=== PATIENT | male | born 1940 | race Caucasian/White ===

== ENCOUNTER 2016-11-01 22:00 | Emergency (ER) | payer MEDICARE, MEDICAID ==
[~2016-11-01] VITALS: Ht 182.9 cm; Wt 107.0 kg
[~2016-11-01 22:00] MED LIST: ADV1DS; ALBU0.8322 IH; ARIP2TAB10 PO; ASP81CT; ASP81TEC PO; AZIT-21 PO; BUDE3CAP PO; BUDE6HFA IH; CEFD300C3 PO; CITA-105 PO; CITA20TA4 PO; CLON0.5T3 PO; CLON0.5T60 PO; CLON1TAB3 PO; CLON1TAB36 PO; CTLP20T PO; CYAN100053 IJ; CYAN10007 PO; CYAN100071 PO; DAPS100T3 PO; DILT120C; DILT120C PO; DILT120C54 PO; DILT120C85; DIOVAN HCT; DOXY100C2 PO; FLDR.1T PO; FLUD0.1T7 PO; FLUT1DIS26 IH; FURO40TA4 PO; HYDR-31; HYDR-34 PO; IPRA3AMP19 IH; KCL20TCR PO; LOSA100T16 PO; LOSA100T7 PO; MECL-105 PO; MECL-124 PO; MECL-133; METH4TAB PO; MGX400T PO; MOME0.244; MOME13HF IH; NF-ALI300T PO; OMEP-10 PO; OMEP20CA12; OMEP20CA6 PO; PNT40TEC; POTA8TAB6; POTA8TAB6 PO; PRD20T PO; PROP1TAB77 PO; SRTR100T PO; TEMA15CA54 PO; TEMA30CA PO; TIOT18CA IH; TMZP15C PO; VALS320T8 PO; nascobal
[2016-11-01] MEDS ORDERED: UMEC62.5 IH (22:15)
[2016-11-01] MEDS ORDERED: FLUT1DIS26 IH (22:15)
[2016-11-01] MEDS ORDERED: ATOR10TA66 PO (22:15)
[2016-11-01] MEDS ORDERED: RT-ALBUTEROL/IPRATROPIUM 3 ML (DUONEB) VIAL INH ONE (22:15)
[2016-11-01 22:26] LABS: BASOPHILS % (AUTO) 1 % (0-10); EOSINOPHILS # (AUTO) 0.5 10^3/uL (0.0-0.3); EOSINOPHILS % (AUTO) 7 % (0-10); LYMPHOCYTES # (AUTO) 2.1 X 10^3 (1.0-4.0); LYMPHOCYTES % (AUTO) 26 % (12-44); MEAN CORPUSCULAR HEMOGLOBIN 30 PG (25-34); MEAN CORPUSCULAR HGB CONC 36 G/DL (32-36); MEAN CORPUSCULAR VOLUME 84 FL (80-99); MEAN PLATELET VOLUME 9.9 FL (7.4-10.4); MONOCYTES # (AUTO) 0.6 X 10^3 (0.0-1.0); MONOCYTES % (AUTO) 7 % (0-12); NEUTROPHILS # (AUTO) 4.8 X 10^3 (1.8-7.8); NEUTROPHILS % (AUTO) 60 % (42-75); PLATELET COUNT 191 10^3/uL (130-400); RED BLOOD COUNT 5.09 10^6/uL (4.35-5.85); RED CELL DISTRIBUTION WIDTH 13.1 % (10.0-14.5); WHITE BLOOD COUNT 8.1 10^3/uL (4.3-11.0)
[2016-11-01 22:43] LABS: ALANINE AMINOTRANSFERASE 28 U/L (0-55); ANION GAP 10 MMOL/L (5-14); ASPARTATE AMINO TRANSFERASE 17 U/L (5-34); BILIRUBIN,TOTAL 0.6 MG/DL (0.1-1.0); BLOOD UREA NITROGEN 25 MG/DL (7-18); BUN/CREATININE RATIO 25; CALCIUM 8.9 MG/DL (8.5-10.1); CARBON DIOXIDE 22 MMOL/L (21-32); CHLORIDE 108 MMOL/L (98-107); GFR ESTIMATED > 60; GLUCOSE 203 MG/DL (70-105); POTASSIUM 3.4 MMOL/L (3.6-5.0); SODIUM 140 MMOL/L (135-145); TOTAL PROTEIN 6.9 G/DL (6.4-8.2)
[2016-11-02] MEDS ORDERED: NS 100 ML (IVPB) BAG IV ONE
[2016-11-02] MEDS ORDERED: IOHEXOL 350 MG/ML 100 ML (OMNIPAQUE 350) VIAL IV ONE
[2016-11-02] MEDS ORDERED: NYSTATIN ORAL SUSP 5 ML UDC PO ONE (00:30)
[2016-11-02] MEDS ORDERED: FLUCONAZOLE 150 MG TABLET (ED ONLY) ONE (00:39)
[2016-11-02] MEDS ORDERED: FAMOTIDINE 20MG/2ML IV (PEPCID) IVP ONE (00:45)
[2016-11-02] MEDS ORDERED: NYST1000 PO (01:23)
--- NOTE | 2016-11-02 01:24 | ED General ---
General Chief Complaint: Oral/Throat Problems Stated Complaint: RASH,DIFFICULTY SWALLOWING Nursing Triage Note: PT C/O WORSENING DIFFICULTY SWALLOWING OVER THE PAST 3-4 DAYS. Nursing Sepsis Screen: No Definite Risk Source of Information: Patient Exam Limitations: No Limitations History of Present Illness Time Seen by Provider: 22:04 Initial Comments This 76-year-old gentleman presents to the emergency room with complaints of difficulty swallowing for about 4 days. He has recently been treated for a petechial rash on his chest and neck. He had been on antibiotics and oral prednisone which he completed about one week ago. His treatment course was then changed to topical medications. He denies any pain in the chest or with swallowing but he continues to have difficulty swallowing which is getting worse. There is no differentiation between liquids or solids. Patient was asked to drink a small cup of water in the exam room which he performed without difficulty. However, he maintains he has the sensation of difficulty swallowing , even when swallowing his saliva. Allergies and Home Medications Allergies Coded Allergies: NKANo Known Allergies (Unverified Allergy, Unknown, 09/19/06) Home Medications Albuterol Sulfate 2.5 Mg/3 Ml Solution 2.5 MG IH QID PRN PRN SHORTNESS OF BREATH (Reported) NEEDED FOR SHORTNESS OF BREATH Albuterol Sulfate/Ipratropium 3 Ml Solution 3 ML IH Q4H PRN PRN SHORTNESS OF BREATH (Reported) NEEDED FOR SHORTNESS OF BREATH Aspirin 81 Mg Tabec 81 MG PO , , MONDAY (Reported) Atorvastatin Calcium 10 Mg Tablet 10 MG PO DAILY (Reported) Clonazepam 0.5 Mg Tablet 1 MG PO HS (Reported) Cyanocobalamin 1,000 Mcg Tablet.sa 1,000 MCG PO DAILY (Reported) Fluticasone/Salmeterol 1 Each Blst.w.dev 1 EACH IH BID (Reported) Losartan Potassium 100 Mg Tablet 50 MG PO HS (Reported) TAKES 1/2 (100MG) TABLET DAILY Nystatin 100,000 Unit/1 Ml Oral.susp #150 5 ML PO QID Prescribed by: EDDIE HAWTHORNE on 11/02/16 0123 Omeprazole 20 Mg Capsule.dr 20 MG PO BID (Reported) Sertraline Hcl 100 Mg Tab 100 MG PO BID (Reported) Umeclidinium [place] 62.5 Mcg Blst.w.dev 62.5 MCG IH DAILY (Reported) Constitutional: no symptoms reported EENTM: see HPI Respiratory: no symptoms reported Cardiovascular: no symptoms reported Gastrointestinal: no symptoms reported Genitourinary: no symptoms reported Musculoskeletal: no symptoms reported Skin: see HPI Psychiatric/Neurological: No Symptoms Reported Hematologic/Lymphatic: No Symptoms Reported Past Tbegzec-Xswvyj-Omlryd Hx Patient Social History Alcohol Use: Past History Recreational Drug Use: No (QUIT 35 YRS AGO) Smoking Status: Former Smoker Recent Foreign Travel: No Contact w/Someone Who Travel: No Recent Infectious Disease Expo: No Recent Hopitalizations: Yes Physical Abuse Screen: No Sexual Abuse: No Immunizations Up To Date Tetanus Booster (TDap): Less than 5yrs Date of Pneumonia Vaccine: Aug 15, 2011 Date of Influenza Vaccine: Jul 25, 2016 Seasonal Allergies Seasonal Allergies: No Surgeries HX Surgeries: Yes (BILAT KNEE REPLACEMENTS, right ankle surg, RT HAND CARPAL TUNNEL ) Surgeries: Orthopedic Respiratory Hx Respiratory Disorders: Yes (quit smoking 40yrs. ago) Respiratory Disorders: Asthma, COPD Cardiovascular Hx Cardiac Disorders: Yes (see's Dr. Miner) Cardiac Disorders: Hypertension, Hypotension Neurological Hx Neurological Disorders: Yes Neurological Disorders: Vertigo Reproductive System Hx Reproductive Disorders: No Sexually Transmitted Disease: No HIV/AIDS: No Genitourinary Hx Genitourinary Disorders: No Gastrointestinal Hx Gastrointestinal Disorders: Yes Gastrointestinal Disorders: Gastroesophageal Reflux Musculoskeletal Hx Musculoskeletal Disorders: Yes (ROSY. TKR) Musculoskeletal Disorders: Arthritis Endocrine Hx Endocrine Disorders: Yes Endocrine Disorders: Diabetes, Non-Insulin dep HEENT HX ENT Disorders: Yes (BILAT CARTARACTS REMOVED) HEENT Disorders: Cataract Loss of Vision: Denies Hearing Impairment: Denies Cancer Hx Cancer: No Psychosocial Hx Psychiatric Problems: Yes Behavioral Health Disorders: Depression Integumentary HX Skin/Integumentary Disorder: No Blood Transfusions Hx Blood Disorders: No Adverse Reaction to a Blood Tr: No Family Medical History Family Medial History: Alcoholism 09 SISTER Family history: Asthma 09 SISTER Family history: Cardiovascular disease 03 FATHER Family history: Diabetes mellitus 03 MOTHER 09 SISTER Heart disease 03 FATHER Myocardial infarction 03 FATHER Stroke 03 FATHER No Family History of: Abdominal aortic aneurysm Berks's disease Aphasia Cancer Cancer of colon Cataract Chest pain Congenital heart disease Congestive heart failure Cystic fibrosis Dementia Dysphagia Family history: Allergy Family history: Alzheimer's disease Family history: Arthritis Family history: Breast disease Family history: Gastrointestinal disease Family history: Glaucoma Family history: Hypertension Family history: Osteoporosis Family history: Thyroid disorder Headache Hearing loss History of - anemia History of - disorder History of - respiratory disease History of drug abuse Human immunodeficiency virus (HIV) seropositivity Hypercholesterolemia Infertile Kidney disease Malignant neoplasm of lung Parkinson's disease Prostate cancer Psychotic disorder Seizure disorder Tuberculosis Visual impairment Physical Exam Vital Signs Vital Sign - Last 12Hours 11/01/16 11/01/16 22:07 22:17 Temp 98.7 Pulse 73 Resp 18 B/P 162/103 Pulse Ox 98 O2 Delivery Room Air Capillary Refill : Less Than 3 Seconds General Appearance: WD/WN Mild Distress HEENT: PERRL/EOMI Normal ENT Inspection Pharynx Normal Neck: Normal Inspection Non Tender Supple Respiratory: Lungs Clear Normal Breath Sounds No Accessory Muscle Use No Respiratory Distress Cardiovascular: Regular Rate, Rhythm No Edema Normal Peripheral Pulses Gastrointestinal: Normal Bowel Sounds Non Tender Soft Extremity: Normal Inspection No Pedal Edema Neurologic/Psychiatric: Alert Oriented x3 No Motor/Sensory Deficits Normal 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 Norm as Tested Skin: Normal Color Warm/Dry Progress/Results/Core Measures Results/Orders Lab Results Laboratory Tests Test 11/01/16 22:20 Range/Units Alanine Aminotransferase (ALT/SGPT) 28 0-55 U/L Albumin 4.0 3.2-4.5 G/DL Alkaline Phosphatase 56 40-136 U/L Anion Gap 10 5-14 MMOL/L Aspartate Amino Transf (AST/SGOT) 17 5-34 U/L BUN/Creatinine Ratio 25 Basophils # (Auto) 0.0 0.0-0.1 10^3/uL Basophils (%) (Auto) 1 0-10 % Blood Urea Nitrogen 25 H 7-18 MG/DL C-Reactive Protein High Sensitivity 0.30 0.00-0.50 MG/DL Calcium Level 8.9 8.5-10.1 MG/DL Carbon Dioxide Level 22 21-32 MMOL/L Chloride Level 108 H 98-107 MMOL/L Creatinine 1.00 0.60-1.30 MG/DL Eosinophils # (Auto) 0.5 H 0.0-0.3 10^3/uL Eosinophils (%) (Auto) 7 0-10 % Estimat Glomerular Filtration Rate > 60 Glucose Level 203 H 70-105 MG/DL Hematocrit 43 40-54 % Hemoglobin 15.2 13.3-17.7 G/DL Lymphocytes # (Auto) 2.1 1.0-4.0 X 10^3 Lymphocytes (%) (Auto) 26 12-44 % Mean Corpuscular Hemoglobin 30 25-34 PG Mean Corpuscular Hemoglobin Concent 36 32-36 G/DL Mean Corpuscular Volume 84 80-99 FL Mean Platelet Volume 9.9 7.4-10.4 FL Monocytes # (Auto) 0.6 0.0-1.0 X 10^3 Monocytes (%) (Auto) 7 0-12 % Neutrophils # (Auto) 4.8 1.8-7.8 X 10^3 Neutrophils (%) (Auto) 60 42-75 % Platelet Count 191 130-400 10^3/uL Potassium Level 3.4 L 3.6-5.0 MMOL/L Red Blood Count 5.09 4.35-5.85 10^6/uL Red Cell Distribution Width 13.1 10.0-14.5 % Sodium Level 140 135-145 MMOL/L Total Bilirubin 0.6 0.1-1.0 MG/DL Total Protein 6.9 6.4-8.2 G/DL White Blood Count 8.1 4.3-11.0 10^3/uL My Orders Orders-EDDIE ROCA MD Cbc With Automated Diff (11/01/16 22:12) Comprehensive Metabolic Panel (11/01/16 22:12) Hs C Reactive Protein (11/01/16 22:12) Saline Lock/Iv-Start (11/01/16 22:12) Chest Pa/Lat (2 View) (11/01/16 22:12) Albuterol/Ipra Inhalation Soln (Duoneb I (11/01/16 22:15) Svn Sm Volume Nebulizer Rt-Rfs (11/01/16 22:12) Ct Neck/Chest W (11/01/16 23:10) Iohexol Injection (Omnipaque 350 Mg/Ml 1 (11/02/16 00:00) Ns (Ivpb) (Sodium Chloride 0.9% Ivpb Bag (11/02/16 00:00) Fluconazole Tablet (Ed Only) (Diflucan T (11/02/16 09:00) Nystatin Oral Suspension (Mycostatin O (11/02/16 00:30) Famotidine Injection (Pepcid Injection) (11/02/16 00:45) Fluconazole Tablet (Ed Only) (Diflucan T (11/02/16 00:39) Medications Given in ED Current Medications Medications Dose Ordered Sig/Yaya Route Start Time Stop Time Status Last Admin Dose Admin Albuterol/ Ipratropium 3 ml ONCE ONCE INH 11/01/16 22:15 11/01/16 22:16 DC 11/01/16 22:17 3 ML Famotidine 20 mg ONCE ONCE IVP 11/02/16 00:45 11/02/16 00:46 DC 11/02/16 00:48 20 MG Iohexol 100 ml ONCE ONCE IV 11/02/16 00:00 11/02/16 00:01 DC 11/01/16 23:53 75 ML Nystatin 5 ml ONCE ONCE PO 11/02/16 00:30 11/02/16 00:31 DC 11/02/16 00:47 5 ML Sodium Chloride 100 ml ONCE ONCE IV 11/02/16 00:00 11/02/16 00:01 DC 11/01/16 23:53 80 ML Vital Signs/I&O Vital Sign - Last 12Hours 11/01/16 11/01/16 11/02/16 22:07 22:17 01:30 Temp 98.7 Pulse 73 64 Resp 18 16 B/P 162/103 Pulse Ox 98 95 O2 Delivery Room Air Room Air Blood Pressure Mean: 122 Progress Note : Progress Note Options were discussed with the patient including empiric treatment for possible esophageal candidiasis given the recent use of prednisone and antibiotics in the context of diabetes versus imaging of the neck and chest to evaluate for structural pathology. Patient elects CT scan. There was layering in the esophagus. This was perhaps related to acid reflux or other pathologic process within the esophagus. patient was empirically treated with Diflucan and nystatin swish and swallow. He was advised to increase his omeprazole to twice daily. He was advised that if these conservative measures do not improve his symptoms, he should seek endoscopy and possible swallow eval. Diagnostic Imaging Diagonstic Imaging: CT Plain Films/CT/US/NM/MRI: chest, other (neck soft tissues) Comments Report of CT of the chest and soft tissues of the neck was reviewed. In the neck there were multilevel degenerative changes no other acute abnormalities were identified. In the chest there was small fluid layering in the esophagus which may relate to gastroesophageal reflux or delayed esophageal emptying. There was no evidence of masses. Lungs were clear. Diagonstic Imaging: Xray Plain Films/CT/US/NM/MRI: chest Comments Chest x-ray viewed by me. Report not yet available. No acute abnormalities were appreciated. Departure Impression Impression: Primary Impression: Esophagitis Additional Impression: Dysphagia Qualified Code: R13.10 - Dysphagia, unspecified Disposition: HOME, SELF-CARE Condition: Improved Departure-Patient Inst. Decision time for Depature: 01:00 Referrals: ENRRIQUE JALLOH DO (PCP/Family) Primary Care Physician Patient Instructions: NO INSTRUCTIONS GIVEN Add. Discharge Instructions: Take omeprazole 20 mg twice daily until otherwise instructed by your doctor. Use the nystatin medication for at least one week. Follow-up with your primary care provider soon as possible. If symptoms do not resolve with nystatin, you should have upper endoscopy performed. Return to the ER if symptoms worsen. All discharge instructions reviewed with patient and/or family. Voiced understanding. Scripts Nystatin 100,000 Unit/1 Ml Oral.susp5 Ml PO QID #150 ML Prov:EDDIE ROCA MD 11/02/16 Copy Copies To 1: ENRRIQUE JALLOH JOSHUA T MD Nov 02, 2016 01:24
[2016-11-02 01:30] VITALS: BP 141/81
--- NOTE | 2016-11-02 08:17 | Diagnostic Imaging Report ---
EXAMINATION: PA and lateral views of the chest. INDICATION: Difficulty swallowing. FINDINGS: There are low lung volumes seen. No focal consolidation. The heart size is at the upper limits of normal. No effusion or pneumothorax. Mediastinum and elise appear unremarkable. IMPRESSION: Low lung volumes. Dictated by: Dictated on workstation # [id number]
[2016-11-02] MEDS ORDERED: FLUCONAZOLE 150 MG TABLET (ED ONLY) PO SCH (09:00)
--- NOTE | 2016-11-02 09:06 | Diagnostic Imaging Report ---
EXAMINATION: CT neck and chest. INDICATION: Difficulty swallowing. 75 mL of Omnipaque 350 is administered intravenously. FINDINGS: CT NECK: The mucosal pharyngeal space appear symmetric. Symmetric vocal cords seen. The thyroid gland appears unremarkable. The submandibular and parotid glands appear unremarkable. There is tortuosity of the internal carotid arteries with retropharyngeal course seen bilaterally with their most prominent medial location along the lower aspect of the oropharynx. There are prominent multilevel anterior osteophytes in the cervical spine including C5/C6 level osteophytes eccentric to the left which has an impression upon the proximal esophagus. It is uncertain if this contributes to the patient's symptoms. The visualized portions of the paranasal sinuses demonstrate mild mucosal thickening in the ethmoidal air cells and the inferior aspect of the maxillary sinuses. The lymph node chain demonstrates no significantly enlarged nodes on either side. CT CHEST: There is no significant consolidation, or mass seen. There is an indeterminate 4 mm nodule seen in the right upper lobe image 25. This is stable from 11/19/2009 with no significant change. The heart size is normal. The thoracic aorta is normal in caliber. No para-aortic significantly enlarged lymph node is seen. No mediastinal or hilar lymphadenopathy. No mediastinal lymphadenopathy is seen. No pericardial or pleural effusion. There is a small amount of fluid layering in the mid esophagus. This could be related to reflux or incomplete emptying. No dilatation or evidence of obstruction. Sections in the upper abdomen demonstrate no definite abnormality. The osseous structures demonstrate mild degenerative changes and anterior osteophytes in the thoracic spine. IMPRESSION: CT NECK: Prominent anterior osteophytes at C5/6 level which has an impression upon the proximal esophagus. It is uncertain if this is contributing to patient's symptoms. Incidental note of a tortuous retropharyngeal course of the internal carotid arteries bilaterally. CT CHEST: Small amount of fluid in the mid esophagus with no abnormal dilatation seen. This might relate to reflux or incomplete emptying. No significant abnormality seen otherwise. This reading agrees with the [facility] report. Dictated by: Dictated on workstation # [id number]
== END 2016-11-02 01:30 | disposition home or self-care (01) ==
LOC: EDUNIT# 22:00 → ER 22:01
DX: K20.9 Esophagitis, unspecified (principal); E11.9 Type 2 diabetes mellitus without complications; I10 Essential (primary) hypertension; J44.9 Chronic obstructive pulmonary disease, unspecified; Z79.82 Long term (current) use of aspirin; Z79.899 Other long term (current) drug therapy
CPT/HCPCS: 36415; 70491; 71020; 71260; 80053; 85025; 86141; 94640; 96374

== ENCOUNTER → 2016-11-18 | Outpatient (CLI) | payer MEDICARE, MEDICAID ==
[~2016-11-18] MED LIST changes: +ATOR10TA66 PO; +NYST1000 PO; +UMEC62.5 IH
--- OUTSIDE RECORDS SUMMARY | 2016-11-18 10:16 | XMS REPORT | Continuity of Care Document ---
Author Author [facility] Organization [facility] Address Unknown Phone Unavailable Care Team Providers Care Chute Operator Name Role Phone ENRRIQUE JALLOH DO PCP Insurance Providers Payer Name Policy Number Subscriber Name Relationship [employer] Medicare [id number] Ramos Cody 18 Self / Same As Patient [facility] [employer] [id number] Christina Cody 18 Self / Same As Patient Advance Directives Directive Response Recorded Date/Time Advance Directives No 11/01/16 10:09pm Health Care Power of Children'S Minister No 11/01/16 10:09pm Organ Donor No 11/01/16 10:09pm Resuscitation Status DNR-Pt Request 11/01/16 10:09pm Chief Complaint and Reason for Visit Chief Complaint Oral/Throat Problems Reason for Visit Dysphagia Esophagitis Problems Active Problems Medical Problem Onset Date Status COPD Exacerbation Unknown Acute Dysphagia Unknown Acute Esophagitis Unknown Acute Generalized weakness Unknown Acute Vertigo Unknown Acute Medications Current Home Medications Medication Dose Units Route Directions Days/Qty Instructions Start Date Cyanocobalamin 1,000 Mcg 1,000 Mcg Oral Daily 11/19/09 Aspirin 81 Mg 81 Mg Oral , , Monday11/20/09 Omeprazole 20 Mg 20 Mg Oral Twice A Day 01/28/12 Losartan Potassium 100 Mg 50 Mg Oral Bedtime TAKES 1/2 (100MG) TABLET DAILY 01/14/13 Clonazepam (Klonopin) 0.5 Mg 1 Mg Oral Bedtime 10/28/13 Albuterol Sulfate 2.5 Mg/3 Ml 2.5 Mg Inhalation Four Times Daily as needed for Shortness Of Breath NEEDED FOR SHORTNESS OF BREATH 10/28/13 Sertraline Hcl 100 Mg 100 Mg Oral Twice A Day 10/28/13 Albuterol Sulfate/Ipratropium 3 Ml 3 Ml Inhalation Every 4HRS as needed for Shortness Of Breath NEEDED FOR SHORTNESS OF BREATH 12/19/13 Umeclidinium [place] 62.5 Mcg 62.5 Mcg Inhalation Daily 11/01/16 Fluticasone/Salmeterol 1 Each 1 Each Inhalation Twice A Day 11/01/16 Atorvastatin Calcium 10 Mg 10 Mg Oral Daily 11/01/16 Nystatin 100,000 Unit/1 Ml 5 Ml Oral Four Times Daily 150 11/02/16 Past Home Medications Medication Directions Ordered Status Acetaminophen/Hydrocodone Bitart 1 Ea Tab, 09/19/06 Discontinued Pantoprazole Sodium 40 Mg Tablet., 09/19/06 Discontinued Omeprazole 20 Mg Capsule., 08/28/07 Discontinued [Diovan Hct 320/25MG] , 08/28/07 Discontinued Aspirin 81 Mg Tablet, 08/28/07 Discontinued Salmeterol Xinafoate/Fluticasone 250 Mcg/50 Mcg Inh, 08/28/07 Discontinued Potassium Chloride 8 Meq Tablet.sa, 05/30/09 Discontinued Diltiazem Hcl (Tiazac) 120 Mg Capsule.sa, 05/30/09 Discontinued Meclizine Hcl 25 Mg Tab.chew, 05/30/09 Discontinued Potassium Chloride 20 Meq Tabsr, 2 Tab Oral Twice A Day 11/19/09 Discontinued Mometasone Furoate 0.24 Gm Aer.pow.ba, 11/19/09 Discontinued Magnesium Oxide 400 Mg Tab, 400 Mg Oral Daily 11/19/09 Discontinued Omeprazole 20 Mg Capsule., 40 Mg Oral Daily 11/20/09 Discontinued Valsartan 320 Mg Tablet, 1 Each Oral Daily 11/20/09 Discontinued Diltiazem Hcl (Cardizem Cd) 120 Mg Cap.sr.24h, 11/20/09 Discontinued Diltiazem Hcl (Cardizem Cd) 120 Mg Cap.sr.24h, 1 Each Oral Twice A Day Discontinued Meclizine Hcl 25 Mg Tab, 1 Tab Oral Twice A Day 11/20/09 Discontinued [place] Hemifumarate 300 Mg Tab, 300 Mg Oral Daily 08/11/10 Discontinued Budesonide 3 Mg Cap.sr.24h, 1 Oral Daily 08/11/10 Discontinued Losartan Potassium 100 Mg Tablet, 100 Mg Oral Daily 08/11/10 Discontinued Furosemide (Lasix) 40 Mg Tablet, 40 Mg Oral Daily 08/11/10 Discontinued Propoxyphene Hcl/Acetaminophen 1 Tab Tablet, 1 Each Oral Q 4 - 6 Hrs Prn as needed 08/11/10 Discontinued Budesonide/Formoterol Fumarate 10.2 Gm Hfa.aer.ad, 10.2 Gm Inhalation Twice A Day 11/22/10 Discontinued Potassium Chloride 8 Meq Tablet.sa, 16 Meq Oral Twice A Day 11/22/10 Discontinued Tiotropium [place] 1 Inh Aerp, 1 Cap Inhalation Daily 11/24/10 Discontinued Clonazepam 1 Mg Tablet, 1 Each Oral Twice A Day 12/08/11 Discontinued Citalopram Hydrobromide 40 Mg Tablet, 40 Mg Oral Daily 12/08/11 Discontinued Temazepam 30 Mg Capsule, 30 Mg Oral Bedtime 12/08/11 Discontinued Meclizine Hcl 25 Mg Tab, 1 Tab Oral Four Times Daily 12/08/11 Discontinued [Nascobal] , 1 [place] Nasal Weekly 12/08/11 Discontinued Cyanocobalamin 1,000 Mcg Tablet.sa, 1 Tab Oral Daily 01/28/12 Discontinued Citalopram Hydrobromide 20 Mg Tablet, 1 Tab Oral Bedtime 01/28/12 Discontinued Losartan Potassium 100 Mg Tablet, 50 Mg Oral Daily 05/24/12 Discontinued Dapsone 100 Mg Tab, 100 Mg Oral Daily 05/24/12 Discontinued Fludrocortisone Acetate 0.1 Mg Tablet, 0.1 Mg Oral Daily 08/07/12 Discontinued Prednisone 20 Mg Tab, 20 Mg Oral Twice A Day 08/10/12 Discontinued Azithromycin (Zpak) 250 Mg Tab, 0 Oral Z-Dale 08/10/12 Discontinued Cyanocobalamin (Vitamin B-12) 1,000 Mcg Tablet.er, 1000 Mcg Oral 10/23/12 Discontinued Meclizine Hcl 25 Mg Tablet, 25 Mg Oral Twice A Day 10/23/12 Discontinued Temazepam 15 Mg Capsule, 1 Cap Oral Bedtime 10/23/12 Discontinued Salmeterol Xinafoate/Fluticasone 1 Disk Inhp, 1 Puff Inhalation Twice A Day 01/14/13 Discontinued Clonazepam 1 Mg Tablet, 1 Each Oral Twice A Day 01/14/13 Discontinued Citalopram Hydrobromide 40 Mg Tablet, 40 Mg Oral Daily 01/14/13 Discontinued Fludrocortisone Acetate 0.1 Mg Tab, 0.1 Mg Oral Daily 01/14/13 Discontinued Citalopram Hydrobromide 20 Mg Tablet, 20 Mg Oral Bedtime 01/16/13 Discontinued Clonazepam (Klonopin 0.5 Mg) 0.5 Mg/Tab Tab.rapdis, 0.5 Mg Oral Twice A Day 01/16/13 Discontinued Prednisone 20 Mg Tab, 20 Mg Oral Twice A Day 01/16/13 Discontinued Methylprednisolone 4 Mg/Dose-Pack Tab.ds.pk, 0 Oral As Directed 10/28/13 Discontinued Aripiprazole 2 Mg Tablet, 2 Mg Oral Daily 10/28/13 Discontinued Temazepam 15 Mg Capsule, 15 Mg Oral Bedtime as needed for Sleep 10/28/13 Discontinued Mometasone/Formoterol 13 Gm Hfa.aer.ad, 2 Puff Inhalation Twice A Day Discontinued Cyanocobalamin (Vitamin B 12 Injecting) 1,000 Mcg/Ml Vial, 1000 Mcg Injection Monthly 10/28/13 Discontinued Azithromycin (Zpak) 250 Mg Tab, 2 Tab Oral Today 10/30/13 Discontinued Cefdinir (Omnicef) 300 Mg Capsule, 2 Each Oral Daily 10/30/13 Discontinued Prednisone 20 Mg Tab, 20 Mg Oral Twice A Day 10/30/13 Discontinued Albuterol Sulfate/Ipratropium 3 Ml Solution, 3 Ml Inhalation Every 4HRS 12/13 Discontinued Prednisone 20 Mg Tab, 40 Mg Oral Daily 12/13/13 Discontinued Doxycycline Hyclate (Vibramycin) 100 Mg Capsule, 1 Each Oral Twice A Day Discontinued Prednisone 20 Mg Tab, 20 Mg Oral Twice A Day 12/20/13 Discontinued Social History Social History Problem Response Recorded Date/Time Alcohol Use Denies Use 09/02/2015 12:50pm Recreational Drug Use No 09/02/2015 12:50pm Recent Foreign Travel No 12/18/2013 3:50pm Recent Infectious Disease Exposure No 12/18/2013 3:50pm Hospitalization with Isolation Denies 12/20/2013 11:09am Sexually Transmitted Disease No 11/01/2016 10:09pm HIV/AIDS No 11/01/2016 10:09pm Smoking Status Former Smoker 11/01/2016 10:09pm Do you dip or chew tobacco? No 09/02/2015 12:50pm Recent Hopitalizations Yes 11/01/2016 10:09pm Sexually Transmitted Disease No 11/01/2016 10:09pm Hospitalization with Isolation Denies 12/20/2013 11:09am Query Response Start Date Stop Date Smoking Status Former Smoker Hospital Discharge Instructions No hospital discharge instructions. Plan of Care Discharge Date 11/02/16 1:30am Disposition 01 HOME, SELF-CARE Condition at Discharge Improved Instructions/Education Provided NO INSTRUCTIONS GIVEN Prescriptions See Medication Section Referrals ENRRIQUE JALLOH DO - Primary Care Physician Additional Instructions/Education Take omeprazole 20 mg twice daily until otherwise instructed by your doctor. Use the nystatin medication for at least one week. Follow-up with your primary care provider soon as possible. If symptoms do not resolve with nystatin, you should have upper endoscopy performed. Return to the ER if symptoms worsen. All discharge instructions reviewed with patient and/or family. Voiced understanding. Functional Status No functional status results. Allergies, Adverse Reactions, Alerts Allergen Type Severity Reaction Status Last Updated NKANo Known Allergies Allergy Unknown Active 09/19/06 Immunizations No immunization records. Vital Signs Acute Vital Signs Vital Response Date/Time Temperature (Fahrenheit) 98.7 degrees F (97.6 - 99.5) 11/01/2016 10:07pm Temperature (Calculated Celsius) 37.28493 degrees C (36.4 - 37.5) 11/01/2016 10:07pm Temperature Source Tympanic 11/01/2016 10:07pm Pulse Rate (adult) 64 bpm (60 - 90) 11/02/2016 1:30am Respiratory Rate 16 bpm (12 - 24) 11/02/2016 1:30am O2 Sat by Pulse Oximetry 95 % (88 - 100) 11/02/2016 1:30am Blood Pressure 141/81 mm Hg 11/02/2016 1:30am Blood Pressure Mean 122 mm Hg 11/01/2016 10:07pm Pain Numeric Pain Scale 0-No Pain 11/02/2016 1:30am Height (Feet) 6 feet 11/01/2016 10:07pm Height (Calculated Centimeters) 182.149030 cm 11/01/2016 10:07pm Weight (Pounds) 236 pounds 11/01/2016 10:07pm Weight (Calculated Kilograms) 107.661836 kilograms 11/01/2016 10:07pm Capillary Refill Capillary Refill Less Than 3 Seconds 11/01/2016 10:07pm Height 6 ft 0 in Weight 236 lb Body Mass Index 32.0 kg/m^2 Results Laboratory Results Test Name Result Units Flags Reference Collection Date/Time Result Date/ Time Comments White Blood Count 8.1 10^3/uL 4.3-11.0 11/01/2016 10:20pm 11/01/2016 10 :27pm Red Blood Count 5.09 10^6/uL 4.35-5.85 11/01/2016 10:20pm 11/01/2016 10 :27pm Hemoglobin 15.2 G/DL 13.3-17.7 11/01/2016 10:20pm 11/01/2016 10:27pm Hematocrit 43 % 40-54 11/01/2016 10:20pm 11/01/2016 10:27pm Mean Corpuscular Volume 84 FL 80-99 11/01/2016 10:20pm 11/01/2016 10: 27pm Mean Corpuscular Hemoglobin 30 PG 25-34 11/01/2016 10:20pm 11/01/2016 10:27pm Mean Corpuscular Hemoglobin Concent 36 G/DL 32-36 11/01/2016 10:20pm 10:27pm Red Cell Distribution Width 13.1 % 10.0-14.5 11/01/2016 10:20pm 2016 10:27pm Platelet Count 191 10^3/uL 130-400 11/01/2016 10:20pm 11/01/2016 10: 27pm Mean Platelet Volume 9.9 FL 7.4-10.4 11/01/2016 10:20pm 11/01/2016 10: 27pm Neutrophils (%) (Auto) 60 % 42-75 11/01/2016 10:20pm 11/01/2016 10: 27pm Lymphocytes (%) (Auto) 26 % 12-44 11/01/2016 10:20pm 11/01/2016 10: 27pm Monocytes (%) (Auto) 7 % 0-12 11/01/2016 10:20pm 11/01/2016 10:27pm Eosinophils (%) (Auto) 7 % 0-10 11/01/2016 10:20pm 11/01/2016 10:27pm Basophils (%) (Auto) 1 % 0-10 11/01/2016 10:20pm 11/01/2016 10:27pm Neutrophils # (Auto) 4.8 X 10^3 1.8-7.8 11/01/2016 10:20pm 11/01/2016 10:27pm Lymphocytes # (Auto) 2.1 X 10^3 1.0-4.0 11/01/2016 10:20pm 11/01/2016 10:27pm Monocytes # (Auto) 0.6 X 10^3 0.0-1.0 11/01/2016 10:20pm 11/01/2016 10: 27pm Eosinophils # (Auto) 0.5 10^3/uL H 0.0-0.3 11/01/2016 10:20pm 11/01/2016 10:27pm Basophils # (Auto) 0.0 10^3/uL 0.0-0.1 11/01/2016 10:20pm 11/01/2016 10 :27pm Sodium Level 140 MMOL/L 135-145 11/01/2016 10:20pm 11/01/2016 10:45pm Potassium Level 3.4 MMOL/L L 3.6-5.0 11/01/2016 10:20pm 11/01/2016 10: 45pm Chloride Level 108 MMOL/L H 98-107 11/01/2016 10:20pm 11/01/2016 10:45pm Carbon Dioxide Level 22 MMOL/L 21-32 11/01/2016 10:20pm 11/01/2016 10: 45pm Anion Gap 10 MMOL/L 5-14 11/01/2016 10:20pm 11/01/2016 10:45pm Blood Urea Nitrogen 25 MG/DL H 7-18 11/01/2016 10:20pm 11/01/2016 10: 45pm Creatinine 1.00 MG/DL 0.60-1.30 11/01/2016 10:20pm 11/01/2016 10:45pm BUN/Creatinine Ratio 25 11/01/2016 10:20pm 11/01/2016 10:45pm Estimat Glomerular Filtration Rate > 60 11/01/2016 10:20pm 2016 10:45pm GFR INTERPRETIVE DATA UNITS FOR ESTIMATED GFR (eGFR): mL/min/1.73 M2 REFERENCE RANGE FOR ESTIMATED GFR (eGFR) eGFR NORMAL eGFR >60 MODERATELY DECREASED eGFR 30-59 SEVERLY DECREASED eGFR 15-29 KIDNEY FAILURE <15 (OR DIALYSIS) Glucose Level 203 MG/DL H 70-105 11/01/2016 10:20pm 11/01/2016 10:45pm Calcium Level 8.9 MG/DL 8.5-10.1 11/01/2016 10:20pm 11/01/2016 10:45pm Total Bilirubin 0.6 MG/DL 0.1-1.0 11/01/2016 10:20pm 11/01/2016 10: 45pm Alkaline Phosphatase 56 U/L 40-136 11/01/2016 10:20pm 11/01/2016 10: 45pm Aspartate Amino Transf (AST/SGOT) 17 U/L 5-34 11/01/2016 10:20pm 2016 10:45pm Alanine Aminotransferase (ALT/SGPT) 28 U/L 0-55 11/01/2016 10:20pm 07/2017 10:45pm Total Protein 6.9 G/DL 6.4-8.2 11/01/2016 10:20pm 11/01/2016 10:45pm Albumin 4.0 G/DL 3.2-4.5 11/01/2016 10:20pm 11/01/2016 10:45pm C-Reactive Protein High Sensitivity 0.30 MG/DL 0.00-0.50 11/01/2016 10: 20pm 11/01/2016 10:45pm Procedures No known history of procedures. Encounters Encounter Location Arrival/Admit Date Discharge/Depart Date Attending Provider Departed Emergency Room [facility] 11/01/16 10:01pm 09/08 1:30am EDDIE ROCA MD Recent Diagnosis
== END ==
LOC: RAD 10:09
PROVIDERS: ATTEND Family Medicine
DX: R13.12 Dysphagia, oropharyngeal phase (principal)
CPT/HCPCS: 74230

== ENCOUNTER → 2017-01-19 | Outpatient (CLI) | payer MEDICARE, MEDICAID ==
[2017-01-19 08:35] LABS: BASOPHILS # (AUTO) 0.1 10^3/uL (0.0-0.1); BASOPHILS % (AUTO) 1 % (0-10); EOSINOPHILS # (AUTO) 0.7 10^3/uL (0.0-0.3); EOSINOPHILS % (AUTO) 11 % (0-10); LYMPHOCYTES # (AUTO) 1.6 X 10^3 (1.0-4.0); LYMPHOCYTES % (AUTO) 24 % (12-44); MEAN CORPUSCULAR HEMOGLOBIN 30 PG (25-34); MEAN CORPUSCULAR HGB CONC 35 G/DL (32-36); MEAN CORPUSCULAR VOLUME 86 FL (80-99); MONOCYTES # (AUTO) 0.6 X 10^3 (0.0-1.0); MONOCYTES % (AUTO) 8 % (0-12); NEUTROPHILS # (AUTO) 3.8 X 10^3 (1.8-7.8); NEUTROPHILS % (AUTO) 56 % (42-75); PLATELET COUNT 180 10^3/uL (130-400); RED BLOOD COUNT 5.15 10^6/uL (4.35-5.85); RED CELL DISTRIBUTION WIDTH 13.4 % (10.0-14.5); WHITE BLOOD COUNT 6.8 10^3/uL (4.3-11.0)
[2017-01-19 09:05] LABS: ALANINE AMINOTRANSFERASE 22 U/L (0-55); ALBUMIN 3.9 G/DL (3.2-4.5); ANION GAP 5 MMOL/L (5-14); ASPARTATE AMINO TRANSFERASE 19 U/L (5-34); BILIRUBIN,TOTAL 0.4 MG/DL (0.1-1.0); BLOOD UREA NITROGEN 20 MG/DL (7-18); BUN/CREATININE RATIO 17; CALCIUM 8.9 MG/DL (8.5-10.1); CARBON DIOXIDE 27 MMOL/L (21-32); CHLORIDE 110 MMOL/L (98-107); CREATININE SERUM 1.16 MG/DL (0.60-1.30); GFR ESTIMATED > 60; GLUCOSE 145 MG/DL (70-105); SODIUM 142 MMOL/L (135-145); TOTAL PROTEIN 6.7 G/DL (6.4-8.2)
[2017-01-19 09:14] LABS: BAND NEUTROPHILS 0 %; BASOPHILS % (MANUAL) 2 %; EOSINOPHILS % (MANUAL) 15 %; LYMPHOCYTES % (MANUAL) 26 %; NEUTROPHILS % (MANUAL) 50 %
== END ==
LOC: LAB 08:21
PROVIDERS: ATTEND Family Medicine
DX: E78.2 Mixed hyperlipidemia (principal); R73.01 Impaired fasting glucose; I10 Essential (primary) hypertension; R53.83 Other fatigue
CPT/HCPCS: 36415; 80053; 83036; 85007; 85027

== ENCOUNTER 2017-04-06 16:40 | Emergency (ER) | payer MEDICARE, MEDICAID ==
[~2017-04-06] VITALS: Ht 182.9 cm; Wt 98.9 kg
[2017-04-06] MEDS ORDERED: METF100P2 MC (17:17)
--- NOTE | 2017-04-06 17:35 | ED Integumentary General ---
General Chief Complaint: Skin/Wound Problems Stated Complaint: PT FELL/RT ARM LACERATION Nursing Triage Note: pt ambulated to room, pt states he was outside and fell onto the pavement. skin tear on right elbow. no other pain noted at this time. pt denies hitting head, and no loss of conciousness. unsure when last tetnus was. Source: patient Exam Limitations: no limitations History of Present Illness Time seen by provider: 17:33 Initial Comments To ER with a skin tear to the dorsal right elbow from a fall while he was mowing his yard just prior to arrival. Tetanus is not up-to-date. No other injuries. Did not hit his head. Timing/Duration: just prior to arrival Severity: moderate Associated Symptoms: denies symptoms Allergies and Home Medications Allergies Coded Allergies: NKANo Known Allergies (Unverified Allergy, Unknown, 09/19/06) Home Medications Albuterol Sulfate 2.5 Mg/3 Ml Solution, 2.5 MG IH QID PRN for SHORTNESS OF BREATH, (Reported) NEEDED FOR SHORTNESS OF BREATH Albuterol Sulfate/Ipratropium 3 Ml Solution, 3 ML IH Q4H PRN for SHORTNESS OF BREATH, (Reported) NEEDED FOR SHORTNESS OF BREATH Aspirin 81 Mg Tabec, 81 MG PO , , MONDAY, (Reported) Atorvastatin Calcium 10 Mg Tablet, 10 MG PO DAILY, (Reported) Clonazepam 0.5 Mg Tablet, 1 MG PO HS, (Reported) Cyanocobalamin 1,000 Mcg Tablet.sa, 1,000 MCG PO DAILY, (Reported) Fluticasone/Salmeterol 1 Each Blst.w.dev, 1 EACH IH BID, (Reported) Losartan Potassium 100 Mg Tablet, 50 MG PO HS, (Reported) TAKES 1/2 (100MG) TABLET DAILY Metformin HCl 100 Gm Powder, 100 GM MC, (Reported) Nystatin 100,000 Unit/1 Ml Oral.susp, 5 ML PO QID, #150 Prescribed by: EDDIE HAWTHORNE on 11/02/16 0123 Omeprazole 20 Mg Capsule.dr, 20 MG PO BID, (Reported) Sertraline Hcl 100 Mg Tab, 100 MG PO BID, (Reported) Umeclidinium [place] 62.5 Mcg Blst.w.dev, 62.5 MCG IH DAILY, (Reported) Constitutional: see HPI EENTM: see HPI Respiratory: no symptoms reported Cardiovascular: no symptoms reported Genitourinary: no symptoms reported Musculoskeletal: no symptoms reported Skin: see HPI Psychiatric/Neurological: No Symptoms Reported Endocrine: No Symptoms Reported Past Icpmane-Xyzkbo-Uxbjvp Hx Patient Social History Alcohol Use: Denies Use Recreational Drug Use: No (QUIT 35 YRS AGO) Smoking Status: Former Smoker 2nd Hand Smoke Exposure: No Recent Foreign Travel: No Contact w/Someone Who Travel: No Recent Infectious Disease Expo: No Recent Hopitalizations: No Immunizations Up To Date Tetanus Booster (TDap): Unknown Date of Pneumonia Vaccine: Aug 15, 2011 Date of Influenza Vaccine: Jul 25, 2016 Seasonal Allergies Seasonal Allergies: No Surgeries HX Surgeries: Yes (BILAT KNEE REPLACEMENTS, right ankle surg, RT HAND CARPAL TUNNEL ) Surgeries: Orthopedic Respiratory Hx Respiratory Disorders: Yes (quit smoking 40yrs. ago) Respiratory Disorders: Asthma, COPD Cardiovascular Hx Cardiac Disorders: Yes (see's Dr. Miner) Cardiac Disorders: Hypertension, Hypotension Neurological Hx Neurological Disorders: Yes Neurological Disorders: Vertigo Reproductive System Hx Reproductive Disorders: No Sexually Transmitted Disease: No HIV/AIDS: No Genitourinary Hx Genitourinary Disorders: No Gastrointestinal Hx Gastrointestinal Disorders: Yes Gastrointestinal Disorders: Gastroesophageal Reflux Musculoskeletal Hx Musculoskeletal Disorders: Yes (ROSY. TKR) Musculoskeletal Disorders: Arthritis Endocrine Hx Endocrine Disorders: Yes Endocrine Disorders: Diabetes, Non-Insulin dep HEENT HX ENT Disorders: Yes (BILAT CARTARACTS REMOVED) HEENT Disorders: Cataract Loss of Vision: Denies Hearing Impairment: Denies Cancer Hx Cancer: No Psychosocial Hx Psychiatric Problems: Yes Behavioral Health Disorders: Depression Integumentary HX Skin/Integumentary Disorder: No Blood Transfusions Hx Blood Disorders: No Adverse Reaction to a Blood Tr: No Family Medical History Family Medial History: Alcoholism 09 SISTER Family history: Asthma 09 SISTER Family history: Cardiovascular disease 03 FATHER Family history: Diabetes mellitus 03 MOTHER 09 SISTER Heart disease 03 FATHER Myocardial infarction 03 FATHER Stroke 03 FATHER No Family History of: Abdominal aortic aneurysm Worth's disease Aphasia Cancer Cancer of colon Cataract Chest pain Congenital heart disease Congestive heart failure Cystic fibrosis Dementia Dysphagia Family history: Allergy Family history: Alzheimer's disease Family history: Arthritis Family history: Breast disease Family history: Gastrointestinal disease Family history: Glaucoma Family history: Hypertension Family history: Osteoporosis Family history: Thyroid disorder Headache Hearing loss History of - anemia History of - disorder History of - respiratory disease History of drug abuse Human immunodeficiency virus (HIV) seropositivity Hypercholesterolemia Infertile Kidney disease Malignant neoplasm of lung Parkinson's disease Prostate cancer Psychotic disorder Seizure disorder Tuberculosis Visual impairment Physical Exam Vital Signs Vital Sign - Last 12Hours 04/06/17 17:09 Temp 98.1 Pulse 73 Resp 18 B/P (MAP) 123/72 Pulse Ox 94 O2 Delivery Room Air Capillary Refill : Less Than 3 Seconds General Appearance: WD/WN, no apparent distress HEENT: PERRL/EOMI, normal ENT inspection Neck: non-tender, full range of motion Respiratory: normal breath sounds, no respiratory distress, no accessory muscle use Gastrointestinal: normal bowel sounds, non tender, soft Neurologic/Psychiatric: alert, normal mood/affect, oriented x 3 Skin: normal color, warm/dry Skin Problem Location: upper extremities Skin Problem Character: other (superficial skin tear to the dorsal aspect of the right elbow with no active bleeding. Skin reapproximated and held in place with Steri-Strips) Progress/Results/Core Measures Results/Orders My Orders Orders - MILIND FERNANDO APRN Dipht,Pertuss(Acell),Tet Adult (Boostrix (04/06/17 17:45) Vital Signs/I&O Vital Sign - Last 12Hours 04/06/17 17:09 Temp 98.1 Pulse 73 Resp 18 B/P (MAP) 123/72 Pulse Ox 94 O2 Delivery Room Air Blood Pressure Mean: 89 Departure Impression Impression: Primary Impression: Skin tear Disposition: 01 HOME, SELF-CARE Condition: Stable Departure-Patient Inst. Decision time for Depature: 17:35 Referrals: ENRRIQUE JALLOH DO (PCP/Family) Primary Care Physician Patient Instructions: Wound Care Add. Discharge Instructions: All discharge instructions reviewed with patient and/or family. Voiced understanding. MILIND FERNANDO APRN Apr 06, 2017 17:35
[2017-04-06 17:41] VITALS: BP 123/72
[2017-04-06] MEDS ORDERED: TETANUS,DIPTH,PERTUSS P/F (BOOSTRIX) 0.5 ML VIAL IM ONE (17:45)
== END 2017-04-06 17:41 | disposition home or self-care (01) ==
LOC: EDUNIT# 16:40 → ER 16:44
DX: S51.011A Laceration without foreign body of right elbow, initial encounter (principal); E11.9 Type 2 diabetes mellitus without complications; I10 Essential (primary) hypertension; J44.9 Chronic obstructive pulmonary disease, unspecified; Z87.891 Personal history of nicotine dependence; Z79.84 Long term (current) use of oral hypoglycemic drugs; W01.198A Fall on same level from slipping, tripping and stumbling with subsequent striking against other object, initial encounter; Y93.H2 Activity, gardening and landscaping
CPT/HCPCS: 90715

== ENCOUNTER → 2017-05-20 | Outpatient (CLI) | payer MEDICARE, MEDICAID ==
[~2017-05-20] MED LIST changes: +METF100P2 MC
[2017-05-20 09:42] LABS: BASOPHILS % (AUTO) 0 % (0-10); EOSINOPHILS # (AUTO) 0.4 10^3/uL (0.0-0.3); EOSINOPHILS % (AUTO) 6 % (0-10); LYMPHOCYTES # (AUTO) 1.5 X 10^3 (1.0-4.0); LYMPHOCYTES % (AUTO) 21 % (12-44); MEAN CORPUSCULAR HEMOGLOBIN 29 PG (25-34); MEAN CORPUSCULAR HGB CONC 34 G/DL (32-36); MEAN CORPUSCULAR VOLUME 87 FL (80-99); MEAN PLATELET VOLUME 10.1 FL (7.4-10.4); MONOCYTES # (AUTO) 0.5 X 10^3 (0.0-1.0); MONOCYTES % (AUTO) 7 % (0-12); NEUTROPHILS # (AUTO) 4.6 X 10^3 (1.8-7.8); NEUTROPHILS % (AUTO) 66 % (42-75); PLATELET COUNT 181 10^3/uL (130-400); RED BLOOD COUNT 4.96 10^6/uL (4.35-5.85); RED CELL DISTRIBUTION WIDTH 13.4 % (10.0-14.5)
[2017-05-20 10:05] LABS: ALANINE AMINOTRANSFERASE 21 U/L (0-55); ALBUMIN 4.1 GM/DL (3.2-4.5); ANION GAP 11 MMOL/L (5-14); ASPARTATE AMINO TRANSFERASE 16 U/L (5-34); BILIRUBIN,TOTAL 1.1 MG/DL (0.1-1.0); BLOOD UREA NITROGEN 19 MG/DL (7-18); BUN/CREATININE RATIO 19; CALCIUM 8.9 MG/DL (8.5-10.1); CARBON DIOXIDE 21 MMOL/L (21-32); CHLORIDE 108 MMOL/L (98-107); CREATINE KINASE 78 U/L (30-200); GFR ESTIMATED > 60; GLUCOSE 124 MG/DL (70-105); SODIUM 140 MMOL/L (135-145); TOTAL PROTEIN 6.9 GM/DL (6.4-8.2)
[2017-05-20 10:24] LABS: THYROID STIMULATING HORMONE 0.71 UIU/ML (0.35-4.94)
== END ==
LOC: LAB 09:22
PROVIDERS: ATTEND Family Medicine
DX: R42 Dizziness and giddiness (principal); M62.81 Muscle weakness (generalized)
CPT/HCPCS: 36415; 80053; 82550; 84443; 85025

== ENCOUNTER 2017-06-07 08:38 | Outpatient (RCR) | payer MEDICARE, MEDICAID ==
[2017-06-07 09:02] LABS: BILIRUBIN,URINE NEGATIVE (NEGATIVE); KETONES,URINE NEGATIVE (NEGATIVE); LEUKOCYTE ESTERASE ,URINE NEGATIVE (NEGATIVE); NITRITE,URINE NEGATIVE (NEGATIVE); PH,URINE 6.5 (5-9); PROTEIN,URINE NEGATIVE (NEGATIVE); UROBILINOGEN,URINE NORMAL (NORMAL)
[2017-06-07 09:27] LABS: SQUAMOUS EPITHELIAL CELL,UR RARE /HPF; WBC,URINE RARE /HPF
== END 2017-07-22 | disposition home or self-care (01) ==
LOC: LAB 08:38
PROVIDERS: ATTEND Family Medicine
DX: R41.0 Disorientation, unspecified (principal)
CPT/HCPCS: 81000

== ENCOUNTER → 2017-07-04 | Outpatient (CLI) | payer MEDICARE, MEDICAID ==
[2017-07-04 08:37] LABS: ALANINE AMINOTRANSFERASE 15 U/L (0-55); ALBUMIN 3.9 GM/DL (3.2-4.5); ANION GAP 9 MMOL/L (5-14); ASPARTATE AMINO TRANSFERASE 17 U/L (5-34); BILIRUBIN,TOTAL 0.8 MG/DL (0.1-1.0); BLOOD UREA NITROGEN 22 MG/DL (7-18); BUN/CREATININE RATIO 21; CALCIUM 8.7 MG/DL (8.5-10.1); CARBON DIOXIDE 23 MMOL/L (21-32); CHLORIDE 109 MMOL/L (98-107); CHOLESTEROL 103 MG/DL (< 200); CREATININE SERUM 1.05 MG/DL (0.60-1.30); DIRECT LDL 59 MG/DL (1-129); GFR ESTIMATED > 60; GLUCOSE 111 MG/DL (70-105); POTASSIUM 3.9 MMOL/L (3.6-5.0); SODIUM 141 MMOL/L (135-145); TOTAL PROTEIN 6.7 GM/DL (6.4-8.2); TRIGLYCERIDES 44 MG/DL (<150); VLDL CHOLESTEROL 9 MG/DL (5-40)
== END ==
LOC: LAB 07:50
PROVIDERS: ATTEND Physician Assistant
DX: I10 Essential (primary) hypertension (principal); E78.2 Mixed hyperlipidemia
CPT/HCPCS: 36415; 80053; 80061

== ENCOUNTER 2017-08-17 15:14 | Emergency (ER) | payer MEDICARE, MEDICAID ==
[~2017-08-17] VITALS: Ht 170.2 cm; Wt 79.4 kg
[2017-08-17] MEDS ORDERED: LIDOCAINE 1% INJ 20 ML (XYLOCAINE) VIAL ONE (16:22)
--- NOTE | 2017-08-17 16:31 | ED Head Injury ---
General Chief Complaint: Head/Cervical Problems Stated Complaint: HEAD LACERATION Nursing Triage Note: ARRIVED VIA EMS TO ROOM 07 WITH COMPLAINTS OF A HEAD LACERATION OVER AND UNDER RIGHT EYE. STATES SHE TRIPPED AND FELL OVER THE CURB. DENIES BEING DIZZY BEFOREHAND. STATES HIS RIGHT EYE HURTS. PT ARRIVED IN C-COLLAR. Source: patient Exam Limitations: no limitations History of Present Illness Time seen by provider: 16:26 Initial Comments This 77-year-old white male presents via EMS after having fallen when he inadvertently tripped off the curb and sustained a laceration to his right forehead. Patient denies loss of consciousness, subsequent neck pain, paresthesias or weakness in extremities, loss of visual acuity, nausea, vomiting , palpitations, or chest pain. The patient denies ingestion of alcohol or recreational drug use. The patient states that his last tetanus immunization was approximately 2 years ago. He is complaining of moderate sharp pain over the right forehead where he has a laceration. Allergies and Home Medications Allergies Coded Allergies: NKANo Known Allergies (Unverified Allergy, Unknown, 09/19/06) Home Medications Albuterol Sulfate 2.5 Mg/3 Ml Solution, 2.5 MG IH QID PRN for SHORTNESS OF BREATH, (Reported) NEEDED FOR SHORTNESS OF BREATH Albuterol Sulfate/Ipratropium 3 Ml Solution, 3 ML IH Q4H PRN for SHORTNESS OF BREATH, (Reported) NEEDED FOR SHORTNESS OF BREATH Aspirin 81 Mg Tabec, 81 MG PO , , MONDAY, (Reported) Atorvastatin Calcium 10 Mg Tablet, 10 MG PO DAILY, (Reported) Clonazepam 0.5 Mg Tablet, 1 MG PO HS, (Reported) Cyanocobalamin 1,000 Mcg Tablet.sa, 1,000 MCG PO DAILY, (Reported) Fluticasone/Salmeterol 1 Each Blst.w.dev, 1 EACH IH BID, (Reported) Losartan Potassium 100 Mg Tablet, 50 MG PO HS, (Reported) TAKES 1/2 (100MG) TABLET DAILY Metformin HCl 100 Gm Powder, 100 GM MC, (Reported) Nystatin 100,000 Unit/1 Ml Oral.susp, 5 ML PO QID, #150 Prescribed by: EDDIE HAWTHORNE on 11/02/16 0123 Omeprazole 20 Mg Capsule.dr, 20 MG PO BID, (Reported) Sertraline Hcl 100 Mg Tab, 100 MG PO BID, (Reported) Umeclidinium [place] 62.5 Mcg Blst.w.dev, 62.5 MCG IH DAILY, (Reported) Constitutional: No chills, No fever Eyes: Denies Blurred Vision Ears, Nose, Mouth, Throat: denies ear pain Respiratory: No cough Cardiovascular: no symptoms reported Gastrointestinal: No abdominal pain, No nausea, No vomiting Genitourinary: no symptoms reported Musculoskeletal: No back pain, No joint pain, No muscle pain Skin: other (there is abrasion of the right cheek and a.m. 4 cm laceration of the right forehead above the eyebrow.) Psychiatric/Neurological: No Symptoms Reported Endocrine: No Symptoms Reported Hematologic/Lymphatic: No Symptoms Reported Past Gbxtrsv-Cgljwn-Vxxivv Hx Patient Social History Alcohol Use: Denies Use Recreational Drug Use: No (QUIT 35 YRS AGO) Smoking Status: Current Everyday Smoker 2nd Hand Smoke Exposure: No Recent Foreign Travel: No Contact w/Someone Who Travel: No Recent Infectious Disease Expo: No Recent Hopitalizations: No Immunizations Up To Date Tetanus Booster (TDap): Less than 5yrs Date of Pneumonia Vaccine: Aug 15, 2011 Date of Influenza Vaccine: Jul 25, 2016 Seasonal Allergies Seasonal Allergies: No Surgeries History of Surgeries: Yes (BILAT KNEE REPLACEMENTS, right ankle surg, RT HAND CARPAL TUNNEL ) Surgeries: Orthopedic Respiratory History of Respiratory Disorde: Yes (quit smoking 40yrs. ago) Respiratory Disorders: Asthma, COPD Cardiovascular History of Cardiac Disorders: Yes (see's Dr. Miner) Cardiac Disorders: Hypertension, Hypotension Neurological History of Neurological Disord: Yes Neurological Disorders: Vertigo Reproductive System Hx Reproductive Disorders: No Sexually Transmitted Disease: No HIV/AIDS: No Genitourinary History of Genitourinary Disor: No Gastrointestinal History of Gastrointestinal Di: Yes Gastrointestinal Disorders: Gastroesophageal Reflux Musculoskeletal History of Musculoskeletal Dis: Yes (ROSY. TKR) Musculoskeletal Disorders: Arthritis Endocrine History of Endocrine Disorders: Yes Endocrine Disorders: Diabetes, Non-Insulin dep HEENT HEENT Disorders: Cataract Loss of Vision: Denies Hearing Impairment: Denies Cancer History of Cancer: No Psychosocial History of Psychiatric Problem: Yes Behavioral Health Disorders: Depression Integumentary History of Skin or Integumenta: No Blood Transfusions History of Blood Disorders: No Adverse Reaction to a Blood Tr: No Reviewed Nursing Assessment Reviewed/Agree w Nursing PMH: Yes Family Medical History Family Medial History: Alcoholism 09 SISTER Family history: Asthma 09 SISTER Family history: Cardiovascular disease 03 FATHER Family history: Diabetes mellitus 03 MOTHER 09 SISTER Heart disease 03 FATHER Myocardial infarction 03 FATHER Stroke 03 FATHER No Family History of: Abdominal aortic aneurysm Jaydon's disease Aphasia Cancer Cancer of colon Cataract Chest pain Congenital heart disease Congestive heart failure Cystic fibrosis Dementia Dysphagia Family history: Allergy Family history: Alzheimer's disease Family history: Arthritis Family history: Breast disease Family history: Gastrointestinal disease Family history: Glaucoma Family history: Hypertension Family history: Osteoporosis Family history: Thyroid disorder Headache Hearing loss History of - anemia History of - disorder History of - respiratory disease History of drug abuse Human immunodeficiency virus (HIV) seropositivity Hypercholesterolemia Infertile Kidney disease Malignant neoplasm of lung Parkinson's disease Prostate cancer Psychotic disorder Seizure disorder Tuberculosis Visual impairment Physical Exam Vital Signs Vital Sign - Last 12Hours 08/17/17 15:15 Temp 98.0 Pulse 69 Resp 18 B/P (MAP) 125/75 Pulse Ox 96 Capillary Refill : Less Than 3 Seconds General Appearance: WD/WN, no apparent distress HEENT: other (4 cm laceration right forehead and abrasion to the right lateral periorbital area) Neck: non-tender, full range of motion, supple, normal inspection Cardiovascular: regular rate, rhythm, no murmur Respiratory: chest non-tender, lungs clear Gastrointestinal: normal bowel sounds, non tender, soft Back: normal inspection Extremities: normal range of motion, non-tender, normal inspection Psychiatric: alert, oriented x 3 Crainal Nerves: normal hearing, normal speech Motor/Sensory: no motor deficit, no sensory deficit Skin: other (4 cm laceration of the right forehead. Right lateral periorbital abrasion contusion.) Andrea Coma Score Best Eye Response: (4) Open Spontaneously Best Verbal Response: (5) Oriented Best Motor Response: (6) Obeys Commands [place] Total: 15 Progress/Results/Core Measures Results/Orders My Orders Orders - MARY DAVID MD Ct Head/Cervical Spine Wo (08/17/17 16:01) Lidocaine 1% Injection (Xylocaine 1% Inj (08/17/17 16:22) Medications Given in ED Current Medications Medications Dose Ordered Sig/Yaya Route Start Time Stop Time Status Last Admin Dose Admin Lidocaine HCl 20 ml STK-MED ONCE .ROUTE 08/17/17 16:22 08/17/17 16:32 DC 08/17/17 17:24 20 ML Vital Signs/I&O Vital Sign - Last 12Hours 08/17/17 15:15 Temp 98.0 Pulse 69 Resp 18 B/P (MAP) 125/75 Pulse Ox 96 Blood Pressure Mean: 92 Progress Note : Time: 16:45 Progress Note The usual sterile conditions using 1 percent Xylocaine for local anesthesia the 4 cm laceration to the forehead was prepped and draped copiously cleaned and irrigated with soap and water and saline and then closed in a running locking fashion with 4-0 nylon. Approximately 6 sutures were used for closure. Patient tolerated the procedure well. The estimated blood loss was less than [address] of the head and neck failed to demonstrate evidence of acute fracture or pathology. ECG Initial ECG Impression Date: Aug 17, 2017 Departure Impression Impression: Primary Impression: Facial laceration Qualified Codes: S01.81XA - Laceration without foreign body of other part of head, initial encounter Additional Impression: Contusion of head Qualified Codes: S05.11XA - Contusion of eyeball and orbital tissues, right eye, initial encounter Disposition: 01 HOME, SELF-CARE Condition: Improved Departure-Patient Inst. Decision time for Depature: 17:30 Referrals: ENRRIQUE JALLOH DO (PCP/Family) Primary Care Physician Patient Instructions: Concussion, Adult (DC) Add. Discharge Instructions: All of the head injury instructions. Sutures out in a week. Watch for signs of infection. Return if any problems or questions. Ibuprofen and Tylenol for pain. All discharge instructions reviewed with patient and/or family. Voiced understanding. MARY DAVID MD Aug 17, 2017 16:30
--- NOTE | 2017-08-17 17:08 | Diagnostic Imaging Report ---
PROCEDURE: CT head and CT cervical spine without contrast. TECHNIQUE: Multiple contiguous axial images were obtained through the brain and cervical spine without the use of intravenous contrast. Sagittal and coronal reformations through the cervical spine were then performed. INDICATION: Fall. Loss of consciousness. CT HEAD: There is a right frontal scalp hematoma. There is no intracranial hemorrhage. There is mild periventricular and deep white matter hypodensities compatible with chronic microvascular changes. There is no hydrocephalus. The calvarium and orbits appear grossly unremarkable. The ethmoidal air cells demonstrate partial opacification in the anterior and mid ethmoidal air cells. CT CERVICAL SPINE: There is straightening of the lordotic curvature. There is minimal anterior translation of C7 over T1, otherwise alignment of the posterior spinal line and facet joints is satisfactory. There is no widening of the predental space. The alignment of the lateral masses of C1 and C2 is satisfactory. The alignment of the atlantooccipital joints is satisfactory. The vertebral body heights are preserved. There is moderate disc height loss at the C5-6 and C6-7 with small posterior osteophytes. There is bilateral severe foraminal stenosis at C5-6 and moderate to severe foraminal stenosis at C6-7. No fracture is seen. IMPRESSION: CT HEAD: No intracranial hemorrhage. CT CERVICAL SPINE: Advanced degenerative changes, particularly prominent at C5-C6 and C6-7 levels. There is minimal anterior translation of C7 over T1, probably degenerative related with no fracture seen. Dictated by: Dictated on workstation # [id number]
[2017-08-17 17:50] VITALS: BP 137/82
== END 2017-08-17 17:50 | disposition home or self-care (01) ==
LOC: EDUNIT# 15:14 → ER 15:15
DX: S01.81XA Laceration without foreign body of other part of head, initial encounter (principal); J44.9 Chronic obstructive pulmonary disease, unspecified; I10 Essential (primary) hypertension; F32.9 Major depressive disorder, single episode, unspecified; E11.9 Type 2 diabetes mellitus without complications; K21.9 Gastro-esophageal reflux disease without esophagitis; M19.90 Unspecified osteoarthritis, unspecified site; F17.200 Nicotine dependence, unspecified, uncomplicated; Z79.82 Long term (current) use of aspirin; Z79.84 Long term (current) use of oral hypoglycemic drugs; Z82.49 Family history of ischemic heart disease and other diseases of the circulatory system; Z96.653 Presence of artificial knee joint, bilateral; Y92.89 Other specified places as the place of occurrence of the external cause
CPT/HCPCS: 12001; 70450; 72125

== ENCOUNTER 2017-08-24 10:21 | Emergency (ER) | payer MEDICARE, MEDICAID ==
[~2017-08-24] VITALS: Ht 182.9 cm; Wt 93.0 kg
[2017-08-24 10:36] VITALS: BP 141/70
== END 2017-08-24 10:36 | disposition home or self-care (01) ==
LOC: EDUNIT# 10:21 → ER 10:23
DX: S01.81XD Laceration without foreign body of other part of head, subsequent encounter (principal); X58.XXXD Exposure to other specified factors, subsequent encounter

== ENCOUNTER → 2017-09-05 | Outpatient (CLI) | payer MEDICARE, MEDICAID ==
[2017-09-05 12:19] LABS: BASOPHILS % (AUTO) 1 % (0-10); EOSINOPHILS # (AUTO) 0.5 10^3/uL (0.0-0.3); EOSINOPHILS % (AUTO) 8 % (0-10); LYMPHOCYTES # (AUTO) 1.9 X 10^3 (1.0-4.0); LYMPHOCYTES % (AUTO) 28 % (12-44); MEAN CORPUSCULAR HEMOGLOBIN 30 PG (25-34); MEAN CORPUSCULAR HGB CONC 35 G/DL (32-36); MEAN CORPUSCULAR VOLUME 86 FL (80-99); MEAN PLATELET VOLUME 9.9 FL (7.4-10.4); MONOCYTES # (AUTO) 0.4 X 10^3 (0.0-1.0); MONOCYTES % (AUTO) 7 % (0-12); NEUTROPHILS # (AUTO) 3.7 X 10^3 (1.8-7.8); NEUTROPHILS % (AUTO) 56 % (42-75); PLATELET COUNT 200 10^3/uL (130-400); RED CELL DISTRIBUTION WIDTH 12.9 % (10.0-14.5); WHITE BLOOD COUNT 6.5 10^3/uL (4.3-11.0)
[2017-09-05 12:42] LABS: ALANINE AMINOTRANSFERASE 16 U/L (0-55); ANION GAP 7 MMOL/L (5-14); ASPARTATE AMINO TRANSFERASE 15 U/L (5-34); BILIRUBIN,TOTAL 1.1 MG/DL (0.1-1.0); BLOOD UREA NITROGEN 13 MG/DL (7-18); BUN/CREATININE RATIO 14; CALCIUM 9.2 MG/DL (8.5-10.1); CARBON DIOXIDE 25 MMOL/L (21-32); CHLORIDE 105 MMOL/L (98-107); CREATININE SERUM 0.95 MG/DL (0.60-1.30); GFR ESTIMATED > 60; GLUCOSE 90 MG/DL (70-105); SODIUM 137 MMOL/L (135-145)
[2017-09-05 13:01] LABS: THYROID STIMULATING HORMONE 1.61 UIU/ML (0.35-4.94)
== END ==
LOC: LAB 12:00
PROVIDERS: ATTEND Family Medicine
DX: E11.9 Type 2 diabetes mellitus without complications (principal); I10 Essential (primary) hypertension; R53.83 Other fatigue; E53.8 Deficiency of other specified B group vitamins
CPT/HCPCS: 36415; 80053; 82607; 83036; 84443; 85025

== ENCOUNTER → 2017-10-20 | Outpatient (CLI) | payer MEDICARE, MEDICAID | LOC: RAD 08:54 | PROVIDERS: ATTEND Physician Assistant | DX: I47.1 Supraventricular tachycardia (principal); J45.998 Other asthma; I10 Essential (primary) hypertension; G47.33 Obstructive sleep apnea (adult) (pediatric) | CPT/HCPCS: 93306 ==

== ENCOUNTER → 2018-03-07 | Outpatient (CLI) | payer MEDICARE, MEDICAID ==
[2018-03-07 07:37] LABS: BASOPHILS % (AUTO) 1 % (0-10); EOSINOPHILS # (AUTO) 0.5 10^3/uL (0.0-0.3); EOSINOPHILS % (AUTO) 10 % (0-10); HEMATOCRIT 42 % (40-54); HEMOGLOBIN 14.4 G/DL (13.3-17.7); LYMPHOCYTES # (AUTO) 1.4 X 10^3 (1.0-4.0); LYMPHOCYTES % (AUTO) 29 % (12-44); MEAN CORPUSCULAR HEMOGLOBIN 30 PG (25-34); MEAN CORPUSCULAR HGB CONC 34 G/DL (32-36); MEAN CORPUSCULAR VOLUME 88 FL (80-99); MEAN PLATELET VOLUME 9.9 FL (7.4-10.4); MONOCYTES # (AUTO) 0.4 X 10^3 (0.0-1.0); MONOCYTES % (AUTO) 8 % (0-12); NEUTROPHILS # (AUTO) 2.5 X 10^3 (1.8-7.8); NEUTROPHILS % (AUTO) 53 % (42-75); PLATELET COUNT 191 10^3/uL (130-400); RED BLOOD COUNT 4.76 10^6/uL (4.35-5.85); RED CELL DISTRIBUTION WIDTH 13.4 % (10.0-14.5); WHITE BLOOD COUNT 4.8 10^3/uL (4.3-11.0)
[2018-03-07 08:02] LABS: ALANINE AMINOTRANSFERASE 22 U/L (0-55); ALBUMIN 4.1 GM/DL (3.2-4.5); ALKALINE PHOSPHATASE 55 U/L (40-136); BILIRUBIN,TOTAL 0.4 MG/DL (0.1-1.0); BUN/CREATININE RATIO 23; CALCIUM 8.9 MG/DL (8.5-10.1); CARBON DIOXIDE 19 MMOL/L (21-32); CHLORIDE 112 MMOL/L (98-107); CHOLESTEROL 101 MG/DL (< 200); CREATININE SERUM 0.95 MG/DL (0.60-1.30); GFR ESTIMATED > 60; GLUCOSE 131 MG/DL (70-105); HDL CHOLESTEROL 37 MG/DL (40-60); POTASSIUM 4.2 MMOL/L (3.6-5.0); SODIUM 139 MMOL/L (135-145); TOTAL PROTEIN 6.2 GM/DL (6.4-8.2); TRIGLYCERIDES 52 MG/DL (<150); VLDL CHOLESTEROL 10 MG/DL (5-40)
== END ==
LOC: LAB 07:13
PROVIDERS: ATTEND Family Medicine
DX: I10 Essential (primary) hypertension (principal); E78.5 Hyperlipidemia, unspecified; R53.83 Other fatigue; E11.9 Type 2 diabetes mellitus without complications; E53.8 Deficiency of other specified B group vitamins
CPT/HCPCS: 36415; 80053; 80061; 82607; 83036; 84443; 85025

== ENCOUNTER → 2018-05-30 | Outpatient (CLI) | payer MEDICARE, MEDICAID ==
--- NOTE | 2018-05-30 12:29 | Diagnostic Imaging Report ---
INDICATION: Left leg pain. FINDINGS: Sonographic interrogation of the left thigh at the area of pain was performed. No solid or cystic mass is seen. No fluid collection is identified. IMPRESSION: No sonographic abnormality is detected. Dictated by: Dictated on workstation # [id number]
== END ==
LOC: RAD 11:48
PROVIDERS: ATTEND Nurse Practitioner Family
DX: M79.605 Pain in left leg (principal)
CPT/HCPCS: 76881

== ENCOUNTER 2018-06-12 11:30 | Outpatient (CLI) | payer MEDICARE, MEDICAID ==
[~2018-06-12] VITALS: Ht 182.9 cm; Wt 99.3 kg
[~2018-06-12 11:30] MED LIST changes: +CEPH-507 PO; +L.AC1CAP6 PO; +METR500T PO; +NYST60PO TP
[2018-06-12] MEDS ORDERED: OMEP20CA12 PO (12:01)
[2018-06-12] MEDS ORDERED: LOSA100T28 PO (12:01)
[2018-06-12] MEDS ORDERED: COLE1TAB PO (12:01)
[2018-06-12] MEDS ORDERED: SERT100T8 PO (12:01)
[2018-06-12] MEDS ORDERED: ASPI-999 PO (12:01)
== END 2018-06-12 12:03 | disposition home or self-care (01) ==
LOC: PREOP 11:30
PROVIDERS: ATTEND Surgery
DX: Z01.818 Encounter for other preprocedural examination (principal)

== ENCOUNTER 2018-09-10 19:14 | Emergency (ER) | payer MEDICARE, MEDICAID ==
[~2018-09-10] VITALS: Ht 182.9 cm; Wt 99.8 kg
[~2018-09-10 19:14] MED LIST changes: +ASPI-999 PO; +COLE1TAB PO; +LOSA100T8 PO; +OMEP20CA12 PO; +SERT100T8 PO
--- OUTSIDE RECORDS SUMMARY | 2018-09-10 19:27 | XMS REPORT | Continuity of Care Document ---
Author Author [facility] Organization [facility] Address Unknown Phone Unavailable Allergies Active Description Code Type Severity Reaction Onset Reported/Identified Relationship to Patient Clinical Status Yes NKANo Known Allergies NKA Miscellaneous Allergy Unknown N/A 09/19/2006 Medications There is no data. Problems Date Dx Coded Attending Type Code Diagnosis Diagnosed By 03/29/2010 Ot 569.0 03/29/2010 Ot 787.91 08/11/2010 Ot 923.00 08/11/2010 Ot 959.2 08/11/2010 Ot E000.8 08/11/2010 Ot E849.0 08/11/2010 Ot E885.9 09/08/2010 Ot 780.4 11/24/2010 Ot 266.2 11/24/2010 Ot 276.8 11/24/2010 Ot 300.4 11/24/2010 Ot 401.9 11/24/2010 Ot 427.89 11/24/2010 Ot 433.10 11/24/2010 Ot 496 11/24/2010 Ot 530.81 11/24/2010 Ot 715.90 11/24/2010 Ot 780.2 11/24/2010 Ot 780.4 11/24/2010 Ot 786.59 11/24/2010 Ot 790.29 11/24/2010 Ot V58.66 11/24/2010 Ot V58.69 08/01/2011 Ot 530.11 08/01/2011 Ot 553.3 10/29/2011 Ot 882.0 10/29/2011 Ot 910.0 10/29/2011 Ot E000.8 10/29/2011 Ot E849.0 10/29/2011 Ot E888.1 10/29/2011 Ot E920.1 10/29/2011 Ot V06.1 12/08/2011 Ot 530.11 12/08/2011 Ot 530.85 12/08/2011 Ot V45.89 01/02/2012 Ot 401.9 01/27/2012 Ot 719.41 01/27/2012 Ot 781.3 01/27/2012 Ot V15.88 01/27/2012 Ot V57.1 01/28/2012 Ot 845.00 01/28/2012 Ot 881.01 01/28/2012 Ot 959.7 01/28/2012 Ot E000.8 01/28/2012 Ot E849.0 01/28/2012 Ot E880.9 05/03/2012 Ot 780.2 05/24/2012 Ot 873.41 05/24/2012 Ot 913.0 05/24/2012 Ot E000.8 05/24/2012 Ot E849.0 05/24/2012 Ot E888.1 06/13/2012 Ot 354.0 06/13/2012 Ot 401.9 08/10/2012 Ot 300.00 08/10/2012 Ot 305.1 08/10/2012 Ot 311 08/10/2012 Ot 401.9 08/10/2012 Ot 491.22 08/10/2012 Ot 530.81 10/23/2012 Ot 401.9 10/23/2012 Ot V58.69 01/08/2013 Ot 327.23 01/08/2013 Ot 327.51 01/16/2013 Ot 272.4 01/16/2013 Ot 300.00 01/16/2013 Ot 311 01/16/2013 Ot 401.9 01/16/2013 Ot 414.01 01/16/2013 Ot 491.21 01/16/2013 Ot 530.81 01/16/2013 Ot V15.82 10/30/2013 MACHELLENDER DO CARMINA S Ot 266.2 10/30/[facility] 272.4 10/30/[facility] S Ot 300.00 10/30/2013 [facility] S Ot 311 10/30/2013 [facility] S Ot 333.1 10/30/2013 [facility] CARMINA S Ot 401.9 10/30/2013 ORENDER DO, CARMINA S Ot 458.0 10/30/2013 [facility] S Ot 478.19 10/30/2013 [facility] S Ot 491.22 10/30/2013 MACHELLENDER DO, CARMINA S Ot 530.81 10/30/2013 ORENDER DO, CARMINA S Ot 564.1 10/30/2013 ORENDER DO, CARMINA S Ot 593.9 10/30/2013 ORENDER DO, CARMINA S Ot 715.90 10/30/2013 ORENDER DO, CARMINA S Ot 780.52 10/30/2013 ORENDER DO, CARMINA S Ot 780.79 10/30/2013 ORENDER DO, CARMINA S Ot 785.1 10/30/2013 ORENDER DO, CARMINA S Ot 786.05 10/30/2013 ORENDER DO, CARMINA S Ot 786.07 10/30/2013 ORENDER DO, CARMINA S Ot 786.2 10/30/2013 ORENDER DO, CARMINA S Ot V58.66 10/30/2013 ORENDER DO, CARMINA S Ot V58.69 12/13/2013 MILIND FERNANDO APRN Ot 491.21 12/13/2013 MILIND FERNANDO APRN Ot 786.05 12/20/2013 ORENDER DO, CARMINA S Ot 311 12/20/2013 [facility] Ot 401.9 12/20/2013 OREND DO, CARMINA S Ot 427.89 12/20/2013 OREND DO, CARMINA S Ot 491.22 12/20/2013 OREND DO, CARMINA S Ot 530.81 04/23/2014 [facility] S Ot 496 04/23/2014 [facility] CARMINA S Ot 786.09 09/04/2014 [facility] S Ot 266.2 09/04/2014 [facility] S Ot 272.4 09/04/2014 ORENDER DO, CARMINA S Ot 401.9 09/04/2014 ORENDER DO, CARMINA S Ot 733.90 09/04/2014 ORENDER DO, CARMINA S Ot 780.79 09/04/2014 ORENDER DO, CARMINA S Ot 790.29 09/11/2014 ORENDER DO, CARMINA S Ot 266.2 09/11/2014 ORENDER CARMINA DIAZ S Ot 272.4 09/11/2014 ORENDER DO, CARMINA S Ot 401.9 09/11/2014 MACHELELNDER , CARMINA S Ot 733.90 09/11/2014 MACHELLENDER DO, CARMINA S Ot 780.79 09/11/2014 MACHELLENDER DO, CARMINA S Ot 790.29 11/11/2014 VANBECELAERE, SHOLA M METAL ANNEALER Ot 433.10 11/11/2014 VANBECELAERE, SHOLA M METAL ANNEALER Ot 433.30 11/11/2014 VANBECELAERE, SHOLA M METAL ANNEALER Ot 721.0 11/12/2014 VANBECELAERE, SHOLA M METAL ANNEALER Ot 433.10 11/12/2014 VANBECELAERE, SHOLA M METAL ANNEALER Ot 433.30 11/12/2014 VANBECELAERE, SHOLA M METAL ANNEALER Ot 721.0 11/26/2014 VANBECELAERE, SHOLA M METAL ANNEALER Ot 272.5 11/26/2014 VANBECELAERE, SHOLA M METAL ANNEALER Ot 403.90 11/26/2014 VANBECELAERE, SHOLA M METAL ANNEALER Ot 496 11/26/2014 VANBECELAERE, SHOLA M METAL ANNEALER Ot 585.9 11/27/2014 Ot 780.97 11/27/2014 Ot 435.9 11/27/2014 Ot 786.09 11/27/2014 Ot 786.50 11/27/2014 Ot 786.05 11/27/2014 Ot 272.4 11/27/2014 Ot 401.9 11/27/2014 Ot 272.4 11/27/2014 Ot 298.9 11/27/2014 Ot 959.01 11/27/2014 Ot E000.8 11/27/2014 Ot E849.0 11/27/2014 Ot E888.9 11/27/2014 Ot V81.5 11/27/2014 Ot 789.00 11/27/2014 Ot 780.2 11/27/2014 Ot 272.4 11/27/2014 Ot 401.9 11/27/2014 Ot 459.89 11/27/2014 Ot 780.79 11/27/2014 Ot 782.3 11/27/2014 Ot 786.09 11/27/2014 Ot 729.5 11/27/2014 Ot 729.81 11/27/2014 Ot 401.9 11/27/2014 Ot 782.3 11/27/2014 Ot 780.79 11/27/2014 Ot 782.3 11/27/2014 Ot 272.4 11/27/2014 Ot 401.9 11/27/2014 Ot 789.01 11/27/2014 Ot 789.00 11/27/2014 Ot 298.9 11/27/2014 Ot 786.09 11/27/2014 Ot V72.84 11/27/2014 Ot 729.5 11/27/2014 Ot 729.81 11/27/2014 Ot 354.0 11/27/2014 Ot V72.83 11/27/2014 Ot V74.8 11/27/2014 Ot 397.0 11/27/2014 Ot 424.0 11/27/2014 Ot 429.3 11/27/2014 Ot 780.2 11/27/2014 Ot 272.4 11/27/2014 Ot 786.09 11/27/2014 Ot 786.2 11/27/2014 MARLYN CA DOLINE S Ot 789.00 11/27/2014 SHOLA SEXTON METAL ANNEALER Ot 729.5 11/27/2014 YOANA FRANCES, RADHA Jones Ot 272.4 11/27/2014 YOANA FRANCES, RADHA Jones Ot 300.00 11/27/2014 YOANA FRANCES, RADHA J Ot 401.9 11/27/2014 YOANA FRANCES, RADHA J Ot 496 11/27/2014 YOANA FRANCES, RADHA Jones Ot 780.2 11/27/2014 YOANA FRANCES, RADHA Jones Ot 786.50 11/27/2014 DEEPIKA POZO METAL ANNEALER Ot 593.9 11/27/2014 DEEPIKA POZO METAL ANNEALER Ot 780.79 11/27/2014 DEEPIKA POZO METAL ANNEALER Ot 783.1 11/27/2014 DEEPIKA POZO METAL ANNEALER Ot 786.09 11/27/2014 ZION CA DOQUELINE S Ot 780.39 11/27/2014 MACHELLENDER DO CARMINA S Ot 781.0 11/27/2014 MACHELLENDZION WHALEN DOQUELINE S Ot 784.59 11/27/2014 KAREY JEFFERSON, HARI Allen Ot 272.4 11/27/2014 KAREY PA, HARI K Ot 300.00 11/27/2014 KAREY PA, HARI K Ot 401.9 11/27/2014 KAREY PA, HARI Allen Ot 496 11/27/2014 KAREY JEFFERSON, HARI Allen Ot 780.2 11/27/2014 KAREY PA, HARI K Ot 786.50 11/27/2014 Ot 272.4 11/27/2014 Ot 300.00 11/27/2014 Ot 401.9 11/27/2014 Ot 496 11/27/2014 Ot 496 11/27/2014 Ot 786.09 11/27/2014 ORENDER DO, CARMINA S Ot 266.2 11/27/2014 OREND DO, CARMINA S Ot 272.4 11/27/2014 ORENDER DO, CARMINA S Ot 401.9 11/27/2014 OREND DO, CARMINA S Ot 733.90 11/27/2014 ORENDER DO, CARMINA S Ot 780.79 11/27/2014 ORENDER DO, CARMINA S Ot 790.29 11/27/2014 VANBECELAERE, SHOLA M METAL ANNEALER Ot 433.10 11/27/2014 VANBECELAERE, SHOLA M METAL ANNEALER Ot 433.30 11/27/2014 VANBECELAERE, SHOLA M METAL ANNEALER Ot 721.0 11/27/2014 YOANA FRANCES, RADHA Jones Ot 427.89 11/27/2014 RADHA LEES MD Ot 780.2 11/27/2014 RADHA LEES MD Ot 780.4 11/27/2014 RADHA LEES MD Ot 786.50 11/27/2014 VANBECELAERE, SHOLA M METAL ANNEALER Ot 272.5 11/27/2014 VANBECELAERE, SHOLA M METAL ANNEALER Ot 403.90 11/27/2014 VANBECELAERE, SHOLA M METAL ANNEALER Ot 496 11/27/2014 VANBECELAERE, SHOLA M METAL ANNEALER Ot 585.9 11/27/2014 RADHA LEES MD Ot 427.89 11/27/2014 RADHA LEES MD Ot 780.2 11/27/2014 RADHA LEES MD J Ot 780.4 11/27/2014 YOANA FRANCES, RADHA Jones Ot 786.50 11/28/2014 VANBECELAERE, SHOLA M METAL ANNEALER Ot 433.10 11/28/2014 VANBECELAERE, SHOLA M METAL ANNEALER Ot 433.30 11/28/2014 VANBECELAERE, SHOLA M METAL ANNEALER Ot 721.0 12/18/2014 VANBECELAERE, SHOLA M METAL ANNEALER Ot 272.5 12/18/2014 VANBECELAERE, SHOLA M METAL ANNEALER Ot 403.90 12/18/2014 VANBECELAERE, SHOLA M METAL ANNEALER Ot 496 12/18/2014 VANBECELAERE, SHOLA M METAL ANNEALER Ot 585.9 02/27/2015 YOANA FRANCES, RADHA Jones Ot 427.89 02/27/2015 RADHA LEES MD Ot 780.2 02/27/2015 RADHA LEES MD Ot 780.4 02/27/2015 RADHA LEES MD Ot 786.50 03/04/2015 Ot 298.9 03/04/2015 Ot 786.09 03/04/2015 Ot V72.84 03/04/2015 Ot 729.5 03/04/2015 Ot 729.81 03/04/2015 Ot 354.0 03/04/2015 Ot V72.83 03/04/2015 Ot V74.8 03/04/2015 Ot 397.0 03/04/2015 Ot 424.0 03/04/2015 Ot 429.3 03/04/2015 Ot 780.2 03/04/2015 Ot 272.4 03/04/2015 Ot 786.09 03/04/2015 Ot 786.2 03/04/2015 CARMINA CA DO Ot 789.00 03/04/2015 VANBECELAERE, SHOLA M METAL ANNEALER Ot 729.5 03/04/2015 RADHA LEES MD Ot 272.4 03/04/2015 RADHA LEES MD Ot 300.00 03/04/2015 RAHDA LEES MD Ot 401.9 03/04/2015 RADHA LEES MD Ot 496 03/04/2015 RADHA LEES MD Ot 780.2 03/04/2015 RAHDA LEES MD Ot 786.50 03/04/2015 DEEPIKA POZO METAL ANNEALER Ot 593.9 03/04/2015 DEEPIKA POZO METAL ANNEALER Ot 780.79 03/04/2015 DEEPIKA POZO METAL ANNEALER Ot 783.1 03/04/2015 DEEPIKA POZO METAL ANNEALER Ot 786.09 03/04/2015 ORENDER DO, CARMINA S Ot 780.39 03/04/2015 ORENDER DO, CARMINA S Ot 781.0 03/04/2015 ORENDER DO, CARMINA S Ot 784.59 03/04/2015 HARI IVEY Ot 272.4 03/04/2015 HARI IVEY Ot 300.00 03/04/2015 HARI IVEY Ot 401.9 03/04/2015 HARI IVEY Ot 496 03/04/2015 HARI IVEY Ot 780.2 03/04/2015 HARI IVEY Ot 786.50 03/04/2015 Ot 272.4 03/04/2015 Ot 300.00 03/04/2015 Ot 401.9 03/04/2015 Ot 496 03/04/2015 Ot 496 03/04/2015 Ot 786.09 03/04/2015 MACHELLENDER DO, CARMINA S Ot 266.2 03/04/2015 ORENDER DO, CARMINA S Ot 272.4 03/04/2015 ORENDER DO, CARMINA S Ot 401.9 03/04/2015 ORENDER DO, CARMINA S Ot 733.90 03/04/2015 ORENDER DO, CARMINA S Ot 780.79 03/04/2015 ORENDER DO, CARMINA S Ot 790.29 03/04/2015 SHOLA SEXTON M METAL ANNEALER Ot 433.10 03/04/2015 SHOLA SEXTON M METAL ANNEALER Ot 433.30 03/04/2015 SHOLA SEXTON M METAL ANNEALER Ot 721.0 03/04/2015 YOANA FRANCES, RADHA Jones Ot 427.89 03/04/2015 RADHA LEES MD Ot 780.2 03/04/2015 RADHA LEES MD Ot 780.4 03/04/2015 RADHA LEES MD Ot 786.50 03/04/2015 ROSEANNALIASHOLA CEVALOLS METAL ANNEALER Ot 272.5 03/04/2015 ROSEANNANICCISHOLA METAL ANNEALER Ot 403.90 03/04/2015 ROSEANNAPELONSHOLA ANGUIANO METAL ANNEALER Ot 496 03/04/2015 DARSHANSHOLA METAL ANNEALER Ot 585.9 03/06/2015 ORENDER DO, CARMINA S Ot 780.4 03/06/2015 ORENDER DO, CARMINA S Ot 790.29 03/06/2015 ORENDER DO, CARMINA S Ot V15.88 03/06/2015 ORENDER DO, CARMINA S Ot 780.4 03/06/2015 ORENDER DO, CARMINA S Ot 790.29 03/06/2015 ORENDER DO, CARMINA S Ot V15.88 03/06/2015 FLOYD BLANCO MD Ot 496 CHR AIRWAY OBSTRUCT NEC 03/06/2015 FLOYD BLANCO MD Ot 780.4 DIZZINESS AND GIDDINESS 03/06/2015 FLOYD BLANCO MD Ot V15.82 HISTORY OF TOBACCO USE 03/06/2015 FLOYD BLANCO MD Ot V58.69 OT MED,LT,CURRENT USE 03/13/2015 RADHA LEES MD Ot 427.89 03/13/2015 RADHA LEES MD Ot 780.2 03/13/2015 RADHA LEES MD Ot 780.4 03/13/2015 RADHA LEES MD Ot 786.50 04/02/2015 ORENDER DO, CARMINA S Ot 780.4 04/02/2015 ORENDER DO, CARMINA S Ot 790.29 04/02/2015 ORENDER DO, CARMINA S Ot V15.88 04/03/2015 ORENDER DO, CARMINA S Ot 780.4 04/03/2015 ORENDER DO, CARMINA S Ot 790.29 04/03/2015 ORENDER DO, CARMINA S Ot V15.88 04/14/2015 DARSHANSHOLA Lucrecia METAL ANNEALER Ot 272.5 04/14/2015 KAISHOLA CEVALLOS METAL ANNEALER Ot 403.90 04/14/2015 SHOLA SEXTON METAL ANNEALER Ot 496 04/14/2015 ROSEANNALIASHOLA CEVALLOS METAL ANNEALER Ot 585.9 06/04/2015 SHUBHAM DIAZ, CARMINA S Ot 780.4 DIZZINESS AND GIDDINESS 06/30/2015 HARI IVEY Ot 272.4 07/02/2015 HARI IVEY Ot 272.4 09/02/2015 ABELINO FRANCES, EDDIE Pacheco Ot F17.211 NICOTINE DEPENDENCE, CIGARETTES, IN DENIS 09/02/2015 ABELINO FRANCES, EDDIE Pacheco Ot I45.10 UNSPECIFIED RIGHT BUNDLE-BRANCH BLOCK 09/02/2015 ABELINO FRANCES, EDDIE Pacheco Ot J44.1 CHRONIC OBSTRUCTIVE PULMONARY DISEASE W 09/02/2015 ABELINO FRANCES, EDDIE Pacheco Ot R53.1 WEAKNESS 03/23/2016 FLOYD BLANCO MD Ot 496 CHR AIRWAY OBSTRUCT NEC 03/23/2016 FLOYD BLANCO MD Ot 780.4 DIZZINESS AND GIDDINESS 03/23/2016 FLOYD BLANCO MD Ot V15.82 HISTORY OF TOBACCO USE 03/23/2016 FLOYD BLANCO MD Ot V58.69 OT MED,LT,CURRENT USE 06/10/2016 HARI IVEY Ot 272.4 HYPERLIPIDEMIA NEC/NOS 06/10/2016 ORENDER DO, CARMINA S Ot 780.4 DIZZINESS AND GIDDINESS 06/10/2016 ORENDER DO, CARMINA S Ot 780.4 DIZZINESS AND GIDDINESS 06/10/2016 ORENDER DO, CARMINA S Ot 790.29 OTHER ABNORMAL GLUCOSE 06/10/2016 MACHELLENDER DO, CARMINA S Ot V15.88 HISTORY OF FALL 06/10/2016 HARI IVEY Ot 272.4 HYPERLIPIDEMIA NEC/NOS 06/10/2016 MACHELLENDER , CARMINA S Ot 780.4 DIZZINESS AND GIDDINESS 06/14/2016 HARI IVEY Ot E78.5 HYPERLIPIDEMIA, UNSPECIFIED 07/01/2016 HARI IVEY Ot E78.5 HYPERLIPIDEMIA, UNSPECIFIED 07/08/2016 ORENDER DO, CARMINA S Ot 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 07/08/2016 ORENDER DO, CARMINA S Ot I10 ESSENTIAL (PRIMARY) HYPERTENSION 07/08/2016 ORENDER DO, CARMINA S Ot R53.83 OTHER FATIGUE 07/08/2016 ORENDER DO, CARMINA S Ot R73.9 HYPERGLYCEMIA, UNSPECIFIED 09/23/2016 ORENDER DO, CARMINA S Ot 780.4 DIZZINESS AND GIDDINESS 09/23/2016 ORENDER DO, CARMINA S Ot 790.29 OTHER ABNORMAL GLUCOSE 09/23/2016 ORENDER DO, CARMINA S Ot V15.88 HISTORY OF FALL 09/23/2016 HARI IVEY Ot 272.4 HYPERLIPIDEMIA NEC/NOS 09/23/2016 ORENDER DO, CARMINA S Ot 780.4 DIZZINESS AND GIDDINESS 09/23/2016 HARI IVEY Ot E78.5 HYPERLIPIDEMIA, UNSPECIFIED 09/23/2016 ORENDER DO, CARMINA S Ot 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 09/23/2016 ORENDER DO, CARMINA S Ot I10 ESSENTIAL (PRIMARY) HYPERTENSION 09/23/2016 ORENDER DO, CARMINA S Ot R53.83 OTHER FATIGUE 09/23/2016 ORENDER DO, CARMINA S Ot R73.9 HYPERGLYCEMIA, UNSPECIFIED 09/23/2016 ORENDER DO, CARMINA S Ot D51.9 VITAMIN B12 DEFICIENCY ANEMIA, UNSPECIFI 09/23/2016 ORENDER DO, CARMINA S Ot R73.9 HYPERGLYCEMIA, UNSPECIFIED 10/20/2016 ORENDER DO, CARMINA S Ot D51.9 VITAMIN B12 DEFICIENCY ANEMIA, UNSPECIFI 10/20/2016 ORENDER DO, CARMINA S Ot R73.9 HYPERGLYCEMIA, UNSPECIFIED 11/02/2016 ABELINO FRANCES, EDDIE Pacheco Ot E11.9 TYPE 2 DIABETES MELLITUS WITHOUT COMPLIC 11/02/2016 ABELINO FRANCES, EDDIE Pacheco Ot I10 ESSENTIAL (PRIMARY) HYPERTENSION 11/02/2016 ABELINO FRANCES, EDDIE Pacheco Ot J44.9 CHRONIC OBSTRUCTIVE PULMONARY DISEASE, U 11/02/2016 EDDIE ROCA MD Ot K20.9 ESOPHAGITIS, UNSPECIFIED 11/02/2016 EDDIE ROCA MD Ot R13.10 DYSPHAGIA, UNSPECIFIED 11/02/2016 EDDIE ROCA MD Ot Z79.82 COVER SEAMER (CURRENT) USE OF ASPIRIN 11/02/2016 EDDIE ROCA MD Ot Z79.899 OTHER COVER SEAMER (CURRENT) DRUG THERAPY 11/02/2016 EDDIE ROCA MD Ot E11.9 TYPE 2 DIABETES MELLITUS WITHOUT COMPLIC 11/02/2016 EDDIE ROCA MD Ot I10 ESSENTIAL (PRIMARY) HYPERTENSION 11/02/2016 EDDIE ROCA MD Ot J44.9 CHRONIC OBSTRUCTIVE PULMONARY DISEASE, U 11/02/2016 EDDIE ROCA MD Ot K20.9 ESOPHAGITIS, UNSPECIFIED 11/02/2016 EDDIE ROCA MD Ot R13.10 DYSPHAGIA, UNSPECIFIED 11/02/2016 EDDIE ROCA MD Ot Z79.82 COVER SEAMER (CURRENT) USE OF ASPIRIN 11/02/2016 EDDIE ROCA MD Ot Z79.899 OTHER COVER SEAMER (CURRENT) DRUG THERAPY 11/21/2016 CARMINA CA DO S Ot R13.12 DYSPHAGIA, OROPHARYNGEAL PHASE 11/22/2016 CARMINA CA DO S Ot R13.12 DYSPHAGIA, OROPHARYNGEAL PHASE 11/23/2016 FLOYD BLANCO MD Ot 496 CHR AIRWAY OBSTRUCT NEC 11/23/2016 FLOYD BLANCO MD Ot 780.4 DIZZINESS AND GIDDINESS 11/23/2016 FLOYD BLANCO MD Ot V15.82 HISTORY OF TOBACCO USE 11/23/2016 FLOYD BLANCO MD Ot V58.69 OTH MED,LT,CURRENT USE 12/13/2016 ZION CA DOQUELINE S Ot R13.12 DYSPHAGIA, OROPHARYNGEAL PHASE 02/10/2017 CARMINA CA DO S Ot E78.2 MIXED HYPERLIPIDEMIA 02/10/2017 ZION CA DOQUELINE S Ot I10 ESSENTIAL (PRIMARY) HYPERTENSION 02/10/2017 MACHELLENDER DO, CARMINA S Ot R53.83 OTHER FATIGUE 02/10/2017 ORENDER DO, CARMINA S Ot R73.01 IMPAIRED FASTING GLUCOSE 04/06/2017 MILIND FERNANDO APRN Ot E11.9 TYPE 2 DIABETES MELLITUS WITHOUT COMPLIC 04/06/2017 MILIND FERNANDO APRN Ot I10 ESSENTIAL (PRIMARY) HYPERTENSION 04/06/2017 MILIND FERNANDO APRN Ot J44.9 CHRONIC OBSTRUCTIVE PULMONARY DISEASE, U 04/06/2017 MILIND FERNANDO APRN Ot S51.011A LACERATION WITHOUT FOREIGN BODY OF RIGHT 04/06/2017 MILIND FERNANDO APRN Ot W01.198A FALL SAME LEV FROM SLIP/TRIP W STRIKE AG 04/06/2017 MILIND FERNANDO APRN Ot Y93.H2 ACTIVITY, GARDENING AND LANDSCAPING 04/06/2017 MILIND FERNANDO APRN Ot Z79.84 LONG-TERM (CURRENT) USE OF ORAL HYPOGLYC 04/06/2017 MILIND FERNANDO APRN Ot Z87.891 PERSONAL HISTORY OF NICOTINE DEPENDENCE 04/10/2017 MILIND FERNANDO APRN Ot E11.9 TYPE 2 DIABETES MELLITUS WITHOUT COMPLIC 04/10/2017 MILIND FERNANDO APRN Ot I10 ESSENTIAL (PRIMARY) HYPERTENSION 04/10/2017 MILIND FERNANDO APRN Ot J44.9 CHRONIC OBSTRUCTIVE PULMONARY DISEASE, U 04/10/2017 MILIND FERNANDO APRN Ot S51.011A LACERATION WITHOUT FOREIGN BODY OF RIGHT 04/10/2017 MILIND FERNANDO APRN Ot W01.198A FALL SAME LEV FROM SLIP/TRIP W STRIKE AG 04/10/2017 MILIND FERNANDO APRN Ot Y93.H2 ACTIVITY, GARDENING AND LANDSCAPING 04/10/2017 MILIND FERNANDO APRN Ot Z79.84 LONG-TERM (CURRENT) USE OF ORAL HYPOGLYC 04/10/2017 MILIND FERNANDO APRN Ot Z87.891 PERSONAL HISTORY OF NICOTINE DEPENDENCE 04/13/2017 MILIND FERNANDO APRN Ot E11.9 TYPE 2 DIABETES MELLITUS WITHOUT COMPLIC 04/13/2017 MILIND FERNANDO APRN Ot I10 ESSENTIAL (PRIMARY) HYPERTENSION 04/13/2017 MILIND FERNANDO APRN Ot J44.9 CHRONIC OBSTRUCTIVE PULMONARY DISEASE, U 04/13/2017 MILIND FERNANDO SENIOR MATERIALS PLANNER Ot S51.011A LACERATION WITHOUT FOREIGN BODY OF RIGHT 04/13/2017 MILIND FERNANDO SENIOR MATERIALS PLANNER Ot W01.198A FALL SAME LEV FROM SLIP/TRIP W STRIKE AG 04/13/2017 MILIND FERNANDO APRN Ot Y93.H2 ACTIVITY, GARDENING AND LANDSCAPING 04/13/2017 MILIND FERNANDO APRN Ot Z79.84 COVER SEAMER (CURRENT) USE OF ORAL HYPOGLYC 04/13/2017 MILIND FERNANDO SENIOR MATERIALS PLANNER Ot Z87.891 PERSONAL HISTORY OF NICOTINE DEPENDENCE 05/20/2017 ORENDER DO, CARMINA S Ot R94.6 ABNORMAL RESULTS OF THYROID FUNCTION NICHOLAS 05/23/2017 ORENDER DO, CARMINA S Ot M62.81 MUSCLE WEAKNESS (GENERALIZED) 05/23/2017 ORENDER DO, CARMINA S Ot R42 DIZZINESS AND GIDDINESS 06/08/2017 ORENDER DO, CARMINA S Ot R41.0 DISORIENTATION, UNSPECIFIED 06/19/2017 ORENDER DO, CARMINA S Ot M62.81 MUSCLE WEAKNESS (GENERALIZED) 06/19/2017 ORENDER DO, CARMINA S Ot R42 DIZZINESS AND GIDDINESS 07/14/2017 ORENDER DO, CARMINA S Ot R41.0 DISORIENTATION, UNSPECIFIED 07/22/2017 ORENDER DO, CARMINA S Ot R41.0 DISORIENTATION, UNSPECIFIED 07/25/2017 HARI IVEY Ot E78.2 MIXED HYPERLIPIDEMIA 07/25/2017 HARI IVEY Ot I10 ESSENTIAL (PRIMARY) HYPERTENSION 07/26/2017 ORENDER DO, CARMINA S Ot R41.0 DISORIENTATION, UNSPECIFIED 08/17/2017 JOANN FRANCES, MARY Wynn Ot E11.9 TYPE 2 DIABETES MELLITUS WITHOUT COMPLIC 08/17/2017 JOANN FRANCES, MARY Wynn Ot F17.200 NICOTINE DEPENDENCE, UNSPECIFIED, UNCOMP 08/17/2017 MARY DAVID MD Ot F32.9 MAJOR DEPRESSIVE DISORDER, SINGLE EPISOD 08/17/2017 MARY DAVID MD Ot I10 ESSENTIAL (PRIMARY) HYPERTENSION 08/17/2017 JOANN MD, MARY S Ot J44.9 CHRONIC OBSTRUCTIVE PULMONARY DISEASE, U 08/17/2017 JOANN FRANCES, MARY Wynn Ot K21.9 GASTRO-ESOPHAGEAL REFLUX DISEASE WITHOUT 08/17/2017 JOANN FRANCES, MARY Wynn Ot M19.90 UNSPECIFIED OSTEOARTHRITIS, UNSPECIFIED 08/17/2017 JOANN FRANCES, MARY Wynn Ot S01.81XA LACERATION W/O FOREIGN BODY OF OTH PART 08/17/2017 JOANN FRANCES MARY Wynn Ot Y92.[address] OF OCCURRENCE OF 08/17/2017 JOANN FRANCES, MARY Wynn Ot Z79.82 LONG-TERM (CURRENT) USE OF ASPIRIN 08/17/2017 MARY DAVID MD Ot Z79.84 COVER SEAMER (CURRENT) USE OF ORAL HYPOGLYC 08/17/2017 JOANN FRANCES, MARY Wynn Ot Z82.49 FAMILY HX OF ISCHEM HEART DIS AND OTH DI 08/17/2017 JOANN FRANCES MARY Wynn Ot Z96.653 PRESENCE OF ARTIFICIAL KNEE JOINT, BILAT 08/24/2017 JOANN FRANCES, MARY Wynn Ot S01.81XD LACERATION W/O FOREIGN BODY OF OTH PART 08/24/2017 JOANN FRANCES MARY Wynn Ot X58.XXXD EXPOSURE TO OTHER SPECIFIED FACTORS, SUB 08/30/2017 JOANN FRANCES MARY Wynn Ot S01.81XD LACERATION W/O FOREIGN BODY OF OTH PART 08/30/2017 JOANN FRANCES MARY Wynn Ot X58.XXXD EXPOSURE TO OTHER SPECIFIED FACTORS, SUB 09/05/2017 ORENDER DO, CARMINA S Ot E11.9 TYPE 2 DIABETES MELLITUS WITHOUT COMPLIC 09/06/2017 ORENDER DO, CARMINA S Ot E11.9 TYPE 2 DIABETES MELLITUS WITHOUT COMPLIC 09/06/2017 ORENDER DO, CARMINA S Ot 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 09/06/2017 ORENDER DO, CARMINA S Ot I10 ESSENTIAL (PRIMARY) HYPERTENSION 09/06/2017 ORENDER DO, CARMINA S Ot R53.83 OTHER FATIGUE 09/26/2017 ORENDER DO, CARMINA S Ot E11.9 TYPE 2 DIABETES MELLITUS WITHOUT COMPLIC 09/26/2017 ORENDER DO, CARMINA S Ot 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 09/26/2017 ORENDER DO, CARMINA S Ot I10 ESSENTIAL (PRIMARY) HYPERTENSION 09/26/2017 ORENDER DO, CARMINA S Ot R53.83 OTHER FATIGUE 11/10/2017 HARI IVEY Ot G47.33 OBSTRUCTIVE SLEEP APNEA (ADULT) (PEDIATR 11/10/2017 HARI IVEY Ot I10 ESSENTIAL (PRIMARY) HYPERTENSION 11/10/2017 HARI IVEY Ot I47.1 SUPRAVENTRICULAR TACHYCARDIA 11/10/2017 KAREY JEFFERSON, HARI Allen Ot J45.998 OTHER ASTHMA 12/20/2017 KAREY JEFFERSON, HARI Allen Ot G47.33 OBSTRUCTIVE SLEEP APNEA (ADULT) (PEDIATR 12/20/2017 HARI IVEY Ot I10 ESSENTIAL (PRIMARY) HYPERTENSION 12/20/2017 HARI IVEY Ot I47.1 SUPRAVENTRICULAR TACHYCARDIA 12/20/2017 HARI IVEY Ot J45.998 OTHER ASTHMA 03/07/2018 KAERY JEFFERSON, HARI Allen Ot 272.4 HYPERLIPIDEMIA NEC/NOS 03/07/2018 ORENDER DO, CARMINA S Ot 780.4 DIZZINESS AND GIDDINESS 03/07/2018 HARI IVEY Ot E78.5 HYPERLIPIDEMIA, UNSPECIFIED 03/07/2018 ORENDER DO, CARMINA S Ot 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 03/07/2018 ORENDER DO, CARMINA S Ot I10 ESSENTIAL (PRIMARY) HYPERTENSION 03/07/2018 ORENDER DO, CARMINA S Ot R53.83 OTHER FATIGUE 03/07/2018 ORENDER DO, CARMINA S Ot R73.9 HYPERGLYCEMIA, UNSPECIFIED 03/07/2018 ORENDER DO, CARMINA S Ot D51.9 VITAMIN B12 DEFICIENCY ANEMIA, UNSPECIFI 03/07/2018 ORENDER DO, CARMINA S Ot R73.9 HYPERGLYCEMIA, UNSPECIFIED 03/07/2018 ORENDER DO, CARMINA S Ot R13.12 DYSPHAGIA, OROPHARYNGEAL PHASE 03/07/2018 ORENDER DO, CARMINA S Ot E78.2 MIXED HYPERLIPIDEMIA 03/07/2018 ORENDER DO, CARMINA S Ot I10 ESSENTIAL (PRIMARY) HYPERTENSION 03/07/2018 ORENDER DO, CARMINA S Ot R53.83 OTHER FATIGUE 03/07/2018 ORENDER DO, CARMINA S Ot R73.01 IMPAIRED FASTING GLUCOSE 03/07/2018 ORENDER DO, CARMINA S Ot M62.81 MUSCLE WEAKNESS (GENERALIZED) 03/07/2018 ORENDER DO, CARMINA S Ot R42 DIZZINESS AND GIDDINESS 03/07/2018 HARI IVEY Ot E78.2 MIXED HYPERLIPIDEMIA 03/07/2018 HARI IVEY Ot I10 ESSENTIAL (PRIMARY) HYPERTENSION 03/07/2018 ORENDER DO, CARMINA S Ot R41.0 DISORIENTATION, UNSPECIFIED 03/07/2018 ORENDER DO, CARMINA S Ot E11.9 TYPE 2 DIABETES MELLITUS WITHOUT COMPLIC 03/07/2018 ORENDER DO, CARMINA S Ot 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 03/07/2018 ORENDER DO, CARMINA S Ot I10 ESSENTIAL (PRIMARY) HYPERTENSION 03/07/2018 ORENDER DO, CARMINA S Ot R53.83 OTHER FATIGUE 03/07/2018 HARI IVEY Ot G47.33 OBSTRUCTIVE SLEEP APNEA (ADULT) (PEDIATR 03/07/2018 HARI IVEY Ot I10 ESSENTIAL (PRIMARY) HYPERTENSION 03/07/2018 HARI IVEY Ot I47.1 SUPRAVENTRICULAR TACHYCARDIA 03/07/2018 HARI IVEY Ot J45.998 OTHER ASTHMA 03/08/2018 ORENDER DO, CARMINA S Ot E11.9 TYPE 2 DIABETES MELLITUS WITHOUT COMPLIC 03/08/2018 ORENDER DO, CARMINA S Ot 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 03/08/2018 ORENDER DO, CARMINA S Ot E78.5 HYPERLIPIDEMIA, UNSPECIFIED 03/08/2018 ORENDER DO, CARMINA S Ot I10 ESSENTIAL (PRIMARY) HYPERTENSION 03/08/2018 ORENDER DO, CARMINA S Ot R53.83 OTHER FATIGUE 03/27/2018 ORENDER DO, CARMINA S Ot E11.9 TYPE 2 DIABETES MELLITUS WITHOUT COMPLIC 03/27/2018 CARMINA CA DO Ot 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 03/27/2018 CARMINA CA DO Ot E78.5 HYPERLIPIDEMIA, UNSPECIFIED 03/27/2018 MACHELLENDMARLEE DIAZ, CARMINA S Ot I10 ESSENTIAL (PRIMARY) HYPERTENSION 03/27/2018 CARMINA CA DO S Ot R53.83 OTHER FATIGUE 06/11/2018 EDDIE ROCA MD Ot B37.2 CANDIDIASIS OF SKIN AND NAIL 06/11/2018 EDDIE ROCA MD Ot E11.9 TYPE 2 DIABETES MELLITUS WITHOUT COMPLIC 06/11/2018 EDDIE ROCA MD Ot F32.9 MAJOR DEPRESSIVE DISORDER, SINGLE EPISOD 06/11/2018 EDDIE ROCA MD Ot G56.01 CARPAL TUNNEL SYNDROME, RIGHT UPPER LIMB 06/11/2018 EDDIE ROCA MD Ot I10 ESSENTIAL (PRIMARY) HYPERTENSION 06/11/2018 EDDIE ROCA MD Ot J44.9 CHRONIC OBSTRUCTIVE PULMONARY DISEASE, U 06/11/2018 EDDIE ROCA MD Ot K21.9 GASTRO-ESOPHAGEAL REFLUX DISEASE WITHOUT 06/11/2018 EDDIE ROCA MD Ot K62.5 HEMORRHAGE OF ANUS AND RECTUM 06/11/2018 EDDIE ROCA MD Ot L03.818 CELLULITIS OF OTHER SITES 06/11/2018 EDDIE ROCA MD Ot Z79.51 LONG-TERM (CURRENT) USE OF INHALED STERO 06/11/2018 EDDIE ROCA MD Ot Z79.82 LONG-TERM (CURRENT) USE OF ASPIRIN 06/11/2018 EDDIE ROCA MD Ot Z82.49 FAMILY HX OF ISCHEM HEART DIS AND OTH DI 06/11/2018 EDDIE ROCA MD Ot Z96.653 PRESENCE OF ARTIFICIAL KNEE JOINT, BILAT 06/12/2018 ISABELLA FRANCES, YULISSA Singer Ot Z01.818 ENCOUNTER FOR OTHER PREPROCEDURAL EXAMIN 06/13/2018 YULISSA MASON MD Ot Z01.818 ENCOUNTER FOR OTHER PREPROCEDURAL EXAMIN 06/13/2018 EDDIE ROCA MD Ot B37.2 CANDIDIASIS OF SKIN AND NAIL 06/13/2018 EDDIE ROCA MD Ot E11.9 TYPE 2 DIABETES MELLITUS WITHOUT COMPLIC 06/13/2018 EDDIE ROCA MD, Ot F32.9 MAJOR DEPRESSIVE DISORDER, SINGLE EPISOD 06/13/2018 EDDIE ROCA MD Ot G56.01 CARPAL TUNNEL SYNDROME, RIGHT UPPER LIMB 06/13/2018 EDDIE ROCA MD, Ot I10 ESSENTIAL (PRIMARY) HYPERTENSION 06/13/2018 EDDIE ROCA MD, Ot J44.9 CHRONIC OBSTRUCTIVE PULMONARY DISEASE, U 06/13/2018 EDDIE ROCA MD, Ot K21.9 GASTRO-ESOPHAGEAL REFLUX DISEASE WITHOUT 06/13/2018 EDDIE ROCA MD, Ot K62.5 HEMORRHAGE OF ANUS AND RECTUM 06/13/2018 EDDIE ROCA MD Ot L03.818 CELLULITIS OF OTHER SITES 06/13/2018 EDDIE ROCA MD, Ot Z79.51 LONG-TERM (CURRENT) USE OF INHALED STERO 06/13/2018 EDDIE ROCA MD Ot Z79.82 COVER SEAMER (CURRENT) USE OF ASPIRIN 06/13/2018 EDDIE ROCA MD, Ot Z82.49 FAMILY HX OF ISCHEM HEART DIS AND OTH DI 06/13/2018 EDDIE ROCA MD, Ot Z96.653 PRESENCE OF ARTIFICIAL KNEE JOINT, BILAT 06/18/2018 HARI IVEY Ot 272.4 HYPERLIPIDEMIA NEC/NOS 06/18/2018 MACHELLENDZION WHALEN DOQUELINE S Ot 780.4 DIZZINESS AND GIDDINESS 06/18/2018 HARI IVEY Ot E78.5 HYPERLIPIDEMIA, UNSPECIFIED 06/18/2018 MACHELLENDZION WHALEN DOQUELINE S Ot 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 06/18/2018 MACHELLENDER DO CARMINA S Ot I10 ESSENTIAL (PRIMARY) HYPERTENSION 06/18/2018 MACHELLENDZION WHALEN DOQUELINE S Ot R53.83 OTHER FATIGUE 06/18/2018 ORENDER DO, CARMINA S Ot R73.9 HYPERGLYCEMIA, UNSPECIFIED 06/18/2018 ORENDER DO, CARMINA S Ot D51.9 VITAMIN B12 DEFICIENCY ANEMIA, UNSPECIFI 06/18/2018 ORENDER DO, CARMINA S Ot R73.9 HYPERGLYCEMIA, UNSPECIFIED 06/18/2018 ORENDER DO, CARMINA S Ot R13.12 DYSPHAGIA, OROPHARYNGEAL PHASE 06/18/2018 ORENDER DO, CARMINA S Ot E78.2 MIXED HYPERLIPIDEMIA 06/18/2018 ORENDER DO, CARMINA S Ot I10 ESSENTIAL (PRIMARY) HYPERTENSION 06/18/2018 ORENDER DO, CARMINA S Ot R53.83 OTHER FATIGUE 06/18/2018 ORENDER DO, CARMINA S Ot R73.01 IMPAIRED FASTING GLUCOSE 06/18/2018 ORENDER DO, CARMINA S Ot M62.81 MUSCLE WEAKNESS (GENERALIZED) 06/18/2018 ORENDER DO, CARMINA S Ot R42 DIZZINESS AND GIDDINESS 06/18/2018 HARI IVEY Ot E78.2 MIXED HYPERLIPIDEMIA 06/18/2018 HARI IVEY Ot I10 ESSENTIAL (PRIMARY) HYPERTENSION 06/18/2018 ORENDER DO, CARMINA S Ot R41.0 DISORIENTATION, UNSPECIFIED 06/18/2018 ORENDER DO, CARMINA S Ot E11.9 TYPE 2 DIABETES MELLITUS WITHOUT COMPLIC 06/18/2018 ORENDER DO, CARMINA S Ot 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 06/18/2018 ORENDER DO, CARMINA S Ot I10 ESSENTIAL (PRIMARY) HYPERTENSION 06/18/2018 ORENDER DO, CARMINA S Ot R53.83 OTHER FATIGUE 06/18/2018 HARI IVEY Ot G47.33 OBSTRUCTIVE SLEEP APNEA (ADULT) (PEDIATR 06/18/2018 HARI IVEY Ot I10 ESSENTIAL (PRIMARY) HYPERTENSION 06/18/2018 HARI IVEY Ot I47.1 SUPRAVENTRICULAR TACHYCARDIA 06/18/2018 HARI IVEY Ot J45.998 OTHER ASTHMA 06/18/2018 ORENDER DO, CARMINA S Ot E11.9 TYPE 2 DIABETES MELLITUS WITHOUT COMPLIC 06/18/2018 CARMINA CA DO Ot 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 06/18/2018 CARMINA CA DO Ot E78.5 HYPERLIPIDEMIA, UNSPECIFIED 06/18/2018 CARMINA CA DO Ot I10 ESSENTIAL (PRIMARY) HYPERTENSION 06/18/2018 CARMINA CA DO Ot R53.83 OTHER FATIGUE 06/18/2018 Ot M79.605 PAIN IN LEFT LEG 06/18/2018 YULISSA MASON MD Ot E11.9 TYPE 2 DIABETES MELLITUS WITHOUT COMPLIC 06/18/2018 YULISSA MASON MD, Ot F32.9 MAJOR DEPRESSIVE DISORDER, SINGLE EPISOD 06/18/2018 YULISSA MASON MD Ot I10 ESSENTIAL (PRIMARY) HYPERTENSION 06/18/2018 YULISSA MASON MD Ot I95.9 HYPOTENSION, UNSPECIFIED 06/18/2018 YULISSA MASON MD Ot K57.30 DVRTCLOS OF LG INT W/O PERFORATION OR AB 06/18/2018 YULISSA MASON MD Ot R19.4 CHANGE IN BOWEL HABIT 06/18/2018 YULISSA MASON MD Ot R19.7 DIARRHEA, UNSPECIFIED 06/18/2018 YULISSA MASON MD Ot Z79.82 COVER SEAMER (CURRENT) USE OF ASPIRIN 06/18/2018 YULISSA MASON MD Ot Z79.899 OTHER LONG-TERM (CURRENT) DRUG THERAPY 06/18/2018 YULISSA MASON MD Ot Z87.891 PERSONAL HISTORY OF NICOTINE DEPENDENCE 06/18/2018 YULISSA MASON MD Ot Z96.653 PRESENCE OF ARTIFICIAL KNEE JOINT, BILAT 06/19/2018 Ot M79.605 PAIN IN LEFT LEG 06/19/2018 YULISSA MASON MD Ot E11.9 TYPE 2 DIABETES MELLITUS WITHOUT COMPLIC 06/19/2018 YULISSA MASON MD Ot F32.9 MAJOR DEPRESSIVE DISORDER, SINGLE EPISOD 06/19/2018 YULISSA MASON MD Ot I10 ESSENTIAL (PRIMARY) HYPERTENSION 06/19/2018 YULISSA MASON MD Ot I95.9 HYPOTENSION, UNSPECIFIED 06/19/2018 YULISSA MASON MD Ot K57.30 DVRTCLOS OF LG INT W/O PERFORATION OR AB 06/19/2018 ISABELLA FRANCES, YULISSA Singer Ot R19.4 CHANGE IN BOWEL HABIT 06/19/2018 ISABELLA FRANCES, YULISSA Singer Ot R19.7 DIARRHEA, UNSPECIFIED 06/19/2018 ISABELLA FRANCES, YULISSA Singer Ot Z79.82 COVER SEAMER (CURRENT) USE OF ASPIRIN 06/19/2018 ISABELLA FRANCES, YULISSA Singer Ot Z79.899 OTHER LONG-TERM (CURRENT) DRUG THERAPY 06/19/2018 ISABELLA FRANCES, YULISSA Singer Ot Z87.891 PERSONAL HISTORY OF NICOTINE DEPENDENCE 06/19/2018 ISABELLA FRANCES, YULISSA Singer Ot Z96.653 PRESENCE OF ARTIFICIAL KNEE JOINT, BILAT 08/30/2018 ORENDER DO, CARMINA S Ot 780.4 DIZZINESS AND GIDDINESS 08/30/2018 ORENDER DO, CARMINA S Ot 790.29 OTHER ABNORMAL GLUCOSE 08/30/2018 ORENDER DO, CARMINA S Ot V15.88 HISTORY OF FALL 08/30/2018 HARI IVEY Ot 272.4 HYPERLIPIDEMIA NEC/NOS 08/30/2018 ORENDER DO, CARMINA S Ot 780.4 DIZZINESS AND GIDDINESS 08/30/2018 HARI IVEY Ot E78.5 HYPERLIPIDEMIA, UNSPECIFIED 08/30/2018 ORENDER DO, CARMINA S Ot 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 08/30/2018 ORENDER DO, CARMINA S Ot I10 ESSENTIAL (PRIMARY) HYPERTENSION 08/30/2018 ORENDER DO, CARMINA S Ot R53.83 OTHER FATIGUE 08/30/2018 ORENDER DO, CARMINA S Ot R73.9 HYPERGLYCEMIA, UNSPECIFIED 08/30/2018 ORENDER DO, CARMINA S Ot D51.9 VITAMIN B12 DEFICIENCY ANEMIA, UNSPECIFI 08/30/2018 ORENDER DO, CARMINA S Ot R73.9 HYPERGLYCEMIA, UNSPECIFIED 08/30/2018 ORENDER DO, CARMINA S Ot R13.12 DYSPHAGIA, OROPHARYNGEAL PHASE 08/30/2018 ORENDER DO, CARMINA S Ot E78.2 MIXED HYPERLIPIDEMIA 08/30/2018 ORENDER DO, CARMINA S Ot I10 ESSENTIAL (PRIMARY) HYPERTENSION 08/30/2018 ORENDER DO, CARMINA S Ot R53.83 OTHER FATIGUE 08/30/2018 ORENDER DO, CARMINA S Ot R73.01 IMPAIRED FASTING GLUCOSE 08/30/2018 ORENDER DO, CARMINA S Ot M62.81 MUSCLE WEAKNESS (GENERALIZED) 08/30/2018 ORENDER DO, CARMINA S Ot R42 DIZZINESS AND GIDDINESS 08/30/2018 HARI IVEY Ot E78.2 MIXED HYPERLIPIDEMIA 08/30/2018 HARI IVEY Ot I10 ESSENTIAL (PRIMARY) HYPERTENSION 08/30/2018 ORENDER DO, CARMINA S Ot R41.0 DISORIENTATION, UNSPECIFIED 08/30/2018 ORENDER DO, CARMINA S Ot E11.9 TYPE 2 DIABETES MELLITUS WITHOUT COMPLIC 08/30/2018 ORENDER DO, CARMINA S Ot 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 08/30/2018 ORENDER DO, CARMINA S Ot I10 ESSENTIAL (PRIMARY) HYPERTENSION 08/30/2018 MACHELLENDER DO, CARMINA S Ot R53.83 OTHER FATIGUE 08/30/2018 HARI IVEY Ot G47.33 OBSTRUCTIVE SLEEP APNEA (ADULT) (PEDIATR 08/30/2018 HARI IVEY Ot I10 ESSENTIAL (PRIMARY) HYPERTENSION 08/30/2018 HARI IVEY Ot I47.1 SUPRAVENTRICULAR TACHYCARDIA 08/30/2018 HARI IVEY Ot J45.998 OTHER ASTHMA 08/30/2018 MACHELLENDER DO, CARMINA S Ot E11.9 TYPE 2 DIABETES MELLITUS WITHOUT COMPLIC 08/30/2018 ORENDER DO, CARMINA S Ot 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 08/30/2018 ORENDER DO, CARMINA S Ot E78.5 HYPERLIPIDEMIA, UNSPECIFIED 08/30/2018 ORENDER DO, CARMINA S Ot I10 ESSENTIAL (PRIMARY) HYPERTENSION 08/30/2018 ORENDER DO, CARMINA S Ot R53.83 OTHER FATIGUE 08/30/2018 Ot M79.605 PAIN IN LEFT LEG Procedures There is no data. Results Test Result Range Liver function panel (serum or plasma alk phos, alb, total and direct bili, total protein, ALT, AST) - 06/10/16 08:00 Serum or plasma total bilirubin measurement (mass/volume) 0.7 mg/dL 0.1-1.0 Serum or plasma alkaline phosphatase measurement (enzymatic activity/volume) 59 U/L 40-136 Serum or plasma aspartate aminotransferase measurement (enzymatic activity/ volume) 25 U/L 5-34 Serum or plasma alanine aminotransferase measurement (enzymatic activity/volume ) 41 U/L 0-55 Serum or plasma protein measurement (mass/volume) 6.6 g/dL 6.4-8.2 Serum or plasma albumin measurement (mass/volume) 4.0 g/dL 3.2-4.5 Bilirubin direct 0.3 mg/dL 0.0-0.3 Serum or plasma indirect bilirubin measurement (mass/volume) 0.4 mg/ dL [facility] Lipid 1996 panel - 06/10/16 08:00 Serum or plasma triglyceride measurement (mass/volume) 98 mg/dL <150 Serum or plasma cholesterol measurement (mass/volume) 116 mg/dL < 200 Serum or plasma cholesterol in HDL measurement (mass/volume) 33 mg/ dL 40-60 Cholesterol in LDL [mass/volume] in serum or plasma by direct assay 71 mg/dL 1-129 Serum or plasma cholesterol in VLDL measurement (mass/volume) 20 mg/ dL 5-40 Complete blood count (CBC) with automated white blood cell (WBC) differential - 06/16/16 15:14 Blood leukocytes automated count (number/volume) 7.8 10*3/uL 4.3-11.0 Blood erythrocytes automated count (number/volume) 5.13 10*6/uL 4.35-5.85 Venous blood hemoglobin measurement (mass/volume) 15.0 g/dL 13.3-17.7 Blood hematocrit (volume fraction) 43 % 40-54 Automated erythrocyte mean corpuscular volume 85 [foz_us] 80-99 Automated erythrocyte mean corpuscular hemoglobin (mass per erythrocyte) 29 pg 25-34 Automated erythrocyte mean corpuscular hemoglobin concentration measurement ( mass/volume) 35 g/dL 32-36 Automated erythrocyte distribution width ratio 13.8 % 10.0-14.5 Automated blood platelet count (count/volume) 191 10*3/uL 130-400 Automated blood platelet mean volume measurement 9.4 [foz_us] 7.4-10.4 Automated blood neutrophils/100 leukocytes 62 % 42-75 Automated blood lymphocytes/100 leukocytes 25 % 12-44 Blood monocytes/100 leukocytes 6 % 0-12 Automated blood eosinophils/100 leukocytes 6 % 0-10 Automated blood basophils/100 leukocytes 1 % 0-10 Blood neutrophils automated count (number/volume) 4.8 10*3 1.8-7.8 Blood lymphocytes automated count (number/volume) 2.0 10*3 1.0-4.0 Blood monocytes automated count (number/volume) 0.5 10*3 0.0-1.0 Automated eosinophil count 0.5 10*3/uL 0.0-0.3 Automated blood basophil count (count/volume) 0.1 10*3/uL 0.0-0.1 Whole blood basic metabolic panel - 06/16/16 15:14 Serum or plasma sodium measurement (moles/volume) 142 mmol/L 135-145 Serum or plasma potassium measurement (moles/volume) 4.1 mmol/L 3.6-5.0 Serum or plasma chloride measurement (moles/volume) 111 mmol/L 98-107 Carbon dioxide 22 mmol/L 21-32 Serum or plasma anion gap determination (moles/volume) 9 mmol/L 5-14 Serum or plasma urea nitrogen measurement (mass/volume) 14 mg/dL 7-18 Serum or plasma creatinine measurement (mass/volume) 1.07 mg/dL 0.60-1.30 Serum or plasma urea nitrogen/creatinine mass ratio 13 NRG Serum or plasma creatinine measurement with calculation of estimated glomerular filtration rate > NRG Serum or plasma glucose measurement (mass/volume) 116 mg/dL 70-105 Serum or plasma calcium measurement (mass/volume) 9.2 mg/dL 8.5-10.1 THYROID STIMULATING HORMONE - 06/16/16 15:14 THYROID STIMULATING HORMONE 1.11 u[iU]/mL 0.35-4.94 Serum or plasma thyroxine (T4) free measurement (mass/volume) - 06/16/16 15:14 Serum or plasma thyroxine (T4) free measurement (mass/volume) 0.97 ng/dL 0.70-1.48 Hemoglobin A1c - 06/16/16 15:14 Hemoglobin A1c 6.8 % 4.5-6.2 Cyanocobalamin measurement - 06/16/16 15:14 Vitamin B12 > pg/mL 200-1000 Hemoglobin A1c - 09/23/16 08:37 Hemoglobin A1c 5.5 % 4.5-6.2 Cyanocobalamin measurement - 09/23/16 08:37 Vitamin B12 597 pg/mL 200-1000 Complete blood count (CBC) with automated white blood cell (WBC) differential - 11/01/16 22:20 Blood leukocytes automated count (number/volume) 8.1 10*3/uL 4.3-11.0 Blood erythrocytes automated count (number/volume) 5.09 10*6/uL 4.35-5.85 Venous blood hemoglobin measurement (mass/volume) 15.2 g/dL 13.3-17.7 Blood hematocrit (volume fraction) 43 % 40-54 Automated erythrocyte mean corpuscular volume 84 [foz_us] 80-99 Automated erythrocyte mean corpuscular hemoglobin (mass per erythrocyte) 30 pg 25-34 Automated erythrocyte mean corpuscular hemoglobin concentration measurement ( mass/volume) 36 g/dL 32-36 Automated erythrocyte distribution width ratio 13.1 % 10.0-14.5 Automated blood platelet count (count/volume) 191 10*3/uL 130-400 Automated blood platelet mean volume measurement 9.9 [foz_us] 7.4-10.4 Automated blood neutrophils/100 leukocytes 60 % 42-75 Automated blood lymphocytes/100 leukocytes 26 % 12-44 Blood monocytes/100 leukocytes 7 % 0-12 Automated blood eosinophils/100 leukocytes 7 % 0-10 Automated blood basophils/100 leukocytes 1 % 0-10 Blood neutrophils automated count (number/volume) 4.8 10*3 1.8-7.8 Blood lymphocytes automated count (number/volume) 2.1 10*3 1.0-4.0 Blood monocytes automated count (number/volume) 0.6 10*3 0.0-1.0 Automated eosinophil count 0.5 10*3/uL 0.0-0.3 Automated blood basophil count (count/volume) 0.0 10*3/uL 0.0-0.1 Comprehensive metabolic panel - 11/01/16 22:20 Serum or plasma sodium measurement (moles/volume) 140 mmol/L 135-145 Serum or plasma potassium measurement (moles/volume) 3.4 mmol/L 3.6-5.0 Serum or plasma chloride measurement (moles/volume) 108 mmol/L 98-107 Carbon dioxide 22 mmol/L 21-32 Serum or plasma anion gap determination (moles/volume) 10 mmol/L 5-14 Serum or plasma urea nitrogen measurement (mass/volume) 25 mg/dL 7-18 Serum or plasma creatinine measurement (mass/volume) 1.00 mg/dL 0.60-1.30 Serum or plasma urea nitrogen/creatinine mass ratio 25 NRG Serum or plasma creatinine measurement with calculation of estimated glomerular filtration rate > NRG Serum or plasma glucose measurement (mass/volume) 203 mg/dL 70-105 Serum or plasma calcium measurement (mass/volume) 8.9 mg/dL 8.5-10.1 Serum or plasma total bilirubin measurement (mass/volume) 0.6 mg/dL 0.1-1.0 Serum or plasma alkaline phosphatase measurement (enzymatic activity/volume) 56 U/L 40-136 Serum or plasma aspartate aminotransferase measurement (enzymatic activity/ volume) 17 U/L 5-34 Serum or plasma alanine aminotransferase measurement (enzymatic activity/volume ) 28 U/L 0-55 Serum or plasma protein measurement (mass/volume) 6.9 g/dL 6.4-8.2 Serum or plasma albumin measurement (mass/volume) 4.0 g/dL 3.2-4.5 Serum or plasma C reactive protein measurement (mass/volume) - 11/01/16 22:20 Serum or plasma C reactive protein measurement (mass/volume) 0.30 mg /dL 0.00-0.50 Blood CBC with ordered manual differential panel - 01/19/17 08:31 Blood leukocytes automated count (number/volume) 6.8 10*3/uL 4.3-11.0 Blood erythrocytes automated count (number/volume) 5.15 10*6/uL 4.35-5.85 Venous blood hemoglobin measurement (mass/volume) 15.3 g/dL 13.3-17.7 Blood hematocrit (volume fraction) 44 % 40-54 Automated erythrocyte mean corpuscular volume 86 [foz_us] 80-99 Automated erythrocyte mean corpuscular hemoglobin (mass per erythrocyte) 30 pg 25-34 Automated erythrocyte mean corpuscular hemoglobin concentration measurement ( mass/volume) 35 g/dL 32-36 Automated erythrocyte distribution width ratio 13.4 % 10.0-14.5 Automated blood platelet count (count/volume) 180 10*3/uL 130-400 Automated blood platelet mean volume measurement 10.0 [foz_us] 7.4-10.4 Automated blood neutrophils/100 leukocytes 56 % 42-75 Automated blood lymphocytes/100 leukocytes 24 % 12-44 Blood monocytes/100 leukocytes 7 % NRG Automated blood eosinophils/100 leukocytes 11 % 0-10 Automated blood basophils/100 leukocytes 1 % 0-10 Blood neutrophils automated count (number/volume) 3.8 10*3 1.8-7.8 Blood lymphocytes automated count (number/volume) 1.6 10*3 1.0-4.0 Blood monocytes automated count (number/volume) 0.6 10*3 0.0-1.0 Automated eosinophil count 0.7 10*3/uL 0.0-0.3 Automated blood basophil count (count/volume) 0.1 10*3/uL 0.0-0.1 Manual blood segmented neutrophils/100 leukocytes 50 % NRG Blood band neutrophils/100 leukocytes 0 % NRG Manual blood lymphocytes/100 leukocytes 26 % NRG Manual eosinophils/100 leukocytes in nose 15 % NRG Manual blood basophils/100 leukocytes 2 % NRG Blood pappenheimer bodies detection by light microscopy SLIGHT [facility] Comprehensive metabolic panel - 01/19/17 08:31 Serum or plasma sodium measurement (moles/volume) 142 mmol/L 135-145 Serum or plasma potassium measurement (moles/volume) 4.0 mmol/L 3.6-5.0 Serum or plasma chloride measurement (moles/volume) 110 mmol/L 98-107 Carbon dioxide 27 mmol/L 21-32 Serum or plasma anion gap determination (moles/volume) 5 mmol/L 5-14 Serum or plasma urea nitrogen measurement (mass/volume) 20 mg/dL 7-18 Serum or plasma creatinine measurement (mass/volume) 1.16 mg/dL 0.60-1.30 Serum or plasma urea nitrogen/creatinine mass ratio 17 NRG Serum or plasma creatinine measurement with calculation of estimated glomerular filtration rate > NRG Serum or plasma glucose measurement (mass/volume) 145 mg/dL 70-105 Serum or plasma calcium measurement (mass/volume) 8.9 mg/dL 8.5-10.1 Serum or plasma total bilirubin measurement (mass/volume) 0.4 mg/dL 0.1-1.0 Serum or plasma alkaline phosphatase measurement (enzymatic activity/volume) 61 U/L 40-136 Serum or plasma aspartate aminotransferase measurement (enzymatic activity/ volume) 19 U/L 5-34 Serum or plasma alanine aminotransferase measurement (enzymatic activity/volume ) 22 U/L 0-55 Serum or plasma protein measurement (mass/volume) 6.7 g/dL 6.4-8.2 Serum or plasma albumin measurement (mass/volume) 3.9 g/dL 3.2-4.5 Hemoglobin A1c - 01/19/17 08:31 Hemoglobin A1c 6.5 % 4.5-6.2 Complete blood count (CBC) with automated white blood cell (WBC) differential - 05/20/17 09:31 Blood leukocytes automated count (number/volume) 7.0 10*3/uL 4.3-11.0 Blood erythrocytes automated count (number/volume) 4.96 10*6/uL 4.35-5.85 Venous blood hemoglobin measurement (mass/volume) 14.6 g/dL 13.3-17.7 Blood hematocrit (volume fraction) 43 % 40-54 Automated erythrocyte mean corpuscular volume 87 [foz_us] 80-99 Automated erythrocyte mean corpuscular hemoglobin (mass per erythrocyte) 29 pg 25-34 Automated erythrocyte mean corpuscular hemoglobin concentration measurement ( mass/volume) 34 g/dL 32-36 Automated erythrocyte distribution width ratio 13.4 % 10.0-14.5 Automated blood platelet count (count/volume) 181 10*3/uL 130-400 Automated blood platelet mean volume measurement 10.1 [foz_us] 7.4-10.4 Automated blood neutrophils/100 leukocytes 66 % 42-75 Automated blood lymphocytes/100 leukocytes 21 % 12-44 Blood monocytes/100 leukocytes 7 % 0-12 Automated blood eosinophils/100 leukocytes 6 % 0-10 Automated blood basophils/100 leukocytes 0 % 0-10 Blood neutrophils automated count (number/volume) 4.6 10*3 1.8-7.8 Blood lymphocytes automated count (number/volume) 1.5 10*3 1.0-4.0 Blood monocytes automated count (number/volume) 0.5 10*3 0.0-1.0 Automated eosinophil count 0.4 10*3/uL 0.0-0.3 Automated blood basophil count (count/volume) 0.0 10*3/uL 0.0-0.1 Comprehensive metabolic panel - 05/20/17 09:31 Serum or plasma sodium measurement (moles/volume) 140 mmol/L 135-145 Serum or plasma potassium measurement (moles/volume) 4.0 mmol/L 3.6-5.0 Serum or plasma chloride measurement (moles/volume) 108 mmol/L 98-107 Carbon dioxide 21 mmol/L 21-32 Serum or plasma anion gap determination (moles/volume) 11 mmol/L 5-14 Serum or plasma urea nitrogen measurement (mass/volume) 19 mg/dL 7-18 Serum or plasma creatinine measurement (mass/volume) 1.00 mg/dL 0.60-1.30 Serum or plasma urea nitrogen/creatinine mass ratio 19 NRG Serum or plasma creatinine measurement with calculation of estimated glomerular filtration rate > NRG Serum or plasma glucose measurement (mass/volume) 124 mg/dL 70-105 Serum or plasma calcium measurement (mass/volume) 8.9 mg/dL 8.5-10.1 Serum or plasma total bilirubin measurement (mass/volume) 1.1 mg/dL 0.1-1.0 Serum or plasma alkaline phosphatase measurement (enzymatic activity/volume) 65 U/L 40-136 Serum or plasma aspartate aminotransferase measurement (enzymatic activity/ volume) 16 U/L 5-34 Serum or plasma alanine aminotransferase measurement (enzymatic activity/volume ) 21 U/L 0-55 Serum or plasma protein measurement (mass/volume) 6.9 g/dL 6.4-8.2 Serum or plasma albumin measurement (mass/volume) 4.1 g/dL 3.2-4.5 Serum or plasma creatine kinase measurement (enzymatic activity/volume) - 05/20 09:31 Serum or plasma creatine kinase measurement (enzymatic activity/volume) 78 U/L 30-200 THYROID STIMULATING HORMONE - 05/20/17 09:31 THYROID STIMULATING HORMONE 0.71 u[iU]/mL 0.35-4.94 Complete urinalysis with reflex to culture - 06/07/17 08:58 Urine color determination YELLOW NRG Urine clarity determination CLEAR NRG Urine pH measurement by test strip 6.5 5-9 Specific gravity of urine by test strip 1.020 1.016- 1.022 Urine protein assay by test strip, semi-quantitative NEGATIVE NEGATIVE Urine glucose detection by automated test strip NEGATIVE NEGATIVE Erythrocytes detection in urine sediment by light microscopy NEGATIVE NEGATIVE Urine ketones detection by automated test strip NEGATIVE NEGATIVE Urine nitrite detection by test strip NEGATIVE NEGATIVE Urine total bilirubin detection by test strip NEGATIVE NEGATIVE Urine urobilinogen measurement by automated test strip (mass/volume) NORMAL NORMAL Urine leukocyte esterase detection by dipstick NEGATIVE NEGATIVE Automated urine sediment erythrocyte count by microscopy (number/high power field) NONE NRG Automated urine sediment leukocyte count by microscopy (number/high power field ) RARE NRG Bacteria detection in urine sediment by light microscopy TRACE NRG Squamous epithelial cells detection in urine sediment by light microscopy RARE NRG Crystals detection in urine sediment by light microscopy PRESENT NRG Casts detection in urine sediment by light microscopy NONE NRG Mucus detection in urine sediment by light microscopy MODERATE NRG Complete urinalysis with reflex to culture NO NRG Amorphous sediment detection in urine sediment by light microscopy RARE IDA URATES NRG Comprehensive metabolic panel - 07/04/17 07:52 Serum or plasma sodium measurement (moles/volume) 141 mmol/L 135-145 Serum or plasma potassium measurement (moles/volume) 3.9 mmol/L 3.6-5.0 Serum or plasma chloride measurement (moles/volume) 109 mmol/L 98-107 Carbon dioxide 23 mmol/L 21-32 Serum or plasma anion gap determination (moles/volume) 9 mmol/L 5-14 Serum or plasma urea nitrogen measurement (mass/volume) 22 mg/dL 7-18 Serum or plasma creatinine measurement (mass/volume) 1.05 mg/dL 0.60-1.30 Serum or plasma urea nitrogen/creatinine mass ratio 21 NRG Serum or plasma creatinine measurement with calculation of estimated glomerular filtration rate > NRG Serum or plasma glucose measurement (mass/volume) 111 mg/dL 70-105 Serum or plasma calcium measurement (mass/volume) 8.7 mg/dL 8.5-10.1 Serum or plasma total bilirubin measurement (mass/volume) 0.8 mg/dL 0.1-1.0 Serum or plasma alkaline phosphatase measurement (enzymatic activity/volume) 61 U/L 40-136 Serum or plasma aspartate aminotransferase measurement (enzymatic activity/ volume) 17 U/L 5-34 Serum or plasma alanine aminotransferase measurement (enzymatic activity/volume ) 15 U/L 0-55 Serum or plasma protein measurement (mass/volume) 6.7 g/dL 6.4-8.2 Serum or plasma albumin measurement (mass/volume) 3.9 g/dL 3.2-4.5 Lipid 1996 panel - 07/04/17 07:52 Serum or plasma triglyceride measurement (mass/volume) 44 mg/dL <150 Serum or plasma cholesterol measurement (mass/volume) 103 mg/dL < 200 Serum or plasma cholesterol in HDL measurement (mass/volume) 36 mg/ dL 40-60 Cholesterol in LDL [mass/volume] in serum or plasma by direct assay 59 mg/dL 1-129 Serum or plasma cholesterol in VLDL measurement (mass/volume) 9 mg/ dL 5-40 Complete blood count (CBC) with automated white blood cell (WBC) differential - 09/05/17 12:13 Blood leukocytes automated count (number/volume) 6.5 10*3/uL 4.3-11.0 Blood erythrocytes automated count (number/volume) 4.90 10*6/uL 4.35-5.85 Venous blood hemoglobin measurement (mass/volume) 14.7 g/dL 13.3-17.7 Blood hematocrit (volume fraction) 42 % 40-54 Automated erythrocyte mean corpuscular volume 86 [foz_us] 80-99 Automated erythrocyte mean corpuscular hemoglobin (mass per erythrocyte) 30 pg 25-34 Automated erythrocyte mean corpuscular hemoglobin concentration measurement ( mass/volume) 35 g/dL 32-36 Automated erythrocyte distribution width ratio 12.9 % 10.0-14.5 Automated blood platelet count (count/volume) 200 10*3/uL 130-400 Automated blood platelet mean volume measurement 9.9 [foz_us] 7.4-10.4 Automated blood neutrophils/100 leukocytes 56 % 42-75 Automated blood lymphocytes/100 leukocytes 28 % 12-44 Blood monocytes/100 leukocytes 7 % 0-12 Automated blood eosinophils/100 leukocytes 8 % 0-10 Automated blood basophils/100 leukocytes 1 % 0-10 Blood neutrophils automated count (number/volume) 3.7 10*3 1.8-7.8 Blood lymphocytes automated count (number/volume) 1.9 10*3 1.0-4.0 Blood monocytes automated count (number/volume) 0.4 10*3 0.0-1.0 Automated eosinophil count 0.5 10*3/uL 0.0-0.3 Automated blood basophil count (count/volume) 0.0 10*3/uL 0.0-0.1 Comprehensive metabolic panel - 09/05/17 12:13 Serum or plasma sodium measurement (moles/volume) 137 mmol/L 135-145 Serum or plasma potassium measurement (moles/volume) 4.0 mmol/L 3.6-5.0 Serum or plasma chloride measurement (moles/volume) 105 mmol/L 98-107 Carbon dioxide 25 mmol/L 21-32 Serum or plasma anion gap determination (moles/volume) 7 mmol/L 5-14 Serum or plasma urea nitrogen measurement (mass/volume) 13 mg/dL 7-18 Serum or plasma creatinine measurement (mass/volume) 0.95 mg/dL 0.60-1.30 Serum or plasma urea nitrogen/creatinine mass ratio 14 NRG Serum or plasma creatinine measurement with calculation of estimated glomerular filtration rate > NRG Serum or plasma glucose measurement (mass/volume) 90 mg/dL 70-105 Serum or plasma calcium measurement (mass/volume) 9.2 mg/dL 8.5-10.1 Serum or plasma total bilirubin measurement (mass/volume) 1.1 mg/dL 0.1-1.0 Serum or plasma alkaline phosphatase measurement (enzymatic activity/volume) 67 U/L 40-136 Serum or plasma aspartate aminotransferase measurement (enzymatic activity/ volume) 15 U/L 5-34 Serum or plasma alanine aminotransferase measurement (enzymatic activity/volume ) 16 U/L 0-55 Serum or plasma protein measurement (mass/volume) 7.0 g/dL 6.4-8.2 Serum or plasma albumin measurement (mass/volume) 4.0 g/dL 3.2-4.5 Hemoglobin A1c - 09/05/17 12:13 Hemoglobin A1c 6.5 % 4.5-6.2 THYROID STIMULATING HORMONE - 09/05/17 12:13 THYROID STIMULATING HORMONE 1.61 u[iU]/mL 0.35-4.94 Cyanocobalamin measurement - 09/05/17 12:13 Vitamin B12 459 pg/mL 200-1000 Complete blood count (CBC) with automated white blood cell (WBC) differential - 03/07/18 05:27 Blood leukocytes automated count (number/volume) 4.8 10*3/uL 4.3-11.0 Blood erythrocytes automated count (number/volume) 4.76 10*6/uL 4.35-5.85 Venous blood hemoglobin measurement (mass/volume) 14.4 g/dL 13.3-17.7 Blood hematocrit (volume fraction) 42 % 40-54 Automated erythrocyte mean corpuscular volume 88 [foz_us] 80-99 Automated erythrocyte mean corpuscular hemoglobin (mass per erythrocyte) 30 pg 25-34 Automated erythrocyte mean corpuscular hemoglobin concentration measurement ( mass/volume) 34 g/dL 32-36 Automated erythrocyte distribution width ratio 13.4 % 10.0-14.5 Automated blood platelet count (count/volume) 191 10*3/uL 130-400 Automated blood platelet mean volume measurement 9.9 [foz_us] 7.4-10.4 Automated blood neutrophils/100 leukocytes 53 % 42-75 Automated blood lymphocytes/100 leukocytes 29 % 12-44 Blood monocytes/100 leukocytes 8 % 0-12 Automated blood eosinophils/100 leukocytes 10 % 0-10 Automated blood basophils/100 leukocytes 1 % 0-10 Blood neutrophils automated count (number/volume) 2.5 10*3 1.8-7.8 Blood lymphocytes automated count (number/volume) 1.4 10*3 1.0-4.0 Blood monocytes automated count (number/volume) 0.4 10*3 0.0-1.0 Automated eosinophil count 0.5 10*3/uL 0.0-0.3 Automated blood basophil count (count/volume) 0.0 10*3/uL 0.0-0.1 Comprehensive metabolic panel - 03/07/18 05:27 Serum or plasma sodium measurement (moles/volume) 139 mmol/L 135-145 Serum or plasma potassium measurement (moles/volume) 4.2 mmol/L 3.6-5.0 Serum or plasma chloride measurement (moles/volume) 112 mmol/L 98-107 Carbon dioxide 19 mmol/L 21-32 Serum or plasma anion gap determination (moles/volume) 8 mmol/L 5-14 Serum or plasma urea nitrogen measurement (mass/volume) 22 mg/dL 7-18 Serum or plasma creatinine measurement (mass/volume) 0.95 mg/dL 0.60-1.30 Serum or plasma urea nitrogen/creatinine mass ratio 23 NRG Serum or plasma creatinine measurement with calculation of estimated glomerular filtration rate > NRG Serum or plasma glucose measurement (mass/volume) 131 mg/dL 70-105 Serum or plasma calcium measurement (mass/volume) 8.9 mg/dL 8.5-10.1 Serum or plasma total bilirubin measurement (mass/volume) 0.4 mg/dL 0.1-1.0 Serum or plasma alkaline phosphatase measurement (enzymatic activity/volume) 55 U/L 40-136 Serum or plasma aspartate aminotransferase measurement (enzymatic activity/ volume) 19 U/L 5-34 Serum or plasma alanine aminotransferase measurement (enzymatic activity/volume ) 22 U/L 0-55 Serum or plasma protein measurement (mass/volume) 6.2 g/dL 6.4-8.2 Serum or plasma albumin measurement (mass/volume) 4.1 g/dL 3.2-4.5 Lipid 1996 panel - 03/07/18 05:27 Serum or plasma triglyceride measurement (mass/volume) 52 mg/dL <150 Serum or plasma cholesterol measurement (mass/volume) 101 mg/dL < 200 Serum or plasma cholesterol in HDL measurement (mass/volume) 37 mg/ dL 40-60 Cholesterol in LDL [mass/volume] in serum or plasma by direct assay 57 mg/dL 1-129 Serum or plasma cholesterol in VLDL measurement (mass/volume) 10 mg/ dL 5-40 THYROID STIMULATING HORMONE - 03/07/18 05:27 THYROID STIMULATING HORMONE 0.73 u[iU]/mL 0.35-4.94 Hemoglobin A1c - 03/07/18 05:27 Blood hemoglobin A1C measurement (mass/volume) 6.0 % 4.0- 5.6 MEAN BLOOD GLUCOSE 126 % <=126 Cyanocobalamin measurement - 03/07/18 05:27 Vitamin B12 396 pg/mL 200-1000 Encounters ACCT No. Visit Date/Time Discharge Status Pt. Type Provider Facility Loc./Unit Complaint [id number] 06/18/2018 10:32:00 06/18/2018 14:25:00 DIS Outpatient YULISSA MASON MD [facility] ENDO CHANGE IN BOWEL [id number] 06/12/2018 11:30:00 06/12/2018 12:03:00 DIS Outpatient YULISSA MASON MD [facility] PREOP COLONOSCOPY [id number] 06/11/2018 12:22:00 06/11/2018 14:45:00 DIS Emergency EDDIE ROCA MD [facility] ER PASSING BLOOD THRU RECTUM [id number] 03/07/2018 07:13:00 03/07/2018 23:59:59 CLS Outpatient CARMINA CA DO [facility] LAB HTN,HYPERLIPIDEMIA, B12 DEF,FATIGUE,DMII [id number] 10/20/2017 08:54:00 10/20/2017 23:59:59 CLS Outpatient HARI IVEY [facility] RAD 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 [id number] 09/05/2017 12:00:00 09/05/2017 23:59:59 CLS Outpatient ORENDER DO CARMINA S [facility] LAB DMII,HTN,FATIGUE, B12 DEF [id number] 08/24/2017 10:23:00 08/24/2017 10:36:00 DIS Emergency MARY DAIVD MD [facility] ER SUTURE REMOVAL [id number] 08/17/2017 15:15:00 08/17/2017 17:50:00 DIS Emergency MARY DAVID MD [facility] ER HEAD LACERATION [id number] 07/23/2017 00:43:00 07/23/2017 23:59:59 CLS Preadmit SHUBHAM CARMINA S [facility] LAB CONFUSION [id number] 06/07/2017 08:38:00 07/22/2017 00:01:00 DIS Outpatient DENIZER DO CARMINA S [facility] LAB CONFUSION [id number] 07/04/2017 07:50:00 07/04/2017 23:59:59 CLS Outpatient HARI IVEY [facility] LAB I10 E78.2 [id number] 05/20/2017 09:22:00 05/20/2017 23:59:59 CLS Outpatient MACHELLENDER DO CARMINA S [facility] LAB DIZZINESS, MUCSLE WEAKNESS [id number] 04/06/2017 16:44:00 04/06/2017 17:41:00 DIS Emergency MILIND FERNANDO APRN [facility] ER PT FELL/RT ARM LACERATION [id number] 01/19/2017 08:21:00 01/19/2017 23:59:59 CLS Outpatient SHUBHAM DIAZ CARMINA S [facility] LAB E78.2,FATIGUE [id number] 11/18/2016 10:09:00 11/18/2016 23:59:59 CLS Outpatient ZION CA DOQUELINE S [facility] RAD ORAL DYSPHAGIA [id number] 11/01/2016 22:01:00 11/02/2016 01:30:00 DIS Emergency ABELINO FRANCES, EDDIE Pacheco [facility] ER RASH,DIFFICULTY SWALLOWING [id number] 09/23/2016 08:26:00 09/23/2016 23:59:59 CLS Outpatient MACHELLENDER DO CARMINA S [facility] LAB D51.9,R73.9 [id number] 06/16/2016 15:03:00 06/16/2016 23:59:59 CLS Outpatient MACHELLENDMARLEE DIAZ CARMINA S [facility] LAB HTN,FATIGUE, B12 DEF [id number] 06/10/2016 07:52:00 06/10/2016 23:59:59 CLS Outpatient HARI IVEY [facility] LAB HYPERLIPIDEMIA [id number] 09/02/2015 12:37:00 09/02/2015 15:15:00 DIS Emergency EDDIE ROCA MD [facility] ER WEAKNESS [id number] 06/05/2015 13:00:00 06/05/2015 23:59:59 CLS Preadmit SHUBHAM DIAZ, CARMINA S [facility] CARD DIZZINESS,ECTOPY [id number] 03/06/2015 12:59:00 06/04/2015 00:01:00 DIS Outpatient MACHELLENDER DO CARMINA S [facility] CARD DIZZINESS,ECTOPY [id number] 05/28/2015 09:51:00 05/28/2015 23:59:59 CLS Outpatient HARI IVEY [facility] LAB HYPERLIPIDEMIA [id number] 03/06/2015 13:33:00 03/06/2015 15:24:00 DIS Emergency FLOYD BLANCO MD [facility] ER DIZZY/IRR HEART RATE [id number] 03/04/2015 09:24:00 03/04/2015 23:59:59 CLS Outpatient ORENDER DO, CARMINA S [facility] LAB DIZZINESS,FALLS, HYPERGLYCEMIA [id number] 11/26/2014 10:51:00 11/26/2014 23:59:59 CLS Outpatient RADHA LEES MD [facility] CARD [id number] 11/25/2014 08:35:00 11/25/2014 23:59:59 CLS Outpatient VANLIASHOLA CEVALLOS METAL ANNEALER [facility] LAB [id number] 10/15/2014 10:16:00 10/15/2014 23:59:59 CLS Outpatient VANBECELAERE SHOLA Singer METAL ANNEALER [facility] RAD [id number] 08/11/2014 09:16:00 08/11/2014 23:59:59 CLS Outpatient ORENDER DO, CARMINA S [facility] LAB [id number] 01/28/2014 13:00:00 04/23/2014 00:01:00 DIS Outpatient ORENDER DO CARMINA S [facility] PULM [id number] 01/15/2014 09:08:00 01/15/2014 23:59:59 CLS Outpatient HARI IVEY [facility] LAB [id number] 12/18/2013 15:34:00 12/20/2013 10:45:00 DIS Inpatient ORENDER DO, CARMINA S Via [address] [id number] 12/13/2013 11:00:00 12/13/2013 12:33:00 DIS Emergency MILIND FERNANDO APRN [facility] ER [id number] 11/22/2013 09:31:00 11/22/2013 23:59:59 CLS Outpatient ORENDER DO, CARMINA S [facility] RT [id number] 10/28/2013 14:10:00 10/30/2013 10:41:00 DIS Inpatient ORENDER DO, CARMINA S [facility] [address] [id number] 10/18/2013 10:48:00 10/18/2013 23:59:59 CLS Outpatient SEBASTIANTanikaDEEPIKA ALMANZA METAL ANNEALER [facility] RAD [id number] 10/02/2013 13:34:00 10/02/2013 23:59:59 CLS Outpatient RADHA LEES MD [facility] LAB [id number] 08/20/2013 11:39:00 08/20/2013 23:59:59 CLS Outpatient SHOLA SEXTON METAL ANNEALER [facility] RAD [id number] 06/17/2013 08:56:00 06/17/2013 23:59:59 CLS Outpatient CARMINA CA DO [facility] RAD [id number] 09/19/2018 11:59:00 PEN Preadmit CARMINA CA DO S [facility] REHAB L LEG/THIGH PAIN W RADICULOPATHY [id number] 05/30/2018 11:48:00 Document Registration [id number] 11/27/2014 12:08:00 Document Registration [id number] 07/08/2014 09:13:00 Document Registration [id number] 04/24/2014 15:00:00 Document Registration [id number] 01/14/2013 18:36:00 Document Registration [id number] 01/07/2013 20:52:00 Document Registration [id number] 10/22/2012 23:54:00 Document Registration [id number] 09/27/2012 11:27:00 Document Registration [id number] 09/24/2012 08:30:00 Document Registration [id number] 08/07/2012 22:27:00 Document Registration [id number] 07/03/2012 11:09:00 Document Registration [id number] 06/13/2012 05:32:00 Document Registration [id number] 06/08/2012 10:33:00 Document Registration [id number] 05/24/2012 08:40:00 Document Registration [id number] 02/03/2012 13:02:00 Document Registration [id number] 01/28/2012 20:03:00 Document Registration [id number] 01/23/2012 15:08:00 Document Registration [id number] 01/06/2012 12:27:00 Document Registration [id number] 01/02/2012 19:13:00 Document Registration [id number] 12/08/2011 05:41:00 Document Registration [id number] 12/06/2011 07:47:00 Document Registration [id number] 12/02/2011 09:49:00 Document Registration [id number] 10/29/2011 16:58:00 Document Registration [id number] 08/01/2011 10:47:00 Document Registration [id number] 07/22/2011 09:51:00 Document Registration [id number] 07/20/2011 08:17:00 Document Registration [id number] 06/09/2011 08:53:00 Document Registration [id number] 05/23/2011 08:18:00 Document Registration [id number] 05/12/2011 11:23:00 Document Registration [id number] 04/07/2011 10:16:00 Document Registration [id number] 01/27/2011 10:13:00 Document Registration [id number] 12/30/2010 17:13:00 Document Registration [id number] 11/30/2010 10:10:00 Document Registration [id number] 11/26/2010 09:50:00 Document Registration [id number] 11/22/2010 18:00:00 Document Registration [id number] 09/21/2010 09:30:00 Document Registration [id number] 09/08/2010 18:27:00 Document Registration [id number] 09/07/2010 10:34:00 Document Registration [id number] 08/11/2010 18:03:00 Document Registration [id number] 05/31/2010 08:25:00 Document Registration [id number] 05/19/2010 08:22:00 Document Registration [id number] 03/29/2010 10:55:00 Document Registration [id number] 01/11/2010 13:48:00 Document Registration [id number] 11/17/2009 15:55:00 Document Registration [id number] 08/11/2009 14:46:00 Document Registration [id number] 06/09/2009 09:41:00 Document Registration [id number] 05/28/2015 09:53:04 ACT Document Registration [id number] 07/30/2018 08:49:48 Document Registration 05/16/10 08/24/2018 23:17:54 08/24/2018 23:59:59 [facility] Outpatient Carmina Ca
[2018-09-10] MEDS ORDERED: ACETAMINOPHEN 500 MG TAB (TYLENOL) PO ONE (19:30)
[2018-09-10 19:33] LABS: BASOPHILS % (AUTO) 0 % (0-10); EOSINOPHILS # (AUTO) 0.3 10^3/uL (0.0-0.3); EOSINOPHILS % (AUTO) 2 % (0-10); HEMATOCRIT 40 % (40-54); HEMOGLOBIN 13.7 G/DL (13.3-17.7); LYMPHOCYTES # (AUTO) 1.4 X 10^3 (1.0-4.0); LYMPHOCYTES % (AUTO) 11 % (12-44); MEAN CORPUSCULAR HEMOGLOBIN 29 PG (25-34); MEAN CORPUSCULAR HGB CONC 34 G/DL (32-36); MEAN CORPUSCULAR VOLUME 85 FL (80-99); MONOCYTES % (AUTO) 8 % (0-12); NEUTROPHILS # (AUTO) 10.2 X 10^3 (1.8-7.8); NEUTROPHILS % (AUTO) 79 % (42-75); PLATELET COUNT 186 10^3/uL (130-400); RED BLOOD COUNT 4.71 10^6/uL (4.35-5.85); RED CELL DISTRIBUTION WIDTH 12.7 % (10.0-14.5); WHITE BLOOD COUNT 12.9 10^3/uL (4.3-11.0)
[2018-09-10 19:41] LABS: INR 1.1 (0.8-1.4); PROTHROMBIN TIME PATIENT 14.4 SEC (12.2-14.7)
[2018-09-10 19:50] LABS: ALANINE AMINOTRANSFERASE 12 U/L (0-55); ALBUMIN 3.8 GM/DL (3.2-4.5); ALKALINE PHOSPHATASE 54 U/L (40-136); BILIRUBIN,TOTAL 1.6 MG/DL (0.1-1.0); BUN/CREATININE RATIO 14; CARBON DIOXIDE 23 MMOL/L (21-32); CHLORIDE 103 MMOL/L (98-107); CREATININE SERUM 0.83 MG/DL (0.60-1.30); GFR ESTIMATED > 60; GLUCOSE 113 MG/DL (70-105); MAGNESIUM 1.7 MG/DL (1.8-2.4); POTASSIUM 3.6 MMOL/L (3.6-5.0); SODIUM 134 MMOL/L (135-145); TOTAL PROTEIN 6.5 GM/DL (6.4-8.2)
[2018-09-10 19:57] LABS: MYOGLOBIN SERUM 55.8 NG/ML (10.0-92.0)
[2018-09-10 20:28] LABS: BILIRUBIN,URINE NEGATIVE (NEGATIVE); CLARITY,URINE CLEAR; COLOR,URINE YELLOW; GLUCOSE, URINE (UA) NEGATIVE (NEGATIVE); KETONES,URINE 1+ (NEGATIVE); LEUKOCYTE ESTERASE ,URINE 1+ (NEGATIVE); NITRITE,URINE NEGATIVE (NEGATIVE); PH,URINE 7 (5-9); PROTEIN,URINE 1+ (NEGATIVE); UROBILINOGEN,URINE NORMAL (NORMAL)
--- NOTE | 2018-09-10 20:31 | Diagnostic Imaging Report ---
INDICATION: Chest pain with shortness of air, history of COPD. EXAMINATION: 2 view chest from 09/09/2018. FINDINGS: The heart is prominent. Pulmonary vasculature unremarkable. Lungs clear. No effusions. No pneumothorax. IMPRESSION: 1. Prominence of the heart otherwise negative chest. Dictated by: Dictated on workstation # [id number]
[2018-09-10 20:34] LABS: BACTERIA,URINE NEGATIVE /HPF; WBC,URINE RARE /HPF
--- NOTE | 2018-09-10 20:36 | ED Chest Pain ---
General Chief Complaint: Chest Pain Stated Complaint: CHEST PAIN Nursing Triage Note: PT ARRIVES TO ED ROOM #8 [facility] WITH C/O CHEST PAIN. PT STATES THAT HIS CHEST PAIN STARTED @0215 THIS AM. PT STATED THAT HIS PAIN CONTINUED TO GET WORSE. PT STATED THAT HE JUST STAYED IN BED UNTIL HIS DAUGHTER ARRIVED THIS EVENING AND CALLED EMS. PT STATES THAT HE FEELS SOB. CHEST PAIN :06/01 Nursing Sepsis Screen: No Definite Risk Source: patient Exam Limitations: no limitations History of Present Illness Date Seen by Provider: Sep 10, 2018 Time Seen by Provider: 19:15 Allergies and Home Medications Allergies Coded Allergies: NKANo Known Allergies (Unverified Allergy, Unknown, 09/19/06) Home Medications Aspirin 81 Mg Tab.chew, 81 MG PO DAILY, (Reported) Atorvastatin Calcium 10 Mg Tablet, 10 MG PO DAILY, (Reported) Colestipol HCl 1 Gm Tablet, 1 GM PO BID, (Reported) Fluticasone/Salmeterol 1 Each Blst.w.dev, 1 EACH IH BID, (Reported) L.acidoph & ParacaseiB.lactis 1 Each Capsule, 1 EACH PO TIDWM Prescribed by: EDDIE HAWTHORNE on 06/11/18 1437 Losartan Potassium 100 Mg Tablet, 100 MG PO DAILY, (Reported) Metronidazole 500 Mg Tablet, 500 MG PO TID Prescribed by: EDDIE HAWTHORNE on 06/11/18 1424 Nystatin 60 Gm Powder, 60 GM TP BID Prescribed by: EDDIE HAWTHORNE on 06/11/18 1424 Omeprazole 20 Mg Capsule.dr, 20 MG PO BID, (Reported) Sertraline HCl 100 Mg Tablet, 100 MG PO BID, (Reported) Umeclidinium [place] 62.5 Mcg Blst.w.dev, 62.5 MCG IH DAILY, (Reported) Past Emufrvo-Kmiuiz-Tvkmfv Hx Patient Social History Alcohol Use: Denies Use Recreational Drug Use: No (QUIT 35 YRS AGO) Smoking Status: Current Everyday Smoker Type Used: Cigarettes Former Smoker, Quit: Jun 12, 1980 2nd Hand Smoke Exposure: No Recent Foreign Travel: No Contact w/Someone Who Travel: No Recent Infectious Disease Expo: No Recent Hopitalizations: No Physical Abuse: No Sexual Abuse: No Mistreated: No Fear: No Immunizations Up To Date Tetanus Booster (TDap): Less than 5yrs PED Vaccines UTD: No Date of Pneumonia Vaccine: Aug 15, 2011 Date of Influenza Vaccine: Jul 25, 2016 Seasonal Allergies Seasonal Allergies: No Past Medical History Surgeries: Yes (BILAT KNEE REPLACEMENTS, right ankle surg, RT HAND CARPAL TUNNEL ) Orthopedic Respiratory: Yes (quit smoking 40yrs. ago) Asthma, COPD Cardiac: Yes (see's Dr. Miner) Hypertension, Hypotension Neurological: Yes Vertigo Reproductive Disorders: No Sexually Transmitted Disease: No HIV/AIDS: No Genitourinary: No Gastrointestinal: Yes Gastroesophageal Reflux Musculoskeletal: Yes (ROSY. TKR) Arthritis Endocrine: Yes Diabetes, Non-Insulin dep Cataract Loss of Vision: Denies Hearing Impairment: Denies Cancer: No Psychosocial: Yes Depression Integumentary: No Blood Disorders: No Adverse Reaction/Blood Tranf: No Family Medical History Alcoholism 09 SISTER Family history: Asthma 09 SISTER Family history: Cardiovascular disease 03 FATHER Family history: Diabetes mellitus 03 MOTHER 09 SISTER Heart disease 03 FATHER Myocardial infarction 03 FATHER Stroke 03 FATHER No Family History of: Abdominal aortic aneurysm [place]'s disease Aphasia Cancer Cancer of colon Cataract Chest pain Congenital heart disease Congestive heart failure Cystic fibrosis Dementia Dysphagia Family history: Allergy Family history: Alzheimer's disease Family history: Arthritis Family history: Breast disease Family history: Gastrointestinal disease Family history: Glaucoma Family history: Hypertension Family history: Osteoporosis Family history: Thyroid disorder Headache Hearing loss History of - anemia History of - disorder History of - respiratory disease History of drug abuse Human immunodeficiency virus (HIV) seropositivity Hypercholesterolemia Infertile Kidney disease Malignant neoplasm of lung Parkinson's disease Prostate cancer Psychotic disorder Seizure disorder Tuberculosis Visual impairment Physical Exam Vital Signs Vital Signs - First Documented Capillary Refill : Less Than 3 Seconds Height, Weight, BMI Height: 6'0" Weight: 220lbs. 0.0oz. 99.[address]wy; 29.7 BMI Method:Stated Progress/Results/Core Measures Results/Orders Lab Results Laboratory Tests Test 09/10/18 19:20 09/10/18 20:18 Range/Units White Blood Count 12.9 H 4.3-11.0 10^3/uL Red Blood Count 4.71 4.35-5.85 10^6/uL Hemoglobin 13.7 13.3-17.7 G/DL Hematocrit 40 40-54 % Mean Corpuscular Volume 85 80-99 FL Mean Corpuscular Hemoglobin 29 25-34 PG Mean Corpuscular Hemoglobin Concent 34 32-36 G/DL Red Cell Distribution Width 12.7 10.0-14.5 % Platelet Count 186 130-400 10^3/uL Mean Platelet Volume 10.0 7.4-10.4 FL Neutrophils (%) (Auto) 79 H 42-75 % Lymphocytes (%) (Auto) 11 L 12-44 % Monocytes (%) (Auto) 8 0-12 % Eosinophils (%) (Auto) 2 0-10 % Basophils (%) (Auto) 0 0-10 % Neutrophils # (Auto) 10.2 H 1.8-7.8 X 10^3 Lymphocytes # (Auto) 1.4 1.0-4.0 X 10^3 Monocytes # (Auto) 1.0 0.0-1.0 X 10^3 Eosinophils # (Auto) 0.3 0.0-0.3 10^3/uL Basophils # (Auto) 0.0 0.0-0.1 10^3/uL Prothrombin Time 14.4 12.2-14.7 SEC INR Comment 1.1 0.8-1.4 Activated Partial Thromboplast Time 26 24-35 SEC Sodium Level 134 L 135-145 MMOL/L Potassium Level 3.6 3.6-5.0 MMOL/L Chloride Level 103 98-107 MMOL/L Carbon Dioxide Level 23 21-32 MMOL/L Anion Gap 8 5-14 MMOL/L Blood Urea Nitrogen 12 7-18 MG/DL Creatinine 0.83 0.60-1.30 MG/DL Estimat Glomerular Filtration Rate > 60 BUN/Creatinine Ratio 14 Glucose Level 113 H 70-105 MG/DL Calcium Level 9.0 8.5-10.1 MG/DL Corrected Calcium 9.2 8.5-10.1 MG/DL Magnesium Level 1.7 L 1.8-2.4 MG/DL Total Bilirubin 1.6 H 0.1-1.0 MG/DL Aspartate Amino Transf (AST/SGOT) 13 5-34 U/L Alanine Aminotransferase (ALT/SGPT) 12 0-55 U/L Alkaline Phosphatase 54 40-136 U/L Myoglobin 55.8 10.0-92.0 NG/ML Troponin I < 0.30 <0.30 NG/ML B-Type Natriuretic Peptide 80.7 <100.0 PG/ML Total Protein 6.5 6.4-8.2 GM/DL Albumin 3.8 3.2-4.5 GM/DL Urine Color YELLOW Urine Clarity CLEAR Urine pH 7 5-9 Urine Specific [place] 1.010 L 1.016-1.022 Urine Protein 1+ H NEGATIVE Urine Glucose (UA) NEGATIVE NEGATIVE Urine Ketones 1+ H NEGATIVE Urine Nitrite NEGATIVE NEGATIVE Urine Bilirubin NEGATIVE NEGATIVE Urine Urobilinogen NORMAL NORMAL MG/DL Urine Leukocyte Esterase 1+ H NEGATIVE Urine RBC (Auto) 4+ H NEGATIVE Urine RBC 10-25 H /HPF Urine WBC RARE /HPF Urine Squamous Epithelial Cells NONE /HPF Urine Crystals NONE /LPF Urine Bacteria NEGATIVE /HPF Urine Casts NONE /LPF Urine Mucus NEGATIVE /LPF Urine Culture Indicated NO Micro Results Microbiology 09/10/18 Influenza Types A,B Antigen (LOLLY) - Final, Complete My Orders Orders - JONATHAN SIMMS Cbc With Automated Diff (09/10/18:20) Magnesium (09/10/18:20) Chest 1 View, Ap/Pa Only (09/10/18:20) Ekg Tracing (09/10/18:20) Cardiac Profile 1 (09/10/18 19:20) Comprehensive Metabolic Panel (09/10/18:20) Myoglobin Serum (09/10/18:20) Protime With Inr (09/10/18:20) Partial Thromboplastin Time (09/10/18:20) O2 (09/10/18:20) Monitor-Rhythm Ecg Trace Only (09/10/18:20) Lipid Panel (09/11/18 06:00) Saline Lock/Iv-Start (09/10/18:20) Influenza A And B Antigens (09/10/18 19:20) Ua Culture If Indicated (09/10/18 19:20) Acetaminophen Tablet (Tylenol Tablet) (09/10/18 19:30) BNP (09/10/18 20:34) Medications Given in ED Current Medications Medications Dose Ordered Sig/Yaya Route Start Time Stop Time Status Last Admin Dose Admin Acetaminophen 1,000 mg ONCE ONCE PO 09/10/18 19:30 09/10/18 19:31 DC 09/10/18 19:58 1,000 MG Vital Signs/I&O 09/10/18 09/10/18 09/10/1818 19:15 19:15 19:15 19:58 Temp 102.1 102.0 Pulse 70 Resp 20 B/P (MAP) 130/89 (103) Pulse Ox 98 98 O2 Delivery Nasal Cannula Nasal Cannula Nasal Cannula O2 Flow Rate 2.00 2.0 Blood Pressure Mean: 103 Departure Impression Primary Impression: Chest pain Additional Impressions: Viral illness Fever Disposition: 01 HOME, SELF-CARE Condition: Stable/Unchanged Departure-Patient Inst. Decision time for Depature: 21:15 Referrals: ENRRIQUE CA DO (PCP/Family) Primary Care Physician Patient Instructions: Chest Pain (DC), Fever of Unknown Origin (DC) Add. Discharge Instructions: Continue to use ibuprofen and Tylenol as directed by the bottle for fever relief. Call first thing tomorrow morning to schedule an appointment with Dr. Ca's office. Return back to the emergency room should you develop chest pain, shortness of breath, worsening symptoms, or any other concerns as needed. All discharge instructions reviewed with patient and/or family. Voiced understanding. JONATHAN SIMMS Sep 10, 2018 20:36
[2018-09-10 21:46] VITALS: BP 144/81
== END 2018-09-10 21:46 | disposition home or self-care (01) ==
LOC: EDUNIT# 19:14 → ER 19:15
DX: R07.9 Chest pain, unspecified (principal); B34.9 Viral infection, unspecified; J44.9 Chronic obstructive pulmonary disease, unspecified; I10 Essential (primary) hypertension; K21.9 Gastro-esophageal reflux disease without esophagitis; E11.9 Type 2 diabetes mellitus without complications; F32.9 Major depressive disorder, single episode, unspecified; Z82.49 Family history of ischemic heart disease and other diseases of the circulatory system; Z79.82 Long term (current) use of aspirin; Z79.51 Long term (current) use of inhaled steroids; Z87.891 Personal history of nicotine dependence; Z96.653 Presence of artificial knee joint, bilateral
CPT/HCPCS: 36415; 71045; 80053; 81000; 83735; 83874; 83880; 84484; 85025; 85610; 85730; 87804; 93041

== ENCOUNTER → 2018-12-31 | Outpatient (CLI) | payer MEDICARE, MEDICAID ==
[~2018-12-31] MED LIST changes: +LOSA100T57 PO; -LOSA100T8 PO
[2018-12-31 08:27] LABS: BASOPHILS # (AUTO) 0.1 10^3/uL (0.0-0.1); BASOPHILS % (AUTO) 1 % (0-10); EOSINOPHILS # (AUTO) 0.8 10^3/uL (0.0-0.3); EOSINOPHILS % (AUTO) 11 % (0-10); HEMATOCRIT 43 % (40-54); HEMOGLOBIN 14.5 G/DL (13.3-17.7); LYMPHOCYTES # (AUTO) 2.2 X 10^3 (1.0-4.0); LYMPHOCYTES % (AUTO) 32 % (12-44); MEAN CORPUSCULAR HEMOGLOBIN 29 PG (25-34); MEAN CORPUSCULAR HGB CONC 34 G/DL (32-36); MEAN CORPUSCULAR VOLUME 86 FL (80-99); MEAN PLATELET VOLUME 9.3 FL (7.4-10.4); MONOCYTES # (AUTO) 0.5 X 10^3 (0.0-1.0); MONOCYTES % (AUTO) 7 % (0-12); NEUTROPHILS # (AUTO) 3.5 X 10^3 (1.8-7.8); NEUTROPHILS % (AUTO) 50 % (42-75); PLATELET COUNT 192 10^3/uL (130-400); RED CELL DISTRIBUTION WIDTH 13.6 % (10.0-14.5); WHITE BLOOD COUNT 7.1 10^3/uL (4.3-11.0)
[2018-12-31 08:47] LABS: ALANINE AMINOTRANSFERASE 32 U/L (0-55); ALBUMIN 4.1 GM/DL (3.2-4.5); ALKALINE PHOSPHATASE 50 U/L (40-136); BILIRUBIN,TOTAL 0.6 MG/DL (0.1-1.0); BUN/CREATININE RATIO 17; CALCIUM 8.9 MG/DL (8.5-10.1); CARBON DIOXIDE 25 MMOL/L (21-32); CHLORIDE 108 MMOL/L (98-107); CHOLESTEROL 109 MG/DL (< 200); CREATININE SERUM 1.01 MG/DL (0.60-1.30); GFR ESTIMATED > 60; GLUCOSE 128 MG/DL (70-105); HDL CHOLESTEROL 42 MG/DL (40-60); POTASSIUM 3.9 MMOL/L (3.6-5.0); SODIUM 143 MMOL/L (135-145); TOTAL PROTEIN 6.9 GM/DL (6.4-8.2); TRIGLYCERIDES 69 MG/DL (<150); VLDL CHOLESTEROL 14 MG/DL (5-40)
[2018-12-31 09:10] LABS: FREE T4 (FREE THYROXINE) 0.95 NG/DL (0.70-1.48)
== END ==
LOC: LAB 08:11
PROVIDERS: ATTEND Family Medicine
DX: I10 Essential (primary) hypertension (principal); R73.9 Hyperglycemia, unspecified; E78.5 Hyperlipidemia, unspecified; R53.83 Other fatigue
CPT/HCPCS: 36415; 80053; 80061; 83036; 84439; 84443; 85025

== ENCOUNTER → 2018-12-31 | Outpatient (CLI) | payer MEDICARE, MEDICAID | LOC: CARD 13:16 | PROVIDERS: ATTEND Physician Assistant | DX: R07.9 Chest pain, unspecified (principal); E78.5 Hyperlipidemia, unspecified; I10 Essential (primary) hypertension; R55 Syncope and collapse; K21.9 Gastro-esophageal reflux disease without esophagitis | CPT/HCPCS: 93306 ==

== ENCOUNTER 2019-01-09 19:29 | Inpatient (IN) | payer MEDICARE, MEDICAID ==
[~2019-01-09] VITALS: Ht 182.9 cm; Wt 101.3 kg
--- OUTSIDE RECORDS SUMMARY | 2019-01-09 19:37 | XMS REPORT | Continuity of Care Document ---
Author Author [facility] Organization [facility] Address Unknown Phone Unavailable Allergies Active Description [...] MACHELLENDER DO CARMINA S Ot 266.2 10/30/[address] Ot 272.4 10/30/[address]A S Ot 300.00 10/30/[address] [facility]A S Ot 311 10/30/[address] [facility] S Ot 333.1 10/30/[address] [facility], CAR[facility]A S Ot 401.9 10/30/2013 ORENDER DO, CARMINA S Ot 458.0 10/30/[address] [facility], CAR[facility]A S Ot 478.19 10/30/[address] [facility] S Ot 491.22 10/30/2013 MACHELLENDER [...] ORENDER DO, CARMINA S Ot 311 12/20/[address] [facility] S Ot 401.9 12/20/2013 OREND DO, CARMINA S Ot 427.89 12/20/2013 OREND DO, CARMINA S Ot 491.22 12/20/2013 OREND DO, CARMINA S Ot 530.81 04/23/[address] [facility], CAR[facility]A S Ot 496 04/23/[address] [facility], CARMINA S Ot 786.09 09/04/[address] [facility], CAR[facility]A S Ot 266.2 09/04/[address] [facility], CAR[facility]A S Ot 272.4 09/04/2014 ORENDER DO, CARMINA S Ot 401.9 09/04/2014 ORENDER DO, CARMINA S Ot 733.90 09/04/2014 ORENDER DO, CARMINA S Ot 780.79 09/04/2014 ORENDER DO, CARMINA S Ot 790.29 09/11/2014 ORENDER DO, CARMINA S Ot 266.2 09/11/2014 ORENDER CARMINA DIAZ S Ot 272.4 09/11/2014 ORENDER DO, CARMINA S Ot 401.9 09/11/2014 MACHELLENDER , CARMINA S Ot 733.90 09/11/2014 MACHELLENDER DO, CARMINA S Ot 780.79 09/11/2014 MACHELLENDER DO, CARMINA S Ot 790.29 11/11/2014 VANBECELAERE, SHOLA M COAT TAILOR Ot 433.10 11/11/2014 VANBECELAERE, SHOLA M COAT TAILOR Ot 433.30 11/11/2014 VANBECELAERE, SHOLA M COAT TAILOR Ot 721.0 11/12/2014 VANBECELAERE, SHOLA M COAT TAILOR Ot 433.10 11/12/2014 VANBECELAERE, SHOLA M COAT TAILOR Ot 433.30 11/12/2014 VANBECELAERE, SHOLA M COAT TAILOR Ot 721.0 11/26/2014 VANBECELAERE, SHOLA M COAT TAILOR Ot 272.5 11/26/2014 VANBECELAERE, SHOLA M COAT TAILOR Ot 403.90 11/26/2014 VANBECELAERE, SHOLA M COAT TAILOR Ot 496 11/26/2014 VANBECELAERE, SHOLA M COAT TAILOR Ot 585.9 11/27/2014 Ot 780.97 11/27/2014 Ot [...] Ot 786.09 11/27/2014 Ot 786.2 11/27/2014 MARLYN JALLOH DOLINE S Ot 789.00 11/27/2014 SHOLA SEXTON COAT TAILOR Ot 729.5 11/27/2014 YOANA FRANCES, RADHA Jones Ot 272.4 11/27/2014 YOANA FRANCES, RADHA Jones Ot 300.00 11/27/2014 YOANA FRANCES, RADHA J Ot 401.9 11/27/2014 YOANA FRANCES, RADHA J Ot 496 11/27/2014 YOANA FRANCES, RADHA Jones Ot 780.2 11/27/2014 YOANA FRANCES, RADHA Jones Ot 786.50 11/27/2014 DEEPIKA POZO COAT TAILOR Ot 593.9 11/27/2014 DEEPIKA POZO COAT TAILOR Ot 780.79 11/27/2014 DEEPIKA POZO COAT TAILOR Ot 783.1 11/27/2014 DEEPIKA POZO COAT TAILOR Ot 786.09 11/27/2014 ZION JALLOH DOQUELINE S Ot 780.39 11/27/2014 MACHELLENDER DO [...] CARMINA S Ot 266.2 11/27/2014 OREND DO, ACRMINA S Ot 272.4 11/27/2014 ORENDER DO, CARMINA S Ot 401.9 11/27/2014 OREND DO, CARMINA S Ot 733.90 11/27/2014 ORENDER DO, CARMINA S Ot 780.79 11/27/2014 ORENDER DO, CARMINA S Ot 790.29 11/27/2014 VANBECELAERE, SHOLA M COAT TAILOR Ot 433.10 11/27/2014 VANBECELAERE, SHOLA M COAT TAILOR Ot 433.30 11/27/2014 VANBECELAERE, SHOLA M COAT TAILOR Ot 721.0 11/27/2014 YOANA FRANCES, RADHA Jones Ot 427.89 11/27/2014 RADHA LEES MD Ot 780.2 11/27/2014 RADHA LEES MD Ot 780.4 11/27/2014 RADHA LEES MD Ot 786.50 11/27/2014 VANBECELAERE, SHOLA M COAT TAILOR Ot 272.5 11/27/2014 VANBECELAERE, SHOLA M COAT TAILOR Ot 403.90 11/27/2014 VANBECELAERE, SHOLA M COAT TAILOR Ot 496 11/27/2014 VANBECELAERE, SHOLA M COAT TAILOR Ot 585.9 11/27/2014 RADHA LEES MD Ot 427.89 11/27/2014 RADHA LEES MD Ot 780.2 11/27/2014 RADHA LEES MD J Ot 780.4 11/27/2014 YOANA FRANCES, RADHA Jones Ot 786.50 11/28/2014 VANBECELAERE, SHOLA M COAT TAILOR Ot 433.10 11/28/2014 VANBECELAERE, SHOLA M COAT TAILOR Ot 433.30 11/28/2014 VANBECELAERE, SHOLA M COAT TAILOR Ot 721.0 12/18/2014 VANBECELAERE, SHOLA M COAT TAILOR Ot 272.5 12/18/2014 VANBECELAERE, SHOLA M COAT TAILOR Ot 403.90 12/18/2014 VANBECELAERE, SHOLA M COAT TAILOR Ot 496 12/18/2014 VANBECELAERE, SHOLA M COAT TAILOR Ot 585.9 02/27/2015 YOANA FRANCES, RADHA Jones [...] Ot 786.09 03/04/2015 Ot 786.2 03/04/2015 CARMINA JALLOH DO Ot 789.00 03/04/2015 VANBECELAERE, SHOLA M COAT TAILOR Ot 729.5 03/04/2015 RADHA LEES MD Ot 272.4 03/04/2015 RADHA LEES MD Ot 300.00 03/04/2015 RADHA LEES MD Ot 401.9 03/04/2015 RADHA LEES MD Ot 496 03/04/2015 RADHA LEES MD Ot 780.2 03/04/2015 RADHA LEES MD Ot 786.50 03/04/2015 DEEPIKA POZO COAT TAILOR Ot 593.9 03/04/2015 DEEPIKA POZO COAT TAILOR Ot 780.79 03/04/2015 DEEPIKA POZO COAT TAILOR Ot 783.1 03/04/2015 DEEPIKA POZO COAT TAILOR Ot 786.09 03/04/2015 ORENDER DO, CARMINA S [...] S Ot 790.29 03/04/2015 SHOLA SEXTON M COAT TAILOR Ot 433.10 03/04/2015 SHOLA SEXTON M COAT TAILOR Ot 433.30 03/04/2015 SHOLA SEXTON M COAT TAILOR Ot 721.0 03/04/2015 YOANA FRANCES, RADHA Jones Ot 427.89 03/04/2015 RADHA LEES MD Ot 780.2 03/04/2015 RADHA LEES MD Ot 780.4 03/04/2015 RADHA LEES MD Ot 786.50 03/04/2015 ROSEANNALIASHOLA CEVALLOS COAT TAILOR Ot 272.5 03/04/2015 ROSEANNANICCISHOLA COAT TAILOR Ot 403.90 03/04/2015 ROSEANNAPELONSHOLA ANGUIANO COAT TAILOR Ot 496 03/04/2015 DARSHANSHOLA COAT TAILOR Ot 585.9 03/06/2015 ORENDER DO, CARMINA S [...] CARMINA S Ot V15.88 04/14/2015 DARSHANSHOLA Lucrecia COAT TAILOR Ot 272.5 04/14/2015 KAISHOLA CEVALLOS COAT TAILOR Ot 403.90 04/14/2015 SHOLA SEXTON COAT TAILOR Ot 496 04/14/2015 ROSEANNALIASHOLA CEVALLOS COAT TAILOR Ot 585.9 06/04/2015 SHUBHAM DIAZ, CARMINA S [...] UNSPECIFIED 11/02/2016 EDDIE ROCA MD Ot Z79.82 AIR QUALITY SPECIALIST (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) USE OF ASPIRIN 11/02/2016 EDDIE ROCA MD Ot Z79.899 OTHER AIR QUALITY SPECIALIST (CURRENT) DRUG THERAPY 11/02/2016 EDDIE ROCA MD Ot E11.9 TYPE 2 DIABETES MELLITUS WITHOUT COMPLIC 11/02/2016 EDDIE ROCA MD Ot I10 ESSENTIAL (PRIMARY) HYPERTENSION 11/02/2016 EDDIE ROCA MD Ot J44.9 CHRONIC OBSTRUCTIVE PULMONARY DISEASE, U 11/02/2016 EDDIE ROCA MD Ot K20.9 ESOPHAGITIS, UNSPECIFIED 11/02/2016 EDDIE ROCA MD Ot R13.10 DYSPHAGIA, UNSPECIFIED 11/02/2016 EDDIE ROCA MD Ot Z79.82 AIR QUALITY SPECIALIST (CURRENT) USE OF ASPIRIN 11/02/2016 EDDIE ROCA MD Ot Z79.899 OTHER AIR QUALITY SPECIALIST (CURRENT) DRUG THERAPY 11/21/2016 CARMINA JALLOH DO S Ot R13.12 DYSPHAGIA, OROPHARYNGEAL PHASE 11/22/2016 CARMINA JALLOH DO S Ot R13.12 DYSPHAGIA, OROPHARYNGEAL PHASE 11/23/2016 FLOYD BLANCO MD Ot 496 CHR AIRWAY OBSTRUCT NEC 11/23/2016 FLOYD BLANCO MD Ot 780.4 DIZZINESS AND GIDDINESS 11/23/2016 FLOYD BLANCO MD Ot V15.82 HISTORY OF TOBACCO USE 11/23/2016 FLOYD BLANOC MD Ot V58.69 OTH MED,LT,CURRENT USE 12/13/2016 ZION JALLOH DOQUELINE S Ot R13.12 DYSPHAGIA, OROPHARYNGEAL PHASE 02/10/2017 CARMINA JALLOH DO S Ot E78.2 MIXED HYPERLIPIDEMIA 02/10/2017 ZION JALLOH DOQUELINE S Ot I10 ESSENTIAL (PRIMARY) HYPERTENSION [...] LANDSCAPING 04/06/2017 MILIND FERNANDO APRN Ot Z79.84 DETENTION (CURRENT) USE OF ORAL HYPOGLYC 04/06/2017 MILIND [...] LANDSCAPING 04/10/2017 MILIND FERNANDO APRN Ot Z79.84 DETENTION (CURRENT) USE OF ORAL HYPOGLYC 04/10/2017 MILIND FERNANDO APRN Ot Z87.891 PERSONAL HISTORY OF NICOTINE DEPENDENCE 04/13/2017 MILIND FERNANDO APRN Ot E11.9 TYPE 2 DIABETES MELLITUS WITHOUT COMPLIC 04/13/2017 MILIND FERNANDO APRN Ot I10 ESSENTIAL (PRIMARY) HYPERTENSION 04/13/2017 MILIND FERNANDO APRN Ot J44.9 CHRONIC OBSTRUCTIVE PULMONARY DISEASE, U 04/13/2017 MILIND FERNNADO RELOCATION SERVICES SPECIALIST Ot S51.011A LACERATION WITHOUT FOREIGN BODY OF RIGHT 04/13/2017 MILIND FERNANDO RELOCATION SERVICES SPECIALIST Ot W01.198A FALL SAME LEV FROM SLIP/TRIP W STRIKE AG 04/13/2017 MILIND FERNANDO APRN Ot Y93.H2 ACTIVITY, GARDENING AND LANDSCAPING 04/13/2017 MILIND FERNANDO APRN Ot Z79.84 AIR QUALITY SPECIALIST (CURRENT) USE OF ORAL HYPOGLYC 04/13/2017 MILIND FERNANDO RELOCATION SERVICES SPECIALIST Ot Z87.891 PERSONAL HISTORY OF NICOTINE DEPENDENCE [...] 08/17/2017 JOANN FRANCES, MARY Wynn Ot Z79.82 DETENTION (CURRENT) USE OF ASPIRIN 08/17/2017 MARY DAVID MD Ot Z79.84 AIR QUALITY SPECIALIST (CURRENT) USE OF ORAL HYPOGLYC 08/17/2017 JOANN [...] HARI IVEY Ot J45.998 OTHER ASTHMA 03/07/2018 KAREY JEFFERSON, HARI Allen Ot 272.4 HYPERLIPIDEMIA NEC/NOS [...] 2 DIABETES MELLITUS WITHOUT COMPLIC 03/27/2018 CARMINA JALLOH DO Ot 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 03/27/2018 CARMINA JALLOH DO Ot E78.5 HYPERLIPIDEMIA, UNSPECIFIED 03/27/2018 MACHELLENDMARLEE DIAZ, CARMINA S Ot I10 ESSENTIAL (PRIMARY) HYPERTENSION 03/27/2018 CARMINA JALLOH DO S Ot R53.83 OTHER FATIGUE 06/11/2018 [...] SITES 06/11/2018 EDDIE ROCA MD Ot Z79.51 DETENTION (CURRENT) USE OF INHALED STERO 06/11/2018 EDDIE ROCA MD Ot Z79.82 DETENTION (CURRENT) USE OF ASPIRIN 06/11/2018 EDDIE ROCA [...] SITES 06/13/2018 EDDIE ROCA MD, Ot Z79.51 DETENTION (CURRENT) USE OF INHALED STERO 06/13/2018 EDDIE ROCA MD Ot Z79.82 AIR QUALITY SPECIALIST (CURRENT) USE OF ASPIRIN 06/13/2018 EDDIE ROCA [...] 2 DIABETES MELLITUS WITHOUT COMPLIC 06/18/2018 CARMINA JALLOH DO Ot 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 06/18/2018 CARMINA JALLOH DO Ot E78.5 HYPERLIPIDEMIA, UNSPECIFIED 06/18/2018 CARMINA JALLOH DO Ot I10 ESSENTIAL (PRIMARY) HYPERTENSION 06/18/2018 CARMINA JALLOH DO Ot R53.83 OTHER FATIGUE 06/18/2018 Ot [...] UNSPECIFIED 06/18/2018 YULISSA MASON MD Ot Z79.82 AIR QUALITY SPECIALIST (CURRENT) USE OF ASPIRIN 06/18/2018 YULISSA MASON MD Ot Z79.899 OTHER DETENTION (CURRENT) DRUG THERAPY 06/18/2018 YULISSA MASON MD [...] 06/19/2018 ISABELLA FRANCES, YULISSA Singer Ot Z79.82 AIR QUALITY SPECIALIST (CURRENT) USE OF ASPIRIN 06/19/2018 ISABELLA FRANCES, YULISSA Singer Ot Z79.899 OTHER DETENTION (CURRENT) DRUG THERAPY 06/19/2018 ISABELLA FRANCES, YULISSA [...] HARI IVEY Ot J45.998 OTHER ASTHMA 08/30/2018 ORENDER DO, CARMINA S Ot E11.9 TYPE 2 DIABETES MELLITUS WITHOUT COMPLIC 08/30/2018 ORENDER DO, CARMINA S Ot 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 08/30/2018 ORENDER DO, ACRMINA S Ot E78.5 HYPERLIPIDEMIA, UNSPECIFIED 08/30/2018 ORENDER DO, CARMINA S Ot I10 ESSENTIAL (PRIMARY) HYPERTENSION 08/30/2018 ORENDER DO, CARMINA S Ot R53.83 OTHER FATIGUE 08/30/2018 Ot M79.605 PAIN IN LEFT LEG 09/10/2018 JONATHAN SIMMS Ot B34.9 VIRAL INFECTION, UNSPECIFIED 09/10/2018 BERNOT, JONATHAN Ot E11.9 TYPE 2 DIABETES MELLITUS WITHOUT COMPLIC 09/10/2018 BERNMAYDA ZHAOIS Ot F32.9 MAJOR DEPRESSIVE DISORDER, SINGLE EPISOD 09/10/2018 BERNOT JONATHAN Ot I10 ESSENTIAL (PRIMARY) HYPERTENSION 09/10/2018 BERNMAYDA ZHAOIS Ot J44.9 CHRONIC OBSTRUCTIVE PULMONARY DISEASE, U 09/10/2018 BERNMAYDA ZHAOIS Ot K21.9 GASTRO-ESOPHAGEAL REFLUX DISEASE WITHOUT 09/10/2018 BERNOT, JONATHAN Ot R07.9 CHEST PAIN, UNSPECIFIED 09/10/2018 BERNOT, JONATHAN Ot Z79.51 DETENTION (CURRENT) USE OF INHALED STERO 09/10/2018 BERNOT, JONATHAN Ot Z79.82 DETENTION (CURRENT) USE OF ASPIRIN 09/10/2018 BERNOT, JONATHAN Ot Z82.49 FAMILY HX OF ISCHEM HEART DIS AND OTH DI 09/10/2018 BERNOT, JONATHAN Ot Z87.891 PERSONAL HISTORY OF NICOTINE DEPENDENCE 09/10/2018 BERNOT, JONATHAN Ot Z96.653 PRESENCE OF ARTIFICIAL KNEE JOINT, BILAT 09/11/2018 BERNCECE, JONATHAN Ot B34.9 VIRAL INFECTION, UNSPECIFIED 09/11/2018 BERNMAYDA ZHAOIS Ot E11.9 TYPE 2 DIABETES MELLITUS WITHOUT COMPLIC 09/11/2018 MAYDA SIMMSIS Ot F32.9 MAJOR DEPRESSIVE DISORDER, SINGLE EPISOD 09/11/2018 BERNOT JONATHAN Ot I10 ESSENTIAL (PRIMARY) HYPERTENSION 09/11/2018 MAYDA SIMMSIS Ot J44.9 CHRONIC OBSTRUCTIVE PULMONARY DISEASE, U 09/11/2018 CITLALIMAYDA ZHAOIS Ot K21.9 GASTRO-ESOPHAGEAL REFLUX DISEASE WITHOUT 09/11/2018 BERNOT, JONATHAN Ot R07.9 CHEST PAIN, UNSPECIFIED 09/11/2018 BERNOT JONATHAN Ot Z79.51 AIR QUALITY SPECIALIST (CURRENT) USE OF INHALED STERO 09/11/2018 BERNOT, JONATHAN Ot Z79.82 AIR QUALITY SPECIALIST (CURRENT) USE OF ASPIRIN 09/11/2018 BERNOT, JONATHAN Ot Z82.49 FAMILY HX OF ISCHEM HEART DIS AND OTH DI 09/11/2018 BERNOT, JONATHAN Ot Z87.891 PERSONAL HISTORY OF NICOTINE DEPENDENCE 09/11/2018 BERNOT, JONATHAN Ot Z96.653 PRESENCE OF ARTIFICIAL KNEE JOINT, BILAT 12/27/2018 ORENDER DO, CARMINA S Ot 780.4 DIZZINESS AND GIDDINESS 12/27/2018 ORENDER DO, CARMINA S Ot 790.29 OTHER ABNORMAL GLUCOSE 12/27/2018 ORENDER DO, CARMINA S Ot V15.88 HISTORY OF FALL 12/27/2018 HARI IVEY Ot 272.4 HYPERLIPIDEMIA NEC/NOS 12/27/2018 ORENDER DO, CARMINA S Ot 780.4 DIZZINESS AND GIDDINESS 12/27/2018 HARI IVEY Ot E78.5 HYPERLIPIDEMIA, UNSPECIFIED 12/27/2018 ORENDER DO, CARMINA S Ot 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 12/27/2018 ORENDER DO, CARMINA S Ot I10 ESSENTIAL (PRIMARY) HYPERTENSION 12/27/2018 ORENDER DO, CARMINA S Ot R53.83 OTHER FATIGUE 12/27/2018 ORENDER DO, CARMINA S Ot R73.9 HYPERGLYCEMIA, UNSPECIFIED 12/27/2018 ORENDER DO, CARMINA S Ot D51.9 VITAMIN B12 DEFICIENCY ANEMIA, UNSPECIFI 12/27/2018 ORENDER DO, CARMINA S Ot R73.9 HYPERGLYCEMIA, UNSPECIFIED 12/27/2018 ORENDER DO, CARMINA S Ot R13.12 DYSPHAGIA, OROPHARYNGEAL PHASE 12/27/2018 ORENDER DO, CARMINA S Ot E78.2 MIXED HYPERLIPIDEMIA 12/27/2018 ORENDER DO, CARMINA S Ot I10 ESSENTIAL (PRIMARY) HYPERTENSION 12/27/2018 ORENDER DO, CARMINA S Ot R53.83 OTHER FATIGUE 12/27/2018 ORENDER DO, CARMINA S Ot R73.01 IMPAIRED FASTING GLUCOSE 12/27/2018 ORENDER DO, CARMINA S Ot M62.81 MUSCLE WEAKNESS (GENERALIZED) 12/27/2018 ORENDER DO, CARMINA S Ot R42 DIZZINESS AND GIDDINESS 12/27/2018 HARI IVEY Ot E78.2 MIXED HYPERLIPIDEMIA 12/27/2018 HARI IVEY Ot I10 ESSENTIAL (PRIMARY) HYPERTENSION 12/27/2018 ORENDER DO, CARMINA S Ot R41.0 DISORIENTATION, UNSPECIFIED 12/27/2018 ORENDER DO, CARMNIA S Ot E11.9 TYPE 2 DIABETES MELLITUS WITHOUT COMPLIC 12/27/2018 ORENDER DO, CARMINA S Ot 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 12/27/2018 ORENDER DO, CARMINA S Ot I10 ESSENTIAL (PRIMARY) HYPERTENSION 12/27/2018 ORENDER DO, CARMINA S Ot R53.83 OTHER FATIGUE 12/27/2018 HARI IVEY Ot G47.33 OBSTRUCTIVE SLEEP APNEA (ADULT) (PEDIATR 12/27/2018 HARI IVEY Ot I10 ESSENTIAL (PRIMARY) HYPERTENSION 12/27/2018 HARI IVEY Ot I47.1 SUPRAVENTRICULAR TACHYCARDIA 12/27/2018 HARI IVEY Ot J45.998 OTHER ASTHMA 12/27/2018 ORENDER DO, CARMINA S Ot E11.9 TYPE 2 DIABETES MELLITUS WITHOUT COMPLIC 12/27/2018 ORENDER DO, CARMINA S Ot 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 12/27/2018 ORENDER DO, CARMINA S Ot E78.5 HYPERLIPIDEMIA, UNSPECIFIED 12/27/2018 ORENDER DO, CARMINA S Ot I10 ESSENTIAL (PRIMARY) HYPERTENSION 12/27/2018 ORENDER DO, CARMINA S Ot R53.83 OTHER FATIGUE 12/27/2018 Ot M79.605 PAIN IN LEFT LEG 12/31/2018 HARI IVEY Ot 272.4 HYPERLIPIDEMIA NEC/NOS 12/31/2018 ORENDER DO, CARMINA S Ot 780.4 DIZZINESS AND GIDDINESS 12/31/2018 HARI IVEY Ot E78.5 HYPERLIPIDEMIA, UNSPECIFIED 12/31/2018 ORENDER DO, CARMINA S Ot 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 12/31/2018 ORENDER DO, CARMINA S Ot I10 ESSENTIAL (PRIMARY) HYPERTENSION 12/31/2018 ORENDER DO, CARMINA S Ot R53.83 OTHER FATIGUE 12/31/2018 ORENDER DO, CARMINA S Ot R73.9 HYPERGLYCEMIA, UNSPECIFIED 12/31/2018 ORENDER DO, CARMINA S Ot D51.9 VITAMIN B12 DEFICIENCY ANEMIA, UNSPECIFI 12/31/2018 ORENDER DO, CARMINA S Ot R73.9 HYPERGLYCEMIA, UNSPECIFIED 12/31/2018 ORENDER DO, CARMINA S Ot R13.12 DYSPHAGIA, OROPHARYNGEAL PHASE 12/31/2018 ORENDER DO, CAMRINA S Ot E78.2 MIXED HYPERLIPIDEMIA 12/31/2018 ORENDER DO, CARMINA S Ot I10 ESSENTIAL (PRIMARY) HYPERTENSION 12/31/2018 ORENDER DO, CARMINA S Ot R53.83 OTHER FATIGUE 12/31/2018 ORENDER DO, CARMINA S Ot R73.01 IMPAIRED FASTING GLUCOSE 12/31/2018 ORENDER DO, CARMINA S Ot M62.81 MUSCLE WEAKNESS (GENERALIZED) 12/31/2018 ORENDER DO, CARMINA S Ot R42 DIZZINESS AND GIDDINESS 12/31/2018 HARI IVEY Ot E78.2 MIXED HYPERLIPIDEMIA 12/31/2018 HARI IVEY Ot I10 ESSENTIAL (PRIMARY) HYPERTENSION 12/31/2018 ORENDER DO, CARMINA S Ot R41.0 DISORIENTATION, UNSPECIFIED 12/31/2018 ORENDER DO, CARMINA S Ot E11.9 TYPE 2 DIABETES MELLITUS WITHOUT COMPLIC 12/31/2018 ORENDER DO, CARMINA S Ot 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 12/31/2018 ORENDER DO, CARMINA S Ot I10 ESSENTIAL (PRIMARY) HYPERTENSION 12/31/2018 ORENDER DO, CARMINA S Ot R53.83 OTHER FATIGUE 12/31/2018 HARI IVEY Ot G47.33 OBSTRUCTIVE SLEEP APNEA (ADULT) (PEDIATR 12/31/2018 HARI IVEY Ot I10 ESSENTIAL (PRIMARY) HYPERTENSION 12/31/2018 HARI IVEY Ot I47.1 SUPRAVENTRICULAR TACHYCARDIA 12/31/2018 HARI IVEY Ot J45.998 OTHER ASTHMA 12/31/2018 ORENDER DO, CARMINA S Ot E11.9 TYPE 2 DIABETES MELLITUS WITHOUT COMPLIC 12/31/2018 ORENDER DO, CARMINA S Ot 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 12/31/2018 ORENDER DO, CARMINA S Ot E78.5 HYPERLIPIDEMIA, UNSPECIFIED 12/31/2018 ORENDER DO, CARMINA S Ot I10 ESSENTIAL (PRIMARY) HYPERTENSION 12/31/2018 ORENDER DO, CARMINA S Ot R53.83 OTHER FATIGUE 12/31/2018 Ot M79.605 PAIN IN LEFT LEG 01/03/2019 ORENDER DO, CARMINA S Ot E78.5 HYPERLIPIDEMIA, UNSPECIFIED 01/03/2019 ORENDER DO, CARMINA S Ot I10 ESSENTIAL (PRIMARY) HYPERTENSION 01/03/2019 ORENDER DO, CARMINA S Ot R53.83 OTHER FATIGUE 01/03/2019 ORENDER DO, CARMINA S Ot R73.9 HYPERGLYCEMIA, UNSPECIFIED 01/08/2019 JONATHAN SIMMS Ot B34.9 VIRAL INFECTION, UNSPECIFIED 01/08/2019 JONATHAN SIMMS Ot E11.9 TYPE 2 DIABETES MELLITUS WITHOUT COMPLIC 01/08/2019 JONATHAN SIMMS Ot F32.9 MAJOR DEPRESSIVE DISORDER, SINGLE EPISOD 01/08/2019 JONATHAN SIMMS Ot I10 ESSENTIAL (PRIMARY) HYPERTENSION 01/08/2019 JONATHAN SIMMS Ot J44.9 CHRONIC OBSTRUCTIVE PULMONARY DISEASE, U 01/08/2019 JONATHAN SIMMS Ot K21.9 GASTRO-ESOPHAGEAL REFLUX DISEASE WITHOUT 01/08/2019 JONATHAN SIMMS Ot R07.9 CHEST PAIN, UNSPECIFIED 01/08/2019 JONATHAN SIMMS Ot Z79.51 AIR QUALITY SPECIALIST (CURRENT) USE OF INHALED STERO 01/08/2019 JONATHAN SIMMS Ot Z79.82 AIR QUALITY SPECIALIST (CURRENT) USE OF ASPIRIN 01/08/2019 JONATHAN SIMMS Ot Z82.49 FAMILY HX OF ISCHEM HEART DIS AND OTH DI 01/08/2019 JONATHAN SIMMS Ot Z87.891 PERSONAL HISTORY OF NICOTINE DEPENDENCE 01/08/2019 JONATHAN SIMMS Ot Z96.653 PRESENCE OF ARTIFICIAL KNEE JOINT, BILAT Procedures There is no data. Results Test [...] indirect bilirubin measurement (mass/volume) 0.4 mg/ dL [facility] Lipid 1996 panel - 06/10/16 [...] pappenheimer bodies detection by light microscopy SLIGHT [facility] Comprehensive metabolic panel - 01/19/17 [...] or plasma urea nitrogen/creatinine mass ratio 17 NR Serum or plasma creatinine measurement with calculation of estimated glomerular filtration rate > [facility] Serum or plasma glucose measurement (mass/volume) 145 [...] 03/07/18 05:27 Vitamin B12 396 pg/mL 200-1000 Complete blood count (CBC) with automated white blood cell (WBC) differential - 09/10/18 19:20 Blood leukocytes automated count (number/volume) 12.9 10*3/uL 4.3-11.0 Blood erythrocytes automated count (number/volume) 4.71 10*6/uL 4.35-5.85 Venous blood hemoglobin measurement (mass/volume) 13.7 g/dL 13.3-17.7 Blood hematocrit (volume fraction) 40 % 40-54 Automated erythrocyte mean corpuscular volume 85 [foz_us] 80-99 Automated erythrocyte mean corpuscular hemoglobin (mass per erythrocyte) 29 pg 25-34 Automated erythrocyte mean corpuscular hemoglobin concentration measurement ( mass/volume) 34 g/dL 32-36 Automated erythrocyte distribution width ratio 12.7 % 10.0-14.5 Automated blood platelet count (count/volume) 186 10*3/uL 130-400 Automated blood platelet mean volume measurement 10.0 [foz_us] 7.4-10.4 Automated blood neutrophils/100 leukocytes 79 % 42-75 Automated blood lymphocytes/100 leukocytes 11 % 12-44 Blood monocytes/100 leukocytes 8 % 0-12 Automated blood eosinophils/100 leukocytes 2 % 0-10 Automated blood basophils/100 leukocytes 0 % 0-10 Blood neutrophils automated count (number/volume) 10.2 10*3 1.8-7.8 Blood lymphocytes automated count (number/volume) 1.4 10*3 1.0-4.0 Blood monocytes automated count (number/volume) 1.0 10*3 0.0-1.0 Automated eosinophil count 0.3 10*3/uL 0.0-0.3 Automated blood basophil count (count/volume) 0.0 10*3/uL 0.0-0.1 PT panel in platelet poor plasma by coagulation assay - 09/10/18 19:20 Prothrombin time (PT) in platelet poor plasma by coagulation assay 14.4 s 12.2-14.7 INR in platelet poor plasma or blood by coagulation assay 1.1 0.8-1.4 Activated partial thromboplastin time (aPTT) in platelet poor plasma bycoagulation assay - 09/10/18 19:20 Activated partial thromboplastin time (aPTT) in platelet poor plasma bycoagulation assay 26 s 24-35 Comprehensive metabolic panel - 09/10/18 19:20 Serum or plasma sodium measurement (moles/volume) 134 mmol/L 135-145 Serum or plasma potassium measurement (moles/volume) 3.6 mmol/L 3.6-5.0 Serum or plasma chloride measurement (moles/volume) 103 mmol/L 98-107 Carbon dioxide 23 mmol/L 21-32 Serum or plasma anion gap determination (moles/volume) 8 mmol/L 5-14 Serum or plasma urea nitrogen measurement (mass/volume) 12 mg/dL 7-18 Serum or plasma creatinine measurement (mass/volume) 0.83 mg/dL 0.60-1.30 Serum or plasma urea nitrogen/creatinine mass ratio 14 NRG Serum or plasma creatinine measurement with calculation of estimated glomerular filtration rate > NRG Serum or plasma glucose measurement (mass/volume) 113 mg/dL 70-105 Serum or plasma calcium measurement (mass/volume) 9.0 mg/dL 8.5-10.1 Serum or plasma total bilirubin measurement (mass/volume) 1.6 mg/dL 0.1-1.0 Serum or plasma alkaline phosphatase measurement (enzymatic activity/volume) 54 U/L 40-136 Serum or plasma aspartate aminotransferase measurement (enzymatic activity/ volume) 13 U/L 5-34 Serum or plasma alanine aminotransferase measurement (enzymatic activity/volume ) 12 U/L 0-55 Serum or plasma protein measurement (mass/volume) 6.5 g/dL 6.4-8.2 Serum or plasma albumin measurement (mass/volume) 3.8 g/dL 3.2-4.5 CALCIUM CORRECTED 9.2 mg/dL 8.5-10.1 Magnesium - 09/10/18 19:20 Magnesium 1.7 mg/dL 1.8-2.4 Serum or plasma troponin i.cardiac measurement (mass/volume) - 09/10/18 19:20 Serum or plasma troponin i.cardiac measurement (mass/volume) < ng/ mL <0.30 Myoglobin, serum - 09/10/18 19:20 Myoglobin, serum 55.8 ng/mL 10.0-92.0 Serum or plasma lithium measurement (moles/volume) - 09/10/18 19:20 BNP level 80.7 pg/mL <100.0 Influenza virus A and B antigen detection - 09/10/18 19:25 FLU RESULT NEGATIVE FOR INFLUENZA A AND B ANTIGENS BY IA NRG Complete urinalysis with reflex to culture - 09/10/18 20:18 Urine color determination YELLOW NRG Urine clarity determination CLEAR NRG Urine pH measurement by test strip 7 5-9 Specific gravity of urine by test strip 1.010 1.016- 1.022 Urine protein assay by test strip, semi-quantitative 1+ NEGATIVE Urine glucose detection by automated test strip NEGATIVE NEGATIVE Erythrocytes detection in urine sediment by light microscopy 4+ NEGATIVE Urine ketones detection by automated test strip 1+ NEGATIVE Urine nitrite detection by test strip NEGATIVE NEGATIVE Urine total bilirubin detection by test strip NEGATIVE NEGATIVE Urine urobilinogen measurement by automated test strip (mass/volume) NORMAL NORMAL Urine leukocyte esterase detection by dipstick 1+ NEGATIVE Automated urine sediment erythrocyte count by microscopy (number/high power field) [HPF] NRG Automated urine sediment leukocyte count by microscopy (number/high power field ) RARE NRG Bacteria detection in urine sediment by light microscopy NEGATIVE NRG Squamous epithelial cells detection in urine sediment by light microscopy NONE NRG Crystals detection in urine sediment by light microscopy NONE NRG Casts detection in urine sediment by light microscopy NONE NRG Mucus detection in urine sediment by light microscopy NEGATIVE NRG Complete urinalysis with reflex to culture NO NRG Complete blood count (CBC) with automated white blood cell (WBC) differential - 12/31/18 08:19 Blood leukocytes automated count (number/volume) 7.1 10*3/uL 4.3-11.0 Blood erythrocytes automated count (number/volume) 4.98 10*6/uL 4.35-5.85 Venous blood hemoglobin measurement (mass/volume) 14.5 g/dL 13.3-17.7 Blood hematocrit (volume fraction) 43 % 40-54 Automated erythrocyte mean corpuscular volume 86 [foz_us] 80-99 Automated erythrocyte mean corpuscular hemoglobin (mass per erythrocyte) 29 pg 25-34 Automated erythrocyte mean corpuscular hemoglobin concentration measurement ( mass/volume) 34 g/dL 32-36 Automated erythrocyte distribution width ratio 13.6 % 10.0-14.5 Automated blood platelet count (count/volume) 192 10*3/uL 130-400 Automated blood platelet mean volume measurement 9.3 [foz_us] 7.4-10.4 Automated blood neutrophils/100 leukocytes 50 % 42-75 Automated blood lymphocytes/100 leukocytes 32 % 12-44 Blood monocytes/100 leukocytes 7 % 0-12 Automated blood eosinophils/100 leukocytes 11 % 0-10 Automated blood basophils/100 leukocytes 1 % 0-10 Blood neutrophils automated count (number/volume) 3.5 10*3 1.8-7.8 Blood lymphocytes automated count (number/volume) 2.2 10*3 1.0-4.0 Blood monocytes automated count (number/volume) 0.5 10*3 0.0-1.0 Automated eosinophil count 0.8 10*3/uL 0.0-0.3 Automated blood basophil count (count/volume) 0.1 10*3/uL 0.0-0.1 Comprehensive metabolic panel - 12/31/18 08:19 Serum or plasma sodium measurement (moles/volume) 143 mmol/L 135-145 Serum or plasma potassium measurement (moles/volume) 3.9 mmol/L 3.6-5.0 Serum or plasma chloride measurement (moles/volume) 108 mmol/L 98-107 Carbon dioxide 25 mmol/L 21-32 Serum or plasma anion gap determination (moles/volume) 10 mmol/L 5-14 Serum or plasma urea nitrogen measurement (mass/volume) 17 mg/dL 7-18 Serum or plasma creatinine measurement (mass/volume) 1.01 mg/dL 0.60-1.30 Serum or plasma urea nitrogen/creatinine mass ratio 17 NRG Serum or plasma creatinine measurement with calculation of estimated glomerular filtration rate > NRG Serum or plasma glucose measurement (mass/volume) 128 mg/dL 70-105 Serum or plasma calcium measurement (mass/volume) 8.9 mg/dL 8.5-10.1 Serum or plasma total bilirubin measurement (mass/volume) 0.6 mg/dL 0.1-1.0 Serum or plasma alkaline phosphatase measurement (enzymatic activity/volume) 50 U/L 40-136 Serum or plasma aspartate aminotransferase measurement (enzymatic activity/ volume) 25 U/L 5-34 Serum or plasma alanine aminotransferase measurement (enzymatic activity/volume ) 32 U/L 0-55 Serum or plasma protein measurement (mass/volume) 6.9 g/dL 6.4-8.2 Serum or plasma albumin measurement (mass/volume) 4.1 g/dL 3.2-4.5 CALCIUM CORRECTED 8.8 mg/dL 8.5-10.1 Lipid 1996 panel - 12/31/18 08:19 Serum or plasma triglyceride measurement (mass/volume) 69 mg/dL <150 Serum or plasma cholesterol measurement (mass/volume) 109 mg/dL < 200 Serum or plasma cholesterol in HDL measurement (mass/volume) 42 mg/ dL 40-60 Cholesterol in LDL [mass/volume] in serum or plasma by direct assay 58 mg/dL 1-129 Serum or plasma cholesterol in VLDL measurement (mass/volume) 14 mg/ dL 5-40 THYROID STIMULATING HORMONE - 12/31/18 08:19 THYROID STIMULATING HORMONE 1.58 u[iU]/mL 0.35-4.94 Serum or plasma thyroxine (T4) free measurement (mass/volume) - 12/31/18 08:19 Serum or plasma thyroxine (T4) free measurement (mass/volume) 0.95 ng/dL 0.70-1.48 Hemoglobin A1c - 12/31/18 08:19 Blood hemoglobin A1C measurement (mass/volume) 6.7 % 4.0- 5.6 MEAN BLOOD GLUCOSE 146 % <=126 Encounters ACCT No. Visit Date/Time Discharge Status Pt. Type Provider Facility Loc./Unit Complaint [id number] 12/31/2018 08:11:00 12/31/2018 23:59:59 CLS Outpatient MACHELLELUIS AMARLYN WHALEN DOLINE S [facility] LAB HTN,HYPERLIPIDEMIA, FATIGUE [id number] 12/13/2018 15:41:00 12/13/2018 23:59:59 CLS Outpatient HARI IVEY [facility] CARD CHEST PAIN, HYPERLIPIDEMIA [id number] 09/19/2018 11:59:00 09/19/2018 23:59:59 CLS Preadmit MARLYN JALLOH DOLINE S [facility] REHAB L LEG/THIGH PAIN W RADICULOPATHY [id number] 09/10/2018 19:15:00 09/10/2018 21:46:00 DIS Outpatient JONATHAN SIMMS [facility] ER CHEST PAIN [id number] 06/18/2018 10:32:00 06/18/2018 14:25:00 DIS Outpatient YULISSA MASON MD [facility] ENDO CHANGE IN BOWEL [id number] 06/12/2018 11:30:00 06/12/2018 12:03:00 DIS Outpatient ISABELLA FRANCES, YULISSA Singer [facility] PREOP COLONOSCOPY [id number] 06/11/2018 12:22:00 06/11/2018 14:45:00 DIS Emergency ABELINO FRANCES, EDDIE Pacheco [facility] ER PASSING BLOOD THRU RECTUM [id number] 03/07/2018 07:13:00 03/07/2018 23:59:59 CLS Outpatient CARMINA JALLOH DO S [facility] LAB HTN,HYPERLIPIDEMIA, B12 DEF,FATIGUE,DMII [id number] 10/20/2017 08:54:00 10/20/2017 23:59:59 CLS Outpatient HARI IVEY [facility] RAD 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 [id number] 09/05/2017 12:00:00 09/05/2017 23:59:59 CLS Outpatient CARMINA JALLOH DO S [facility] LAB DMII,HTN,FATIGUE, B12 DEF [id number] 08/24/2017 10:23:00 08/24/2017 10:36:00 DIS Emergency MARY DAVID MD S [facility] ER SUTURE REMOVAL [id number] 08/17/2017 15:15:00 08/17/2017 17:50:00 DIS Emergency MARY DAVID MD S [facility] ER HEAD LACERATION [id number] 07/23/2017 00:43:00 07/23/2017 23:59:59 CLS Preadmit MACHELLEKIMI CARMINA S [facility] LAB CONFUSION [id number] 06/07/2017 08:38:00 07/22/2017 00:01:00 DIS Outpatient ORENDER DO CARMINA S [facility] LAB CONFUSION [id number] 07/04/2017 07:50:00 07/04/2017 23:59:59 CLS Outpatient HARI IVEY [facility] LAB I10 E78.2 [id number] 05/20/2017 09:22:00 05/20/2017 23:59:59 CLS Outpatient ORENDER DO CARMINA S [facility] LAB DIZZINESS, MUCSLE WEAKNESS [id number] 04/06/2017 16:44:00 04/06/2017 17:41:00 DIS Emergency MILIND FERNANDO APRN [facility] ER PT FELL/RT ARM LACERATION [id number] 01/19/2017 08:21:00 01/19/2017 23:59:59 CLS Outpatient ORENDER DO CARMINA S [facility] LAB E78.2,FATIGUE [id number] 11/18/2016 10:09:00 11/18/2016 23:59:59 CLS Outpatient MACHELLENDER DO CARMINA S [facility] RAD ORAL DYSPHAGIA [id number] 11/01/2016 22:01:00 11/02/2016 01:30:00 DIS Emergency ABELINO FRANCES, EDDIE Pacheco [facility] ER RASH,DIFFICULTY SWALLOWING [id number] 09/23/2016 08:26:00 09/23/2016 23:59:59 CLS Outpatient ORENDER DO, CARMINA S [facility] LAB D51.9,R73.9 [id number] 06/16/2016 15:03:00 06/16/2016 23:59:59 CLS Outpatient MARLYN JALLOH DOLINE S [facility] LAB HTN,FATIGUE, B12 DEF [id number] 06/10/2016 07:52:00 06/10/2016 23:59:59 CLS Outpatient HARI IVEY [facility] LAB HYPERLIPIDEMIA [id number] 09/02/2015 12:37:00 09/02/2015 15:15:00 DIS Emergency ABELINO FRANCES, EDDIE Pacheco [facility] ER WEAKNESS [id number] 06/05/2015 13:00:00 06/05/2015 23:59:59 CLS Preadmit MARLYN JALLOH DOLINE S [facility] CARD DIZZINESS,ECTOPY [id number] 03/06/2015 12:59:00 06/04/2015 00:01:00 DIS Outpatient MARLYN JALLOH DOLINE S [facility] CARD DIZZINESS,ECTOPY [id number] 05/28/2015 09:51:00 05/28/2015 23:59:59 CLS Outpatient HARI IVEY [facility] LAB HYPERLIPIDEMIA [id number] 03/06/2015 13:33:00 03/06/2015 15:24:00 DIS Emergency FLOYD BLANCO MD [facility] ER DIZZY/IRR HEART RATE [id number] 03/04/2015 09:24:00 03/04/2015 23:59:59 CLS Outpatient MARLYN JALLOH DOLINE S [facility] LAB DIZZINESS,FALLS, HYPERGLYCEMIA [id number] 11/26/2014 10:51:00 11/26/2014 23:59:59 CLS Outpatient YOANA FRANCES, RADHA Jones [facility] CARD [id number] 11/25/2014 08:35:00 11/25/2014 23:59:59 CLS Outpatient SHOLA SEXTON [facility] LAB [id number] 10/15/2014 10:16:00 10/15/2014 23:59:59 CLS Outpatient SHOLA SEXTON [facility] RAD [id number] 08/11/2014 09:16:00 08/11/2014 23:59:59 CLS Outpatient ORENDER DO, CARMINA S [facility] LAB [id number] 01/28/2014 13:00:00 04/23/2014 00:01:00 DIS Outpatient ORENDER DO, CARMINA S [facility] PULM [id number] 01/15/2014 09:08:00 01/15/2014 23:59:59 CLS Outpatient HARI IVEY [facility] LAB [id number] 12/18/2013 15:34:00 12/20/2013 10:45:00 DIS Inpatient ORENDER DO, CARMINA S [address] [id number] 12/13/2013 11:00:00 12/13/2013 12:33:00 DIS Emergency MILIND FERNANDO APRN [facility] ER [id number] 11/22/2013 09:31:00 11/22/2013 23:59:59 CLS Outpatient ORENDER DO, CARMINA S [facility] RT [id number] 10/28/2013 14:10:00 10/30/2013 10:41:00 DIS Inpatient ORENDER DO, CARMINA S [address] [id number] 10/18/2013 10:48:00 10/18/2013 23:59:59 CLS Outpatient DEEPIKA POZO [facility] RAD [id number] 10/02/2013 13:34:00 10/02/2013 23:59:59 CLS Outpatient RADHA LEES MD [facility] LAB [id number] 08/20/2013 11:39:00 08/20/2013 23:59:59 CLS Outpatient SHOLA SEXTON [facility] RAD [id number] 06/17/2013 08:56:00 06/17/2013 23:59:59 [facility] Outpatient CARMINA JALLOH DO [facility] [id number] 05/30/2018 11:48:00 Document Registration [id number] 11/27/2014 12:08:00 Document Registration [id number] 07/08/2014 09:13:00 Document Registration [id number] 04/24/2014 15:00:00 Document Registration [id number] 01/14/2013 18:36:00 Document Registration [id number] 01/07/2013 20:52:00 Document Registration [id number] 10/22/2012 23:54:00 Document Registration [id number] 09/27/2012 11:27:00 Document Registration [id number] 09/24/2012 08:30:00 Document Registration [id number] 08/07/2012 22:27:00 Document Registration [id number] 07/03/2012 11:09:00 Document Registration [id number] 06/13/2012 05:32:00 Document Registration [id number] 06/08/2012 10:33:00 Document Registration [id number] 05/24/2012 08:40:00 Document Registration [id number] 02/03/2012 13:02:00 Document Registration [id number] 01/28/2012 20:03:00 Document Registration [id number] 01/23/2012 15:08:00 Document Registration [id number] 01/06/2012 12:27:00 Document Registration [id number] 01/02/2012 19:13:00 Document Registration [id number] 12/08/2011 05:41:00 Document Registration [id number] 12/06/2011 07:47:00 Document Registration [id number] 12/02/2011 09:49:00 Document Registration [id number] 10/29/2011 16:58:00 Document Registration [id number] 08/01/2011 10:47:00 Document Registration [id number] 07/22/2011 09:51:00 Document Registration [id number] 07/20/2011 08:17:00 Document Registration [id number] 06/09/2011 08:53:00 Document Registration [id number] 05/23/2011 08:18:00 Document Registration [id number] 05/12/2011 11:23:00 Document Registration [id number] 04/07/2011 10:16:00 Document Registration [id number] 01/27/2011 10:13:00 Document Registration [id number] 12/30/2010 17:13:00 Document Registration [id number] 11/30/2010 10:10:00 Document Registration [id number] 11/26/2010 09:50:00 Document Registration [id number] 11/22/2010 18:00:00 Document Registration [id number] 09/21/2010 09:30:00 Document Registration [id number] 09/08/2010 18:27:00 Document Registration [id number] 09/07/2010 10:34:00 Document Registration [id number] 08/11/2010 18:03:00 Document Registration [id number] 05/31/2010 08:25:00 Document Registration [id number] 05/19/2010 08:22:00 Document Registration [id number] 03/29/2010 10:55:00 Document Registration [id number] 01/11/2010 13:48:00 Document Registration [id number] 11/17/2009 15:55:00 Document Registration [id number] 08/11/2009 14:46:00 Document Registration [id number] 06/09/2009 09:41:00 Document Registration [id number] 05/28/2015 09:53:04 ACT Document Registration [id number] 07/30/2018 08:49:48 Document Registration 05/16/10 12/27/2018 16:18:05 12/27/2018 23:59:59 Carmina Spence
[2019-01-09] MEDS ORDERED: NS IV 1000 ML 1,000 ML IV ONE (19:39)
[2019-01-09] MEDS ORDERED: ACETAMINOPHEN 500 MG TAB (TYLENOL) PO ONE (19:45)
[2019-01-09 19:48] LABS: BASOPHILS % (AUTO) 0 % (0-10); EOSINOPHILS # (AUTO) 0.1 10^3/uL (0.0-0.3); EOSINOPHILS % (AUTO) 0 % (0-10); HEMATOCRIT 41 % (40-54); HEMOGLOBIN 14.1 G/DL (13.3-17.7); LYMPHOCYTES # (AUTO) 1.1 X 10^3 (1.0-4.0); LYMPHOCYTES % (AUTO) 7 % (12-44); MEAN CORPUSCULAR HEMOGLOBIN 29 PG (25-34); MEAN CORPUSCULAR HGB CONC 34 G/DL (32-36); MEAN CORPUSCULAR VOLUME 86 FL (80-99); MEAN PLATELET VOLUME 10.3 FL (7.4-10.4); MONOCYTES % (AUTO) 7 % (0-12); NEUTROPHILS # (AUTO) 12.9 X 10^3 (1.8-7.8); NEUTROPHILS % (AUTO) 86 % (42-75); PLATELET COUNT 167 10^3/uL (130-400); RED CELL DISTRIBUTION WIDTH 13.2 % (10.0-14.5)
[2019-01-09 19:56] LABS: INR 1.2 (0.8-1.4); PROTHROMBIN TIME PATIENT 14.7 SEC (12.2-14.7)
[2019-01-09 20:02] LABS: ALANINE AMINOTRANSFERASE 26 U/L (0-55); ALKALINE PHOSPHATASE 51 U/L (40-136); BUN/CREATININE RATIO 18; CALCIUM 9.1 MG/DL (8.5-10.1); CARBON DIOXIDE 18 MMOL/L (21-32); CHLORIDE 101 MMOL/L (98-107); CREATININE SERUM 0.97 MG/DL (0.60-1.30); GFR ESTIMATED > 60; GLUCOSE 115 MG/DL (70-105); POTASSIUM 4.1 MMOL/L (3.6-5.0); SODIUM 132 MMOL/L (135-145); TOTAL PROTEIN 7.6 GM/DL (6.4-8.2)
[2019-01-09 20:03] LABS: BILIRUBIN,URINE NEGATIVE (NEGATIVE); CLARITY,URINE SLIGHTLY CLOUDY; COLOR,URINE AMBER; GLUCOSE, URINE (UA) NEGATIVE (NEGATIVE); KETONES,URINE 4+ (NEGATIVE); LEUKOCYTE ESTERASE ,URINE 3+ (NEGATIVE); NITRITE,URINE POSITIVE (NEGATIVE); PH,URINE 5 (5-9); PROTEIN,URINE 3+ (NEGATIVE); UROBILINOGEN,URINE NORMAL (NORMAL)
--- NOTE | 2019-01-09 20:05 | Diagnostic Imaging Report ---
INDICATION: Dizziness and cough. COMPARISON: 09/10/2018. FINDINGS: Visualized lungs are clear. Posterior lower lobes are poorly evaluated by portable radiography. No pleural effusion or pneumothorax. Heart remains borderline enlarged. IMPRESSION: No acute process by portable radiography. Dictated by: Dictated on workstation # [id number]
[2019-01-09 20:07] LABS: BAND NEUTROPHILS 2 %; BASOPHILS % (MANUAL) 0 %; EOSINOPHILS % (MANUAL) 1 %; LYMPHOCYTES % (MANUAL) 5 %; MONOCYTES % (MANUAL) 5 %; NEUTROPHILS % (MANUAL) 87 %; RBC MORPH NORMAL
[2019-01-09 20:14] LABS: BACTERIA,URINE LARGE /HPF; RBC,URINE >100 /HPF; SQUAMOUS EPITHELIAL CELL,UR 0-2 /HPF; WBC,URINE TNTC /HPF
[2019-01-09] MEDS ORDERED: cefTRIAXone FOR IV USE 1,000 MG in WATER (STERILE) FOR INJECTION 10 ML IV ONE (20:15)
--- NOTE | 2019-01-09 21:15 | ED General ---
General Chief Complaint: Dizziness/Syncope Stated Complaint: DIZZINESS Nursing Triage Note: PT TO ROOM #3 [facility]IA [facility] CART FROM HOME WITH C/O GENERALIZED WEAKNESS, DIZZINESS, AND FEVER. EMS ADVISE MACHINE III COREMAKER, OBTAINED POSITIVE ORTHOSTATIC VITALS. MACHINE III COREMAKER EMS ACCESSED 22G IV TO LT WRIST AND INITIATED NS BOLUS. PT REPORTS APPROX X3 DAYS AGO HE WAS STEPPING OVER A TRAILER, FELL AND HIT HIS GENITALS. PT REPORTS SINCE INJURY, HE HAS BEEN EXPERIENCING BURNING DURING URINATION WELL BLOOD TINGED URINE. PT REPORTS DECREASED APPETITE FOR APPROX X3 DAYS. PT REPORTS DIZZINESS UPON STANDING FROM A SEATED POSITION. DENIES PAIN OR DISCOMFORT. Nursing Sepsis Screen: No Definite Risk Source of Information: Patient Exam Limitations: No Limitations History of Present Illness Date Seen by Provider: Jan 09, 2019 Time Seen by Provider: 19:30 Initial Comments This 78-year-old gentleman presents to the emergency room via EMS with complaints of dizziness and weakness. EMS reports blood pressure supine was 153 /88 with heart rate of 79. Blood pressure sitting was 126/82 with heart rate of 90. Patient was dizzy with sitting and standing but he was able to walk to the ambulance. He is febrile but was not aware he will he is febrile. He reports having hematuria in recent days. He also reports having a fall 3 days ago in which he struck his genitalia on a trailer. The other symptoms started the following day and have been present for 2 days. He denies striking his head. He is alert and oriented. He states to EMS that he has not been eating or drinking well for the last 3 days because he "didn't feel like it". Allergies and Home Medications Allergies Coded Allergies: NKANo Known Allergies (Unverified Allergy, Unknown, 09/19/06) Home Medications Aspirin 81 Mg Tab.chew, 81 MG PO DAILY, (Reported) Atorvastatin Calcium 10 Mg Tablet, 10 MG PO DAILY, (Reported) Colestipol HCl 1 Gm Tablet, 1 GM PO BID, (Reported) Fluticasone/Salmeterol 1 Each Blst.w.dev, 1 EACH IH BID, (Reported) L.acidoph & Paracasei,B.lactis 1 Each Capsule, 1 EACH PO TIDWM Prescribed by: EDDIE HAWTHORNE on 06/11/18 3527 Losartan Potassium 100 Mg Tablet, 100 MG PO DAILY, (Reported) Metronidazole 500 Mg Tablet, 500 MG PO TID Prescribed by: EDDIE HAWTHORNE on 06/11/181423 Nystatin 60 Gm Powder, 60 GM TP BID Prescribed by: EDDIE HAWTHORNE on 06/11/181423 Omeprazole 20 Mg Capsule.dr, 20 MG PO BID, (Reported) Sertraline HCl 100 Mg Tablet, 100 MG PO BID, (Reported) Umeclidinium [place] 62.5 Mcg Blst.w.dev, 62.5 MCG IH DAILY, (Reported) Patient Home Medication List Home Medication List Reviewed: Yes Review of Systems Review of Systems Constitutional: see HPI EENTM: no symptoms reported Respiratory: no symptoms reported Cardiovascular: no symptoms reported Gastrointestinal: no symptoms reported Genitourinary: see HPI Musculoskeletal: no symptoms reported Skin: see HPI (chronic problems with intertrigo in the genital area) Psychiatric/Neurological: No Symptoms Reported Hematologic/Lymphatic: No Symptoms Reported Immunological/Allergic: no symptoms reported Past Nxylzgh-Nkoavy-Wtpkeo Hx Past Med/Social Hx: Reviewed Nursing Past Med/Soc Hx Patient Social History Alcohol Use: Denies Use Recreational Drug Use: No (QUIT 35 YRS AGO) Smoking Status: Former Smoker Type Used: Cigarettes Former Smoker, Quit: Jun 12, 1980 2nd Hand Smoke Exposure: No Recent Foreign Travel: No Contact w/Someone Who Travel: No Recent Infectious Disease Expo: No Recent Hopitalizations: No Immunizations Up To Date Tetanus Booster (TDap): Less than 5yrs PED Vaccines UTD: No Date of Pneumonia Vaccine: Aug 15, 2011 Date of Influenza Vaccine: Jul 25, 2016 Seasonal Allergies Seasonal Allergies: No Past Medical History Surgeries: Yes (BILAT KNEE REPLACEMENTS, right ankle surg, RT HAND CARPAL TUNNEL ) Orthopedic Respiratory: Yes (quit smoking 40yrs. ago) Asthma, COPD Cardiac: Yes (see's Dr. Miner) Hypertension, Hypotension Neurological: Yes Vertigo Reproductive Disorders: No Sexually Transmitted Disease: No HIV/AIDS: No Genitourinary: No Gastrointestinal: Yes Gastroesophageal Reflux Musculoskeletal: Yes (ROSY. TKR) Arthritis Endocrine: Yes Diabetes, Non-Insulin dep Cataract Loss of Vision: Denies Hearing Impairment: Denies Cancer: No Psychosocial: Yes Depression Integumentary: No Blood Disorders: No Adverse Reaction/Blood Tranf: No Family Medical History Alcoholism 09 SISTER Family history: Asthma 09 SISTER Family history: Cardiovascular disease 03 FATHER Family history: Diabetes mellitus 03 MOTHER 09 SISTER Heart disease 03 FATHER Myocardial infarction 03 FATHER Stroke 03 FATHER No Family History of: Abdominal aortic aneurysm Jaydon's disease Aphasia Cancer Cancer of colon Cataract Chest pain Congenital heart disease Congestive heart failure Cystic fibrosis Dementia Dysphagia Family history: Allergy Family history: Alzheimer's disease Family history: Arthritis Family history: Breast disease Family history: Gastrointestinal disease Family history: Glaucoma Family history: Hypertension Family history: Osteoporosis Family history: Thyroid disorder Headache Hearing loss History of - anemia History of - disorder History of - respiratory disease History of drug abuse Human immunodeficiency virus (HIV) seropositivity Hypercholesterolemia Infertile Kidney disease Malignant neoplasm of lung Parkinson's disease Prostate cancer Psychotic disorder Seizure disorder Tuberculosis Visual impairment Physical Exam Vital Signs Vital Signs - First Documented 01/09/19 19:30 Temp 101.3 Pulse 81 Resp 17 B/P (MAP) 145/95 (112) Pulse Ox 94 O2 Delivery Room Air Capillary Refill : Less Than 3 Seconds Height, Weight, BMI Height: 6'0" Weight: 231lbs. 0.0oz. 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 Norm as Tested Skin: Normal Color, Warm/Dry, Other (Intertrigo of the groin, scrotum and penis ) Focused Exam Lactate Level 01/09/19 19:39: Lactic Acid Level 1.04 Lactic Acid Level Laboratory Tests Test 01/09/19 19:39 Lactic Acid Level 1.04 MMOL/L (0.50-2.00) Progress/Results/Core Measures Suspected Sepsis Recent Fever Within 48 Hours: Yes Infection Criteria Present: Suspected New Infection New/Unexplained Altered Menta: No Sepsis Screen: No Definite Risk SIRS Temperature:101.3 Pulse: 81 Respiratory Rate: 17 Laboratory Tests 01/09/19 19:30: White Blood Count 15.0H Blood Pressure 145 /95 Mean: 112 01/09/19 19:39: Lactic Acid Level 1.04 Laboratory Tests 01/09/19 19:30: Creatinine 0.97, INR Comment 1.2, Platelet Count 167, Total Bilirubin 2.0H Results/Orders Lab Results Laboratory Tests Test 01/09/19 19:30 01/09/19 19:39 01/09/19 19:55 Range/Units White Blood Count 15.0 H 4.3-11.0 10^3/uL Red Blood Count 4.79 4.35-5.85 10^6/uL Hemoglobin 14.1 13.3-17.7 G/DL Hematocrit 41 40-54 % Mean Corpuscular Volume 86 80-99 FL Mean Corpuscular Hemoglobin 29 25-34 PG Mean Corpuscular Hemoglobin Concent 34 32-36 G/DL Red Cell Distribution Width 13.2 10.0-14.5 % Platelet Count 167 130-400 10^3/uL Mean Platelet Volume 10.3 7.4-10.4 FL Neutrophils (%) (Auto) 86 H 42-75 % Lymphocytes (%) (Auto) 7 L 12-44 % Monocytes (%) (Auto) 7 0-12 % Eosinophils (%) (Auto) 0 0-10 % Basophils (%) (Auto) 0 0-10 % Neutrophils # (Auto) 12.9 H 1.8-7.8 X 10^3 Lymphocytes # (Auto) 1.1 1.0-4.0 X 10^3 Monocytes # (Auto) 1.0 0.0-1.0 X 10^3 Eosinophils # (Auto) 0.1 0.0-0.3 10^3/uL Basophils # (Auto) 0.0 0.0-0.1 10^3/uL Neutrophils % (Manual) 87 % Lymphocytes % (Manual) 5 % Monocytes % (Manual) 5 % Eosinophils % (Manual) 1 % Basophils % (Manual) 0 % Band Neutrophils 2 % Blood Morphology Comment NORMAL Prothrombin Time 14.7 12.2-14.7 SEC INR Comment 1.2 0.8-1.4 Activated Partial Thromboplast Time 32 24-35 SEC Sodium Level 132 L 135-145 MMOL/L Potassium Level 4.1 3.6-5.0 MMOL/L Chloride Level 101 98-107 MMOL/L Carbon Dioxide Level 18 L 21-32 MMOL/L Anion Gap 13 5-14 MMOL/L Blood Urea Nitrogen 17 7-18 MG/DL Creatinine 0.97 0.60-1.30 MG/DL Estimat Glomerular Filtration Rate > 60 BUN/Creatinine Ratio 18 Glucose Level 115 H 70-105 MG/DL Calcium Level 9.1 8.5-10.1 MG/DL Corrected Calcium 9.1 8.5-10.1 MG/DL Total Bilirubin 2.0 H 0.1-1.0 MG/DL Aspartate Amino Transf (AST/SGOT) 27 5-34 U/L Alanine Aminotransferase (ALT/SGPT) 26 0-55 U/L Alkaline Phosphatase 51 40-136 U/L C-Reactive Protein High Sensitivity 15.75 H 0.00-0.50 MG/DL Total Protein 7.6 6.4-8.2 GM/DL Albumin 4.0 3.2-4.5 GM/DL Lactic Acid Level 1.04 0.50-2.00 MMOL/L Urine Color TAO H Urine Clarity SLIGHTLY CLOUDY Urine pH 5 5-9 Urine Specific Shields 1.025 H 1.016-1.022 Urine Protein 3+ H NEGATIVE Urine Glucose (UA) NEGATIVE NEGATIVE Urine Ketones 4+ H NEGATIVE Urine Nitrite POSITIVE H NEGATIVE Urine Bilirubin NEGATIVE NEGATIVE Urine Urobilinogen NORMAL NORMAL MG/DL Urine Leukocyte Esterase 3+ H NEGATIVE Urine RBC (Auto) 5+ H NEGATIVE Urine RBC >100 H /HPF Urine WBC TNTC H /HPF Urine Squamous Epithelial Cells 0-2 /HPF Urine Crystals NONE /LPF Urine Bacteria LARGE H /HPF Urine Casts NONE /LPF Urine Mucus LARGE H /LPF Urine Culture Indicated NO Micro Results Microbiology 01/09/19 Influenza Types A,B Antigen (LOLLY) - Final, Complete My Orders Orders - EDDIE ROCA MD Cbc With Automated Diff (01/09/19 19:39) Comprehensive Metabolic Panel (01/09/19 19:39) Blood Culture (01/09/19 19:39) Sputum Culture (01/09/19 19:39) Urinalysis (01/09/19 19:39) Urine Culture (01/09/19 19:39) Protime With Inr (01/09/19 19:39) Partial Thromboplastin Time (01/09/19 19:39) Chest 1 View, Ap/Pa Only (01/09/19 19:39) Saline Lock/Iv-Start (01/09/19 19:39) Saline Lock/Iv-Start (01/09/19 19:39) Vital Signs Adult Sepsis Patie Q15M (01/09/19 19:39) O2 (01/09/19 19:39) Remove Rings In Anticipation O (01/09/19 19:39) Lactic Acid Analyzer (01/09/19 19:39) Influenza A And B Antigens (01/09/19 19:39) Saline Lock/Iv-Start (01/09/19 19:39) Ns Iv 1000 Ml (Sodium Chloride 0.9%) (01/09/19 19:39) Acetaminophen Tablet (Tylenol Tablet) (01/09/19 19:45) Manual Differential (01/09/19 19:30) Hs C Reactive Protein (01/09/19 20:15) Ceftriaxone For Iv Use (Rocephin For I (01/09/19 20:15) Medications Given in ED Current Medications Medications Dose Ordered Sig/Yaya Route Start Time Stop Time Status Last Admin Dose Admin Acetaminophen 1,000 mg ONCE ONCE PO 01/09/19 19:45 01/09/19 19:46 DC 01/09/19 20:03 1,000 MG Ceftriaxone Sodium 1000 mg/ Sterile Water 10 ml @ 200 mls/hr ONCE ONCE IV 01/09/19 20:15 01/09/19 20:17 DC 01/09/19 20:24 200 MLS/HR Vital Signs/I&O 01/09/19 01/09/19 19:30 20:03 Temp 101.3 101.3 Pulse 81 Resp 17 B/P (MAP) 145/95 (112) Pulse Ox 94 O2 Delivery Room Air Capillary Refill : Less Than 3 Seconds Blood Pressure Mean: 112 Progress Note : Progress Note Septic workup was pursued. Patient was found to have a urinary tract infection with leukocytosis and fever. Rocephin was started after a lactic acid and blood cultures were drawn. Influenza screen was negative. Vital signs remained stable. Patient was found to have significant intertrigo of the groin , penis, and scrotum. However, there is no tenderness in the abdomen, pelvis, or genital area to suggest traumatic injury as a cause of his hematuria. Hematuria is likely due to his urinary tract infection. I discussed CODE STATUS with the patient and he is clear that he wishes to have a DNR status. 1 L of IV normal saline was administered by EMS. A second liter was administered in the ER. Case was discussed with Dr. CA admission. Diagnostic Imaging Diagonstic Imaging: Xray Plain Films/CT/US/NM/MRI: chest Comments Chest x-ray viewed by me and report reviewed. See report below: NAME: CHRISTINA YBARRA [facility] REC#: [id number] PT STATUS: REG ER : 1940 PHYSICIAN: EDDIE ROCA MD ADMIT DATE: 01/09/19/ER Draft Date of Exam:01/09/19 CHEST 1 VIEW, AP/PA ONLY INDICATION: Dizziness and cough. COMPARISON: 09/10/2018. FINDINGS: Visualized lungs are clear. Posterior lower lobes are poorly evaluated by portable radiography. No pleural effusion or pneumothorax. Heart remains borderline enlarged. IMPRESSION: No acute process by portable radiography. Dictated on workstation # [id number] Dict: 01/09/191999 Trans: 01/09/[address] [place] [id number] Interpreted by: GRACIELA RANDALL MD Departure Communication (Admissions) Time/Spoke to Admitting Phy: 21:04 Dr. Ca Impression Primary Impression: Sepsis Qualified Codes: A41.9 - Sepsis, unspecified organism Additional Impressions: UTI (urinary tract infection) Qualified Codes: N39.0 - Urinary tract infection, site not specified; R31.9 - Hematuria, unspecified Intertrigo Dizziness Fall on same level Qualified Codes: W18.30XA - Fall on same level, unspecified, initial encounter Disposition: ADMITTED INPATIENT Condition: Improved Admissions Decision to Admit Reason: Admit from ER (General) Decision to Admit/Date: Jan 09, 2019 Time/Decision to Admit Time: 20:15 Departure-Patient Inst. Referrals: ENRRIQUE CA DO (PCP/Family) Primary Care Physician EDDIE ROCA MD Jan 09, 2019 21:15
--- NOTE | 2019-01-09 21:30 | NUR ---
IV LITER NS BOLUS FROM [facility] COMPLETE.
--- NOTE | 2019-01-09 21:46 | NUR ---
CHRISTINA YBARRA admitted to room CU10-1, with an admitting diagnosis of sepsis, UTI, intertrigo and dizziness, on 01/09/19 from ER via hospital bed, accompanied by an ER staff member. CHRISTINA YBARRA introduced to surroundings, call light, bed controls, phone, TV, temperature control, lights, meal times, smoking policy, visitor policy, side rail policy, bathrooms and showers. Patient Rights given to patient in the handbook. CHRISTINA YBARRA verbalizes understanding that [facility] is not responsible for the loss or damage to any personal effects or valuables that are kept in the patients posession during their hospitalization. Plan of care is discussed and there is no questions at this time.
[2019-01-09 21:50] VITALS: BP 151/77
[2019-01-09] MEDS ORDERED: ACETAMINOPHEN 500 MG TAB (TYLENOL) PO PRN (22:00)
[2019-01-09] MEDS ORDERED: fluCOnazole (DIFLUCAN) 100 MG TAB PO SCH (22:00)
[2019-01-09] MEDS ORDERED: methylPREDNISolone 125 MG (Solu-MEDROL) VIAL ONE (22:40)
[2019-01-09] MEDS ORDERED: FUROSEMIDE 40 MG/4 ML INJ (LASIX) ONE (22:40)
--- NOTE | 2019-01-09 22:48 | NUR ---
This RN called Dr. Ca to advise her that there is no IV Valium in house. Dr. Ca ordered 0.5mg Ativan IV once. She also ordered vapotherm for RT to titrate if needed.
[2019-01-09] MEDS ORDERED: LORazepam INJ 2 MG/ML (ATIVAN) VIAL ONE (22:51)
[2019-01-09] MEDS ORDERED: methylPREDNISolone 125 MG (Solu-MEDROL) VIAL IVP ONE (23:00)
[2019-01-09] MEDS ORDERED: LORazepam INJ 2 MG/ML (ATIVAN) VIAL IVP ONE (23:00)
[2019-01-09] MEDS ORDERED: FUROSEMIDE 40 MG/4 ML INJ (LASIX) IVP ONE (23:00)
--- NOTE | 2019-01-09 23:00 | NUR ---
This RN called Dr. Ca to update her on patient condition. Ativan, Lasix and Solumedrol is given with no change. Dr. Ca ordered to have the patient transferred to ICU, 0.5mg Ativan IV once and a hobson. All orders are repeated and confirmed.
[2019-01-09 23:10] LABS: BASOPHILS % (AUTO) 0 % (0-10); EOSINOPHILS % (AUTO) 1 % (0-10); HEMATOCRIT 44 % (40-54); HEMOGLOBIN 14.5 G/DL (13.3-17.7); LYMPHOCYTES # (AUTO) 0.9 X 10^3 (1.0-4.0); LYMPHOCYTES % (AUTO) 35 % (12-44); MEAN CORPUSCULAR HEMOGLOBIN 29 PG (25-34); MEAN CORPUSCULAR HGB CONC 33 G/DL (32-36); MEAN CORPUSCULAR VOLUME 88 FL (80-99); MEAN PLATELET VOLUME 9.8 FL (7.4-10.4); MONOCYTES % (AUTO) 1 % (0-12); NEUTROPHILS # (AUTO) 1.6 X 10^3 (1.8-7.8); NEUTROPHILS % (AUTO) 63 % (42-75); PLATELET COUNT 140 10^3/uL (130-400); RED CELL DISTRIBUTION WIDTH 13.4 % (10.0-14.5); WHITE BLOOD COUNT 2.6 10^3/uL (4.3-11.0)
[2019-01-09 23:17] VITALS: BP 117/70
[2019-01-09 23:28] LABS: CALCIUM 9.5 MG/DL (8.5-10.1); CREATININE SERUM 1.22 MG/DL (0.60-1.30); MAGNESIUM 1.8 MG/DL (1.8-2.4); PHOSPHORUS 3.6 MG/DL (2.3-4.7); POTASSIUM 3.7 MMOL/L (3.6-5.0)
[2019-01-09 23:32] VITALS: BP 146/98
--- NOTE | 2019-01-09 23:36 | NUR ---
This RN called Dr. Ca to update her on patient condition. PCT called this RN to the room because the patient started severely shaking. When this RN entered the room patient was found in bed shaking uncontrollably. PCT states that his SPO2 dropped to 82%, respirations were in the 30's and pulse rate had went up to 117. Dr Ca ordered 40mg Lasix IV once, 125mg Solumedrol IV once and 5mg Valium IV once. All orders are repeated and confirmed. Addendum: 01/10/19 at 0021 by CHANTAL GÓMEZ RN Correct time is 22:36
[2019-01-09 23:45] VITALS: BP 141/77
[2019-01-10] VITALS (20 sets, daily range): BP systolic 94–162; BP diastolic 49–98
[2019-01-10] MEDS ORDERED: RT-ALBUTEROL/IPRATROPIUM 3 ML (DUONEB) VIAL INH PRN (00:15)
[2019-01-10] MEDS: NS IV 1000 ML 1,000 ML IV SCH ×3 (01:29→15:16)
[2019-01-10] MEDS ORDERED: ACETAMINOPHEN 650 MG SUPP (TYLENOL) PR PRN (03:00)
[2019-01-10] MEDS: RT-ALBUTEROL/IPRATROPIUM 3 ML (DUONEB) VIAL INH SCH ×4 (03:32→22:07)
[2019-01-10] MEDS: FLUCONAZOLE 200 MG/NACL 100 ML (PRE-MIX) IV SCH (03:54)
[2019-01-10 04:02] LABS: BASOPHILS % (AUTO) 0 % (0-10); EOSINOPHILS % (AUTO) 0 % (0-10); HEMATOCRIT 41 % (40-54); HEMOGLOBIN 13.8 G/DL (13.3-17.7); LYMPHOCYTES # (AUTO) 0.5 X 10^3 (1.0-4.0); LYMPHOCYTES % (AUTO) 3 % (12-44); MEAN CORPUSCULAR HEMOGLOBIN 29 PG (25-34); MEAN CORPUSCULAR HGB CONC 34 G/DL (32-36); MEAN CORPUSCULAR VOLUME 87 FL (80-99); MONOCYTES # (AUTO) 0.7 X 10^3 (0.0-1.0); MONOCYTES % (AUTO) 4 % (0-12); NEUTROPHILS # (AUTO) 14.6 X 10^3 (1.8-7.8); NEUTROPHILS % (AUTO) 92 % (42-75); PLATELET COUNT 129 10^3/uL (130-400); RED CELL DISTRIBUTION WIDTH 13.3 % (10.0-14.5); WHITE BLOOD COUNT 15.8 10^3/uL (4.3-11.0)
[2019-01-10 04:21] LABS: CALCIUM 8.8 MG/DL (8.5-10.1); CREATININE SERUM 1.2 MG/DL (0.60-1.30); MAGNESIUM 1.8 MG/DL (1.8-2.4); PHOSPHORUS 2.1 MG/DL (2.3-4.7); POTASSIUM 3.5 MMOL/L (3.6-5.0)
[2019-01-10] MEDS: POTASSIUM CL 10MEQ/50ML IVPB 50 ML IV SCH ×2 (04:49→05:49)
[2019-01-10] MEDS ORDERED: MAGNESIUM 1 GM/100 ML IVPB 100 ML IV SCH (06:00)
[2019-01-10] MEDS ORDERED: KCL 20 MEQ TAB (K-DUR) PO SCH (06:00)
[2019-01-10] MEDS ORDERED: POTASSIUM CL 10MEQ/50ML IVPB 50 ML IV SCH (06:00)
--- NOTE | 2019-01-10 07:14 | Diagnostic Imaging Report ---
INDICATION: Followup. Sepsis. COMPARISON: 01/09/2019 FINDINGS: Single frontal radiographic view of the chest was obtained and shows interval decrease in depth of inspiration. However, lungs remain clear. There is no evidence of focal consolidation, pleural effusion, nor pneumothorax. Cardiac silhouette is borderline prominent, but may be exaggerated by portable technique and low inspiratory volumes. Pulmonary vasculature is within normal limits. Bony structures show no gross acute abnormalities. IMPRESSION: 1. Borderline prominent cardiac silhouette, which may be artificially exaggerated as discussed above. Otherwise, no evidence of failure or focal infiltrate. Dictated by: Dictated on workstation # [id number]
[2019-01-10] MEDS: MICONAZOLE 2% POWDER (DESENEX AF) 90 GM TOP SCH ×2 (09:00→20:17)
[2019-01-10] MEDS ORDERED: NYSTATIN POWDER 100,000 UNITS 15 GM BTL TOP SCH (09:00)
[2019-01-10] MEDS ORDERED: CYAN500T2 PO (09:53)
[2019-01-10] MEDS ORDERED: NYST15PO2 TOP (09:53)
[2019-01-10] MEDS ORDERED: ASPI-983 PO (09:53)
[2019-01-10] MEDS ORDERED: MELA3TAB PO (09:53)
--- NOTE | 2019-01-10 10:00 | NUR ---
PATIENT HAD HIS MEDICATION BOTTLES WITH HIM AND VERIFIED HOW HE TAKES THEM TO THE BEST OF HIS ABILITY. HE STATES HE HAS SOMEONE WHO SETS UP HIS PILLS FOR HIM SO HE IS UNSURE OF MORNING VS. EVENING ON SOME. HE HAS ASPIRIN 81MG, VITAMIN B12, AND MELATONIN OTC.
--- NOTE | 2019-01-10 11:00 | NUR ---
Pastoral care visit.
[2019-01-10] MEDS: ENOXAPARIN 40 MG/0.4 ML (LOVENOX) SYR SC SCH (13:53)
--- NOTE | 2019-01-10 13:55 | NUR ---
Report given to Claritza Noriega on 4th floor. Pt walking down with BON Flores and Eryn carver and checkerer specials.
--- NOTE | 2019-01-10 14:05 | NUR ---
Report received from Sabrina from ICU, patient arrived to unit to room 411 at 14:05 ambulating with Sandra from PT. Oxygen on at 2L via NC. Adams catheter to dependent drainage. Assisted patient to bed with side rails up x 2, call light and belongings in reach. Care assumed at this time.
--- NOTE | 2019-01-10 14:31 | Physical Therapy Evaluation ---
PT Evaluation-General Medical Diagnosis Admission Date Jan 09, 2019 at 21:09 Medical Diagnosis: sepsis/UTI//itertrigo Onset Date: Jan 09, 2019 Therapy Diagnosis Therapy Diagnosis: debility Height/Weight Height (Feet): 6 Height (Inches): 0.00 Weight (Pounds): 233 Weight (Ounces): 2.0 Precautions Precautions/Isolations: Fall Prevention, Standard Precautions Referral Physician: Lanny Reason for Referral: Evaluation/Treatment Medical History Pertinent Medical History: COPD, DM, HTN Current History EMS secondary to generalized weakness and dizziness/had stepped over a trailer, fell and hit genitals Reviewed History: Yes Social History Home: Single Level Current Living Status: Alone Entry Into Home: Stairs With Railing PT Steps Into Home: 6 Prior/Core FIM Prior Level of Function Therapy Code Descriptions/Definitions Functional Penrose Measure: 0=Not Assessed/NA 4=Minimal Assistance 1=Total Assistance 5=Supervision or Setup 2=Maximal Assistance 6=Modified Penrose 3=Moderate Assistance 7=Complete Penrose Therapy Quality Codes: 6 Independent with activity with or without an assistive device 5 Patient requires set up or clean up by helper. Patient completes activity by themselves 4 Supervision or touching assist (CGA). [place] provide cues , steadying assist 3 The helper provides less than half the effort to complete the activity 2 The helper provides more than half the effort to complete the activity 1 Dependent. The helper does all the effort to complete an activity 7 Patient refused to complete or attempt activity 9 The patient did not perform the activity before the current illness or injury 88 Not attempted due to Medical conditions or safety concerns Functional Abilities and Goals: Independent: Patient completed the activities by him/herself, with or without an assistive device, with no assistance from a helper. Needed Some Help: Patient needed partial assistance from another person to complete activities. Dependent: A helper completed the activities for the patient. Unknown: Not Applicable: Bed Mobility: 7 Transfers (B,C,W/C) (FIM): 7 Gait: 7 Stairs: 7 Indoor Mobility (Ambulation): Independent Stairs: Independent Prior Devices Use: None PT Evaluation-Current Subjective Patient is very agreeable to participate with PT. Objective Patient Orientation: Normal For Age Problem Solving: Fair Attachments: Oxygen ROM/Strength ROM Lower Extremities bilateral LE WFL Strength Lower Extremities 5/5 grossly bilateral LE Integumentary/Posture Integumentary refer to nursing notes Bowel Incontinence: Yes Bladder Incontinence: No Posture WFL Neuromuscular (Tone, Coordination, Reflexes) grossly intact Sensory Vision: Functional Hearing: Functional Sensation Right Lower Extremit: Impaired Sensation Left Lower Extremity: Impaired Transfers Therapy Code Descriptions/Definitions Functional Penrose Measure: 0=Not Assessed/NA 4=Minimal Assistance 1=Total Assistance 5=Supervision or Setup 2=Maximal Assistance 6=Modified Penrose 3=Moderate Assistance 7=Complete Penrose Transfers (B, C, W/C) (FIM): 7 Scootin Rollin Supine to/from Sit: 7 Sit to/from Stand: 7 Gait Mode of Locomotion: Walk Anticipated Mode of Locomotion: Walk Gait (FIM): 6 Distance (FIM): 3=150 ft Distance: >600' Gait Level of Assist: 6 Gait Assistive Device: FWW Comments/Gait Description PT insisted patient use FWW for safety, however, patient prefers not to and states he will not use it tomorrow. Balance Sitting Static: Normal Sitting Dynamic: Normal Standing Static: Normal Standing Dynamic: Normal Assessment/Needs 78 y.o. male, will be seen x 2 sessions to ensure he is safe and able to improve functional mobility independently. Patient agrees with plan. Rehab Potential: Good PT Short Term Goals Short Term Goals Time Frame: Jan 11, 2019 Transfers (B,C,W/C) (FIM): 7 Gait (FIM): 7 Distance (FIM): 3=150 ft Gait Distance Comment: >500' Gait Level of Assist: 7 Gait Assistive Device: None PT Plan Treatment/Plan Treatment Plan: Continue Plan of Care Treatment Plan: Education, Functional Activity Sotero, Gait, Safety Treatment Duration: Jan 11, 2019 Frequency: 2 times per week Estimated Hrs Per Day: .25 hour per day Patient and/or Family Agrees t: Yes Time/GCodes Time In: 1345 Time Out: 1403 Total Billed Treatment Time: 18 Total Billed Treatment 1 visit EVModC 18 min DONAL HER PT Jan 10, 2019 14:31
--- NOTE | 2019-01-10 19:56 | History & Physicial ---
History of Present Illness History of Present Illness Reason for visit/HPI This is a 78 year old male who was brought to the emergency room via EMS with weakness, dizziness and fever. He admitted that he was trying to step over a trailer 3 days prior and had fallen and struck his genital area on the trailer. Since then he had been passing blood and having discomfort with urination. Upon examination in the emergency room, he was found to have a UTI with sepsis. He was initially admitted to the medical floor but started experiencing severe shaking along with elevated blood pressure, tachycardia and respiratory distress. He was given IV lasix, IV solumedrol and IV ativan and placed on vapotherm but he had to be transferred to the ICU for IV cardizem and further monitoring due to his worsening respiratory status. Date of Admission Jan 09, 2019 at 21:09 Date Seen by a Provider: Jan 10, 2019 Time Seen by a Provider: 12:30 I consulted on this patient on 01/10/19 19:51 Attending Physician Enrrique Ca DO Admitting Physician Enrrique Ca DO Consult Allergies and Home Medications Allergies Coded Allergies: Ray Known Allergies (Unverified Allergy, Unknown, 09/19/06) Home Medications Aspirin 81 Mg Tablet.dr, 81 MG PO DAILY, (Reported) Atorvastatin Calcium 10 Mg Tablet, 10 MG PO HS, (Reported) Colestipol HCl 1 Gm Tablet, 1 GM PO DAILY, (Reported) Cyanocobalamin (Vitamin B-12) 500 Mcg Tablet, 500 MCG PO DAILY, (Reported) Fluticasone/Salmeterol 1 Each Blst.w.dev, 1 PUFF IH BID, (Reported) Losartan Potassium 100 Mg Tablet, 100 MG PO DAILY, (Reported) Melatonin 3 Mg Tablet, 6 MG PO HS, (Reported) Nystatin 15 Gm Powder, TOP BID PRN for GAULDING, (Reported) Sertraline HCl 100 Mg Tablet, 100 MG PO BID, (Reported) Umeclidinium Anderson 62.5 Mcg Blst.w.dev, 1 PUFF IH BID, (Reported) Patient Home Medication List Home Medication List Reviewed: Yes Past Uxjqtrx-Pvubnd-Nmtrpx Hx Patient Social History Alcohol Use: Denies Use Recreational Drug Use: No Smoking Status: Former Smoker Former Smoker, Quit: Jun 12, 1980 Type Used: Cigarettes 2nd Hand Smoke Exposure: No Physical Abuse Screen: No Sexual Abuse: No Recent Foreign Travel: No Contact w/other who traveled: No Recent Hopitalizations: No Recent Infectious Disease Expo: No Immunizations Up To Date Tetanus Booster (TDap): Less than 5yrs Pediatric: No Date of Pneumonia Vaccine: Aug 15, 2011 Date of Influenza Vaccine: Jul 25, 2016 Seasonal Allergies Seasonal Allergies: No Surgeries Yes (BILAT KNEE REPLACEMENTS, right ankle surg, RT HAND CARPAL TUNNEL ) Orthopedic Respiratory Yes (quit smoking 40yrs. ago) Cardiovascular Yes (see's Dr. Miner) Hypertension, Hypotension Neurological Yes Vertigo Reproductive System Hx Reproductive Disorders: No Sexually Transmitted Disease: No HIV/AIDS: No Genitourinary No Gastrointestinal Yes Gastroesophageal Reflux Musculoskeletal Yes (ROSY. TKR) Arthritis Endocrine History of Endocrine Disorders: Yes Endocrine Disorders: Diabetes, Non-Insulin dep HEENT HEENT Disorders: Cataract Loss of Vision: Denies Hearing Impairment: Denies Cancer No Psychosocial History of Psychiatric Problem: Yes Behavioral Health Disorders: Depression Integumentary History of Skin or Integumenta: No Blood Transfusions History of Blood Disorders: No Adverse Reaction to a Blood Tr: No Family Medical History Family Hx: Alcoholism 09 SISTER Family history: Asthma 09 SISTER Family history: Cardiovascular disease 03 FATHER Family history: Diabetes mellitus 03 MOTHER 09 SISTER Heart disease 03 FATHER Myocardial infarction 03 FATHER Stroke 03 FATHER No Family History of: Abdominal aortic aneurysm Jaydon's disease Aphasia Cancer Cancer of colon Cataract Chest pain Congenital heart disease Congestive heart failure Cystic fibrosis Dementia Dysphagia Family history: Allergy Family history: Alzheimer's disease Family history: Arthritis Family history: Breast disease Family history: Gastrointestinal disease Family history: Glaucoma Family history: Hypertension Family history: Osteoporosis Family history: Thyroid disorder Headache Hearing loss History of - anemia History of - disorder History of - respiratory disease History of drug abuse Human immunodeficiency virus (HIV) seropositivity Hypercholesterolemia Infertile Kidney disease Malignant neoplasm of lung Parkinson's disease Prostate cancer Psychotic disorder Seizure disorder Tuberculosis Visual impairment Review of Systems Constitutional: chills, fever, malaise, weakness EENTM: No see HPI, No no symptoms reported, No ear discharge, No hearing loss, No ear pain, No blurred vision, No double vision, No eye pain, No tearing, No vision loss, No dental problems, No hoarseness, No mouth pain, No mouth swelling , No epistaxis, No nose congestion, No nose pain, No throat pain, No throat swelling, No other Respiratory: short of breath Cardiovascular: No no symptoms reported, No see HPI, No chest pain, No edema, No Hx of Intervention, No palpitations, No syncope, No vascular heart diseas, No other Gastrointestinal: No RUQ, No LUQ, No RLQ, No LLQ, No no symptoms reported, No see HPI, No abdominal pain, No constipation, No diarrhea, No dysphagia, No hematemesis, No heartburn, No jaundice, No loss of appetite, No melena, No nausea, No vomiting, No other Genitourinary: dysuria, hematuria Musculoskeletal: muscle weakness Skin: other (bruising to area) Psychiatric/Neurological: Tremors, Weakness Physical Exam Vital Signs Vital Signs - First Documented 01/09/19 01/09/19 19:30 23:00 Temp 101.3 Pulse 81 Resp 17 B/P (MAP) 145/95 (112) Pulse Ox 94 O2 Delivery Room Air O2 Flow Rate 5.00 Capillary Refill : Less Than 3 Seconds Height, Weight, BMI Height: 6'0.00" Weight: 233lbs. 2.0oz. 105.585159iu; 31.6 BMI Method:Stated General Appearance: No Apparent Distress HEENT: Normal ENT Inspection Neck: Supple Respiratory: Lungs Clear Cardiovascular: Regular Rate, Rhythm Gastrointestinal: Normal Bowel Sounds, Non Tender, Soft Rectal: Deferred Extremity: Non Tender, No Calf Tenderness, No Pedal Edema Neurologic/Psychiatric: Alert, Oriented x3 Skin: Warm/Dry Comments Laboratory Tests 01/09/19 23:00: White Blood Count 2.6L, Red Blood Count 4.97, Hemoglobin 14.5, Hematocrit 44, Mean Corpuscular Volume 88, Mean Corpuscular Hemoglobin 29, Mean Corpuscular Hemoglobin Concent 33, Red Cell Distribution Width 13.4, Platelet Count 140, Mean Platelet Volume 9.8, Neutrophils (%) (Auto) 63, Lymphocytes (%) (Auto) 35, Monocytes (%) (Auto) 1, Eosinophils (%) (Auto) 1, Basophils (%) (Auto) 0, Neutrophils # (Auto) 1.6L, Lymphocytes # (Auto) 0.9L, Monocytes # (Auto) 0.0, Eosinophils # (Auto) 0.0, Basophils # (Auto) 0.0, Sodium Level 136, Potassium Level 3.7, Chloride Level 103, Carbon Dioxide Level 18L, Anion Gap 15H, Blood Urea Nitrogen 17, Creatinine 1.22, Estimat Glomerular Filtration Rate 57, BUN/ Creatinine Ratio 14, Glucose Level 118H, Calcium Level 9.5, Phosphorus Level 3.6 , Magnesium Level 1.8, B-Type Natriuretic Peptide 74.5 01/10/19 03:35: White Blood Count 15.8H, Red Blood Count 4.71, Hemoglobin 13.8, Hematocrit 41, Mean Corpuscular Volume 87, Mean Corpuscular Hemoglobin 29, Mean Corpuscular Hemoglobin Concent 34, Red Cell Distribution Width 13.3, Platelet Count 129L, Mean Platelet Volume 10.0, Neutrophils (%) (Auto) 92H, Lymphocytes (%) (Auto) 3L , Monocytes (%) (Auto) 4, Eosinophils (%) (Auto) 0, Basophils (%) (Auto) 0, Neutrophils # (Auto) 14.6H, Lymphocytes # (Auto) 0.5L, Monocytes # (Auto) 0.7, Eosinophils # (Auto) 0.0, Basophils # (Auto) 0.0, Sodium Level 137, Potassium Level 3.5L, Chloride Level 106, Carbon Dioxide Level 17L, Anion Gap 14, Blood Urea Nitrogen 18, Creatinine 1.20, Estimat Glomerular Filtration Rate 59, BUN/ Creatinine Ratio 15, Glucose Level 150H, Calcium Level 8.8, Phosphorus Level 2.1L, Magnesium Level 1.8 01/10/19 09:10: Glucometer 185H 01/10/19 18:45: Glucometer 285H Microbiology 01/09/19 Blood Culture - Preliminary, Resulted No growth 01/09/19 Influenza Types A,B Antigen (LOLLY) - Final, Complete 01/09/19 Urine Culture - Preliminary, Resulted Gram Negative Bacillus 1 Assessment/Plan Assessment and Plan 1. Acute UTI with Sepsis--admit on sepsis protocol with rocephin 2. Acute Respiratory Distress--improved, off vapotherm and on NC 3. SVT--improved after cardizem 4. Hypertensive Urgency--improved 5. COPD--stable 6. Hypertension--currently hypotensive Admission Diagnosis Admission Status: Inpatient Order (span 2 midnights) Reason for Inpatient Admission: Will require at least 2 nights of abx and fluid resuscitation Clinical Quality Measures DVT/VTE Risk/Contraindication: Risk Factor Score Per Nursin RFS Level Per Nursing on Admit: 4+=Very High ENRRIQUE CA DO Jan 10, 2019 19:56
[2019-01-10] MEDS ORDERED: cefTRIAXone 1,000 MG IV (ROCEPHIN) VIAL ONE (20:09)
[2019-01-10] MEDS ORDERED: WATER (STERILE) FOR INJECTION 10 ML ONE (20:09)
[2019-01-10] MEDS: SERTRALINE 100 MG (ZOLOFT) TAB PO SCH (20:15)
[2019-01-10] MEDS: cefTRIAXone 1,000 MG/SWFI 10 ML IV PUSH IV SCH ×2 (20:15)
[2019-01-10] MEDS: MELATONIN 3 MG TABLET PO SCH (20:15)
[2019-01-10] MEDS ORDERED: UMECLIDINIUM BROMIDE (INCRUSE ELLIPTA) 7'S IH SCH (21:00)
[2019-01-10] MEDS ORDERED: NON-FORMULARY MEDICATION 1 EA EA (Fluticasone/Salmeterol (Advair 250-50 Diskus) 1 PUFF) IH SCH (21:00)
[2019-01-10] MEDS ORDERED: NON-FORMULARY MEDICATION 1 EA EA (Melatonin 6 MG) PO SCH (21:00)
[2019-01-10] MEDS: RT-ADVAIR HFA 115/21 MCG PER PUFF IH SCH (22:07)
[2019-01-11] MEDS: RT-ALBUTEROL/IPRATROPIUM 3 ML (DUONEB) VIAL INH SCH ×4 (02:52→20:40)
[2019-01-11] MEDS: FLUCONAZOLE 200 MG/NACL 100 ML (PRE-MIX) IV SCH (03:04)
[2019-01-11 04:00] VITALS: BP 131/68
[2019-01-11 04:22] LABS: BASOPHILS % (AUTO) 0 % (0-10); EOSINOPHILS # (AUTO) 0.1 10^3/uL (0.0-0.3); EOSINOPHILS % (AUTO) 0 % (0-10); HEMATOCRIT 37 % (40-54); HEMOGLOBIN 12.8 G/DL (13.3-17.7); LYMPHOCYTES # (AUTO) 1.5 X 10^3 (1.0-4.0); LYMPHOCYTES % (AUTO) 11 % (12-44); MEAN CORPUSCULAR HEMOGLOBIN 30 PG (25-34); MEAN CORPUSCULAR HGB CONC 34 G/DL (32-36); MEAN CORPUSCULAR VOLUME 86 FL (80-99); MEAN PLATELET VOLUME 9.7 FL (7.4-10.4); MONOCYTES % (AUTO) 7 % (0-12); NEUTROPHILS # (AUTO) 11.1 X 10^3 (1.8-7.8); NEUTROPHILS % (AUTO) 81 % (42-75); PLATELET COUNT 174 10^3/uL (130-400); RED CELL DISTRIBUTION WIDTH 13.7 % (10.0-14.5); WHITE BLOOD COUNT 13.6 10^3/uL (4.3-11.0)
[2019-01-11 04:54] LABS: BUN/CREATININE RATIO 33; CALCIUM 8.6 MG/DL (8.5-10.1); CARBON DIOXIDE 20 MMOL/L (21-32); CHLORIDE 112 MMOL/L (98-107); CREATININE SERUM 0.99 MG/DL (0.60-1.30); GFR ESTIMATED > 60; GLUCOSE 168 MG/DL (70-105); POTASSIUM 3.4 MMOL/L (3.6-5.0); SODIUM 141 MMOL/L (135-145)
[2019-01-11] MEDS: NS IV 1000 ML 1,000 ML IV SCH (07:29)
[2019-01-11 08:00] VITALS: BP 129/70
[2019-01-11] MEDS: ASPIRIN E.C. 81 MG (ECOTRIN) TAB PO SCH (08:37)
[2019-01-11] MEDS: SERTRALINE 100 MG (ZOLOFT) TAB PO SCH ×2 (08:37→21:41)
[2019-01-11] MEDS: UMECLIDINIUM BROMIDE (INCRUSE ELLIPTA) 7'S IH SCH ×2 (08:37→10:44)
[2019-01-11] MEDS: MICONAZOLE 2% POWDER (DESENEX AF) 90 GM TOP SCH ×2 (08:38→21:43)
[2019-01-11] MEDS: RT-ADVAIR HFA 115/21 MCG PER PUFF IH SCH ×2 (10:43→20:40)
--- NOTE | 2019-01-11 10:55 | Progress Note (SOAP) ---
Subjective Date Seen by a Provider: Jan 11, 2019 Time Seen by a Provider: 10:52 Subjective/Events-last exam Fwup UTI with sepsis, Respiratory distress, COPD, Hypertension. Up in chair-- no further chills or shakes--still some sweats. Focused Exam Lactate Level 01/09/19 19:39: Lactic Acid Level 1.04 Objective Exam Vital Signs Date Time Temp Pulse Resp B/P (MAP) Pulse Ox O2 Delivery O2 Flow Rate FiO2 01/11/19 10:41 96 Room Air 01/11/19 08:00 98.6 71 18 129/70 (89) 96 Room Air 01/11/19 07:45 96 Room Air 2.00 01/11/19 07:00 73 01/11/19 04:00 97.6 75 18 131/68 (89) 98 Nasal Cannula 2.00 01/11/19 02:56 95 Nasal Cannula 2.00 01/11/19 01:00 80 01/10/19 23:07 98.1 77 20 162/76 (104) 97 Nasal Cannula 2.00 01/10/19 23:07 98.1 77 20 162/76 (104) 97 Nasal Cannula 2.00 01/10/19 20:00 97 Nasal Cannula 2.00 01/10/19 19:24 98.9 75 20 145/69 (94) 95 Room Air 01/10/19 19:24 98.9 75 20 145/69 (94) 95 Room Air 01/10/19 19:00 81 01/10/19 16:37 98.0 87 20 148/66 (93) 95 Nasal Cannula 2.00 01/10/19 15:51 98.0 87 20 148/66 (93) 95 Room Air 01/10/19 15:07 97 Nasal Cannula 2.00 01/10/19 14:05 97 Nasal Cannula 2.00 01/10/19 14:05 97.4 70 20 162/49 (86) 97 Nasal Cannula 2.00 01/10/19 13:00 81 01/10/19 12:00 98.0 01/10/19 12:00 75 25 106/56 (73) 93 Nasal Cannula 2.00 01/10/19 11:02 95 Nasal Cannula 2.00 01/10/19 11:00 83 39 114/83 (93) 94 Nasal Cannula 2.00 I & O 01/11/19 07:00 Intake Total 1175 ml Output Total 775 ml Balance 400 ml Capillary Refill : Less Than 3 Seconds General Appearance: No Apparent Distress Neck: Supple Respiratory: Decreased Breath Sounds, Wheezing (end expiratory) Cardiovascular: Regular Rate, Rhythm Gastrointestinal: normal bowel sounds, non tender, soft Extremity: Non Tender, No Calf Tenderness, No Pedal Edema Neurologic/Psychiatric: Alert, Oriented x3 Skin: Warm/Dry Results Lab Laboratory Tests 01/10/19 18:45: Glucometer 285H 01/10/19 21:31: Glucometer 221H 01/11/19 04:05: White Blood Count 13.6H, Red Blood Count 4.33L, Hemoglobin 12.8L, Hematocrit 37L , Mean Corpuscular Volume 86, Mean Corpuscular Hemoglobin 30, Mean Corpuscular Hemoglobin Concent 34, Red Cell Distribution Width 13.7, Platelet Count 174, Mean Platelet Volume 9.7, Neutrophils (%) (Auto) 81H, Lymphocytes (%) (Auto) 11L , Monocytes (%) (Auto) 7, Eosinophils (%) (Auto) 0, Basophils (%) (Auto) 0, Neutrophils # (Auto) 11.1H, Lymphocytes # (Auto) 1.5, Monocytes # (Auto) 1.0, Eosinophils # (Auto) 0.1, Basophils # (Auto) 0.0, Sodium Level 141, Potassium Level 3.4L, Chloride Level 112H, Carbon Dioxide Level 20L, Anion Gap 9, Blood Urea Nitrogen 33H, Creatinine 0.99, Estimat Glomerular Filtration Rate > 60, BUN /Creatinine Ratio 33, Glucose Level 168H, Calcium Level 8.6 Microbiology 01/09/19 Blood Culture - Preliminary, Resulted No growth 01/09/19 Influenza Types A,B Antigen (LOLLY) - Final, Complete 01/09/19 Urine Culture - Preliminary, Resulted Gram Negative Bacillus 1 Assessment/Plan Assessment/Plan Assess & Plan/Chief Complaint 1. UTI with sepsis--continue Rocephin, DC hobson catheter, Heplock IV 2. Respiratory Distress--improved 3. COPD--stable 4. Hypertension--currently stable off meds Clinical Quality Measures Admission Status Admission Dx 1. Acute UTI with Sepsis--admit on sepsis protocol with rocephin 2. Acute Respiratory Distress--improved, off vapotherm and on NC 3. SVT--improved after cardizem 4. Hypertensive Urgency--improved 5. COPD--stable 6. Hypertension--currently hypotensive DVT/VTE Risk/Contraindication: Risk Factor Score Per Nursin RFS Level Per Nursing on Admit: 4+=Very High ENRRIQUE JALLOH DO Jan 11, 2019 10:55
--- NOTE | 2019-01-11 11:26 | Physical Therapy Daily Note ---
PT Daily Note-Current Subjective Patient is in bed and agrees to PT. Mental Status Patient Orientation: Normal For Age Attachments: Oxygen, Adams Catheter, IV Transfers Therapy Code Descriptions/Definitions Functional [place] Measure: 0=Not Assessed/NA 4=Minimal Assistance 1=Total Assistance 5=Supervision or Setup 2=Maximal Assistance 6=Modified [place] 3=Moderate Assistance 7=Complete [place] Therapy Quality Codes: 6 Independent with activity with or without an assistive device 5 Patient requires set up or clean up by helper. Patient completes activity by themselves 4 Supervision or touching assist (CGA). [place] provide cues , steadying assist 3 The helper provides less than half the effort to complete the activity 2 The helper provides more than half the effort to complete the activity 1 Dependent. The helper does all the effort to complete an activity 7 Patient refused to complete or attempt activity 9 The patient did not perform the activity before the current illness or injury 88 Not attempted due to Medical conditions or safety concerns Transfers (B, C, W/C) (FIM): 7 Scootin Rollin Supine to/from Sit: 7 Sit to/from Stand: 7 Bed to/from Chair: 7 Gait Training Gait (FIM): 7 Distance (FIM): 3=150 ft Distance: 500' Gait Level of Assist: 7 Gait Assistive Device: None assist for IV and O2 tank only Assessment Patient is currently at independent PLOF with all gross motor skills safely. PT instructed patient and nursing staff to have patient ambulate PRN in hallway. PT to dismiss patient from services at this time. PT Short Term Goals Short Term Goals Time Frame: Jan 11, 2019 Transfers (B,C,W/C) (FIM): 7 Gait (FIM): 7 Distance (FIM): 3=150 ft Gait Distance Comment: >500' Gait Level of Assist: 7 Gait Assistive Device: None PT Plan Treatment/Plan Treatment Plan: Discontinue PT, goals met Treatment Plan: Education, Functional Activity [place], Gait, Safety Treatment Duration: Jan 11, 2019 Frequency: 2 times per week Estimated Hrs Per Day: .25 hour per day Patient and/or Family Agrees t: Yes Time/GCodes Time In: 1015 Time Out: 1024 Total Billed Treatment Time: 9 Total Billed Treatment 1 visit FA 9 min DONAL HER PT Jan 11, 2019 11:26
[2019-01-11 12:00] VITALS: BP 156/72
[2019-01-11] MEDS: inSUlin ASPART (NovoLOG) 1 UNIT/0.01 ML (CHARGE PER UNIT) SC SCH ×3 (14:02→20:24)
[2019-01-11] MEDS: ENOXAPARIN 40 MG/0.4 ML (LOVENOX) SYR SC SCH (14:03)
[2019-01-11 15:29] VITALS: BP 129/64
[2019-01-11 19:38] VITALS: BP 161/76
[2019-01-11] MEDS ORDERED: cefTRIAXone 1,000 MG IV (ROCEPHIN) VIAL ONE (21:35)
[2019-01-11] MEDS ORDERED: WATER (STERILE) FOR INJECTION 10 ML ONE (21:36)
[2019-01-11] MEDS: cefTRIAXone 1,000 MG/SWFI 10 ML IV PUSH IV SCH ×2 (21:42)
[2019-01-11] MEDS: MELATONIN 3 MG TABLET PO SCH (21:42)
[2019-01-12] VITALS (7 sets, daily range): BP systolic 127–166; BP diastolic 65–90
--- NOTE | 2019-01-12 00:30 | NUR ---
1935-bs 54 pt asymptomatic-pt given 4 ounces of milk, 2 tatiana crackers & 2 packages of peanut butter- 2004-bs 73-ordered his dinner tray-peanut better jelly sandwich on 2 slices of wheat bread, a carton of milk all of which he ate 2049-bs 142
[2019-01-12] MEDS: RT-ALBUTEROL/IPRATROPIUM 3 ML (DUONEB) VIAL INH SCH ×4 (02:54→20:48)
[2019-01-12] MEDS: FLUCONAZOLE 200 MG/NACL 100 ML (PRE-MIX) IV SCH (03:31)
[2019-01-12] MEDS: inSUlin ASPART (NovoLOG) 1 UNIT/0.01 ML (CHARGE PER UNIT) SC SCH ×4 (05:09→21:01)
[2019-01-12 05:12] LABS: BASOPHILS % (AUTO) 0 % (0-10); EOSINOPHILS # (AUTO) 0.2 10^3/uL (0.0-0.3); EOSINOPHILS % (AUTO) 3 % (0-10); HEMATOCRIT 37 % (40-54); HEMOGLOBIN 12.4 G/DL (13.3-17.7); LYMPHOCYTES # (AUTO) 1.5 X 10^3 (1.0-4.0); LYMPHOCYTES % (AUTO) 20 % (12-44); MEAN CORPUSCULAR HEMOGLOBIN 30 PG (25-34); MEAN CORPUSCULAR HGB CONC 34 G/DL (32-36); MEAN CORPUSCULAR VOLUME 87 FL (80-99); MEAN PLATELET VOLUME 10.4 FL (7.4-10.4); MONOCYTES # (AUTO) 0.6 X 10^3 (0.0-1.0); MONOCYTES % (AUTO) 7 % (0-12); NEUTROPHILS # (AUTO) 5.5 X 10^3 (1.8-7.8); NEUTROPHILS % (AUTO) 70 % (42-75); PLATELET COUNT 164 10^3/uL (130-400); RED CELL DISTRIBUTION WIDTH 13.4 % (10.0-14.5); WHITE BLOOD COUNT 7.8 10^3/uL (4.3-11.0)
[2019-01-12 05:28] LABS: BUN/CREATININE RATIO 24; CALCIUM 8.5 MG/DL (8.5-10.1); CARBON DIOXIDE 19 MMOL/L (21-32); CHLORIDE 110 MMOL/L (98-107); CREATININE SERUM 0.83 MG/DL (0.60-1.30); GFR ESTIMATED > 60; GLUCOSE 198 MG/DL (70-105); POTASSIUM 3.2 MMOL/L (3.6-5.0); SODIUM 138 MMOL/L (135-145)
[2019-01-12] MEDS: MICONAZOLE 2% POWDER (DESENEX AF) 90 GM TOP SCH ×2 (10:24→21:02)
[2019-01-12] MEDS: ASPIRIN E.C. 81 MG (ECOTRIN) TAB PO SCH (10:24)
[2019-01-12] MEDS: SERTRALINE 100 MG (ZOLOFT) TAB PO SCH ×2 (10:24→21:01)
[2019-01-12] MEDS: RT-ADVAIR HFA 115/21 MCG PER PUFF IH SCH ×2 (10:51→20:47)
--- NOTE | 2019-01-12 12:09 | Progress Note-Hospitalist ---
Subjective HPI/CC On Admission Date Seen by Provider: Jan 12, 2019 Time Seen by Provider: 11:30 Subjective/Events-last exam Patient is doing very well Wants to go home line Reviewed urine culture the chest was published and it appears he has ESBL so we' ll discontinue Rocephin placed on meropenem and monitor closely No more fever Eating and drinking well Bowels are moving Review of Systems General: Fatigue Focused Exam Lactate Level 01/09/19 19:39: Lactic Acid Level 1.04 Objective Exam Vital Signs Vital Signs Date Time Temp Pulse Resp B/P (MAP) Pulse Ox O2 Delivery O2 Flow Rate FiO2 01/12/19 08:00 Room Air 01/12/19 08:00 99.2 125 20 135/85 (102) 96 01/11/19 07:45 2.00 Capillary Refill : Less Than 3 Seconds General Appearance: No Apparent Distress, WD/WN, Chronically ill HEENT: Normal ENT Inspection Neck: Supple Respiratory: Chest Non Tender, Lungs Clear, Normal Breath Sounds, No Accessory Muscle Use, No Respiratory Distress, Wheezing (end expiratory) Cardiovascular: Regular Rate, Rhythm Gastrointestinal: Normal Bowel Sounds, Non Tender, Soft Rectal: Deferred Extremity: Non Tender, No Calf Tenderness, No Pedal Edema Neurologic/Psychiatric: Alert, Oriented x3 Skin: Warm/Dry Results/Procedures Lab Laboratory Tests 01/12/19 04:45 Patient resulted labs reviewed. Assessment/Plan Assessment and Plan Assess & Plan/Chief Complaint Assessment: 1. UTI with sepsis--DC Rocephin and placed on meropenem for ESBL UTI 2. Respiratory Distress--improved 3. COPD--stable 4. Hypertension--currently stable off meds Plan: DC Rocephin Meropenem Monitor labs Ambulate Diagnosis/Problems Diagnosis/Problems (1) Infection due to ESBL-producing Escherichia coli Status: Acute (2) Sepsis Status: Resolved Qualifiers: Sepsis type: sepsis due to unspecified organism Qualified Codes: A41.9 - Sepsis, unspecified organism Resolution Date/Time: 01/12/19 @ 12:57 (3) UTI (urinary tract infection) Status: Acute Qualifiers: Urinary tract infection type: site unspecified Hematuria presence: with hematuria Qualified Codes: N39.0 - Urinary tract infection, site not specified ; R31.9 - Hematuria, unspecified Clinical Quality Measures DVT/VTE Risk/Contraindication: Risk Factor Score Per Nursin RFS Level Per Nursing on Admit: 4+=Very High ANA VÁZQUEZ DO Jan 12, 2019 12:09
[2019-01-12] MEDS: ENOXAPARIN 40 MG/0.4 ML (LOVENOX) SYR SC SCH (12:22)
[2019-01-12] MEDS ORDERED: MEROPENEM 500 MG VIAL (MERREM) IV ONE (13:09)
[2019-01-12] MEDS ORDERED: WATER (STERILE) FOR INJECTION 10 ML ONE (13:09)
[2019-01-12] MEDS: MEROPENEM 500 MG in WATER (STERILE) FOR INJECTION 10 ML IV SCH ×2 (13:16→18:54)
--- NOTE | 2019-01-12 20:51 | NUR ---
patient was not given his Advair 2 puffs due to him being in isolation and we are not to use our common canister on isolation patients
[2019-01-12] MEDS: MELATONIN 3 MG TABLET PO SCH (21:01)
[2019-01-13] MEDS: MEROPENEM 500 MG in WATER (STERILE) FOR INJECTION 10 ML IV SCH ×4 (00:58→19:11)
[2019-01-13] MEDS: RT-ALBUTEROL/IPRATROPIUM 3 ML (DUONEB) VIAL INH SCH ×4 (02:18→19:22)
[2019-01-13] MEDS: FLUCONAZOLE 200 MG/NACL 100 ML (PRE-MIX) IV SCH (03:06)
[2019-01-13 04:59] LABS: BASOPHILS % (AUTO) 0 % (0-10); EOSINOPHILS # (AUTO) 0.4 10^3/uL (0.0-0.3); EOSINOPHILS % (AUTO) 6 % (0-10); HEMATOCRIT 36 % (40-54); HEMOGLOBIN 12.3 G/DL (13.3-17.7); LYMPHOCYTES # (AUTO) 1.7 X 10^3 (1.0-4.0); LYMPHOCYTES % (AUTO) 24 % (12-44); MEAN CORPUSCULAR HEMOGLOBIN 30 PG (25-34); MEAN CORPUSCULAR HGB CONC 34 G/DL (32-36); MEAN CORPUSCULAR VOLUME 87 FL (80-99); MEAN PLATELET VOLUME 10.1 FL (7.4-10.4); MONOCYTES # (AUTO) 0.5 X 10^3 (0.0-1.0); MONOCYTES % (AUTO) 7 % (0-12); NEUTROPHILS # (AUTO) 4.3 X 10^3 (1.8-7.8); NEUTROPHILS % (AUTO) 63 % (42-75); PLATELET COUNT 177 10^3/uL (130-400); RED CELL DISTRIBUTION WIDTH 13.5 % (10.0-14.5); WHITE BLOOD COUNT 6.9 10^3/uL (4.3-11.0)
[2019-01-13 05:21] LABS: BUN/CREATININE RATIO 20; CALCIUM 8.7 MG/DL (8.5-10.1); CARBON DIOXIDE 21 MMOL/L (21-32); CHLORIDE 109 MMOL/L (98-107); CREATININE SERUM 0.86 MG/DL (0.60-1.30); GFR ESTIMATED > 60; GLUCOSE 139 MG/DL (70-105); POTASSIUM 3.4 MMOL/L (3.6-5.0); SODIUM 140 MMOL/L (135-145)
[2019-01-13] MEDS: inSUlin ASPART (NovoLOG) 1 UNIT/0.01 ML (CHARGE PER UNIT) SC SCH ×4 (06:25→19:47)
[2019-01-13 08:00] VITALS: BP 181/94
[2019-01-13] MEDS: SERTRALINE 100 MG (ZOLOFT) TAB PO SCH ×2 (08:54→20:30)
[2019-01-13] MEDS: MICONAZOLE 2% POWDER (DESENEX AF) 90 GM TOP SCH ×2 (08:54→20:33)
[2019-01-13] MEDS: ASPIRIN E.C. 81 MG (ECOTRIN) TAB PO SCH (08:54)
[2019-01-13] MEDS: UMECLIDINIUM BROMIDE (INCRUSE ELLIPTA) 7'S IH SCH (08:57)
[2019-01-13] MEDS: RT-ADVAIR HFA 115/21 MCG PER PUFF IH SCH (08:58)
--- NOTE | 2019-01-13 11:27 | Progress Note-Hospitalist ---
Subjective HPI/CC On Admission Date Seen by Provider: Jan 13, 2019 Time Seen by Provider: 11:45 Subjective/Events-last exam Patient doing well He ate a good breakfast then took a nap Breathing well Potassium 3.4 so we'll supplement Tolerating meropenem change Updated him on the change of the antibiotics BM+ x 2 today Review of Systems General: Fatigue Objective Exam Vital Signs Vital Signs Date Time Temp Pulse Resp B/P (MAP) Pulse Ox O2 Delivery O2 Flow Rate FiO2 01/13/19 08:59 96 Room Air 01/13/19 08:00 97.4 115 20 181/94 (123) 01/11/19 07:45 2.00 Capillary Refill : Less Than 3 Seconds General Appearance: No Apparent Distress, WD/WN, Chronically ill HEENT: Normal ENT Inspection Neck: Supple Respiratory: Chest Non Tender, Lungs Clear, Normal Breath Sounds, No Accessory Muscle Use, No Respiratory Distress, Wheezing (end expiratory) Cardiovascular: Regular Rate, Rhythm Gastrointestinal: Normal Bowel Sounds, Non Tender, Soft Rectal: Deferred Extremity: Non Tender, No Calf Tenderness, No Pedal Edema Neurologic/Psychiatric: Alert, Oriented x3 Skin: Warm/Dry Results/Procedures Lab Laboratory Tests 01/13/19 04:20 Patient resulted labs reviewed. Assessment/Plan Assessment and Plan Assess & Plan/Chief Complaint Assessment: 1. UTI with sepsis--DC Rocephin and placed on Meropenem for ESBL UTI 2. Respiratory Distress--improved 3. COPD--stable 4. Hypertension--was stable off meds but noted elevation so restarted Losartan and added Norvasc due to SPB 180 5. Hypokalemia Plan: DC Rocephin Meropenem Monitor labs Ambulate Potassium supplement BP meds Diagnosis/Problems Diagnosis/Problems (1) Infection due to ESBL-producing Escherichia coli Status: Acute (2) Sepsis Status: Resolved Qualifiers: Sepsis type: sepsis due to unspecified organism Qualified Codes: A41.9 - Sepsis, unspecified organism Resolution Date/Time: 01/12/19 @ 12:57 (3) UTI (urinary tract infection) Status: Acute Qualifiers: Urinary tract infection type: site unspecified Hematuria presence: with hematuria Qualified Codes: N39.0 - Urinary tract infection, site not specified ; R31.9 - Hematuria, unspecified (4) Hypertension Status: Chronic Qualifiers: Hypertension type: essential hypertension Qualified Codes: I10 - Essential (primary) hypertension (5) Hypokalemia Status: Acute Clinical Quality Measures DVT/VTE Risk/Contraindication: Risk Factor Score Per Nursin RFS Level Per Nursing on Admit: 4+=Very High ANA VÁZQUEZ DO Jan 13, 2019 11:27
[2019-01-13] MEDS ORDERED: amLODIPine 5 MG (NORVASC) TAB PO NR (12:30)
[2019-01-13] MEDS ORDERED: KCL 10 MEQ TAB (MICRO K) PO NR (12:30)
[2019-01-13] MEDS: ENOXAPARIN 40 MG/0.4 ML (LOVENOX) SYR SC SCH (14:44)
[2019-01-13] MEDS: ADVAIR HFA 115/21 MCG INHALER 8 GM IH SCH ×2 (16:41→19:22)
[2019-01-13 16:42] VITALS: BP 152/71
[2019-01-13 16:44] VITALS: BP 152/71
[2019-01-13] MEDS: MELATONIN 3 MG TABLET PO SCH (20:30)
--- NOTE | 2019-01-13 20:34 | NUR ---
pt refused desenex powder-pt states he is no longer "sore" but refuses to allow this rn to examine his aracely area
[2019-01-13 23:16] VITALS: BP 143/76
[2019-01-14] MEDS: MEROPENEM 500 MG in WATER (STERILE) FOR INJECTION 10 ML IV SCH ×4 (00:39→19:58)
[2019-01-14] MEDS: FLUCONAZOLE 200 MG/NACL 100 ML (PRE-MIX) IV SCH (02:00)
[2019-01-14 04:34] VITALS: BP 121/60
[2019-01-14 05:01] LABS: BASOPHILS # (AUTO) 0.1 10^3/uL (0.0-0.1); BASOPHILS % (AUTO) 1 % (0-10); EOSINOPHILS # (AUTO) 0.7 10^3/uL (0.0-0.3); EOSINOPHILS % (AUTO) 9 % (0-10); HEMATOCRIT 36 % (40-54); HEMOGLOBIN 12.2 G/DL (13.3-17.7); LYMPHOCYTES # (AUTO) 1.9 X 10^3 (1.0-4.0); LYMPHOCYTES % (AUTO) 24 % (12-44); MEAN CORPUSCULAR HEMOGLOBIN 30 PG (25-34); MEAN CORPUSCULAR HGB CONC 34 G/DL (32-36); MEAN CORPUSCULAR VOLUME 88 FL (80-99); MEAN PLATELET VOLUME 10.1 FL (7.4-10.4); MONOCYTES # (AUTO) 0.5 X 10^3 (0.0-1.0); MONOCYTES % (AUTO) 7 % (0-12); NEUTROPHILS # (AUTO) 4.8 X 10^3 (1.8-7.8); NEUTROPHILS % (AUTO) 60 % (42-75); PLATELET COUNT 189 10^3/uL (130-400); RED CELL DISTRIBUTION WIDTH 13.3 % (10.0-14.5)
[2019-01-14 05:27] LABS: BUN/CREATININE RATIO 20; CALCIUM 8.5 MG/DL (8.5-10.1); CARBON DIOXIDE 22 MMOL/L (21-32); CHLORIDE 109 MMOL/L (98-107); GFR ESTIMATED > 60; GLUCOSE 130 MG/DL (70-105); POTASSIUM 3.8 MMOL/L (3.6-5.0); SODIUM 140 MMOL/L (135-145)
[2019-01-14] MEDS: inSUlin ASPART (NovoLOG) 1 UNIT/0.01 ML (CHARGE PER UNIT) SC SCH ×4 (05:47→21:23)
[2019-01-14 08:00] VITALS: BP 127/67
[2019-01-14] MEDS: LOSARTAN 50 MG (COZAAR) TAB PO SCH (08:46)
[2019-01-14] MEDS: amLODIPine 5 MG (NORVASC) TAB PO SCH (08:46)
[2019-01-14] MEDS: ASPIRIN E.C. 81 MG (ECOTRIN) TAB PO SCH (08:46)
[2019-01-14] MEDS: SERTRALINE 100 MG (ZOLOFT) TAB PO SCH ×2 (08:46→21:23)
[2019-01-14] MEDS: MICONAZOLE 2% POWDER (DESENEX AF) 90 GM TOP SCH ×2 (09:00→21:24)
[2019-01-14] MEDS: UMECLIDINIUM BROMIDE (INCRUSE ELLIPTA) 7'S IH SCH (10:58)
[2019-01-14] MEDS: RT-ALBUTEROL/IPRATROPIUM 3 ML (DUONEB) VIAL INH SCH ×2 (10:58→20:36)
[2019-01-14] MEDS: ADVAIR HFA 115/21 MCG INHALER 8 GM IH SCH ×2 (10:59→20:36)
--- NOTE | 2019-01-14 13:12 | Diagnostic Imaging Report ---
INDICATION: Radiculopathy. COMPARISON: None. FINDINGS: Frontal and lateral views of the lumbar spine were obtained. Alignment and vertebral heights are maintained. There is no fracture or destructive process. Mild multilevel degenerative disease is noted in the lumbar spine. Limited views of the abdomen demonstrate nonobstructive bowel gas pattern. IMPRESSION: 1. No acute fracture or dislocation of the lumbar spine. 2. Mild multilevel degenerative changes. Dictated by: Dictated on workstation # [id number]
--- NOTE | 2019-01-14 13:15 | Diagnostic Imaging Report ---
INDICATION: Right thigh pain. COMPARISON: None. FINDINGS: Four views of the right femur show no fractures, dislocations, or other acute bony abnormalities identified. 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 Hardware components appear properly positioned and aligned in respect to one another. Evaluation of the right hip joint demonstrates prominent lateral extension of the acetabular roof suggestive of potential pincer deformity. The soft tissues appear unremarkable. No radiopaque foreign bodies are identified. IMPRESSION: 1. No acute fracture or dislocation of right femur. 2. 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 No evidence of hardware fracture or failure. 3. 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 Dictated by: Dictated on workstation # [id number]
[2019-01-14] MEDS: ENOXAPARIN 40 MG/0.4 ML (LOVENOX) SYR SC SCH (13:20)
[2019-01-14 16:22] VITALS: BP 134/64
--- NOTE | 2019-01-14 18:26 | Progress Note (SOAP) ---
Subjective Date Seen by a Provider: Jan 14, 2019 Time Seen by a Provider: 12:30 Subjective/Events-last exam Fwup ESBL positive UTI with sepsis, Respiratory distress, COPD, Hypertension. Up in chair. Wants to go home. C/O right thigh/leg pain--shooting sharp pain with certain movements. Objective Exam Vital Signs Date Time Temp Pulse Resp B/P (MAP) Pulse Ox O2 Delivery O2 Flow Rate FiO2 01/14/19 16:22 98.1 71 20 134/64 (87) 95 Room Air 01/14/19 11:02 Room Air 01/14/19 10:59 93 Room Air 01/14/19 08:00 Room Air 01/14/19 08:00 97.8 66 18 127/67 (87) 96 Room Air 01/14/19 04:34 97.0 64 18 121/60 (80) 94 Room Air 01/13/19 23:16 98.5 74 18 143/76 (98) 94 Room Air 01/13/19 20:00 Room Air 01/13/19 19:28 Room Air 01/13/19 19:22 94 Room Air I & O 01/14/19 07:00 Intake Total 1600 ml Output Total 650 ml Balance 950 ml Capillary Refill : Less Than 3 Seconds General Appearance: No Apparent Distress Neck: Supple Respiratory: Lungs Clear Cardiovascular: Regular Rate, Rhythm Gastrointestinal: normal bowel sounds, non tender, soft Extremity: Non Tender, No Pedal Edema Neurologic/Psychiatric: Alert, Oriented x3 Results Lab Laboratory Tests 01/13/19 19:21: Glucometer 110 01/14/19 04:20: White Blood Count 8.0, Red Blood Count 4.13L, Hemoglobin 12.2L, Hematocrit 36L, Mean Corpuscular Volume 88, Mean Corpuscular Hemoglobin 30, Mean Corpuscular Hemoglobin Concent 34, Red Cell Distribution Width 13.3, Platelet Count 189, Mean Platelet Volume 10.1, Neutrophils (%) (Auto) 60, Lymphocytes (%) (Auto) 24 , Monocytes (%) (Auto) 7, Eosinophils (%) (Auto) 9, Basophils (%) (Auto) 1, Neutrophils # (Auto) 4.8, Lymphocytes # (Auto) 1.9, Monocytes # (Auto) 0.5, Eosinophils # (Auto) 0.7H, Basophils # (Auto) 0.1, Sodium Level 140, Potassium Level 3.8, Chloride Level 109H, Carbon Dioxide Level 22, Anion Gap 9, Blood Urea Nitrogen 16, Creatinine 0.80, Estimat Glomerular Filtration Rate > 60, BUN/ Creatinine Ratio 20, Glucose Level 130H, Calcium Level 8.5 01/14/19 05:07: Glucometer 121H 01/14/19 11:09: Glucometer 125H 01/14/19 16:22: Glucometer 111H Microbiology 01/09/19 Blood Culture - Preliminary, Resulted No growth 01/10/19 MRSA Screen - Final, Complete MRSA not isolated 01/09/19 Urine Culture - Final, Complete Escherichia coli See Comments Assessment/Plan Assessment/Plan Assess & Plan/Chief Complaint 1. ESBL positive UTI with sepsis--on meropenem--will need at least 5 days of therapy which would be through January 16 3. COPD--stable 4. Hypertension--currently stable off meds 5. Right leg pain/radiculopathy--Check X-ray of L/S spine and right femur Clinical Quality Measures Admission Status Admission Dx 1. Acute UTI with Sepsis--admit on sepsis protocol with rocephin 2. Acute Respiratory Distress--improved, off vapotherm and on NC 3. SVT--improved after cardizem 4. Hypertensive Urgency--improved 5. COPD--stable 6. Hypertension--currently hypotensive DVT/VTE Risk/Contraindication: Risk Factor Score Per Nursin RFS Level Per Nursing on Admit: 4+=Very High ENRRIQUE JALLOH DO Jan 14, 2019 18:26
[2019-01-14] MEDS: MELATONIN 3 MG TABLET PO SCH (21:23)
[2019-01-14 23:48] VITALS: BP 172/76
[2019-01-15] MEDS: MEROPENEM 500 MG in WATER (STERILE) FOR INJECTION 10 ML IV SCH ×4 (01:42→19:18)
[2019-01-15 04:51] LABS: BASOPHILS % (AUTO) 1 % (0-10); EOSINOPHILS # (AUTO) 0.7 10^3/uL (0.0-0.3); EOSINOPHILS % (AUTO) 8 % (0-10); HEMATOCRIT 38 % (40-54); HEMOGLOBIN 12.9 G/DL (13.3-17.7); LYMPHOCYTES # (AUTO) 1.7 X 10^3 (1.0-4.0); LYMPHOCYTES % (AUTO) 20 % (12-44); MEAN CORPUSCULAR HEMOGLOBIN 29 PG (25-34); MEAN CORPUSCULAR HGB CONC 34 G/DL (32-36); MEAN CORPUSCULAR VOLUME 87 FL (80-99); MEAN PLATELET VOLUME 9.5 FL (7.4-10.4); MONOCYTES # (AUTO) 0.7 X 10^3 (0.0-1.0); MONOCYTES % (AUTO) 8 % (0-12); NEUTROPHILS # (AUTO) 5.7 X 10^3 (1.8-7.8); NEUTROPHILS % (AUTO) 65 % (42-75); PLATELET COUNT 228 10^3/uL (130-400); RED CELL DISTRIBUTION WIDTH 13.3 % (10.0-14.5); WHITE BLOOD COUNT 8.9 10^3/uL (4.3-11.0)
[2019-01-15 05:07] LABS: BUN/CREATININE RATIO 17; CALCIUM 8.9 MG/DL (8.5-10.1); CARBON DIOXIDE 22 MMOL/L (21-32); CHLORIDE 108 MMOL/L (98-107); CREATININE SERUM 0.84 MG/DL (0.60-1.30); GFR ESTIMATED > 60; GLUCOSE 122 MG/DL (70-105); POTASSIUM 3.8 MMOL/L (3.6-5.0); SODIUM 138 MMOL/L (135-145)
[2019-01-15] MEDS: inSUlin ASPART (NovoLOG) 1 UNIT/0.01 ML (CHARGE PER UNIT) SC SCH ×4 (05:58→21:14)
[2019-01-15 08:27] VITALS: BP 121/84
[2019-01-15] MEDS: ASPIRIN E.C. 81 MG (ECOTRIN) TAB PO SCH (09:08)
[2019-01-15] MEDS: MICONAZOLE 2% POWDER (DESENEX AF) 90 GM TOP SCH ×2 (09:08→21:17)
[2019-01-15] MEDS: LOSARTAN 50 MG (COZAAR) TAB PO SCH (09:08)
[2019-01-15] MEDS: amLODIPine 5 MG (NORVASC) TAB PO SCH (09:08)
[2019-01-15] MEDS: SERTRALINE 100 MG (ZOLOFT) TAB PO SCH ×2 (09:08→21:17)
[2019-01-15] MEDS: fluCOnazole (DIFLUCAN) 100 MG TAB PO SCH (09:08)
[2019-01-15] MEDS: RT-ALBUTEROL/IPRATROPIUM 3 ML (DUONEB) VIAL INH SCH ×2 (10:16→21:59)
[2019-01-15] MEDS: UMECLIDINIUM BROMIDE (INCRUSE ELLIPTA) 7'S IH SCH (10:17)
[2019-01-15] MEDS: ADVAIR HFA 115/21 MCG INHALER 8 GM IH SCH ×2 (10:17→22:00)
--- NOTE | 2019-01-15 12:25 | Progress Note (SOAP) ---
Subjective Date Seen by a Provider: Jan 15, 2019 Time Seen by a Provider: 12:22 Subjective/Events-last exam Fwup ESBL positive UTI with sepsis, Respiratory distress, COPD, Hypertension. Up in chair. Sitting up in chair. Wants to go home. Objective Exam Vital Signs Date Time Temp Pulse Resp B/P (MAP) Pulse Ox O2 Delivery O2 Flow Rate FiO2 01/15/19 08:27 98.3 67 18 121/84 (96) 96 Room Air 01/15/19 08:00 Room Air 01/14/19 23:48 97.7 82 18 172/76 (108) 92 Room Air 01/14/19 20:36 Room Air 01/14/19 20:36 92 Room Air 01/14/19 20:00 Room Air 01/14/19 16:22 98.1 71 20 134/64 (87) 95 Room Air I & O 01/15/19 07:00 Intake Total 1865 ml Output Total 1653 ml Balance 212 ml Capillary Refill : Less Than 3 Seconds General Appearance: No Apparent Distress Neck: Supple Respiratory: Lungs Clear Cardiovascular: Regular Rate, Rhythm Gastrointestinal: normal bowel sounds, non tender, soft Neurologic/Psychiatric: Alert, Oriented x3 Results Lab Laboratory Tests 01/14/19 16:22: Glucometer 111H 01/14/19 21:17: Glucometer 141H 01/15/19 04:10: White Blood Count 8.9, Red Blood Count 4.41, Hemoglobin 12.9L, Hematocrit 38L, Mean Corpuscular Volume 87, Mean Corpuscular Hemoglobin 29, Mean Corpuscular Hemoglobin Concent 34, Red Cell Distribution Width 13.3, Platelet Count 228, Mean Platelet Volume 9.5, Neutrophils (%) (Auto) 65, Lymphocytes (%) (Auto) 20, Monocytes (%) (Auto) 8, Eosinophils (%) (Auto) 8, Basophils (%) (Auto) 1, Neutrophils # (Auto) 5.7, Lymphocytes # (Auto) 1.7, Monocytes # (Auto) 0.7, Eosinophils # (Auto) 0.7H, Basophils # (Auto) 0.0 01/15/19 04:30: Sodium Level 138, Potassium Level 3.8, Chloride Level 108H, Carbon Dioxide Level 22, Anion Gap 8, Blood Urea Nitrogen 14, Creatinine 0.84, Estimat Glomerular Filtration Rate > 60, BUN/Creatinine Ratio 17, Glucose Level 122H, Calcium Level 8.9 01/15/19 05:53: Glucometer 126H 01/15/19 11:51: Glucometer 138H Microbiology 01/09/19 Blood Culture - Preliminary, Resulted No growth 01/10/19 MRSA Screen - Final, Complete MRSA not isolated 01/09/19 Urine Culture - Final, Complete Escherichia coli See Comments Assessment/Plan Assessment/Plan Assess & Plan/Chief Complaint 1. ESBL positive UTI with sepsis--on meropenem--home tomorrow 3. COPD--stable 4. Hypertension--resume cozaar 5. Right leg pain--discussed x-ray results--is coming from hip so will schedule with ortho as outpatient Clinical Quality Measures Admission Status Admission Dx 1. Acute UTI with Sepsis--admit on sepsis protocol with rocephin 2. Acute Respiratory Distress--improved, off vapotherm and on NC 3. SVT--improved after cardizem 4. Hypertensive Urgency--improved 5. COPD--stable 6. Hypertension--currently hypotensive DVT/VTE Risk/Contraindication: Risk Factor Score Per Nursin RFS Level Per Nursing on Admit: 4+=Very High ENRRIQUE JALLOH DO Jan 15, 2019 12:25
[2019-01-15] MEDS ORDERED: LOSARTAN 50 MG (COZAAR) TAB PO NR (12:30)
[2019-01-15] MEDS: ENOXAPARIN 40 MG/0.4 ML (LOVENOX) SYR SC SCH (12:56)
[2019-01-15] MEDS ORDERED: FLU QUADRIvalent (5+ YOA) 2018-2019 (AFLURIA) 0.5 ML IM ONE (13:00)
[2019-01-15 15:46] VITALS: BP 163/72
[2019-01-15] MEDS ORDERED: ONDANSETRON 4 MG/2 ML (SDV) Z0FRAN IVP PRN (19:00)
[2019-01-15] MEDS: MELATONIN 3 MG TABLET PO SCH (21:17)
[2019-01-16 00:30] VITALS: BP 130/71
[2019-01-16] MEDS: MEROPENEM 500 MG in WATER (STERILE) FOR INJECTION 10 ML IV SCH ×3 (00:57→12:12)
[2019-01-16 04:34] LABS: BASOPHILS % (AUTO) 1 % (0-10); EOSINOPHILS # (AUTO) 0.6 10^3/uL (0.0-0.3); EOSINOPHILS % (AUTO) 8 % (0-10); HEMATOCRIT 39 % (40-54); LYMPHOCYTES % (AUTO) 25 % (12-44); MEAN CORPUSCULAR HEMOGLOBIN 29 PG (25-34); MEAN CORPUSCULAR HGB CONC 33 G/DL (32-36); MEAN CORPUSCULAR VOLUME 88 FL (80-99); MEAN PLATELET VOLUME 9.9 FL (7.4-10.4); MONOCYTES # (AUTO) 0.6 X 10^3 (0.0-1.0); MONOCYTES % (AUTO) 8 % (0-12); NEUTROPHILS # (AUTO) 4.5 X 10^3 (1.8-7.8); NEUTROPHILS % (AUTO) 59 % (42-75); PLATELET COUNT 222 10^3/uL (130-400); RED CELL DISTRIBUTION WIDTH 13.4 % (10.0-14.5); WHITE BLOOD COUNT 7.8 10^3/uL (4.3-11.0)
[2019-01-16 05:01] LABS: BUN/CREATININE RATIO 20; CARBON DIOXIDE 23 MMOL/L (21-32); CHLORIDE 108 MMOL/L (98-107); CREATININE SERUM 0.93 MG/DL (0.60-1.30); GFR ESTIMATED > 60; GLUCOSE 131 MG/DL (70-105); POTASSIUM 4.2 MMOL/L (3.6-5.0); SODIUM 140 MMOL/L (135-145)
[2019-01-16] MEDS: inSUlin ASPART (NovoLOG) 1 UNIT/0.01 ML (CHARGE PER UNIT) SC SCH ×2 (06:02→11:00)
[2019-01-16 08:00] VITALS: BP 138/76
[2019-01-16] MEDS: UMECLIDINIUM BROMIDE (INCRUSE ELLIPTA) 7'S IH SCH (08:09)
[2019-01-16] MEDS: RT-ALBUTEROL/IPRATROPIUM 3 ML (DUONEB) VIAL INH SCH (08:09)
[2019-01-16] MEDS: ADVAIR HFA 115/21 MCG INHALER 8 GM IH SCH (08:09)
[2019-01-16] MEDS ORDERED: LOSARTAN 100 MG (COZAAR) TABLET PO SCH (09:00)
[2019-01-16] MEDS: SERTRALINE 100 MG (ZOLOFT) TAB PO SCH (09:29)
[2019-01-16] MEDS: LOSARTAN 50 MG (COZAAR) TAB PO SCH (09:29)
[2019-01-16] MEDS: ASPIRIN E.C. 81 MG (ECOTRIN) TAB PO SCH (09:29)
[2019-01-16] MEDS: fluCOnazole (DIFLUCAN) 100 MG TAB PO SCH (09:29)
[2019-01-16] MEDS: amLODIPine 5 MG (NORVASC) TAB PO SCH (09:30)
[2019-01-16] MEDS: MICONAZOLE 2% POWDER (DESENEX AF) 90 GM TOP SCH (09:32)
--- NOTE | 2019-01-16 10:25 | NUR ---
Important Message from Medicare presented/reviewed/signed by patient and charted. Patient voiced no intention to appeal and deny any needs or further questions at this time.
[2019-01-16] MEDS: ENOXAPARIN 40 MG/0.4 ML (LOVENOX) SYR SC SCH (12:12)
--- NOTE | 2019-01-16 12:50 | Discharge Inst-Simple/Standard ---
Discharge Inst-Standard Patient Instructions/Follow Up Plan of Care/Instructions/FU: Fwup 1 week Activity as Tolerated: Yes Discharge Diet: No Restrictions ENRRIQUE JALLOH DO Jan 16, 2019 12:50
== END 2019-01-16 15:35 | disposition home or self-care (01) | DRG 872 ==
LOC: EDUNIT# 19:29 → ER 19:30 → 4TH 21:09 → ICU 23:13 → 4TH 01-10 14:02
PROVIDERS: ADMIT Family Medicine; ATTEND Family Medicine
DX: A41.51 Sepsis due to Escherichia coli [E. coli] (principal); N39.0 Urinary tract infection, site not specified; R31.9 Hematuria, unspecified; R06.03 Acute respiratory distress; I47.1 Supraventricular tachycardia; I16.0 Hypertensive urgency; K21.9 Gastro-esophageal reflux disease without esophagitis; R42 Dizziness and giddiness; Z66 Do not resuscitate; S30.201A Contusion of unspecified external genital organ, male, initial encounter; J44.9 Chronic obstructive pulmonary disease, unspecified; I95.9 Hypotension, unspecified; L30.4 Erythema intertrigo; E11.9 Type 2 diabetes mellitus without complications; M19.91 Primary osteoarthritis, unspecified site; F32.9 Major depressive disorder, single episode, unspecified; E87.6 Hypokalemia; W18.39XA Other fall on same level, initial encounter; Z87.891 Personal history of nicotine dependence; Z96.653 Presence of artificial knee joint, bilateral; Z16.12 Extended spectrum beta lactamase (ESBL) resistance
CPT/HCPCS: 36415; 71045; 72110; 73552; 80048; 80053; 81000; 82962; 83605; 83735; 83880; 84100; 85007; 85025; 85027; 85610; 85730; 86141; 87040; 87077; 87081; 87088; 87184; 87186; 87804; 90471; 94640; 94760; 96365

== ENCOUNTER 2019-06-06 15:34 | Inpatient (IN) | payer MEDICARE, MEDICAID ==
[~2019-06-06] VITALS: Ht 182.9 cm; Wt 108.9 kg
--- NOTE | 2019-06-06 13:29 | NUR ---
UPDATED MED REC WITH THE DISCHARGE MEDICATION LIST FROM [facility]. NOTE THE FOLLOWING CHANGES WERE MADE AT THAT DISCHARGE: START TAKING: HYDROCODONE 5-325MG 1 TAB Q4H PRN MELOXICAM 7.5MG Q12H TRAMADOL 50MG 2 Q6H PRN I WILL UPDATE THE MED REC BACK TO THE LIST OF MEDICATIONS THE PATIENT WAS TAKING PRIOR TO DISCHARGE FROM [facility] AT A LATER DATE FOR PROPER DISCHARGE TO HOME ORDERS. Addendum: 06/07/19 at 1320 by PETE ROCKWELL [facility] REMOVED THE 3 NEW MEDICATIONS ORDERED AT DISCHARGE FROM [facility]. I COMPARED THE PRIOR TO ADMISSION HOME MEDS WITH THE EXT MED HX. NOTE THE FOLLOWING APPEAR TO BE PAST DUE FOR REFILL ACCORDING TO THE EXT MED HX: 11-18-18 INCRUSE ELLIPTA #90 10-12-18 ADVAIR 250-50 BID #180 ALSO SERTRALINE 100MG WAS FILLED 03-14-19 #180 FOR A 90 DAY SUPPLY HOWEVER IT WAS REPORTED AT [facility] ONLY ONCE DAILY. I LEFT IT ON THE MED REC ONCE DAILY LIKE REPORTED AT [facility]. OTC: ASPIRIN VITAMIN B-12 MELATONIN
--- NOTE | 2019-06-06 15:30 | NUR ---
Admitted to room 230-1, with an admitting diagnosis of TKR, on 06/06/19 from [facility] via , accompanied by .CHRISTINA YBARRA introduced to surroundings, call light, bed controls, phone, TV, temperature control, lights, meal times, smoking policy, visitor policy, side rail policy, bathrooms and showers. Patient Rights given to patient in the handbook.CHRISTINA YBARRA verbalizes understanding that [facility] is not responsible for the loss or damage to any personal effects or valuables that are kept in the patients posession during their hospitalization. The following Patient Care Plans were discussed with the : Discharge Planning, ,, and . CHRISTINA YBARRA verbalizes understanding of Interdisciplinary Patient Education. Patient and/or family were informed about the Rapid Response Team and its purpose. Patient received Patient Rights Booklet, which includes Privacy Act Statement and Data Collection Information Summary.
[~2019-06-06 15:34] MED LIST changes: +ASPI-983 PO; +CYAN100088 PO; +CYAN500T62 PO; +HYDR-3812 PO; +MELA3TAB PO; +MELO7.5T46 PO; +NYST15PO2 TOP; -OMEP20CA12 PO; +OMEP20CA13 PO; +TRAM50TA2 PO
--- NOTE | 2019-06-06 16:10 | Physical Therapy Evaluation ---
PT Evaluation-General Medical Diagnosis Admission Date Jun 06, 2019 at 15:34 Medical Diagnosis: failed hardware right knee Onset Date: Jun 06, 2019 Therapy Diagnosis Therapy Diagnosis: abnormal gait Height/Weight Height (Feet): 6 Height (Inches): 0.00 Weight (Pounds): 223 Weight (Ounces): 5.0 Precautions Precautions/Isolations: Standard Precautions Weight Bear Status Right Lower Extremity: Right Weight Bearing/Tolerated Left Lower Extremity: Left Full Weight Bearing Referral Physician: Geremias Reason for Referral: Evaluation/Treatment Medical History Pertinent Medical History: COPD, DM, HTN Additional Medical History OA B hips; chronic renal insuff; B 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 Pt reports a 3-4 month history of knee pain resulting in him seeking medical care to have his right knee replacement revised. Reviewed History: Yes Social History Home: Single Level Current Living Status: Alone Entry Into Home: Stairs With Railing PT Steps Into Home: 3 Prior/Core FIM Prior Level of Function Therapy Code Descriptions/Definitions Functional Summit Measure: 0=Not Assessed/NA 4=Minimal Assistance 1=Total Assistance 5=Supervision or Setup 2=Maximal Assistance 6=Modified Summit 3=Moderate Assistance 7=Complete Summit Therapy Quality Codes: 6 Independent with activity with or without an assistive device 5 Patient requires set up or clean up by helper. Patient completes activity by themselves 4 Supervision or touching assist (CGA). [place] provide cues , steadying assist 3 The helper provides less than half the effort to complete the activity 2 The helper provides more than half the effort to complete the activity 1 Dependent. The helper does all the effort to complete an activity 7 Patient refused to complete or attempt activity 9 The patient did not perform the activity before the current illness or injury 88 Not attempted due to Medical conditions or safety concerns Functional Abilities and Goals: Independent: Patient completed the activities by him/herself, with or without an assistive device, with no assistance from a helper. Needed Some Help: Patient needed partial assistance from another person to complete activities. Dependent: A helper completed the activities for the patient. 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 Reports his daughter assist with housekeeping and meals. Reports she is a paid caregiver. PT Evaluation-Current Subjective Agrees to PT. Reports "I'm here for the therapy" Pain Numeric Pain Scale: 5-Moderate Pain Location: Right Location Body Site: Knee Pain Description: Ache Objective Patient Orientation: Person, Place, Time, Situation Problem Solving: Fair ROM/Strength ROM Lower Extremities left knee AROM WFL Right knee AROM 0-10-60 degrees. Strenght Lower Extremities Left knee strength is wFL Right knee strength is grossly 3/5 Integumentary/Posture Integumentary intact Bowel Incontinence: No Bladder Incontinence: Yes Posture normal for age and symmetrical; slightly rounded shoulders and forward head. Neuromuscular (Tone, Coordination, Reflexes) intact Sensory Vision: Functional Hearing: Functional Hand Dominance: Right Sensation Right Lower Extremit: Intact Sensation Left Lower Extremity: Intact Transfers Therapy Code Descriptions/Definitions Functional Summit Measure: 0=Not Assessed/NA 4=Minimal Assistance 1=Total Assistance 5=Supervision or Setup 2=Maximal Assistance 6=Modified [place] 3=Moderate Assistance 7=Complete [place] Therapy Quality Codes: 6 Independent with activity with or without an assistive device 5 Patient requires set up or clean up by helper. Patient completes activity by themselves 4 Supervision or touching assist (CGA). [place] provide cues , steadying assist 3 The helper provides less than half the effort to complete the activity 2 The helper provides more than half the effort to complete the activity 1 Dependent. The helper does all the effort to complete an activity 7 Patient refused to complete or attempt activity 9 The patient did not perform the activity before the current illness or injury 88 Not attempted due to Medical conditions or safety concerns Transfers (B, C, W/C) (FIM): 4 Roll Left to Right (QC): 4 Supine to/from Sit: 4 (assist with right leg to get in and out of bed) Sit to Lying (QC): 4 Lying to Sitting/Side of Bed(Q: 4 Sit to Stand (QC): 4 (min assist to come to astand. ) Chair/Tui-ri-Mrmfr Xfer(QC): 4 (CGA for safety) Car Transfer (QC): 4 (CGA for safety) pt generally needs min to CGA for steady assist and light lift assist to stand up. Gait Does the Patient Walk?: Yes Mode of Locomotion: Walk Anticipated Mode of Locomotion: Walk Gait (FIM): 4 Distance (FIM): 3=150 ft Walk 10 feet (QC): 4 Walk 50 ft with 2 Turns(QC): 4 Walk 150 ft (QC): 4 Walking 10ft/uneven surface-QC: 4 Gait Assistive Device: FWW Comments/Gait Description CGA for balance and safety; lacks full knee extension right which impairs heel strike and toe off; antalgic with step to gait pattern. Wheelchair Training Does the Pt Use a Wheelchair?: No Stairs Stairs (FIM): 1 #of Steps: 1 Level of Assist: 4 1 Step (curb) (QC): 4 (CGA with cues for sequencing.) 4 Steps (QC): 88 Assistive Device: Walker 12 Steps (QC): 88 Balance Sitting Static: Normal Sitting Dynamic: Normal Standing Static: Fair Standing Dynamic: Fair Picking up an Object (QC): 88 Treatment Functional dynamic standing balance; transfers and gait; pt toileted and then stood at the sink to wash his hands; CGA for safety. Assessment/Needs Post revision of right knee. He presents with decreased functional ROM and strength which impairs his ability to perform functional transfers, bed mobitliy and gait; he is unable to safely mobilize without assist or care for himself alone. Rehab Potential: Good PT Short Term Goals Short Term Goals Time Frame: Jun 13, 2019 Transfers (B,C,W/C) (FIM): 5 Gait (FIM): 5 PT Public Health Outreach Worker Goals Skilled Nursing Goals PT Skilled Nursing Goals Time Frame: Jun 20, 2019 Transfers (B,C,W/C) (FIM): 7 Sit to Lying (QC): 6 Lying-Sitting on Side/Bed(QC): 6 Sit to Stand (QC): 6 Roll Left to Right (QC): 6 Chair/Lso-gu-Sbcuv Xfer(QC): 6 Car Transfer (QC): 6 Does the Patient Walk: Yes Gait (FIM): 6 Gait distance (FIM): 3=150 ft Walk 10 feet (QC): 6 Walk 10ft-Uneven Surface(QC): 6 Walk 50ft with 2 Turns (QC): 6 Walk 150 ft (QC): 6 Gait Assistive Device: FWW Does the Pt use WC or Scooter?: No Stairs (FIM): 5 # of Steps: 4 (household level) 1 Step (curb) (QC): 6 4 Steps (QC): 6 12 Steps (QC): 88 Picking up an Object (QC): 5 PT Plan Problem List Problem List: Activity Tolerance, Functional Strength, Safety, Balance, Gait, Transfer, Bed Mobility, ROM Treatment/Plan Treatment Plan: Continue Plan of Care Treatment Plan: Bed Mobility, Education, Functional Activity Sotero, Functional Strength, Group Therapy, Gait, Safety, Therapeutic Exercise, Transfers Treatment Duration: Jun 20, 2019 Frequency: At least 5 of 7 days/Wk (IRF) Estimated Hrs Per Day: 1.5 hours per day Patient and/or Family Agrees t: Yes Safety Risks/Education Patient Education: Transfer Techniques, Safety Issues Teaching Recipient: Patient Teaching Methods: Demonstration, Discussion Response to Teaching: Reinforcement Needed Discharge Recommendations Therapy D/C Recommendations: Physical Therapy Home Care Time/GCodes Time In: 1530 Time Out: 1600 Total Billed Treatment Time: 30 Total Billed Treatment visit EVM 15 FA 15 DESHAUN HOROWITZ PT Jun 06, 2019 16:10
[2019-06-06 16:59] VITALS: BP 137/68
--- NOTE | 2019-06-06 17:28 | History & Physical ---
[facility] 06/06/19 1728: History of Present Illness History of Present Illness Reason for visit/HPI Mr Cody is a 79 y/o Male with PMH significant for COPD and HTN presents to Inpatient rehab following a R total knee revision surgery. He originally had bilateral knee replacements about 10 years ago, but he was experiencing increased pain and effusion over the last 3 months in the right knee. After multiple evaluations, he underwent right knee arthroplasty revision surgery on 06/04. He has had an uneventful course since surgery. He is currently reports no pain. He is able to ambulate with an fww without assist to the bathroom. 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 In planning for dispo, he lives alone and needs to traverse 6 steps to gain entry to his house. There are handrails on both sides. He also already has hand rails installed in the bathroom. He has 1 flight of stairs in his house, but rarely needs to use them. His main living quarters, bathroom and kitchen are all within about 50ft. Date of Admission Jun 06, 2019 at 15:34 I consulted on this patient on 06/06/19 17:04 Attending Physician Angelia Vázquez DO Admitting Physician Carmina Ca DO Consult Allergies and Home Medications Allergies Coded Allergies: NKANo Known Allergies (Unverified Allergy, Unknown, 09/19/06) Home Medications Aspirin 81 Mg Tablet.dr, 81 MG PO DAILY, (Reported) Atorvastatin Calcium 10 Mg Tablet, 10 MG PO HS, (Reported) Colestipol HCl 1 Gm Tablet, 1 GM PO DAILY, (Reported) Cyanocobalamin (Vitamin B-12) 1,000 Mcg Tablet, 1,000 MCG PO DAILY, (Reported) Fluticasone/Salmeterol 1 Each Blst.w.dev, 1 PUFF IH BID, (Reported) Losartan Potassium 100 Mg Tablet, 100 MG PO DAILY, (Reported) Melatonin 3 Mg Tablet, 6 MG PO HS, (Reported) Omeprazole 20 Mg Capsule.dr, 20 MG PO DAILY, (Reported) Sertraline HCl 100 Mg Tablet, 100 MG PO DAILY, (Reported) Umeclidinium Casco 62.5 Mcg Blst.w.dev, 1 PUFF IH DAILY, (Reported) Past Wtawvcl-Klicdf-Nvrmjn Hx Patient Social History 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 Alcohol Use: Denies Use Recreational Drug Use: No Smoking Status: Former Smoker Former Smoker, Quit: Jun 12, 1980 Type Used: Cigarettes 2nd Hand Smoke Exposure: No Physical Abuse Screen: No Sexual Abuse: No Recent Foreign Travel: No Contact w/other who traveled: No Recent Hopitalizations: Yes Recent Infectious Disease Expo: No Immunizations Up To Date Tetanus Booster (TDap): Less than 5yrs Pediatric: No Date of Pneumonia Vaccine: Aug 15, 2011 Date of Influenza Vaccine: Jul 25, 2016 Seasonal Allergies Seasonal Allergies: No Surgeries Yes (BILAT KNEE REPLACEMENTS, right ankle surg, RT HAND CARPAL TUNNEL ) Orthopedic Respiratory Yes (quit smoking 40yrs. ago) COPD Cardiovascular Yes (see's Dr. Miner) Hypertension, Hypotension Neurological Yes Vertigo Reproductive System Hx Reproductive Disorders: No Sexually Transmitted Disease: No HIV/AIDS: No Genitourinary No Renal Failure Gastrointestinal Yes Gastroesophageal Reflux Musculoskeletal Yes (ROSY. TKR) Arthritis Endocrine History of Endocrine Disorders: Yes Endocrine Disorders: Diabetes, Non-Insulin dep HEENT History of HEENT Disorders: Yes HEENT Disorders: Cataract Loss of Vision: Denies Hearing Impairment: Denies Cancer No Psychosocial History of Psychiatric Problem: Yes Behavioral Health Disorders: Depression Integumentary History of Skin or Integumenta: No Blood Transfusions History of Blood Disorders: No Adverse Reaction to a Blood Tr: No Family Medical History Family Hx: Alcoholism 09 SISTER Family history: Asthma 09 SISTER Family history: Cardiovascular disease 03 FATHER Family history: Diabetes mellitus 03 MOTHER 09 SISTER Heart disease 03 FATHER Myocardial infarction 03 FATHER Stroke 03 FATHER No Family History of: Abdominal aortic aneurysm [place]'s disease Aphasia Cancer Cancer of colon Cataract Chest pain Congenital heart disease Congestive heart failure Cystic fibrosis Dementia Dysphagia Family history: Allergy Family history: Alzheimer's disease Family history: Arthritis Family history: Breast disease Family history: Gastrointestinal disease Family history: Glaucoma Family history: Hypertension Family history: Osteoporosis Family history: Thyroid disorder Headache Hearing loss History of - anemia History of - disorder History of - respiratory disease History of drug abuse Human immunodeficiency virus (HIV) seropositivity Hypercholesterolemia Infertile Kidney disease Malignant neoplasm of lung Parkinson's disease Prostate cancer Psychotic disorder Seizure disorder Tuberculosis Visual impairment Review of Systems Constitutional: no symptoms reported EENTM: no symptoms reported Respiratory: see HPI Cardiovascular: no symptoms reported Gastrointestinal: no symptoms reported Genitourinary: no symptoms reported Musculoskeletal: joint pain Skin: no symptoms reported Psychiatric/Neurological: No Symptoms Reported All Other Systems Reviewed Negative Unless Noted: Yes Physical Exam Vital Signs Vital Signs - First Documented 06/06/19 16:59 Temp 98.8 Pulse 69 B/P (MAP) 137/68 (91) Pulse Ox 96 O2 Delivery Room Air Capillary Refill : Height, Weight, BMI Height: 6'0.00" Weight: 240lbs. 0.0oz. [id number]; 32.6 BMI Method:Stated General Appearance: No Apparent Distress Eyes: Bilateral Eye Normal Inspection, Bilateral Eye PERRL, Bilateral Eye EOMI HEENT: PERRL/EOMI Neck: Full Range of Motion, Non Tender Respiratory: Chest Non Tender, Wheezing Cardiovascular: Regular Rate, Rhythm, No Edema, No Gallop Gastrointestinal: Normal Bowel Sounds Rectal: Deferred Back: No Vertebral Tenderness Extremity: Other (Right knee reduced AROM and PROM) Skin: Normal Color Lymphatic: No Adenopathy Clinical Quality Measures DVT/VTE Risk/Contraindication: Risk Factor Score Per Nursin RFS Level Per Nursing on Admit: 4+=Very High ANGELIA VÁZQUEZ DO 06/08/19 1526: History of Present Illness History of Present Illness Reason for visit/HPI Verification and Attestation of Medical Student E/M Service A medical student performed and documented this service in my presence. I reviewed and verified all information documented by the medical student and made modifications to such information, when appropriate. I personally performed the physical exam and medical decision making. Angelia Vázquez, Jun 08, 2019,15:26 Date of Admission 06/06/19 Date Seen by a Provider: Jun 08, 2019 Time Seen by a Provider: 00:00 Allergies and Home Medications Allergies Coded Allergies: NKANo Known Allergies (Unverified Allergy, Unknown, 09/19/06) Home Medications Aspirin 81 Mg Tablet.dr, 81 MG PO DAILY, (Reported) Atorvastatin Calcium 10 Mg Tablet, 10 MG PO HS, (Reported) Colestipol HCl 1 Gm Tablet, 1 GM PO DAILY, (Reported) Cyanocobalamin (Vitamin B-12) 1,000 Mcg Tablet, 1,000 MCG PO DAILY, (Reported) Fluticasone/Salmeterol 1 Each Blst.w.dev, 1 PUFF IH BID, (Reported) Losartan Potassium 100 Mg Tablet, 100 MG PO DAILY, (Reported) Melatonin 3 Mg Tablet, 6 MG PO HS, (Reported) Omeprazole 20 Mg Capsule.dr, 20 MG PO DAILY, (Reported) Sertraline HCl 100 Mg Tablet, 100 MG PO DAILY, (Reported) Umeclidinium Casco 62.5 Mcg Blst.w.dev, 1 PUFF IH DAILY, (Reported) Patient Home Medication List Home Medication List Reviewed: Yes Past Hhbezee-Qqexgo-Wmdwdm Hx Patient Social History 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 Alcohol Use: Past History Smoking Status: Former Smoker Family Medical History Family Hx: Alcoholism 09 SISTER Family history: Asthma 09 SISTER Family history: Cardiovascular disease 03 FATHER Family history: Diabetes mellitus 03 MOTHER 09 SISTER Heart disease 03 FATHER Myocardial infarction 03 FATHER Stroke 03 FATHER No Family History of: Abdominal aortic aneurysm [place]'s disease Aphasia Cancer Cancer of colon Cataract Chest pain Congenital heart disease Congestive heart failure Cystic fibrosis Dementia Dysphagia Family history: Allergy Family history: Alzheimer's disease Family history: Arthritis Family history: Breast disease Family history: Gastrointestinal disease Family history: Glaucoma Family history: Hypertension Family history: Osteoporosis Family history: Thyroid disorder Headache Hearing loss History of - anemia History of - disorder History of - respiratory disease History of drug abuse Human immunodeficiency virus (HIV) seropositivity Hypercholesterolemia Infertile Kidney disease Malignant neoplasm of lung Parkinson's disease Prostate cancer Psychotic disorder Seizure disorder Tuberculosis Visual impairment Review of Systems Constitutional: see HPI Physical Exam General Appearance: No Apparent Distress, WD/WN, Chronically ill Respiratory: Chest Non Tender, Lungs Clear, Normal Breath Sounds, No Accessory Muscle Use, No Respiratory Distress Cardiovascular: Regular Rate, Rhythm, No Edema, No Gallop, No JVD, No Murmur, Normal Peripheral Pulses Assessment/Plan Assessment and Plan Problems: (1) Status post right knee replacement Status: Acute (2) COPD Exacerbation Status: Acute (3) Vertigo Status: Acute (4) Esophagitis Status: Acute (5) Dysphagia Status: Acute (6) Encounter for diagnostic colonoscopy due to change in bowel habits (7) Infection due to ESBL-producing Escherichia coli Status: Acute (8) Hypokalemia Status: Acute (9) Generalized weakness Status: Acute (10) Hypertension Status: Chronic Qualifiers: Qualified Codes: I10 - Essential (primary) hypertension (11) COPD (chronic obstructive pulmonary disease) Status: Chronic Qualifiers: Qualified Codes: J44.9 - Chronic obstructive pulmonary disease, unspecified (12) Arthritis Status: Chronic (13) GERD (gastroesophageal reflux disease) Status: Chronic Qualifiers: Qualified Codes: K21.9 - Gastro-esophageal reflux disease without esophagitis (14) Anger reaction Status: Acute (15) Cognitive decline Status: Chronic Admission Diagnosis Admission Status: Inpatient Order (span 2 midnights) Reason for Inpatient Admission: IRF Supervisory-Addendum Brief Verification & Attestation Participated in pt care: history, MDM, physical Personally performed: exam, history, MDM, supervision of care Care discussed with: Medical Student Procedures: n/a Results interpretation: Verified all documentation Verification and Attestation of Medical Student E/M Service A medical student performed and documented this service in my presence. I reviewed and verified all information documented by the medical student and made modifications to such information, when appropriate. I personally performed the physical exam and medical decision making. Angelia Vázquez, Jun 08, 2019,15:26 [facility] Jun 06, 2019 17:28 ANGELIA VÁZQUEZ DO Jun 08, 2019 15:26
--- NOTE | 2019-06-06 18:24 | NUR ---
Dr horner here to see pt at this time. Bed alarm in place. Call light in reach.
--- NOTE | 2019-06-06 20:01 | NUR ---
Christopher to follow up on medication orders. Dr Archuleta stated would put them in.
[2019-06-06] MEDS ORDERED: HYDROcodone/APAP 5 MG/325 MG (LORTAB) TAB PO PRN (20:30)
[2019-06-06] MEDS: ATORVASTATIN 10 MG (LIPITOR) TABLET PO SCH (20:41)
[2019-06-06] MEDS: MELOXICAM 7.5 MG (MOBIC) TABLET PO SCH (20:41)
[2019-06-06] MEDS ORDERED: MELATONIN 3 MG TABLET PO SCH (21:00)
--- NOTE | 2019-06-06 22:02 | PM&R H&P / Post Admit Assess ---
History of Present Illness HPI/Chief Complaint CC: s/p right knee replacement uncomplicated per Dr Mancia at [facility] POD # 2 HPI: Mr Cody is a 79 y/o Male with PMH significant for COPD and HTN presents to Inpatient rehab following a R total knee revision surgery. He originally had bilateral knee replacements about 10 years ago, but he was experiencing increased pain and effusion over the last 3 months in the right knee. After multiple evaluations, he underwent right knee arthroplasty revision surgery on 06/04. He has had an uneventful course since surgery. He is currently reports no pain. He is able to ambulate with an fww without assist to the bathroom. 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 In planning for dispo, he lives alone and needs to traverse 6 steps to gain entry to his house. There are handrails on both sides. He also already has hand rails installed in the bathroom. He has 1 flight of stairs in his house, but ra rely needs to use them. His main living quarters, bathroom and kitchen are all within about 50ft. (This note by Kirit Kelley [facility]) Patient was seen and examined and reviewed prior records and notified primary care provider Dr. Ca of admission. Patient constantly asking when he can go home and he is ready to go home and ready to continue mowing his lawn's of which his grandson is covering that duty right now Patient with a very difficult personality to manage very demanding with this examiner and disrespectful and yelling at me to come back in the room so we will need to evaluate this and if this is not a good match will continue to be supportive see what his needs are and discharge home if that is a reasonable plan. Source: patient Exam Limitations: no limitations Date Seen 06/06/19 Time Seen by a Provider: 18:15 Attending Physician Angelia Vázquez DO PCP Carmina Ca DO Referring Physician Date of Admission Jun 06, 2019 at 15:34 Home Medications & Allergies Home Medications Reviewed patient Home Medication Reconciliation performed by pharmacy medication reconciliations appraisal technician and/or nursing. Patients Allergies have been reviewed. 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 Alcohol Use: Past History Recreational Drug Use: No Smoking Status: Former Smoker Former Smoker, Quit: Jun 12, 1980 Type Used: Cigarettes 2nd Hand Smoke Exposure: No Physical Abuse Screen: No Sexual Abuse: No Recent Foreign Travel: No Contact w/other who traveled: No Recent Hopitalizations: Yes Recent Infectious Disease Expo: No Immunizations Up To Date Tetanus Booster (TDap): Less than 5yrs Pediatric: No Date of Pneumonia Vaccine: Aug 15, 2011 Date of Influenza Vaccine: Jul 25, 2016 Seasonal Allergies Seasonal Allergies: No Past Medical History Surgeries: Orthopedic Respiratory: COPD Cardiac: Hypertension, Hypotension Neurological: Vertigo Reproductive: No Sexually Transmitted Disease: No HIV/AIDS: No Genitourinary: Renal Failure Gastrointestinal: Gastroesophageal Reflux Musculoskeletal: Arthritis Endocrine: Diabetes, Non-Insulin dep HEENT: Cataract Loss of Vision: Denies Hearing Impairment: Denies Psychosocial: Depression History of Blood Disorders: No Adverse Reaction to Blood Bourne: No Family History Alcoholism 09 SISTER Family history: Asthma 09 SISTER Family history: Cardiovascular disease 03 FATHER Family history: Diabetes mellitus 03 MOTHER 09 SISTER Heart disease 03 FATHER Myocardial infarction 03 FATHER Stroke 03 FATHER No Family History of: Abdominal aortic aneurysm [place]'s disease Aphasia Cancer Cancer of colon Cataract Chest pain Congenital heart disease Congestive heart failure Cystic fibrosis Dementia Dysphagia Family history: Allergy Family history: Alzheimer's disease Family history: Arthritis Family history: Breast disease Family history: Gastrointestinal disease Family history: Glaucoma Family history: Hypertension Family history: Osteoporosis Family history: Thyroid disorder Headache Hearing loss History of - anemia History of - disorder History of - respiratory disease History of drug abuse Human immunodeficiency virus (HIV) seropositivity Hypercholesterolemia Infertile Kidney disease Malignant neoplasm of lung Parkinson's disease Prostate cancer Psychotic disorder Seizure disorder Tuberculosis Visual impairment Review of Systems Constitutional: see HPI EENTM: no symptoms reported Respiratory: no symptoms reported Cardiovascular: no symptoms reported Gastrointestinal: no symptoms reported Genitourinary: no symptoms reported Musculoskeletal: joint pain Skin: no symptoms reported Psychiatric/Neurological: No Symptoms Reported All Other Systems Reviewed Negative Unless Noted: Yes Physical Exam Exam Vital Signs Vital Signs Date Time Temp Pulse Resp B/P (MAP) Pulse Ox O2 Delivery O2 Flow Rate FiO2 06/07/19 05:52 98.2 69 18 162/74 (103) 97 Room Air Capillary Refill : General Appearance: No Apparent Distress, WD/WN, Chronically ill, Obese HEENT: PERRL/EOMI Neck: Full Range of Motion, Non Tender Respiratory: Chest Non Tender, Lungs Clear, Normal Breath Sounds, No Accessory Muscle Use, No Respiratory Distress, Wheezing Cardiovascular: Regular Rate, Rhythm, No Edema, No Gallop, No JVD, No Murmur, Normal Peripheral Pulses Gastrointestinal: Normal Bowel Sounds Rectal: Deferred Back: No Vertebral Tenderness Extremity: Normal Capillary Refill, Normal Inspection, Normal Range of Motion (except right leg from surgery), Non Tender, No Calf Tenderness, Other (Right knee reduced AROM and PROM) Neurologic/Psychiatric: Alert, Oriented x3, No Motor/Sensory Deficits, Normal Mood/Affect Skin: Normal Color Lymphatic: No Adenopathy Results Results/Procedures Labs Patient resulted labs reviewed. Assessment/Plan Assessment and Plan Assess & Plan/Chief Complaint Assessment: s/p right knee replacement POD # 2 HTN COPD Dementia? Anger issues? OA GERD Plan: Check labs in am IRF protocol PCP consult Manage anger issues (1) Status post right knee replacement Status: Acute (2) Hypertension Status: Chronic Qualifiers: Hypertension type: essential hypertension Qualified Codes: I10 - Essential (primary) hypertension (3) Generalized weakness Status: Acute (4) COPD (chronic obstructive pulmonary disease) Status: Chronic Qualifiers: COPD type: unspecified COPD Qualified Codes: J44.9 - Chronic obstructive pulmonary disease, unspecified (5) GERD (gastroesophageal reflux disease) Status: Chronic Qualifiers: Esophagitis presence: without esophagitis Qualified Codes: K21.9 - Gastro- esophageal reflux disease without esophagitis (6) Arthritis Status: Chronic (7) Cognitive decline Status: Chronic (8) Anger reaction Status: Acute Post Admission Physician Asses Date seen by provider: Jun 06, 2019 Time seen by provider: 18:15 The preadmission screen agrees with the post admission assessment that the patient is a good candidate for inpatient rehabilitation. The patient will have a comprehensive program of inpatient rehabilitation with a goal of maximizing level of functional independence prior to discharge home with family. The patient will have PT/OT ninety minutes per day, each discipline, five days a week for gait, strengthening, conditioning, balance, ADLs, any patient/family/caregiver training as necessary. Speech therapy to do cognitive assessment and treat as indicated. Rehabilitation nursing to assist with bowel, bladder, skin, wound care, medication administration, pain management. Drilling Rig Operator to assist with discharge planning, community reentry. SCD's for DVT prophylaxis. He appears to be well motivated to participate in three hours of therapy a day. He should be able to tolerate three hours of therapy a day from a medical standpoint. He should benefit from the three hours of therapy a day. He has a reasonable discharge plan, reasonable discharge rehabilitation goals and a supportive family. He has various comorbidities that need to be closely monitored with medications and treatments adjusted on a daily basis as needed. These include: see list Barriers to discharge for this patient who had been independent prior to this are for him to be modified independent to supervision for ADLs and mobility skills prior to discharge home with family, so as to lessen the burden of the caregivers. Risks for this patient include: 1. Fall 2. Fracture 3. DVT 4. Pulmonary embolism 5. Wound infection 6. Skin breakdown 7. Contractures 8. Poorly controlled pain 9. Urinary retention 10. UTI 11. Respiratory infection 12. Aspiration Estimated Length of Stay: 5 days Prognosis: Rehab prognosis appears good for goal of discharge home with family modified independent to supervision for ADLs and mobility skills. ANGELIA VÁZQUEZ DO Jun 06, 2019 22:02
[2019-06-06] MEDS ORDERED: CALCIUM CARBONATE 500 MG (TUMS) TAB.CHEW PO PRN (22:15)
[2019-06-06] MEDS ORDERED: MELATONIN 3 MG TABLET PO PRN (22:15)
[2019-06-06] MEDS ORDERED: ALPRAZolam 0.25 MG (XANAX) TAB PO PRN (22:15)
[2019-06-06] MEDS ORDERED: LOPERAMIDE 2 MG (IMODIUM) TABLET PO PRN (22:15)
[2019-06-06] MEDS ORDERED: ONDANSETRON 4 MG (ZOFRAN) ORAL DISSOLVE TAB PO PRN (22:15)
[2019-06-06] MEDS ORDERED: ACETAMINOPHEN 500 MG TAB (TYLENOL) PO PRN (22:15)
[2019-06-06] MEDS ORDERED: DOCUSATE SODIUM 100 MG (COLACE) CAP PO PRN (22:15)
[2019-06-06] MEDS ORDERED: diphenhydrAMINE 25 MG TAB (BENADRYL) PO PRN (22:15)
[2019-06-07 05:52] VITALS: BP 162/74
[2019-06-07 06:47] LABS: BASOPHILS % (AUTO) 1 % (0-10); EOSINOPHILS # (AUTO) 0.3 10^3/uL (0.0-0.3); EOSINOPHILS % (AUTO) 4 % (0-10); HEMATOCRIT 34 % (40-54); HEMOGLOBIN 11.7 G/DL (13.3-17.7); LYMPHOCYTES # (AUTO) 1.7 X 10^3 (1.0-4.0); LYMPHOCYTES % (AUTO) 20 % (12-44); MEAN CORPUSCULAR HEMOGLOBIN 30 PG (25-34); MEAN CORPUSCULAR HGB CONC 34 G/DL (32-36); MEAN CORPUSCULAR VOLUME 86 FL (80-99); MEAN PLATELET VOLUME 10.2 FL (7.4-10.4); MONOCYTES # (AUTO) 0.7 X 10^3 (0.0-1.0); MONOCYTES % (AUTO) 8 % (0-12); NEUTROPHILS # (AUTO) 5.8 X 10^3 (1.8-7.8); NEUTROPHILS % (AUTO) 68 % (42-75); PLATELET COUNT 144 10^3/uL (130-400); RED CELL DISTRIBUTION WIDTH 13.2 % (10.0-14.5); WHITE BLOOD COUNT 8.5 10^3/uL (4.3-11.0)
[2019-06-07 07:11] LABS: ALANINE AMINOTRANSFERASE 10 U/L (0-55); ALBUMIN 3.4 GM/DL (3.2-4.5); ALKALINE PHOSPHATASE 57 U/L (40-136); BILIRUBIN,TOTAL 0.9 MG/DL (0.1-1.0); BUN/CREATININE RATIO 16; CALCIUM 8.8 MG/DL (8.5-10.1); CARBON DIOXIDE 23 MMOL/L (21-32); CHLORIDE 106 MMOL/L (98-107); CREATININE SERUM 0.82 MG/DL (0.60-1.30); GFR ESTIMATED > 60; GLUCOSE 122 MG/DL (70-105); POTASSIUM 3.8 MMOL/L (3.6-5.0); SODIUM 139 MMOL/L (135-145)
--- NOTE | 2019-06-07 08:42 | PM&R Progress Note ---
Subjective HPI/CC On Admission Date Seen by Provider: Jun 07, 2019 Time Seen by Provider: 08:45 CC: s/p right knee replacement uncomplicated per Dr Mancia at [place] POD # 2 HPI: Mr Cody is a 79 y/o Male with PMH significant for COPD and HTN presents to Inpatient rehab following a R total knee revision surgery. He originally had bilateral knee replacements about 10 years ago, but he was experiencing increased pain and effusion over the last 3 months in the right knee. After multiple evaluations, he underwent right knee arthroplasty revision surgery on 06/04. He has had an uneventful course since surgery. He is currently reports no pain. He is able to ambulate with an fww without assist to the bathroom. 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 In planning for dispo, he lives alone and needs to traverse 6 steps to gain entry to his house. There are handrails on both sides. He also already has hand rails installed in the bathroom. He has 1 flight of stairs in his house, but rarely needs to use them. His main living quarters, bathroom and kitchen are all within about 50ft. (This note by Kirit Kelley [facility] [[email or web address]]) Patient was seen and examined and reviewed prior records and notified primary care provider Dr. Ca of admission. Patient constantly asking when he can go home and he is ready to go home and ready to continue mowing his lawn's of which his grandson is covering that duty right now Patient with a very difficult personality to manage very demanding with this examiner and disrespectful and yelling at me to come back in the room so we will need to evaluate this and if this is not a good match will continue to be supportive see what his needs are and discharge home if that is a reasonable plan. Subjective/Events-last exam Had some urinary incontinence Very disrespectful and loud and intimidating yesterday so I was predicting a low slums score and that was performed today and indeed the score was much lower than I thought at 07/22. Dementia is a significant issue here and certainly could slow recovery Dressing looks okay from surgery Uses CPM machine Bowel movement was last on 06/05/2019 but unsure of the reliability of his report Monitor closely Conferred with RN Reviewed therapy notes Pain is controlled Review of Systems Musculoskeletal: leg pain Objective Exam Vital Signs Vital Signs Date Time Temp Pulse Resp B/P (MAP) Pulse Ox O2 Delivery O2 Flow Rate FiO2 06/07/19 21:58 Room Air 06/07/19 16:47 97.8 69 16 123/64 (83) 96 06/07/19 08:54 Capillary Refill : General Appearance: No Apparent Distress, WD/WN, Chronically ill, Obese HEENT: PERRL/EOMI, Normal ENT Inspection, Pharynx Normal Neck: Full Range of Motion, Non Tender Respiratory: Chest Non Tender, Lungs Clear, Normal Breath Sounds, No Accessory Muscle Use, No Respiratory Distress, Wheezing Cardiovascular: Regular Rate, Rhythm, No Edema, No Gallop, No JVD, No Murmur, Normal Peripheral Pulses Gastrointestinal: Normal Bowel Sounds, No Pulsatile Mass, Non Tender, Soft Rectal: Deferred Back: No Vertebral Tenderness Extremity: Normal Capillary Refill, Normal Inspection, Normal Range of Motion (except right leg from surgery), Non Tender, No Calf Tenderness, Other (Right knee reduced AROM and PROM) Neurologic/Psychiatric: Alert, Oriented x3, No Motor/Sensory Deficits, Normal Mood/Affect, Disoriented Skin: Normal Color Lymphatic: No Adenopathy Results/Procedures Lab Laboratory Tests 06/07/19 06:15 Patient resulted labs reviewed. FIM Transfers Therapy Code Descriptions/Definitions Functional [place] Measure: 0=Not Assessed/NA 4=Minimal Assistance 1=Total Assistance 5=Supervision or Setup 2=Maximal Assistance 6=Modified [place] 3=Moderate Assistance 7=Complete [place] Therapy Quality Codes: 6 Independent with activity with or without an assistive device 5 Patient requires set up or clean up by helper. Patient completes activity by themselves 4 Supervision or touching assist (CGA). [place] provide cues , steadying assist 3 The helper provides less than half the effort to complete the activity 2 The helper provides more than half the effort to complete the activity 1 Dependent. The helper does all the effort to complete an activity 7 Patient refused to complete or attempt activity 9 The patient did not perform the activity before the current illness or injury 88 Not attempted due to Medical conditions or safety concerns Transfers (B, C, W/C) (FIM): 4 Roll Left to Right (QC): 4 Supine to/from Sit: 4 (assist with right leg to get in and out of bed) Sit to Lying (QC): 4 Sit to Stand (QC): 4 (min assist to come to astand. ) Chair/Dpr-qf-Ifogm Xfer(QC): 4 (CGA for safety) Car Transfer (QC): 4 (CGA for safety) Gait Training Does the Patient Walk?: Yes Gait (FIM): 4 Distance (FIM): 3=150 ft Walk 10 feet (QC): 4 Walk 50 ft with 2 Turns(QC): 4 Walk 150 ft (QC): 4 Walking 10ft/uneven surface-QC: 4 Gait Assistive Device: FWW Wheelchair Training Does the Pt Use a Wheelchair?: No Stair Training Stairs (FIM): 1 #of Steps: 1 1 Step (curb) (QC): 4 (CGA with cues for sequencing.) 4 Steps (QC): 88 12 Steps (QC): 88 Level of Assist: 4 Balance Picking up an Object (QC): 88 Assessment/Plan Assessment and Plan Assess & Plan/Chief Complaint Assessment: s/p right knee replacement POD # 3 HTN COPD Dementia confirmed on SLUMS 07/22 Anger issues? OA GERD Plan: Check labs in am IRF protocol PCP consult Manage anger issues with dementia (1) Status post right knee replacement Status: Acute (2) Hypertension Status: Chronic Qualifiers: Hypertension type: essential hypertension Qualified Codes: I10 - Essential (primary) hypertension (3) Generalized weakness Status: Acute (4) COPD (chronic obstructive pulmonary disease) Status: Chronic Qualifiers: COPD type: unspecified COPD Qualified Codes: J44.9 - Chronic obstructive pulmonary disease, unspecified (5) GERD (gastroesophageal reflux disease) Status: Chronic Qualifiers: Esophagitis presence: without esophagitis Qualified Codes: K21.9 - Gastro- esophageal reflux disease without esophagitis (6) Arthritis Status: Chronic (7) Cognitive decline Status: Chronic (8) Anger reaction Status: Acute ANA VÁZQUEZ DO Jun 07, 2019 08:42
[2019-06-07 08:54] VITALS: BP_SYST 131; BP_SYST 146; BP_DIAS 64; BP_DIAS 72
--- NOTE | 2019-06-07 08:57 | Physical Therapy Daily Note ---
PT Daily Note-Current Subjective Patient in recliner pre tx, agrees to PT, has no complaints of pain. Patient needs dressed, his clothes are in the washer and needs dried, after that he needs min assist for pants and puts shirt on without assist. Appearance Patient in recliner post tx with nurse call, phone, tray, polar care on. Mental Status Patient Orientation: Person, Place, Situation Transfers Therapy Code Descriptions/Definitions Functional [place] Measure: 0=Not Assessed/NA 4=Minimal Assistance 1=Total Assistance 5=Supervision or Setup 2=Maximal Assistance 6=Modified [place] 3=Moderate Assistance 7=Complete [place] Therapy Quality Codes: 6 Independent with activity with or without an assistive device 5 Patient requires set up or clean up by helper. Patient completes activity by themselves 4 Supervision or touching assist (CGA). [place] provide cues , steadying assist 3 The helper provides less than half the effort to complete the activity 2 The helper provides more than half the effort to complete the activity 1 Dependent. The helper does all the effort to complete an activity 7 Patient refused to complete or attempt activity 9 The patient did not perform the activity before the current illness or injury 88 Not attempted due to Medical conditions or safety concerns Transfers (B, C, W/C) (FIM): 5 Sit to/from Stand: 5 Bed to/from Chair: 5 Weight Bearing Right Lower Extremity: Right Weight Bearing/Tolerated Left Lower Extremity: Left Full Weight Bearing Gait Training Gait (FIM): 5 Distance: 300'x2, 150'x4 Gait Level of Assist: 5 Gait Persons Needed: 1 Gait Assistive Device: FWW slow but steady ambulation, does not have full extension of right knee Exercises Standing: Hip Abduction, Hamstring curls, Heel/toe raises, Mini squats Standing Reps: 15 manual stretching right knee extension and flexion, QS x20 Treatments LE exercise, stretching, ambulation, dressing, transfers Assessment Current Status: Fair Progress good progress, lacks 3 degrees to full extension of right knee and flexes to about 95 degrees PT Short Term Goals Short Term Goals Time Frame: Jun 13, 2019 Transfers (B,C,W/C) (FIM): 5 Gait (FIM): 5 PT Informatics Spec Goals Informatics Spec Goals PT Prison Goals Time Frame: Jun 20, 2019 Transfers (B,C,W/C) (FIM): 7 Sit to Lying (QC): 6 Lying-Sitting on Side/Bed(QC): 6 Sit to Stand (QC): 6 Roll Left to Right (QC): 6 Chair/Too-yg-Xdmvn Xfer(QC): 6 Car Transfer (QC): 6 Does the Patient Walk: Yes Gait (FIM): 6 Gait distance (FIM): 3=150 ft Walk 10 feet (QC): 6 Walk 10ft-Uneven Surface(QC): 6 Walk 50ft with 2 Turns (QC): 6 Walk 150 ft (QC): 6 Gait Assistive Device: FWW Does the Pt use WC or Scooter?: No Stairs (FIM): 5 # of Steps: 4 (household level) 1 Step (curb) (QC): 6 4 Steps (QC): 6 12 Steps (QC): 88 Picking up an Object (QC): 5 PT Plan Problem List Problem List: Activity Tolerance, Functional Strength, Safety, Balance, Gait, Transfer, Bed Mobility, ROM Treatment/Plan Treatment Plan: Continue Plan of Care Treatment Plan: Bed Mobility, Education, Functional Activity Sotero, Functional Strength, Group Therapy, Gait, Safety, Therapeutic Exercise, Transfers Treatment Duration: Jun 20, 2019 Frequency: At least 5 of 7 days/Wk (IRF) Estimated Hrs Per Day: 1.5 hours per day Patient and/or Family Agrees t: Yes Safety Risks/Education Patient Education: Gait Training, Transfer Techniques, Correct Positioning, Safety Issues Teaching Recipient: Patient Teaching Methods: Demonstration, Discussion Response to Teaching: Reinforcement Needed Time/GCodes Time In: 0800 Time Out: 0900 Total Billed Treatment Time: 60 Total Billed Treatment 1 visit EX 15' FA 10' GT 35' LAXMI MANDEL PT Jun 07, 2019 08:57
[2019-06-07] MEDS: UMECLIDINIUM BROMIDE (INCRUSE ELLIPTA) 7'S IH SCH (08:58)
[2019-06-07] MEDS: RT-ADVAIR HFA 115/21 MCG PER PUFF IH SCH ×2 (08:58→19:54)
[2019-06-07] MEDS: SERTRALINE 100 MG (ZOLOFT) TAB PO SCH (09:48)
[2019-06-07] MEDS: CYANOCOBALAMIN 1,000 MCG (VITAMIN B-12) TABLET PO SCH (09:48)
[2019-06-07] MEDS: MELOXICAM 7.5 MG (MOBIC) TABLET PO SCH ×2 (09:48→20:51)
[2019-06-07] MEDS: LOSARTAN 100 MG (COZAAR) TABLET PO SCH (09:48)
[2019-06-07] MEDS: PANTOPRAZOLE 20 MG TABLET (PROTONIX) PO SCH (09:48)
[2019-06-07] MEDS: ASPIRIN E.C. 81 MG (ECOTRIN) TAB PO SCH (09:49)
--- NOTE | 2019-06-07 10:00 | Progress Note - Hospitalist ---
[facility] 06/07/19 1000: Progress Note Mr. Cody had no acute issues overnight. Has no pain this morning Did have at least one episode of bladder incontinence overnight Spoke with SLT to perform a SLUMS eval - pending Was compliant with PT and OT this AM and doing well Continue to monitor from a neurocognitive standpoint ANGELIA ARCHULETA DO 06/07/19 2207: Supervisory-Addendum Brief Verification & Attestation Participated in pt care: history, MDM, physical Personally performed: exam, history, MDM, supervision of care Care discussed with: Medical Student Procedures: n/a Results interpretation: Verified all documentation Verification and Attestation of Medical Student E/M Service A medical student performed and documented this service in my presence. I reviewed and verified all information documented by the medical student and made modifications to such information, when appropriate. I personally performed the physical exam and medical decision making. Angelia Archuleta Jun 07, 2019,22:07 [facility] Jun 07, 2019 10:00 ANGELIA ARCHULETA DO Jun 07, 2019 22:07
--- NOTE | 2019-06-07 10:24 | Occupational Therapy Eval ---
OT Evaluation-General/PLF Medical Diagnosis Admission Date Jun 06, 2019 at 15:34 Medical Diagnosis: failed hardware right knee Onset Date: Jun 06, 2019 Therapy Diagnosis Therapy Diagnosis: impaired ADLs and Mobility Height/Weight Height (Feet): 6 Height (Inches): 0.00 Weight (Pounds): 240 Weight (Ounces): 0.0 Precautions Precautions/Isolations: Fall Prevention, Standard Precautions Safety Interventions: None Weight Bear Status Weight Bearing Restriction: Weight Bearing/Tolerated Location Restriction: R LE Referral Physician: Geremias Referral Reason: Activity Tolerance, Self Care, Evaluation/Treatment, Strengthening/ROM Medical History Pertinent Medical History: COPD, DM, HTN Current History Per H&P: "Mr Cody is a 79 y/o Male with PMH significant for COPD and HTN presents to Inpatient rehab following a R total knee revision surgery. He originally had bilateral knee replacements about 10 years ago, but he was experiencing increased pain and effusion over the last 3 months in the right knee. After multiple evaluations, he underwent right knee arthroplasty revision surgery on 06/04. He has had an uneventful course since surgery. He is currently reports no pain. He is able to ambulate with an fww without assist to the bathroom. 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 In planning for dispo, he lives alone and needs to traverse 6 steps to gain entry to his house. There are handrails on both sides. He also already has hand rails installed in the bathroom. He has 1 flight of stairs in his house, but rarely needs to use them. His main living quarters, bathroom and kitchen are all within about 50ft. " Reviewed History: Yes Social History Home: Single Level Current Living Status: Alone Entry Into Home: Stairs With Railing Steps Into Home: 6 Pt stated his grandson stays with him at night on occasion. ADL-Prior Level of Function Therapy Code Descriptions/Definitions Functional [place] Measure: 0=Not Assessed/NA 4=Minimal Assistance 1=Total Assistance 5=Supervision or Setup 2=Maximal Assistance 6=Modified [place] 3=Moderate Assistance 7=Complete [place] Therapy Quality Codes: 6 Independent with activity with or without an assistive device 5 Patient requires set up or clean up by helper. Patient completes activity by themselves 4 Supervision or touching assist (CGA). [place] provide cues , steadying assist 3 The helper provides less than half the effort to complete the activity 2 The helper provides more than half the effort to complete the activity 1 Dependent. The helper does all the effort to complete an activity 7 Patient refused to complete or attempt activity 9 The patient did not perform the activity before the current illness or injury 88 Not attempted due to Medical conditions or safety concerns Functional Abilities and Goals: Independent: Patient completed the activities by him/herself, with or without an assistive device, with no assistance from a helper. Needed Some Help: Patient needed partial assistance from another person to complete activities. Dependent: A helper completed the activities for the patient. Unknown: Not Applicable: ADL PLOF Comments Pt independent PLOF using no AD. Self Care: Independent Functional Cognition: Independent DME/Equipment: Bath Bench, Tub/Shower Occupation: [employer] [address] Self: Yes OT Current Status Subjective Pt sitting in recliner with ice pack on right knee at start of session. Pt denied having any pain throughout tx. Pt agreed to OT eval and tx focusing on ADLs. Mental Status/Objective Patient Orientation: Person, Place, Time, Situation Attachments: Polar Pack Current Glasses/Contacts: No Hearing Aids: No Dentures/Partials: No Hand Dominance: Right Upper Extremity ROM WFL, pt able to touch back of head and and flex BUE to approx. 160 degrees. Upper Extremity Coordination intact finger to nose test and opposition of thumb to all fingers. Upper Extremity Sensation intact light touch BUE Upper Extremity Strength BUE 4/5 all planes ADL-Treatment Eating (FIM): 7 (Pt able to open containers, bert food/drink to mouth.) Eating (QC): 6 Grooming (FIM): 4 (CGA standing at sink with walker. Pt able to brush teeth, wash face, wash hands.) Oral Hygiene (QC): 4 (CGA) Bathing (FIM): 5 (SBA during stand at GB. Pt able to wash feet using figure 4 method to cross legs.) Bathing Location: L Arm, R Arm, L Upper Leg, R Upper Leg, L Lower Leg (including foot), R Lower Leg (including foot), Chest, Abdomen, Buttocks, Perineal Area Shower/Bathe Self (QC): 4 (SBA) Upper Body Dressing (FIM): 5 (set up) Upper Body Dressing (QC): 5 Lower Body Dressing (FIM): 3 (Pt required assisting doffing BLE pant legs secondary to them sticking on recruiting internship socks, and assistance donning R shoe. Pt utilized figure 4 to cross legs during dressing. Pt completed 06/02, button up pants, underwear, socks, shoes.OT donned/doffed thigh high compression socks for pt) Lower Body Dressing (QC): 3 On/Off Footwear (QC): 3 Toileting (FIM): 4 (CGA during stand to for hygiene, pt able to complete 3/3) Toileting Hygiene (QC): 4 Transfers (B, C, W/C) (FIM): 4 (CGA sit to stand from recliner/toilet/SC) Toilet/Commode Transfer (FIM): 4 (CGA during transfer on/off toilet.) Toilet Transfer (QC): 4 Shower Transfer (FIM): 4 (CGA on/off shower chair using grab bars.) CGA during transfers between recliner/toilet/shower chair, pt used front wheel walker during ambulation to shower with CGA. Other Treatments Pt completed ADLs, returned to recliner and completed BUE X20 reps bicep curls with 2lb free weight to increase strength BUE. Pt upright in recliner, call light in reach and needs met at end of session, polar pack on R knee. Education OT Patient Education: Correct positioning, Energy conservation, Exercise program, Modified ADL techniques, Progress toward Goal/Update tx plan, Purpose of tx/functional activities, Transfer techniques Teaching Recipient: Patient Teaching Methods: Demonstration, Discussion Response to Teaching: Verbalize Understanding, Return Demonstration OT Short Term Goals Short Term Goals Time Frame: Jun 13, 2019 Grooming(FIM): 5 Bathing Location: Abdomen, Buttocks Lower Body Dressing(FIM): 5 Toileting(FIM): 5 Transfers (B,C,W/C) (FIM): 5 Toilet/Commode Transfer(FIM): 5 Shower Transfer(FIM): 5 1=Demonstrate adherence to instructed precautions during ADL tasks. 2=Patient will verbalize/demonstrate understanding of assistive devices/modifications for ADL. 3=Patient will improve strength/tolerance for activity to enable patient to perform ADL's. OT Cleaner And Presser Goals Cleaner And Presser Goals Time Frame: Jun 20, 2019 Groomin Oral Hygiene (QC): 6 Bathing(FIM): 6 Bathing Location: L Arm, R Arm, L Upper Leg, R Upper Leg, L Lower Leg (including foot), R Lower Leg (including foot), Chest, Abdomen, Buttocks, Perineal Area Shower/Bathe Self (QC): 6 Upper Body Dressing(FIM): 6 Upper Body Dressing (QC): 6 Lower Body Dressing(FIM): 6 Lower Body Dressing (QC): 6 On/Off Footwear (QC): 6 Toileting(FIM): 6 Toileting Hygiene (QC): 6 Transfers (B,C,W/C) (FIM): 6 Toilet/Commode Transfer(FIM): 6 Toilet/Commode Transfer (QC): 6 Shower Transfer(FIM): 6 Additional Goals: 1-Demonstrate ADL Tasks, 2-Verbalize Understanding, 3- ImproveStrength/Sotero 1=Demonstrate adherence to instructed precautions during ADL tasks. 2=Patient will verbalize/demonstrate understanding of assistive devices/modifications for ADL. 3=Patient will improve strength/tolerance for activity to enable patient to perform ADL's. OT Education/Plan Problem List/Assessment Assessment: Decreased Activ Tolerance, Decreased UE Strength, Impaired Funct Balance, Impaired I ADL's, Impaired Self-Care Skills Discharge Recommendations Plan/Recommendations: Continue POC Treatment Plan/Plan of Care Treatment,Training & Education: Yes Patient would benefit from OT for education, treatment and training to promote independence in ADL's, mobility, safety and/or upper extremity function for ADL's. Plan of Care: ADL Retraining, Functional Mobility, Group Exercise/Act as Ind, UE Funct Exercise/Act Treatment Duration: Jun 20, 2019 Frequency: At least 5 of 7 days/Wk (IRF) Estimated Hrs Per Day: 1 hour per day (60-90 min) Agreement: Yes Rehab Potential: Good Time/GCodes Start Time: 09:15 Stop Time: 10:15 Billed Treatment Time EVM 15 min, ADL 3 units 45min. 60 min total NILSON NEWBERRY OT Jun 07, 2019 10:24
[2019-06-07] MEDS: SENNA W/DOCUSATE (SENOKOT S) TABLET PO SCH ×2 (10:36→20:51)
[2019-06-07] MEDS: COLESTIPOL 1 GM (COLESTID) TAB PO SCH (10:36)
--- NOTE | 2019-06-07 10:40 | NUR ---
Pastoral care visit.
--- NOTE | 2019-06-07 13:16 | ST Cognitive Linguistic Eval ---
Speech Evaluation-General Medical Diagnosis failed hardware right knee Onset Date: Jun 06, 2019 Therapy Diagnosis Therapy Diagnosis: Cognitive-communication Precautions Precautions: Fall Precautions/Isolations: Fall Prevention, Standard Precautions Referral Referring Physician: Dr. Archuleta Reason for Referral: Evaluation/Treatment Medical History Pertinent Medical History: COPD, DM, HTN COPD, DM, HTN Current History Knee revision Reviewed History: Yes Social History Home: Single Level Current Living Status: Alone Speech PLF-Current Status Prior Level of Function Patient lived alone and was active with a [employer] service. He was independent for most of his daily needs with family support as well. Subjective The patient was pleasant and compliant with cognitive evaluation. Language Eval: Auditory Comprehends Simple Yes/No Ques: Functional Indent/Objects Multiple Stone: Functional Ident/Pics in Multiple Stone: Functional Follows 1-Step Commands: Mild Follows Complex Directions: Moderate Follows General Conversations: Mild Language Eval: Verbal Language Completes Spontaneous Greeting: Functional Produces Auto, Serial Info: Functional Imitates Simple Words/Phrases: Functional Word Finding: Functional Requests Basic Needs: Functional States Basic Personal Info: Functional Expresses Complex Ideas: Mild Cognitive Patient Orientation Patient is oriented to self and place Objective Cognitive Domain Attention: WNL Memory: Moderate Problem Solving: Moderate Executive Functions: Moderate Visuospatial Skills: Moderate Composite Severity Rating: Moderate Clock Drawing Severity Rating: Moderate Score: 9/30 Range: Moderate/dementia Objective Formal/Standardized Tests [facility] Mental Status ([facility]) Results The patient scored 9/30 on the [facility], moderate/dementia range of function. Oral Motor/Speech Production Within Functional Limits Impression The patient is a 79 year old man who was admitted to the ARU s/p knee revision. The patient has been noted to be non-compliant and demanding at time with other staff. The patient completed the SLUMS in his room for determining his current level of cognitive function. Results indicated he has moderate level of deficit with noted areas to be short term memory and problem solving. Patient is recommended to receive skilled ST to focus on these areas as related to his personal safety awareness and independence. Communication/Social Cognition Comprehension: 5 Expression: 6 Social Interaction: 4 Problem Solvin Memory: 3 Speech Patient Assess Expression of Ideas/Wants: Exhibits (3) Understanding Verbal Content: Usually Understands (3) Brief Interview-Mental Status: Yes Repetition of Three Words: Three (3) Temporal Orientation: Year: Correct (3) Temporal Orientation: Month: Accurate within 5 days(2) Temporal Orientation: Day: Correct (1) Recall : Wear to say "Sock": No, could not recall (0) Recall : Color: No, could not recall (0) Recall : Bed: No, could not recall (0) Add-Enter 99 if pt cannot comp: 99 Memory/Recall Ability: Current season, That he or she is in a hsp/hsp unit Speech Short Term Goals Short Term Goals Short Term Goals 1) The patient will complete memory tasks related to his daily needs at 80% or greater with minimal cues. 2) The patient will complete problem solving tasks related to his daily needs at 80% or greater with minimal cues. 3) The patient will complete safety awareness tasks related to his daily needs at 80% or greater with minimal cues. Speech Residential Goals Destination Specialist Goals The patient will improve his safety awareness and independence to maximize his potential for meeting his daily needs. Speech-Plan Patient/Family Goals Patient/Family Goals: The patient plans on returning to his home with family support post rehab. Treatment Plan Speech Therapy Treatment Plan: Continue Plan of Care The patient will receive skilled ST services for improving his level of cognitive function. Treatment Duration: Jun 14, 2019 Frequency: 5 times per week Estimated Hrs Per Day: .5 hour per day Rehab Potential: Good Barriers to Learning: Patient has moderate deficits related to his cognitive function Pt/Family Agrees to Plan: Yes Safety Risks/Education Teaching Recipient: Patient Teaching Methods: Discussion Response to Teaching: Verbalize Understanding Education Topics Provided: Safety within his room and communication of his wants/needs Time Speech Therapy Time In: 09:00 Speech Therapy Time Out: 09:15 Total Billed Time: 15 Billed Treatment Time 1, KHUSHI Yi Jun 07, 2019 13:15
--- NOTE | 2019-06-07 13:35 | NUR ---
Pt refused breakfast & lunch. Pt stated that he, "doesn't eat breakfast; only drinks coffee & refused anything for lunch. Placed Auto tray so that pt wouldn't miss the opportunity to eat.
--- NOTE | 2019-06-07 14:53 | NUR ---
Pt inct of lg amt urine onto floor after group therapy, Assisted to room & to clean up, change clothes
--- NOTE | 2019-06-07 15:06 | Therapy Group Daily Note ---
Therapy Daily Group Note Patient Education Topic Other List Below (pain, ARU description) Exercises Stretching Session Ratio (pt:therapist): 4:1 Goal of Session: Education on ARU Expectations, Other (list) (pain management) Goal Met for this Session: Yes Pt Benefit of Group: Contributions to Others, F/U Use of Strategies @Home, Improved Cognition, Recognition of Peers, Socialization Other/Notes Pt [facility]PT group. Group consisted introductions (name, place living, attributes of self), socialization, UE/LE seated stretching, ARU description and education on pain management. Pt introduced self appropriately and actively listened to peers. Pt contributed to conversations throughout group and initiated conversations. Pt was able to complete UE/LE stretching. Pt acknowledged understanding of educational topics by gestures and verbally. After therapy, pt lying in bed with call light/phone in reach. All needs met in room. Start Time: 13:00 Stop Time: 14:20 Total Billed Treatment Time: 80 Total Billed Treatment 1-GRP DESHUAN ESQUIVEL Jun 07, 2019 15:06
[2019-06-07 16:47] VITALS: BP 123/64
--- NOTE | 2019-06-07 18:22 | Consultation ---
History of Present Illness History of Present Illness Patient Consulted On(drew/time) 06/07/19 18:14 Date Seen by Provider: Jun 07, 2019 Time Seen by Provider: 11:30 History of Present Illness This is a 79 year old male who underwent a right total knee revision by Dr. Denis earlier this week. According to the notes he has shown some anger issues since admission which is out of character for him. He does report urinary frequency. States his pain is well controlled. Allergies and Home Medications Allergies Coded Allergies: NKANo Known Allergies (Unverified Allergy, Unknown, 09/19/06) Home Medications Aspirin 81 Mg Tablet.dr, 81 MG PO DAILY, (Reported) Atorvastatin Calcium 10 Mg Tablet, 10 MG PO HS, (Reported) Colestipol HCl 1 Gm Tablet, 1 GM PO DAILY, (Reported) Cyanocobalamin (Vitamin B-12) 1,000 Mcg Tablet, 1,000 MCG PO DAILY, (Reported) Fluticasone/Salmeterol 1 Each Blst.w.dev, 1 PUFF IH BID, (Reported) Losartan Potassium 100 Mg Tablet, 100 MG PO DAILY, (Reported) Melatonin 3 Mg Tablet, 6 MG PO HS, (Reported) Omeprazole 20 Mg Capsule.dr, 20 MG PO DAILY, (Reported) Sertraline HCl 100 Mg Tablet, 100 MG PO DAILY, (Reported) Umeclidinium [place] 62.5 Mcg Blst.w.dev, 1 PUFF IH DAILY, (Reported) Patient Home Medication List Home Medication List Reviewed: Yes Past Lsubqdf-Rnyhrq-Uwjfaw Hx Past Med/Social Hx: Reviewed Nursing Past Med/Soc Hx, Reviewed and Corrections made Patient Social History Alcohol Use: Past History Recreational Drug Use: No Smoking Status: Former Smoker Type Used: Cigarettes Former Smoker, Quit: Jun 12, 1980 2nd Hand Smoke Exposure: No Recent Foreign Travel: No Contact w/Someone Who Travel: No Recent Infectious Disease Expo: No Recent Hopitalizations: Yes Immunizations Up To Date Tetanus Booster (TDap): Less than 5yrs PED Vaccines UTD: No Date of Pneumonia Vaccine: Aug 15, 2011 Date of Influenza Vaccine: Jul 25, 2016 Seasonal Allergies Seasonal Allergies: No Past Medical History Surgeries: Yes (BILAT KNEE REPLACEMENTS, right ankle surg, RT HAND CARPAL TUNNEL ) Orthopedic Respiratory: Yes (quit smoking 40yrs. ago) Asthma, COPD Cardiac: Yes (see's Dr. Miner) Hypertension, Hypotension Neurological: Yes Vertigo Reproductive Disorders: No Sexually Transmitted Disease: No HIV/AIDS: No Genitourinary: No Renal Failure Gastrointestinal: Yes Gastroesophageal Reflux Musculoskeletal: Yes (ROSY. TKR) Arthritis Endocrine: Yes Diabetes, Non-Insulin dep HEENT: Yes Cataract Loss of Vision: Denies Hearing Impairment: Denies Cancer: No Psychosocial: Yes Depression Integumentary: No Blood Disorders: No Adverse Reaction/Blood Tranf: No Family Medical History Alcoholism 09 SISTER Family history: Asthma 09 SISTER Family history: Cardiovascular disease 03 FATHER Family history: Diabetes mellitus 03 MOTHER 09 SISTER Heart disease 03 FATHER Myocardial infarction 03 FATHER Stroke 03 FATHER No Family History of: Abdominal aortic aneurysm [place]'s disease Aphasia Cancer Cancer of colon Cataract Chest pain Congenital heart disease Congestive heart failure Cystic fibrosis Dementia Dysphagia Family history: Allergy Family history: Alzheimer's disease Family history: Arthritis Family history: Breast disease Family history: Gastrointestinal disease Family history: Glaucoma Family history: Hypertension Family history: Osteoporosis Family history: Thyroid disorder Headache Hearing loss History of - anemia History of - disorder History of - respiratory disease History of drug abuse Human immunodeficiency virus (HIV) seropositivity Hypercholesterolemia Infertile Kidney disease Malignant neoplasm of lung Parkinson's disease Prostate cancer Psychotic disorder Seizure disorder Tuberculosis Visual impairment Review of Systems-General Constitutional: weakness EENTM: No see HPI, No no symptoms reported, No ear discharge, No hearing loss, No ear pain, No blurred vision, No double vision, No eye pain, No tearing, No vision loss, No dental problems, No hoarseness, No mouth pain, No mouth swelling, No epistaxis, No nose congestion, No nose pain, No throat pain, No throat swelling, No other Respiratory: No no symptoms reported, No see HPI, No cough, No dyspnea on exertion, No hemoptysis, No orthopnea, No phlegm, No short of breath, No stridor, No wheezing, No other Cardiovascular: No no symptoms reported, No see HPI, No chest pain, No edema, No Hx of Intervention, No palpitations, No syncope, No vascular heart diseas, No other Gastrointestinal: No RUQ, No LUQ, No RLQ, No LLQ, No no symptoms reported, No see HPI, No abdominal pain, No constipation, No diarrhea, No dysphagia, No hematemesis, No heartburn, No jaundice, No loss of appetite, No melena, No nausea, No vomiting, No other Genitourinary: frequency, nocturia Musculoskeletal: joint pain (right hip) Psychiatric/Neurological: Other (anger) Physical Exam-General Problems Physical Exam Vital Signs Vital Signs - First Documented 06/06/19 06/07/19 16:59 05:52 Temp 98.8 Pulse 69 Resp 18 B/P (MAP) 137/68 (91) Pulse Ox 96 O2 Delivery Room Air Capillary Refill : General Appearance: no apparent distress HEENT: normal ENT inspection Neck: supple Respiratory: lungs clear Cardiovascular: regular rate, rhythm Gastrointestinal: normal bowel sounds, non tender, soft Rectal: deferred Back: no CVA tenderness Extremities: non-tender, normal inspection, no pedal edema, other (right knee with cooling machine in place) Neurologic/Psychiatric: alert, oriented x 3 Skin: warm/dry Assessment/Plan Assessment/Plan Admission Diagnosis/Plan 1. S/P Right Total Knee Revision--pain controlled and is doing well with therapies, patient lives with his daughter but she works during the day--he states the plan is that his granddaughter will come and check on him when he goes home 2. Hypertension--home meds restarted 3. Urinary Frequency--possible retention--check UA and start urecholine 4. Anger--history of depression--may be from recent anesthesia vs infection vs pain meds playing a role as this is not the normal character for this patient 5. COPD--lungs clear Clinical Quality Measures DVT/VTE Risk/Contraindication: Risk Factor Score Per Nursin RFS Level Per Nursing on Admit: 4+=Very High ENRRIQUE JALLOH DO Jun 07, 2019 18:21
[2019-06-07] MEDS ORDERED: BETHANECHOL 10 MG (URECHOLINE) TAB PO NR (18:30)
[2019-06-07 19:56] LABS: BILIRUBIN,URINE NEGATIVE (NEGATIVE); CLARITY,URINE CLEAR; COLOR,URINE YELLOW; GLUCOSE, URINE (UA) NEGATIVE (NEGATIVE); KETONES,URINE NEGATIVE (NEGATIVE); LEUKOCYTE ESTERASE ,URINE 1+ (NEGATIVE); NITRITE,URINE NEGATIVE (NEGATIVE); PH,URINE 6.5 (5-9); PROTEIN,URINE 1+ (NEGATIVE); UROBILINOGEN,URINE NORMAL (NORMAL)
[2019-06-07 20:18] LABS: BACTERIA,URINE TRACE /HPF; WBC,URINE RARE /HPF
[2019-06-07] MEDS: ATORVASTATIN 10 MG (LIPITOR) TABLET PO SCH (20:51)
[2019-06-07] MEDS: BETHANECHOL 10 MG (URECHOLINE) TAB PO SCH (20:52)
--- NOTE | 2019-06-07 22:04 | Individualized Plan of Care ---
Individualized Plan of Care Rehab Nursing IPOC Order Admission Date Jun 06, 2019 at 15:34 Current Orders Orders Admission Order(Inpt,Obs,Sdc) (06/06/19 10:41) Vital Signs: Per Unit Policy ( ,16,00 (06/06/19 10:41) Ordering Box Operator-Inpt Rehab Con (06/06/19 10:41) Rehab Nursing Orders-Ipoc (06/06/19 10:41) Physical Therapy Rehab Orders (06/06/19 10:41) Occupational Therapy Rehab Ord (06/06/19 10:41) Speech Therapy Rehab Orders (06/06/19 10:41) General/Regular (06/06/19 Dinner) Intake & Output 06,14,22 (06/06/19 10:41) Precautions (Aru) (06/06/19 10:41) Weekly Weight (Lbs) WEEK (06/06/19 10:41) Rehab-Intensity Of Therapy (06/06/19 10:41) Initiate Admission Nursing Pro .admission (06/06/19 10:41) Consult Family Medicine (06/06/19 10:44) Patient Visit (06/06/19 ) Pt Eval Moderate Complexity (06/06/19 ) Functional Activities, Ea 15 (06/06/19 ) Aspirin Enteric Coated Tablet (Ecotrin T (06/07/19 09:00) Atorvastatin Tablet (Lipitor Tablet) (06/06/19 21:00) Colestipol Tablet (Colestid Tablet) (06/07/19 09:00) Cyanocobalamin Tablet (Vitamin B-12 Tabl (06/07/19 09:00) Losartan Tablet (Cozaar Tablet) (06/07/19 09:00) Meloxicam Tablet (Mobic Tablet) (06/06/19 20:15) Sertraline Tablet (Zoloft Tablet) (06/07/19 09:00) Tramadol Tablet (Ultram Tablet) (06/06/19 20:15) Umeclidinium [place] Inhaler (Incruse El (06/07/19 09:00) Hydrocodone/Apap 5/325 Tablet (Lortab 5 (06/06/19 20:30) Melatonin Tablet (Melatonin Tablet) (06/06/19 21:00) Pantoprazole Tablet (Protonix Tablet) (06/07/19 09:00) Fluticasone/Salmeterol Common (Advair 11 (06/07/19 08:00) Cbc With Automated Diff (06/07/19 06:00) Comprehensive Metabolic Panel (06/07/19 06:00) Acetaminophen Tablet (Tylenol Tablet) (06/06/19 22:15) Alprazolam Tablet (Xanax Tablet) (06/06/19 22:15) Calcium Carbonate Chew Tablet (Antacid C (06/06/19 22:15) Diphenhydramine Tablet (Benadryl Tablet) (06/06/19 22:15) Docusate Sodium Capsule (Colace Capsule) (06/06/19 22:15) Loperamide Tablet (Imodium Tablet) (06/06/19 22:15) Melatonin Tablet (Melatonin Tablet) (06/06/19 22:15) Ondansetron Oral Dissolve Tab (Zofran (06/06/19 22:15) Senna S Tablet (Senokot S Tablet) (06/07/19 09:00) Automatic Tray (06/07/19 13:34) Patient Visit (06/07/19 ) Exercise Therap, Ea 15 Min (06/07/19 ) Functional Activities, Ea 15 (06/07/19 ) Gait Training, Ea 15 Min (06/07/19 ) Patient Visit (06/07/19 ) Patient Visit (06/07/19 ) Speech Sound Lang Comp (06/07/19 ) Ua Culture If Indicated (06/07/19 19:40) Bethanechol Tablet (Urecholine Tablet) (06/07/19 21:00) Bethanechol Tablet (Urecholine Tablet) (06/07/19 18:30) Patient Visit (06/08/19 ) Gait Training, Ea 15 Min (06/08/19 ) Exercise Therap, Ea 15 Min (06/08/19 ) Functional Activities, Ea 15 (06/08/19 ) Rehab Nursing Orders: Ongoing Assess. of Cognitive Status, Ongoing Assess. of Function Status, Bladder Training, Bowel Management, Disease Management & Educaiton, Fluid/Electrolyte/Nutrition Mgmt, Infection Prevention, Medication Management & Education, Management of Risks & Complications, Management of Skin Intergrity, Nutrition Management, Pain Management, Patient/Family Support, Safety Management Intensity of Therapy to be met Patient to be seen: Min.3h per day/5 of 7d PT IPOC Problem List: Activity Tolerance, Functional Strength, Safety, Balance, Gait, Transfer, Bed Mobility, ROM Treatment Plan: Continue Plan of Care Bed Mobility, Education, Functional Activity Sotero, Functional Strength, Group Therapy, Gait, Safety, Therapeutic Exercise, Transfers Treatment Duration: Jun 20, 2019 Frequency: At least 5 of 7 days/Wk (IRF) Estimated Hrs Per Day: 1.5 hours per day OT IPOC Problems: Decreased Activ Tolerance, Decreased UE Strength, Impaired Funct Balance, Impaired I ADL's, Impaired Self-Care Skills OT Treatment, Training and Edu: Yes Plan of Care: ADL Retraining, Functional Mobility, Group Exercise/Act as Ind, UE Funct Exercise/Act Treatment Duration: Jun 20, 2019 Frequency: At least 5 of 7 days/Wk (IRF) Estimated Hrs Per Day: 1 hour per day (60-90 min) ST IPOC Speech Therapy Treatment Plan: Continue Plan of Care Treatment Duration: Jun 14, 2019 Frequency: 5 times per week Estimated Hrs Per Day: .5 hour per day Ordering Box Operator/Case Mgmt Ordering Box Operator/Case Managemen: Discharge Planning Dietitian/Medical Doctor Md Dietitian/Medical Doctor Md to monitor nutritional status and make changes and/or recommendations as needed and work with speech pathology on dietary upgrades as the occur. Physician IPOC Medical Issues being managed closely and that require the 24 hour availability of a physician: Delirium noted and fall risk increased will require close monitoring while regaining strength in order to return home Medical Issues: Bowel/Bladder Function, DVT Prophylaxis, Falls Precautions, Fluid/Electrolyte/Nutrition Balance, Pain Management Brief Synthesis of Preadmission Screen, Post-Admission Evaluation, and Therapy Evaluations: PT will pursue ambulation with assistive devices to prevent falls since he is impulsive OT will work to regain independent ADL's Medical Prognosis: Good Anticipated Length of Stay: 7 days ANA VÁZQUEZ DO Jun 07, 2019 22:04
[2019-06-08 05:50] VITALS: BP 162/74
[2019-06-08] MEDS: BETHANECHOL 10 MG (URECHOLINE) TAB PO SCH ×4 (06:12→20:38)
[2019-06-08] MEDS: UMECLIDINIUM BROMIDE (INCRUSE ELLIPTA) 7'S IH SCH (08:16)
[2019-06-08] MEDS: RT-ADVAIR HFA 115/21 MCG PER PUFF IH SCH ×2 (08:16→19:54)
[2019-06-08] MEDS: CYANOCOBALAMIN 1,000 MCG (VITAMIN B-12) TABLET PO SCH (09:49)
[2019-06-08] MEDS: SENNA W/DOCUSATE (SENOKOT S) TABLET PO SCH ×2 (09:50→20:38)
[2019-06-08] MEDS: ASPIRIN E.C. 81 MG (ECOTRIN) TAB PO SCH (09:50)
[2019-06-08] MEDS: SERTRALINE 100 MG (ZOLOFT) TAB PO SCH (09:50)
[2019-06-08] MEDS: LOSARTAN 100 MG (COZAAR) TABLET PO SCH (09:50)
[2019-06-08] MEDS: MELOXICAM 7.5 MG (MOBIC) TABLET PO SCH ×2 (09:50→20:38)
[2019-06-08] MEDS: PANTOPRAZOLE 20 MG TABLET (PROTONIX) PO SCH (09:50)
--- NOTE | 2019-06-08 11:18 | Physical Therapy Daily Note ---
PT Daily Note-Current Subjective Pt reports that he wants to go home, agreeable to PT session. present and discussed with pt. Pain Numeric Pain Scale: 0-No Pain Comment: increases some with stretches Appearance Pt sitting up in chair upon arrival, awake and alert. Pt sitting in commons area, per pt request, at end of session, nsg present Mental Status Patient Orientation: Person, Place, Eyes Open, Situation Transfers Therapy Code Descriptions/Definitions Functional [place] Measure: 0=Not Assessed/NA 4=Minimal Assistance 1=Total Assistance 5=Supervision or Setup 2=Maximal Assistance 6=Modified [place] 3=Moderate Assistance 7=Complete [place] Therapy Quality Codes: 6 Independent with activity with or without an assistive device 5 Patient requires set up or clean up by helper. Patient completes activity by themselves 4 Supervision or touching assist (CGA). [place] provide cues , steadying assist 3 The helper provides less than half the effort to complete the activity 2 The helper provides more than half the effort to complete the activity 1 Dependent. The helper does all the effort to complete an activity 7 Patient refused to complete or attempt activity 9 The patient did not perform the activity before the current illness or injury 88 Not attempted due to Medical conditions or safety concerns Transfers (B, C, W/C) (FIM): 5 Scootin Rollin Supine to/from Sit: 6 Sit to/from Stand: 6 Car Transfer (QC): 5 (SBA, min inst) Pt demonstrates safety with all transitions, correct hand placement Weight Bearing Right Lower Extremity: Right Weight Bearing/Tolerated Left Lower Extremity: Left Full Weight Bearing Gait Training Does the Patient Walk?: Yes Gait (FIM): 5 Distance (FIM): 3=150 ft Distance: 550, 300 x2 Gait Level of Assist: 5 Gait Persons Needed: 1 Gait Assistive Device: FWW steady, antalgic, able to maneuver around furniture in dining room without difficulty Stair Training Stair Training: Handrails/: 2 handrails Stairs (FIM): 4 #of Steps: 12 Stairs: Pattern: Step to (step to descending, reciprocal ascending) Level of Assist: 4 (CGA to SBA provided, verb inst for technique) Exercises Supine Ex: Ankle pumps, Quad Set, Rolling, Heel Slides, Straight leg raise, Hip abd/add Seated Therapy Exercises: Ankle pumps, Sit to stand, Long arc quads, Hip flexion, Kicking activity Seated Reps: 10 (knee flex and ext stretches) Standing: Hamstring curls, Heel/toe raises (on airex to increase difficulty), Marching (on airex to increase difficulty), Mini squats (on airex to increase difficulty), Retro gait, Sit to Stand, Side steps, Step-ups, Stepping over objects, Unilateral stance Standing Reps: 20 (knee flex/ext stretches at stairs, sit to from stand no UE support LLE fwd to increase use of RLE) NuStep Minutes: 15 NuStep Workload: 5 (moved seat fwd after 10 minutes to increase bend in R knee for improved flexibility) Treatments safety, transfers, education, gait, stairs, balance, strength, ROM, functional mobility, toileting, don/doff clothing, activity tolerance Assessment Current Status: Good Progress PT Short Term Goals Short Term Goals Time Frame: Jun 13, 2019 Transfers (B,C,W/C) (FIM): 5 Gait (FIM): 5 PT Prison Goals Packager Hand Goals PT Packager Hand Goals Time Frame: Jun 20, 2019 Transfers (B,C,W/C) (FIM): 7 Sit to Lying (QC): 6 Lying-Sitting on Side/Bed(QC): 6 Sit to Stand (QC): 6 Roll Left to Right (QC): 6 Chair/Bvp-cy-Uriwn Xfer(QC): 6 Car Transfer (QC): 6 Does the Patient Walk: Yes Gait (FIM): 6 Gait distance (FIM): 3=150 ft Walk 10 feet (QC): 6 Walk 10ft-Uneven Surface(QC): 6 Walk 50ft with 2 Turns (QC): 6 Walk 150 ft (QC): 6 Gait Assistive Device: FWW Does the Pt use WC or Scooter?: No Stairs (FIM): 5 # of Steps: 4 (household level) 1 Step (curb) (QC): 6 4 Steps (QC): 6 12 Steps (QC): 88 Picking up an Object (QC): 5 PT Plan Treatment/Plan Treatment Plan: Continue Plan of Care Treatment Plan: Bed Mobility, Education, Functional Activity Sotero, Functional Strength, Group Therapy, Gait, Safety, Therapeutic Exercise, Transfers Treatment Duration: Jun 20, 2019 Frequency: At least 5 of 7 days/Wk (IRF) Estimated Hrs Per Day: 1.5 hours per day Patient and/or Family Agrees t: Yes Safety Risks/Education Patient Education: Gait Training, Transfer Techniques, Steps, Disease Process, Safety Issues Teaching Recipient: Patient Teaching Methods: Demonstration, Discussion Response to Teaching: Verbalize Understanding, Return Demonstration Time/GCodes Time In: 1045 Time Out: 1215 Total Billed Treatment Time: 90 Total Billed Treatment 1 visit, GT x3 units, EX x2 units, FA x1 unit OZ BAKER INSTRUCTIONAL DESIGN SPECIALIST Jun 08, 2019 11:18
--- NOTE | 2019-06-08 11:21 | Occupational Ther Daily Note ---
OT Current Status-Daily Note Subjective No pain reported. Appearance Pt. is sitting up in chair. Agrees to work with OT. Mental Status/Objective Patient Orientation: Person, Place, Time, Situation Therapy Code Descriptions/Definitions Functional [place] Measure: 0=Not Assessed/NA 4=Minimal Assistance 1=Total Assistance 5=Supervision or Setup 2=Maximal Assistance 6=Modified [place] 3=Moderate Assistance 7=Complete [place] ADL-Treatment Therapy Code Descriptions/Definitions Functional [place] Measure: 0=Not Assessed/NA 4=Minimal Assistance 1=Total Assistance 5=Supervision or Setup 2=Maximal Assistance 6=Modified [place] 3=Moderate Assistance 7=Complete [place] Therapy Quality Codes: 6 Independent with activity with or without an assistive device 5 Patient requires set up or clean up by helper. Patient completes activity by themselves 4 Supervision or touching assist (CGA). [place] provide cues , steadying assist 3 The helper provides less than half the effort to complete the activity 2 The helper provides more than half the effort to complete the activity 1 Dependent. The helper does all the effort to complete an activity 7 Patient refused to complete or attempt activity 9 The patient did not perform the activity before the current illness or injury 88 Not attempted due to Medical conditions or safety concerns Eating (FIM): 7 Eating (QC): 6 Lower Body Dressing (FIM): 7 Lower Body Dressing (QC): 6 On/Off Footwear (QC): 6 Toileting (FIM): 6 Toileting Hygiene (QC): 6 Transfers (B, C, W/C) (FIM): 5 (SBA with walker) Toilet/Commode Transfer (FIM): 5 Toilet Transfer (QC): 4 Other Treatment Pt. declines showering stating that he showered yesterday. Agreed to don pants and slipper socks. Able to do this by bringing right foot up to him in sitting. No AE needed and no pain reported. Ambulated with SBA to therapy gym. Tolerated 15 minutes on armbike at mod resistance to increase overall strength/endurance, and donned 1 lb. wrist weights to complete reaching task with therapy pegs. Talked with pt. about safety at home. Pt. verbalizes that he has all the needed equipment as he had knee replacements 10 years ago. Pt also has equipment from his spouse. Pt. taken to therapy kitchen and practiced getting items out of high cabinets and refridgerator. Verbalizes that he doesnt use lower cabinets at home. Pt. able to do this with SBA. Pt. shown walker basket and educated on where to get it, and how to use it for safety. Pt. verbalizes that he will likely get one. All needs met back in room. Education OT Patient Education: Correct positioning, Exercise program, Modified ADL techniques, Progress toward Goal/Update tx plan, Purpose of tx/functional acti vities, Reviewed precautions, Rehab process, Transfer techniques Teaching Recipient: Patient Teaching Methods: Demonstration, Discussion Response to Teaching: Verbalize Understanding, Return Demonstration OT Short Term Goals Short Term Goals Time Frame: Jun 13, 2019 Grooming(FIM): 5 Bathing Location: Abdomen, Buttocks Lower Body Dressing(FIM): 5 Toileting(FIM): 5 Transfers (B,C,W/C) (FIM): 5 Toilet/Commode Transfer(FIM): 5 Shower Transfer(FIM): 5 1=Demonstrate adherence to instructed precautions during ADL tasks. 2=Patient will verbalize/demonstrate understanding of assistive devices/modifications for ADL. 3=Patient will improve strength/tolerance for activity to enable patient to perform ADL's. OT Ob Gyn Goals Ob Gyn Goals Time Frame: Jun 20, 2019 Groomin Oral Hygiene (QC): 6 Bathing(FIM): 6 Bathing Location: L Arm, R Arm, L Upper Leg, R Upper Leg, L Lower Leg (including foot), R Lower Leg (including foot), Chest, Abdomen, Buttocks, Perineal Area Shower/Bathe Self (QC): 6 Upper Body Dressing(FIM): 6 Upper Body Dressing (QC): 6 Lower Body Dressing(FIM): 6 Lower Body Dressing (QC): 6 On/Off Footwear (QC): 6 Toileting(FIM): 6 Toileting Hygiene (QC): 6 Transfers (B,C,W/C) (FIM): 6 Toilet/Commode Transfer(FIM): 6 Toilet/Commode Transfer (QC): 6 Shower Transfer(FIM): 6 Additional Goals: 1-Demonstrate ADL Tasks, 2-Verbalize Understanding, 3- ImproveStrength/[place] 1=Demonstrate adherence to instructed precautions during ADL tasks. 2=Patient will verbalize/demonstrate understanding of assistive devices/modifications for ADL. 3=Patient will improve strength/tolerance for activity to enable patient to perform ADL's. OT Education/Plan Problem List/Assessment Assessment: Decreased Activ Tolerance Discharge Recommendations Plan/Recommendations: Continue POC Therapy D/C Recommendations: Home w/ Family Support Equpiment Recommendations-D/C: Walker Bag or Basket Treatment Plan/Plan of Care Treatment,Training & Education: Yes Patient would benefit from OT for education, treatment and training to promote independence in ADL's, mobility, safety and/or upper extremity function for ADL's. Plan of Care: ADL Retraining, Functional Mobility, Group Exercise/Act as Ind, UE Funct Exercise/Act Treatment Duration: Jun 20, 2019 Frequency: At least 5 of 7 days/Wk (IRF) Estimated Hrs Per Day: 1.5 hours per day Agreement: Yes Rehab Potential: Good Time/GCodes Start Time: 08:20 Stop Time: 09:50 Total Time Billed (hr/min): 90 Billed Treatment Time 1, ADL x 45minutes, Ex x 15minutes, FA x 30minutes VAL ROSSI OT Jun 08, 2019 11:20
--- NOTE | 2019-06-08 11:48 | PM&R Progress Note ---
Subjective HPI/CC On Admission Date Seen by Provider: Jun 08, 2019 Time Seen by Provider: 11:00 CC: s/p right knee replacement uncomplicated per Dr Mancia at [place] POD # 2 HPI: Mr Cody is a 79 y/o Male with PMH significant for COPD and HTN presents to Inpatient rehab following a R total knee revision surgery. He originally had bilateral knee replacements about 10 years ago, but he was experiencing increased pain and effusion over the last 3 months in the right knee. After multiple evaluations, he underwent right knee arthroplasty revision surgery on 06/04. He has had an uneventful course since surgery. He is currently reports no pain. He is able to ambulate with an fww without assist to the bathroom. 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 In planning for dispo, he lives alone and needs to traverse 6 steps to gain entry to his house. There are handrails on both sides. He also already has hand rails installed in the bathroom. He has 1 flight of stairs in his house, but rarely needs to use them. His main living quarters, bathroom and kitchen are all within about 50ft. (This note by Kirit Kelley [facility]) Patient was seen and examined and reviewed prior records and notified primary care provider Dr. Ca of admission. Patient constantly asking when he can go home and he is ready to go home and ready to continue mowing his lawn's of which his grandson is covering that duty right now Patient with a very difficult personality to manage very demanding with this examiner and disrespectful and yelling at me to come back in the room so we will need to evaluate this and if this is not a good match will continue to be supportive see what his needs are and discharge home if that is a reasonable plan. Subjective/Events-last exam Patient much more reasonable and no longer aggressive and rude to me Dementia is a significant issue here and certainly could slow recovery and that still remains but likely component of delirium and likely the SLUM repeat will be higher likely 13 Dressing looks okay from surgery, no drainage Uses CPM machine regularly Bowel movement + Monitor closely Conferred with RN Reviewed therapy notes Pain is controlled Review of Systems Musculoskeletal: leg pain Objective Exam Vital Signs Vital Signs Date Time Temp Pulse Resp B/P (MAP) Pulse Ox O2 Delivery O2 Flow Rate FiO2 06/08/19 09:00 Room Air 06/08/19 08:16 92 06/08/19 05:50 99.6 71 20 162/74 (103) 06/07/19 08:54 Capillary Refill : General Appearance: No Apparent Distress, WD/WN, Chronically ill, Obese HEENT: PERRL/EOMI, Normal ENT Inspection, Pharynx Normal Neck: Full Range of Motion, Non Tender Respiratory: Chest Non Tender, Lungs Clear, Normal Breath Sounds, No Accessory Muscle Use, No Respiratory Distress, Wheezing Cardiovascular: Regular Rate, Rhythm, No Edema, No Gallop, No JVD, No Murmur, Normal Peripheral Pulses Gastrointestinal: Normal Bowel Sounds, No Pulsatile Mass, Non Tender, Soft Rectal: Deferred Back: No Vertebral Tenderness Extremity: Normal Capillary Refill, Normal Inspection, Normal Range of Motion (except right leg from surgery), Non Tender, No Calf Tenderness, Other (Right knee reduced AROM and PROM) Neurologic/Psychiatric: Alert, Oriented x3, No Motor/Sensory Deficits, Normal Mood/Affect, Disoriented Skin: Normal Color Lymphatic: No Adenopathy Results/Procedures Lab Patient resulted labs reviewed. FIM Transfers Therapy Code Descriptions/Definitions Functional [place] Measure: 0=Not Assessed/NA 4=Minimal Assistance 1=Total Assistance 5=Supervision or Setup 2=Maximal Assistance 6=Modified [place] 3=Moderate Assistance 7=Complete [place] Therapy Quality Codes: 6 Independent with activity with or without an assistive device 5 Patient requires set up or clean up by helper. Patient completes activity by themselves 4 Supervision or touching assist (CGA). [place] provide cues , steadying assist 3 The helper provides less than half the effort to complete the activity 2 The helper provides more than half the effort to complete the activity 1 Dependent. The helper does all the effort to complete an activity 7 Patient refused to complete or attempt activity 9 The patient did not perform the activity before the current illness or injury 88 Not attempted due to Medical conditions or safety concerns Transfers (B, C, W/C) (FIM): 5 (SBA with walker) Scootin Rollin Roll Left to Right (QC): 4 Supine to/from Sit: 6 Sit to/from Stand: 6 Sit to Lying (QC): 4 Sit to Stand (QC): 4 (min assist to come to astand. ) Chair/Dhp-kd-Aduyu Xfer(QC): 4 (CGA for safety) Bed to/from Chair: 5 Car Transfer (QC): 4 (CGA for safety) Gait Training Does the Patient Walk?: Yes Gait (FIM): 5 Distance (FIM): 3=150 ft Distance: 550, 300 Walk 10 feet (QC): 4 Walk 50 ft with 2 Turns(QC): 4 Walk 150 ft (QC): 4 Walking 10ft/uneven surface-QC: 4 Gait Level of Assist: 5 Gait Persons Needed: 1 Gait Assistive Device: FWW Wheelchair Training Does the Pt Use a Wheelchair?: No Stair Training Stair Training: Handrails/: 2 handrails Stairs (FIM): 4 #of Steps: 12 1 Step (curb) (QC): 4 (CGA with cues for sequencing.) 4 Steps (QC): 88 12 Steps (QC): 88 Stairs: Pattern: Step to (step to descending, reciprocal ascending) Level of Assist: 4 (CGA to SBA provided, verb inst for technique) Balance Picking up an Object (QC): 88 Mental Status/Objective Comprehension: 5 Expression: 6 Social Interaction: 4 Problem Solvin Memory: 3 ADL-Treatment Feedin Eating (QC): 6 Groomin (CGA standing at sink with walker. Pt able to brush teeth, wash face, wash hands.) Oral Hygiene (QC): 4 (CGA) Bathin (SBA during stand at GB. Pt able to wash feet using figure 4 method to cross legs.) Bathing Location: L Arm, R Arm, L Upper Leg, R Upper Leg, L Lower Leg (including foot), R Lower Leg (including foot), Chest, Abdomen, Buttocks, Perineal Area Shower/Bathe Self (QC): 4 (SBA) Upper Extremity Dressin (set up) Upper Body Dressing (QC): 5 Lower Extremity Dressin Lower Body Dressing (QC): 6 On/Off Footwear (QC): 6 Toiletin Toileting Hygiene (QC): 6 Toilet/Commode Transfer: 5 Toilet Transfer (QC): 4 Shower: 4 (CGA on/off shower chair using grab bars.) Assessment/Plan Assessment and Plan Assess & Plan/Chief Complaint Assessment: s/p right knee replacement POD # 4 HTN COPD Dementia confirmed on SLUMS 07/22? Delirium? Anger issues? OA GERD Plan: Check labs prn IRF protocol PCP consult Dementia? (1) Status post right knee replacement Status: Acute (2) Hypertension Status: Chronic Qualifiers: Hypertension type: essential hypertension Qualified Codes: I10 - Essential (primary) hypertension (3) Generalized weakness Status: Acute (4) COPD (chronic obstructive pulmonary disease) Status: Chronic Qualifiers: COPD type: unspecified COPD Qualified Codes: J44.9 - Chronic obstructive pulmonary disease, unspecified (5) GERD (gastroesophageal reflux disease) Status: Chronic Qualifiers: Esophagitis presence: without esophagitis Qualified Codes: K21.9 - Gastro- esophageal reflux disease without esophagitis (6) Arthritis Status: Chronic (7) Cognitive decline Status: Chronic (8) Anger reaction Status: Acute ANA VÁZQUEZ DO Jun 08, 2019 11:48
[2019-06-08] MEDS: COLESTIPOL 1 GM (COLESTID) TAB PO SCH (12:07)
--- NOTE | 2019-06-08 13:50 | NUR ---
Jackson is a 79 yo male currently inpatient on ARU post right TKA preformed by Melania Mancia. Patient is A&O X4 and denies pain. Patient has been ambulating very well with walker, he worked with therapy and was able to ambulate to the first floor. Jackson has refused his CPM machine today, he stated "he doesn't like that damn thing." Incision to right knee is currently covered with an aquacel dressing and no draining is present. There is slight edema noted to RLE. Patient has been pleasant and cooperative with staff. No issues noted, this nurse will continue to monitor.
[2019-06-08 16:30] VITALS: BP 135/73
[2019-06-08 18:05] VITALS: BP 135/73
[2019-06-08] MEDS: ATORVASTATIN 10 MG (LIPITOR) TABLET PO SCH (20:38)
[2019-06-09 05:41] VITALS: BP 141/63
[2019-06-09] MEDS: BETHANECHOL 10 MG (URECHOLINE) TAB PO SCH ×4 (06:10→20:54)
[2019-06-09] MEDS: RT-ADVAIR HFA 115/21 MCG PER PUFF IH SCH ×2 (07:35→19:53)
[2019-06-09] MEDS: UMECLIDINIUM BROMIDE (INCRUSE ELLIPTA) 7'S IH SCH (07:36)
[2019-06-09] MEDS: LOSARTAN 100 MG (COZAAR) TABLET PO SCH (08:27)
[2019-06-09] MEDS: SERTRALINE 100 MG (ZOLOFT) TAB PO SCH (08:27)
[2019-06-09] MEDS: ASPIRIN E.C. 81 MG (ECOTRIN) TAB PO SCH (08:27)
[2019-06-09] MEDS: MELOXICAM 7.5 MG (MOBIC) TABLET PO SCH ×2 (08:28→20:54)
[2019-06-09] MEDS: COLESTIPOL 1 GM (COLESTID) TAB PO SCH (08:28)
[2019-06-09] MEDS: CYANOCOBALAMIN 1,000 MCG (VITAMIN B-12) TABLET PO SCH (08:28)
[2019-06-09] MEDS: SENNA W/DOCUSATE (SENOKOT S) TABLET PO SCH ×2 (08:28→20:54)
[2019-06-09] MEDS: PANTOPRAZOLE 20 MG TABLET (PROTONIX) PO SCH (08:28)
[2019-06-09 08:31] VITALS: BP 151/62
--- NOTE | 2019-06-09 11:05 | PM&R Progress Note ---
Subjective HPI/CC On Admission Date Seen by Provider: Jun 09, 2019 Time Seen by Provider: 10:45 CC: s/p right knee replacement uncomplicated per Dr Mancia at [place] POD # 2 HPI: Mr Cody is a 79 y/o Male with PMH significant for COPD and HTN presents to Inpatient rehab following a R total knee revision surgery. He originally had bilateral knee replacements about 10 years ago, but he was experiencing increased pain and effusion over the last 3 months in the right knee. After multiple evaluations, he underwent right knee arthroplasty revision surgery on 06/04. He has had an uneventful course since surgery. He is currently reports no pain. He is able to ambulate with an fww without assist to the bathroom. 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 In planning for dispo, he lives alone and needs to traverse 6 steps to gain entry to his house. There are handrails on both sides. He also already has hand rails installed in the bathroom. He has 1 flight of stairs in his house, but rarely needs to use them. His main living quarters, bathroom and kitchen are all within about 50ft. (This note by Kirit Kelley [facility]) Patient was seen and examined and reviewed prior records and notified primary care provider Dr. Ca of admission. Patient constantly asking when he can go home and he is ready to go home and ready to continue mowing his lawn's of which his grandson is covering that duty right now Patient with a very difficult personality to manage very demanding with this examiner and disrespectful and yelling at me to come back in the room so we will need to evaluate this and if this is not a good match will continue to be supportive see what his needs are and discharge home if that is a reasonable plan. Subjective/Events-last exam Patient much more reasonable and no longer aggressive and rude to me which is great news Dementia is still an issue Dressing looks okay from surgery, no drainage Uses CPM machine regularly Bowel movement + today and every day Monitor closely Conferred with RN Reviewed therapy notes Pain is controlled Review of Systems Musculoskeletal: leg pain Objective Exam Vital Signs Vital Signs Date Time Temp Pulse Resp B/P (MAP) Pulse Ox O2 Delivery O2 Flow Rate FiO2 06/09/19 09:59 Room Air 8/18/19 08:31 72 151/62 (91) 06/09/19 07:35 93 06/09/19 05:41 99.0 16 06/07/19 08:54 Capillary Refill : General Appearance: No Apparent Distress, WD/WN, Chronically ill, Obese HEENT: PERRL/EOMI, Normal ENT Inspection, Pharynx Normal Neck: Full Range of Motion, Non Tender Respiratory: Chest Non Tender, Lungs Clear, Normal Breath Sounds, No Accessory Muscle Use, No Respiratory Distress, Wheezing Cardiovascular: Regular Rate, Rhythm, No Edema, No Gallop, No JVD, No Murmur, Normal Peripheral Pulses Gastrointestinal: Normal Bowel Sounds, No Pulsatile Mass, Non Tender, Soft Rectal: Deferred Back: No Vertebral Tenderness Extremity: Normal Capillary Refill, Normal Inspection, Normal Range of Motion (except right leg from surgery), Non Tender, No Calf Tenderness, Other (Right knee reduced AROM and PROM) Neurologic/Psychiatric: Alert, Oriented x3, No Motor/Sensory Deficits, Normal Mood/Affect, Disoriented Skin: Normal Color Lymphatic: No Adenopathy Results/Procedures Lab Patient resulted labs reviewed. FIM Transfers Therapy Code Descriptions/Definitions Functional [place] Measure: 0=Not Assessed/NA 4=Minimal Assistance 1=Total Assistance 5=Supervision or Setup 2=Maximal Assistance 6=Modified [place] 3=Moderate Assistance 7=Complete [place] Therapy Quality Codes: 6 Independent with activity with or without an assistive device 5 Patient requires set up or clean up by helper. Patient completes activity by themselves 4 Supervision or touching assist (CGA). [place] provide cues , steadying assist 3 The helper provides less than half the effort to complete the activity 2 The helper provides more than half the effort to complete the activity 1 Dependent. The helper does all the effort to complete an activity 7 Patient refused to complete or attempt activity 9 The patient did not perform the activity before the current illness or injury 88 Not attempted due to Medical conditions or safety concerns Transfers (B, C, W/C) (FIM): 5 (SBA with walker) Scootin Rollin Roll Left to Right (QC): 4 Supine to/from Sit: 6 Sit to/from Stand: 6 Sit to Lying (QC): 4 Sit to Stand (QC): 4 (min assist to come to astand. ) Chair/Hxf-gp-[place] Xfer(QC): 4 (CGA for safety) Bed to/from Chair: 5 Car Transfer (QC): 5 (SBA, min inst) Gait Training Does the Patient Walk?: Yes Gait (FIM): 5 Distance (FIM): 3=150 ft Distance: 550, 300 x2 Walk 10 feet (QC): 4 Walk 50 ft with 2 Turns(QC): 4 Walk 150 ft (QC): 4 Walking 10ft/uneven surface-QC: 4 Gait Level of Assist: 5 Gait Persons Needed: 1 Gait Assistive Device: FWW Wheelchair Training Does the Pt Use a Wheelchair?: No Stair Training Stair Training: Handrails/: 2 handrails Stairs (FIM): 4 #of Steps: 12 1 Step (curb) (QC): 4 (CGA with cues for sequencing.) 4 Steps (QC): 88 12 Steps (QC): 88 Stairs: Pattern: Step to (step to descending, reciprocal ascending) Level of Assist: 4 (CGA to SBA provided, verb inst for technique) Balance Picking up an Object (QC): 88 Mental Status/Objective Comprehension: 5 Expression: 6 Social Interaction: 4 Problem Solvin Memory: 3 ADL-Treatment Feedin Eating (QC): 6 Groomin (CGA standing at sink with walker. Pt able to brush teeth, wash face, wash hands.) Oral Hygiene (QC): 4 (CGA) Bathin (SBA during stand at GB. Pt able to wash feet using figure 4 method to cross legs.) Bathing Location: L Arm, R Arm, L Upper Leg, R Upper Leg, L Lower Leg (including foot), R Lower Leg (including foot), Chest, Abdomen, Buttocks, Perineal Area Shower/Bathe Self (QC): 4 (SBA) Upper Extremity Dressin (set up) Upper Body Dressing (QC): 5 Lower Extremity Dressin Lower Body Dressing (QC): 6 On/Off Footwear (QC): 6 Toiletin Toileting Hygiene (QC): 6 Toilet/Commode Transfer: 5 Toilet Transfer (QC): 4 Shower: 4 (CGA on/off shower chair using grab bars.) Assessment/Plan Assessment and Plan Assess & Plan/Chief Complaint Assessment: s/p right knee replacement POD # 5 HTN COPD Dementia confirmed on SLUMS 9/30? Delirium? Anger issues? OA GERD Plan: Check labs prn IRF protocol PCP consult Dementia (1) Status post right knee replacement Status: Acute (2) COPD Exacerbation Status: Acute (3) Vertigo Status: Acute (4) Esophagitis Status: Acute (5) Dysphagia Status: Acute (6) Encounter for diagnostic colonoscopy due to change in bowel habits (7) Infection due to ESBL-producing Escherichia coli Status: Acute (8) Hypokalemia Status: Acute (9) Generalized weakness Status: Acute (10) Hypertension Status: Chronic Qualifiers: Hypertension type: essential hypertension Qualified Codes: I10 - Essential (primary) hypertension (11) COPD (chronic obstructive pulmonary disease) Status: Chronic Qualifiers: COPD type: unspecified COPD Qualified Codes: J44.9 - Chronic obstructive pulmonary disease, unspecified (12) Arthritis Status: Chronic (13) GERD (gastroesophageal reflux disease) Status: Chronic Qualifiers: Esophagitis presence: without esophagitis Qualified Codes: K21.9 - Gastro- esophageal reflux disease without esophagitis (14) Anger reaction Status: Acute (15) Cognitive decline Status: Chronic ANA VÁZQUEZ DO Jun 09, 2019 11:04
[2019-06-09 17:43] VITALS: BP 144/71
[2019-06-09] MEDS: ATORVASTATIN 10 MG (LIPITOR) TABLET PO SCH (20:54)
[2019-06-10 05:04] VITALS: BP 143/73
[2019-06-10] MEDS: BETHANECHOL 10 MG (URECHOLINE) TAB PO SCH ×4 (05:29→20:19)
--- NOTE | 2019-06-10 08:49 | PM&R Progress Note ---
Subjective HPI/CC On Admission Date Seen by Provider: Jun 10, 2019 Time Seen by Provider: 08:45 CC: s/p right knee replacement uncomplicated per Dr Mancia at [facility] POD # 2 HPI: Mr Cody is a 79 y/o Male with PMH significant for COPD and HTN presents to Inpatient rehab following a R total knee revision surgery. He originally had bilateral knee replacements about 10 years ago, but he was experiencing increased pain and effusion over the last 3 months in the right knee. After multiple evaluations, he underwent right knee arthroplasty revision surgery on 06/04. He has had an uneventful course since surgery. He is currently reports no pain. He is able to ambulate with an fww without assist to the bathroom. 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 In planning for dispo, he lives alone and needs to traverse 6 steps to gain entry to his house. There are handrails on both sides. He also already has hand rails installed in the bathroom. He has 1 flight of stairs in his house, but rarely needs to use them. His main living quarters, bathroom and kitchen are all within about 50ft. (This note by Kirit Kelley [facility]) Patient was seen and examined and reviewed prior records and notified primary care provider Dr. Ca of admission. Patient constantly asking when he can go home and he is ready to go home and ready to continue mowing his lawn's of which his grandson is covering that duty right now Patient with a very difficult personality to manage very demanding with this examiner and disrespectful and yelling at me to come back in the room so we will need to evaluate this and if this is not a good match will continue to be supportive see what his needs are and discharge home if that is a reasonable plan. Subjective/Events-last exam Not having any issues Very odd behavior at times Didn't even remember who his orthopedic surgeon was who performed his right total knee arthroplasty last week and that was Dr. 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 to see when DC will be appropriate Bowels are moving Monitor closely Conferred with RN Reviewed therapy notes Pain is controlled Review of Systems General: Fatigue Musculoskeletal: leg pain Neurological: Confusion Objective Exam Vital Signs Vital Signs Date Time Temp Pulse Resp B/P (MAP) Pulse Ox O2 Delivery O2 Flow Rate FiO2 06/10/19 16:18 98.5 72 16 145/68 (93) 96 Room Air 06/07/19 08:54 Capillary Refill : General Appearance: No Apparent Distress, WD/WN, Chronically ill, Obese HEENT: PERRL/EOMI, Normal ENT Inspection, Pharynx Normal Neck: Full Range of Motion, Non Tender Respiratory: Chest Non Tender, Lungs Clear, Normal Breath Sounds, No Accessory Muscle Use, No Respiratory Distress, Wheezing Cardiovascular: Regular Rate, Rhythm, No Edema, No Gallop, No JVD, No Murmur, Normal Peripheral Pulses Gastrointestinal: Normal Bowel Sounds, No Pulsatile Mass, Non Tender, Soft Rectal: Deferred Back: No Vertebral Tenderness Extremity: Normal Capillary Refill, Normal Inspection, Normal Range of Motion (except right leg from surgery), Non Tender, No Calf Tenderness, Other (Right knee reduced AROM and PROM) Neurologic/Psychiatric: Alert, Oriented x3, No Motor/Sensory Deficits, Normal Mood/Affect, Disoriented Skin: Normal Color Lymphatic: No Adenopathy Results/Procedures Lab Patient resulted labs reviewed. FIM Transfers Therapy Code Descriptions/Definitions Functional [place] Measure: 0=Not Assessed/NA 4=Minimal Assistance 1=Total Assistance 5=Supervision or Setup 2=Maximal Assistance 6=Modified [place] 3=Moderate Assistance 7=Complete [place] Therapy Quality Codes: 6 Independent with activity with or without an assistive device 5 Patient requires set up or clean up by helper. Patient completes activity by themselves 4 Supervision or touching assist (CGA). [place] provide cues , steadying assist 3 The helper provides less than half the effort to complete the activity 2 The helper provides more than half the effort to complete the activity 1 Dependent. The helper does all the effort to complete an activity 7 Patient refused to complete or attempt activity 9 The patient did not perform the activity before the current illness or injury 88 Not attempted due to Medical conditions or safety concerns Transfers (B, C, W/C) (FIM): 5 (SBA with walker) Scootin Rollin Roll Left to Right (QC): 4 Supine to/from Sit: 6 Sit to/from Stand: 6 Sit to Lying (QC): 4 Sit to Stand (QC): 4 (min assist to come to astand. ) Chair/Hdb-qz-Fdaxw Xfer(QC): 4 (CGA for safety) Bed to/from Chair: 5 Car Transfer (QC): 5 (SBA, min inst) Gait Training Does the Patient Walk?: Yes Gait (FIM): 5 Distance (FIM): 3=150 ft Distance: 550, 300 x2 Walk 10 feet (QC): 4 Walk 50 ft with 2 Turns(QC): 4 Walk 150 ft (QC): 4 Walking 10ft/uneven surface-QC: 4 Gait Level of Assist: 5 Gait Persons Needed: 1 Gait Assistive Device: FWW Wheelchair Training Does the Pt Use a Wheelchair?: No Stair Training Stair Training: Handrails/: 2 handrails Stairs (FIM): 4 #of Steps: 12 1 Step (curb) (QC): 4 (CGA with cues for sequencing.) 4 Steps (QC): 88 12 Steps (QC): 88 Stairs: Pattern: Step to (step to descending, reciprocal ascending) Level of Assist: 4 (CGA to SBA provided, verb inst for technique) Balance Picking up an Object (QC): 88 Mental Status/Objective Comprehension: 5 Expression: 6 Social Interaction: 4 Problem Solvin Memory: 3 ADL-Treatment Feedin Eating (QC): 6 Groomin (CGA standing at sink with walker. Pt able to brush teeth, wash face, wash hands.) Oral Hygiene (QC): 4 (CGA) Bathin (SBA during stand at GB. Pt able to wash feet using figure 4 method to cross legs.) Bathing Location: L Arm, R Arm, L Upper Leg, R Upper Leg, L Lower Leg (including foot), R Lower Leg (including foot), Chest, Abdomen, Buttocks, Perineal Area Shower/Bathe Self (QC): 4 (SBA) Upper Extremity Dressin (set up) Upper Body Dressing (QC): 5 Lower Extremity Dressin Lower Body Dressing (QC): 6 On/Off Footwear (QC): 6 Toiletin Toileting Hygiene (QC): 6 Toilet/Commode Transfer: 5 Toilet Transfer (QC): 4 Shower: 4 (CGA on/off shower chair using grab bars.) Assessment/Plan Assessment and Plan Assess & Plan/Chief Complaint Assessment: s/p right knee replacement POD # 6 HTN COPD Dementia confirmed on [facility] 07/22? Delirium? Anger issues? OA GERD Plan: Check labs prn IRF protocol PCP consult Dementia Dispo home soon (1) Status post right knee replacement Status: Acute (2) COPD Exacerbation Status: Acute (3) Vertigo Status: Acute (4) Esophagitis Status: Acute (5) Dysphagia Status: Acute (6) Encounter for diagnostic colonoscopy due to change in bowel habits (7) Infection due to ESBL-producing Escherichia coli Status: Acute (8) Hypokalemia Status: Acute (9) Generalized weakness Status: Acute (10) Hypertension Status: Chronic Qualifiers: Hypertension type: essential hypertension Qualified Codes: I10 - Essential (primary) hypertension (11) COPD (chronic obstructive pulmonary disease) Status: Chronic Qualifiers: COPD type: unspecified COPD Qualified Codes: J44.9 - Chronic obstructive p ulmonary disease, unspecified (12) Arthritis Status: Chronic (13) GERD (gastroesophageal reflux disease) Status: Chronic Qualifiers: Esophagitis presence: without esophagitis Qualified Codes: K21.9 - Gastro- esophageal reflux disease without esophagitis (14) Anger reaction Status: Acute (15) Cognitive decline Status: Chronic ANA VÁZQUEZ DO Jun 10, 2019 08:49
--- NOTE | 2019-06-10 09:02 | Physical Therapy Daily Note ---
PT Daily Note-Current Subjective "I'm ready to go today". no reports of pain, only comments on his bruising. Pain Location: No Pain Reported Mental Status Patient Orientation: Normal For Age Transfers Therapy Code Descriptions/Definitions Functional [place] Measure: 0=Not Assessed/NA 4=Minimal Assistance 1=Total Assistance 5=Supervision or Setup 2=Maximal Assistance 6=Modified [place] 3=Moderate Assistance 7=Complete [place] Therapy Quality Codes: 6 Independent with activity with or without an assistive device 5 Patient requires set up or clean up by helper. Patient completes activity by themselves 4 Supervision or touching assist (CGA). [place] provide cues , steadying assist 3 The helper provides less than half the effort to complete the activity 2 The helper provides more than half the effort to complete the activity 1 Dependent. The helper does all the effort to complete an activity 7 Patient refused to complete or attempt activity 9 The patient did not perform the activity before the current illness or injury 88 Not attempted due to Medical conditions or safety concerns Transfers (B, C, W/C) (FIM): 6 Scootin Rollin Supine to/from Sit: 6 Sit to/from Stand: 6 Bed to/from Chair: 6 car TRF mod I Weight Bearing Right Lower Extremity: Right Weight Bearing/Tolerated Left Lower Extremity: Left Full Weight Bearing Gait Training Does the Patient Walk?: Yes Gait (FIM): 6 Distance (FIM): 3=150 ft (200x3) Gait Level of Assist: 6 Gait Persons Needed: 0 Gait Assistive Device: FWW no LOB or safety concerns noted during Rx Stair Training Stair Training: Handrails/: 2 handrails Stairs (FIM): 5 #of Steps: 8 Stairs: Pattern: Reciprocal Level of Assist: 5 Exercises Supine Ex: Bridging, Ankle pumps, Quad Set, Rolling, Glut sets, Heel Slides, Short Arc Quads, Scooting, Straight leg raise, Hip abd/add Supine Reps: 20 Standing: Hip Abduction, Hamstring curls, Heel/toe raises, Marching, Mini squats Standing Reps: 15 NuStep Minutes: 10 NuStep Workload: 5 Assessment Current Status: Excellent Progress, Good Progress PT Short Term Goals Short Term Goals Time Frame: Jun 13, 2019 Transfers (B,C,W/C) (FIM): 5 Gait (FIM): 5 PT [place] Goals Mcfp Goals PT Fly [place] Goals Time Frame: Jun 20, 2019 Transfers (B,C,W/C) (FIM): 7 Sit to Lying (QC): 6 Lying-Sitting on Side/Bed(QC): 6 Sit to Stand (QC): 6 Rollin Roll Left to Right (QC): 6 Chair/Imb-hp-Gdcyv Xfer(QC): 6 Car Transfer (QC): 6 Does the Patient Walk: Yes Gait (FIM): 6 Gait distance (FIM): 3=150 ft Walk 10 feet (QC): 6 Walk 10ft-Uneven Surface(QC): 6 Walk 50ft with 2 Turns (QC): 6 Walk 150 ft (QC): 6 Gait Assistive Device: FWW Does the Pt use WC or Scooter?: No Stairs (FIM): 5 # of Steps: 4 (household level) 1 Step (curb) (QC): 6 4 Steps (QC): 6 12 Steps (QC): 88 Picking up an Object (QC): 5 PT Plan Treatment/Plan Treatment Plan: Continue Plan of Care Treatment Plan: Bed Mobility, Education, Functional Activity Sotero, Functional Strength, Group Therapy, Gait, Safety, Therapeutic Exercise, Transfers Treatment Duration: Jun 20, 2019 Frequency: At least 5 of 7 days/Wk (IRF) Estimated Hrs Per Day: 1.5 hours per day Patient and/or Family Agrees t: Yes Safety Risks/Education Patient Education: Gait Training, Transfer Techniques, Steps, Correct Positioning, Disease Process, Safety Issues Teaching Recipient: Patient Teaching Methods: Demonstration, Discussion Response to Teaching: Verbalize Understanding, Return Demonstration, Reinforcement Needed Time/GCodes Time In: 800 Time Out: 900 Total Billed Treatment Time: 60 Total Billed Treatment 1,EX30m,GT15m,FA15m GIANNI WEBSTER TIMBER WATCHMAN Jun 10, 2019 09:02
--- NOTE | 2019-06-10 09:30 | Speech Therapy Progress Note ---
Therapy Progress Note Patient will not be seen by ST this date due to having a heart cath procedure. Will resume POC tomorrow. KHUSHI WARREN Jun 10, 2019 09:30
[2019-06-10] MEDS: SENNA W/DOCUSATE (SENOKOT S) TABLET PO SCH ×2 (09:49→21:39)
[2019-06-10] MEDS: ASPIRIN E.C. 81 MG (ECOTRIN) TAB PO SCH (09:49)
[2019-06-10] MEDS: MELOXICAM 7.5 MG (MOBIC) TABLET PO SCH ×2 (09:49→20:19)
[2019-06-10] MEDS: PANTOPRAZOLE 20 MG TABLET (PROTONIX) PO SCH (09:49)
[2019-06-10] MEDS: LOSARTAN 100 MG (COZAAR) TABLET PO SCH (09:49)
[2019-06-10] MEDS: COLESTIPOL 1 GM (COLESTID) TAB PO SCH (09:49)
[2019-06-10] MEDS: SERTRALINE 100 MG (ZOLOFT) TAB PO SCH (09:49)
[2019-06-10] MEDS: CYANOCOBALAMIN 1,000 MCG (VITAMIN B-12) TABLET PO SCH (09:49)
--- NOTE | 2019-06-10 09:56 | Occupational Ther Daily Note ---
OT Current Status-Daily Note Subjective Pt in chair at start of OT session. Pt declined showering/changing clothes saying "I had a shower yesterday". Pt agreed to OT tx in gym focusing on strengthening UE in order to increase independence with ADLs and increase UE endurance and strength. Mental Status/Objective Patient Orientation: Normal For Age Therapy Code Descriptions/Definitions Functional [place] Measure: 0=Not Assessed/NA 4=Minimal Assistance 1=Total Assistance 5=Supervision or Setup 2=Maximal Assistance 6=Modified [place] 3=Moderate Assistance 7=Complete [place] ADL-Treatment Therapy Code Descriptions/Definitions Functional [place] Measure: 0=Not Assessed/NA 4=Minimal Assistance 1=Total Assistance 5=Supervision or Setup 2=Maximal Assistance 6=Modified [place] 3=Moderate Assistance 7=Complete [place] Therapy Quality Codes: 6 Independent with activity with or without an assistive device 5 Patient requires set up or clean up by helper. Patient completes activity by themselves 4 Supervision or touching assist (CGA). [place] provide cues , steadying assist 3 The helper provides less than half the effort to complete the activity 2 The helper provides more than half the effort to complete the activity 1 Dependent. The helper does all the effort to complete an activity 7 Patient refused to complete or attempt activity 9 The patient did not perform the activity before the current illness or injury 88 Not attempted due to Medical conditions or safety concerns Eating (FIM): 7 Eating (QC): 6 Transfers (B, C, W/C) (FIM): 5 (SBA with placement of walker.) Other Treatment Pt ambulated to gym from his room using roller walker. Pt completed X17 graded clothespins (ranging 1lb-5lb) with 2lb wrist cuffs, alternating hands pt placed and removed all clothespins twices, averaging 2 min per trial. Pt placed 100 pegs into pegboard with 2lb wrist cuffs, alternating hands. Pt placed 100 pegs in 9 min 20 secs. Pt completed 15 min on arm bike mod resistance. To work on standing tolerance for functional activities, pt stood at table for 9 min during functional activity of checkers. Pt ambulated back to his room. post OT session, pt seated in recliner, call light and phone in reach and needs meet. Education OT Patient Education: Energy conservation, Exercise program, Progress toward Goal/Update tx plan, Purpose of tx/functional activities, Transfer techniques Teaching Recipient: Patient Teaching Methods: Demonstration, Discussion Response to Teaching: Verbalize Understanding, Return Demonstration OT Short Term Goals Short Term Goals Time Frame: Jun 13, 2019 Grooming(FIM): 5 Bathing Location: Abdomen, Buttocks Lower Body Dressing(FIM): 5 Toileting(FIM): 5 Transfers (B,C,W/C) (FIM): 5 Toilet/Commode Transfer(FIM): 5 Shower Transfer(FIM): 5 1=Demonstrate adherence to instructed precautions during ADL tasks. 2=Patient will verbalize/demonstrate understanding of assistive devices/modifications for ADL. 3=Patient will improve strength/tolerance for activity to enable patient to perform ADL's. OT Correction Goals Correction Goals Time Frame: Jun 20, 2019 Groomin Oral Hygiene (QC): 6 Bathing(FIM): 6 Bathing Location: L Arm, R Arm, L Upper Leg, R Upper Leg, L Lower Leg (including foot), R Lower Leg (including foot), Chest, Abdomen, Buttocks, Perineal Area Shower/Bathe Self (QC): 6 Upper Body Dressing(FIM): 6 Upper Body Dressing (QC): 6 Lower Body Dressing(FIM): 6 Lower Body Dressing (QC): 6 On/Off Footwear (QC): 6 Toileting(FIM): 6 Toileting Hygiene (QC): 6 Transfers (B,C,W/C) (FIM): 6 Toilet/Commode Transfer(FIM): 6 Toilet/Commode Transfer (QC): 6 Shower Transfer(FIM): 6 Additional Goals: 1-Demonstrate ADL Tasks, 2-Verbalize Understanding, 3- ImproveStrength/[place]ero 1=Demonstrate adherence to instructed precautions during ADL tasks. 2=Patient will verbalize/demonstrate understanding of assistive devices/mo difications for ADL. 3=Patient will improve strength/tolerance for activity to enable patient to perform ADL's. OT Education/Plan Problem List/Assessment Assessment: Decreased UE Strength, Impaired I ADL's, Impaired Self-Care Skills Discharge Recommendations Plan/Recommendations: Continue POC Treatment Plan/Plan of Care Treatment,Training & Education: Yes Patient would benefit from OT for education, treatment and training to promote independence in ADL's, mobility, safety and/or upper extremity function for ADL's. Plan of Care: ADL Retraining, Functional Mobility, Group Exercise/Act as Ind, UE Funct Exercise/Act Treatment Duration: Jun 20, 2019 Frequency: At least 5 of 7 days/Wk (IRF) Estimated Hrs Per Day: 1.5 hours per day Agreement: Yes Rehab Potential: Good Time/GCodes Start Time: 09:05 Stop Time: 10:20 Total Time Billed (hr/min): 75 Billed Treatment Time FA 4, 60 min EX 1, 15 min NILSON NEWBERRY OT Jun 10, 2019 09:56
--- NOTE | 2019-06-10 11:08 | Progress Note - Hospitalist ---
[facility] 06/10/19 1108: Progress Note Mr Cody is pain free and compliant with all therapy He is looking forward to going home to [facility]. His mood continues to be labile Working with social work to access home living situation - his grandson spends the evenings with him Should be ready for home in the next few days ANGELIA ARCHULETA DO 06/10/192050: Supervisory-Addendum Brief Verification & Attestation Participated in pt care: history, MDM, physical Personally performed: exam, history, MDM, supervision of care Care discussed with: Medical Student Procedures: n/a Results interpretation: Verified all documentation Verification and Attestation of Medical Student E/M Service A medical student performed and documented this service in my presence. I reviewed and verified all information documented by the medical student and made modifications to such information, when appropriate. I personally performed the physical exam and medical decision making. Angelia Archuleta, Jun 10, 2019,20:51 [facility] Jun 10, 2019 11:08 ANGELIA ARCHULETA DO Jun 10, 2019 20:51
[2019-06-10] MEDS: UMECLIDINIUM BROMIDE (INCRUSE ELLIPTA) 7'S IH SCH (12:06)
--- NOTE | 2019-06-10 12:28 | Speech Therapy Daily Note ---
Speech Daily Progress Note Subjective Date Seen by Provider: Jun 10, 2019 Time Seen by Provider: 00:30 The patient was sitting in his chair working on word searches. Objective The patient completed task for memory of 3 verbally presented items at 75% with min to mod verbal cues and/or repetition. Assessment Assessment Current Status: Fair Progress Treatment Plan Continue Plan of Care Communication Comprehension: 5 Expression: 6 Social Cognition Social Interaction: 4 Problem Solvin Memory: 3 Speech Short Term Goals Short Term Goals Short Term Goals 1) The patient will complete memory tasks related to his daily needs at 80% or greater with minimal cues. 2) The patient will complete problem solving tasks related to his daily needs at 80% or greater with minimal cues. 3) The patient will complete safety awareness tasks related to his daily needs at 80% or greater with minimal cues. Speech Retirement Goals Retirement Goals The patient will improve his safety awareness and independence to maximize his potential for meeting his daily needs. Speech-Plan Patient/Family Goals Patient/Family Goals: The patient plans on returning home with family support post rehab. Treatment Plan Speech Therapy Treatment Plan: Continue Plan of Care Patient is showing some progress with ST. Treatment Duration: Jun 14, 2019 Frequency: 5 times per week Estimated Hrs Per Day: .5 hour per day Rehab Potential: Good Barriers to Learning: Patient has moderate dementia range of function. Pt/Family Agrees to Plan: Yes Safety Risks/Education Teaching Recipient: Patient Teaching Methods: Demonstration, Discussion Response to Teaching: Verbalize Understanding, Return Demonstration Education Topics Provided: Continued safety within his room. Time Speech Therapy Time In: 10:30 Speech Therapy Time Out: 11:00 Total Billed Time: 30 Billed Treatment Time 1CLARICE BETHANIA ST Jun 10, 2019 12:28
--- NOTE | 2019-06-10 14:09 | Physical Therapy Daily Note ---
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 Patient completes activity by themselves 4 Supervision or touching assist (CGA). [place] provide cues , steadying assist 3 The helper provides less than half the effort to complete the activity 2 The helper provides more than half the effort to complete the activity 1 Dependent. The helper does all the effort to complete an activity 7 Patient refused to complete or attempt activity 9 The patient did not perform the activity before the current illness or injury 88 Not attempted due to Medical conditions or safety concerns all MOD I Weight Bearing Right Lower Extremity: Right Weight Bearing/Tolerated Left Lower Extremity: Left Full Weight Bearing Gait Training Gait Assistive Device: FWW 160x2, up ad maría status Exercises NuStep Minutes: 10 NuStep Workload: 5 Assessment Current Status: Excellent Progress PT Short Term Goals Short Term Goals Time Frame: Jun 13, 2019 Transfers (B,C,W/C) (FIM): 5 Gait (FIM): 5 PT Correction Goals [employer] Goals PT Correction Goals Time Frame: Jun 20, 2019 Transfers (B,C,W/C) (FIM): 7 Sit to Lying (QC): 6 Lying-Sitting on Side/Bed(QC): 6 Sit to Stand (QC): 6 Rollin Roll Left to Right (QC): 6 Chair/Yju-yz-Hbavb Xfer(QC): 6 Car Transfer (QC): 6 Does the Patient Walk: Yes Gait (FIM): 6 Gait distance (FIM): 3=150 ft Walk 10 feet (QC): 6 Walk 10ft-Uneven Surface(QC): 6 Walk 50ft with 2 Turns (QC): 6 Walk 150 ft (QC): 6 Gait Assistive Device: FWW Does the Pt use WC or Scooter?: No Stairs (FIM): 5 # of Steps: 4 (household level) 1 Step (curb) (QC): 6 4 Steps (QC): 6 12 Steps (QC): 88 Picking up an Object (QC): 5 PT Plan Treatment/Plan Treatment Plan: Continue Plan of Care Treatment Plan: Bed Mobility, Education, Functional Activity Sotero, Functional Strength, Group Therapy, Gait, Safety, Therapeutic Exercise, Transfers Treatment Duration: Jun 20, 2019 Frequency: At least 5 of 7 days/Wk (IRF) Estimated Hrs Per Day: 1.5 hours per day Patient and/or Family Agrees t: Yes Safety Risks/Education Patient Education: Gait Training, Transfer Techniques, Correct Positioning, Disease Process, Safety Issues Teaching Recipient: Patient Teaching Methods: Demonstration, Discussion Response to Teaching: Verbalize Understanding, Return Demonstration, Reinforcement Needed Time/GCodes Time In: 1245 Time Out: 1300 Total Billed Treatment Time: 15 Total Billed Treatment 1,EX15m GIANNI WEBSTER GUEST EXPERIENCE SPECIALIST Jun 10, 2019 14:09
[2019-06-10 16:18] VITALS: BP 145/68
[2019-06-10] MEDS: RT-ADVAIR HFA 115/21 MCG PER PUFF IH SCH (19:47)
[2019-06-10] MEDS: ATORVASTATIN 10 MG (LIPITOR) TABLET PO SCH (20:19)
[2019-06-11] MEDS: BETHANECHOL 10 MG (URECHOLINE) TAB PO SCH ×4 (05:14→20:04)
[2019-06-11 05:54] VITALS: BP 136/71
[2019-06-11 07:58] VITALS: BP 164/53
[2019-06-11] MEDS: LOSARTAN 100 MG (COZAAR) TABLET PO SCH (07:59)
[2019-06-11] MEDS: SENNA W/DOCUSATE (SENOKOT S) TABLET PO SCH ×2 (07:59→20:02)
[2019-06-11] MEDS: PANTOPRAZOLE 20 MG TABLET (PROTONIX) PO SCH (07:59)
[2019-06-11] MEDS: ASPIRIN E.C. 81 MG (ECOTRIN) TAB PO SCH (07:59)
[2019-06-11] MEDS: MELOXICAM 7.5 MG (MOBIC) TABLET PO SCH ×2 (07:59→20:04)
[2019-06-11] MEDS: SERTRALINE 100 MG (ZOLOFT) TAB PO SCH (07:59)
[2019-06-11] MEDS: CYANOCOBALAMIN 1,000 MCG (VITAMIN B-12) TABLET PO SCH (07:59)
[2019-06-11] MEDS: COLESTIPOL 1 GM (COLESTID) TAB PO SCH (08:00)
[2019-06-11] MEDS: ADVAIR HFA 115/21 MCG INHALER 8 GM IH SCH ×2 (08:06→20:15)
[2019-06-11] MEDS: UMECLIDINIUM BROMIDE (INCRUSE ELLIPTA) 7'S IH SCH (08:06)
--- NOTE | 2019-06-11 09:06 | PM&R Progress Note ---
Subjective HPI/CC On Admission Date Seen by Provider: Jun 11, 2019 Time Seen by Provider: 09:00 CC: s/p right knee replacement uncomplicated per Dr Mancia at [place] POD # 2 HPI: Mr Cody is a 79 y/o Male with PMH significant for COPD and HTN presents to Inpatient rehab following a R total knee revision surgery. He originally had bilateral knee replacements about 10 years ago, but he was experiencing increased pain and effusion over the last 3 months in the right knee. After multiple evaluations, he underwent right knee arthroplasty revision surgery on 06/04. He has had an uneventful course since surgery. He is currently reports no pain. He is able to ambulate with an fww without assist to the bathroom. 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 In planning for dispo, he lives alone and needs to traverse 6 steps to gain entry to his house. There are handrails on both sides. He also already has hand rails installed in the bathroom. He has 1 flight of stairs in his house, but rarely needs to use them. His main living quarters, bathroom and kitchen are all within about 50ft. (This note by Kirit Kelley [facility]) Patient was seen and examined and reviewed prior records and notified primary care provider Dr. Ca of admission. Patient constantly asking when he can go home and he is ready to go home and ready to continue mowing his lawn's of which his grandson is covering that duty right now Patient with a very difficult personality to manage very demanding with this examiner and disrespectful and yelling at me to come back in the room so we will need to evaluate this and if this is not a good match will continue to be supportive see what his needs are and discharge home if that is a reasonable plan. Subjective/Events-last exam Discharge in planning. Pain is controlled. Appears to be back at baseline both mentation and physical. Checked meds and labs. Bowels are moving. Overall having really good results here at inpatient rehab. Will reach out to grandson to see when we can discharge. Monitor closely Conferred with RN Reviewed therapy notes Pain is controlled Review of Systems Musculoskeletal: leg pain Objective Exam Vital Signs Vital Signs Date Time Temp Pulse Resp B/P (MAP) Pulse Ox O2 Delivery O2 Flow Rate FiO2 06/11/19 20:15 Room Air 8/20/19 20:15 94 06/11/19 17:15 99.0 66 18 105/59 (74) 06/07/19 08:54 Capillary Refill : General Appearance: No Apparent Distress, WD/WN, Chronically ill, Obese HEENT: PERRL/EOMI, Normal ENT Inspection, Pharynx Normal Neck: Full Range of Motion, Non Tender Respiratory: Chest Non Tender, Lungs Clear, Normal Breath Sounds, No Accessory Muscle Use, No Respiratory Distress, Wheezing Cardiovascular: Regular Rate, Rhythm, No Edema, No Gallop, No JVD, No Murmur, Normal Peripheral Pulses Gastrointestinal: Normal Bowel Sounds, No Pulsatile Mass, Non Tender, Soft Rectal: Deferred Back: No Vertebral Tenderness Extremity: Normal Capillary Refill, Normal Inspection, Normal Range of Motion (except right leg from surgery), Non Tender, No Calf Tenderness, Other (Right knee reduced AROM and PROM) Neurologic/Psychiatric: Alert, Oriented x3, No Motor/Sensory Deficits, Normal Mood/Affect, Disoriented Skin: Normal Color Lymphatic: No Adenopathy Results/Procedures Lab Patient resulted labs reviewed. FIM Transfers Therapy Code Descriptions/Definitions Functional [place] Measure: 0=Not Assessed/NA 4=Minimal Assistance 1=Total Assistance 5=Supervision or Setup 2=Maximal Assistance 6=Modified [place] 3=Moderate Assistance 7=Complete [place] Therapy Quality Codes: 6 Independent with activity with or without an assistive device 5 Patient requires set up or clean up by helper. Patient completes activity by themselves 4 Supervision or touching assist (CGA). [place] provide cues , steadying assist 3 The helper provides less than half the effort to complete the activity 2 The helper provides more than half the effort to complete the activity 1 Dependent. The helper does all the effort to complete an activity 7 Patient refused to complete or attempt activity 9 The patient did not perform the activity before the current illness or inju ry 88 Not attempted due to Medical conditions or safety concerns Transfers (B, C, W/C) (FIM): 5 (SBA with placement of walker.) Scootin Rollin Roll Left to Right (QC): 4 Supine to/from Sit: 6 Sit to/from Stand: 6 Sit to Lying (QC): 4 Sit to Stand (QC): 4 (min assist to come to astand. ) Chair/Jpl-cu-[place] Xfer(QC): 4 (CGA for safety) Bed to/from Chair: 6 Car Transfer (QC): 5 (SBA, min inst) Gait Training Does the Patient Walk?: Yes Gait (FIM): 6 Distance (FIM): 3=150 ft (200x3) Distance: 550, 300 x2 Walk 10 feet (QC): 4 Walk 50 ft with 2 Turns(QC): 4 Walk 150 ft (QC): 4 Walking 10ft/uneven surface-QC: 4 Gait Level of Assist: 6 Gait Persons Needed: 0 Gait Assistive Device: FWW Wheelchair Training Does the Pt Use a Wheelchair?: No Stair Training Stair Training: Handrails/: 2 handrails Stairs (FIM): 5 #of Steps: 8 1 Step (curb) (QC): 4 (CGA with cues for sequencing.) 4 Steps (QC): 88 12 Steps (QC): 88 Stairs: Pattern: Reciprocal Level of Assist: 5 Balance Picking up an Object (QC): 88 Mental Status/Objective Comprehension: 5 Expression: 6 Social Interaction: 4 Problem Solvin Memory: 3 ADL-Treatment Feedin Eating (QC): 6 Groomin (CGA standing at sink with walker. Pt able to brush teeth, wash face, wash hands.) Oral Hygiene (QC): 4 (CGA) Bathin (SBA during stand at GB. Pt able to wash feet using figure 4 method to cross legs.) Bathing Location: L Arm, R Arm, L Upper Leg, R Upper Leg, L Lower Leg (including foot), R Lower Leg (including foot), Chest, Abdomen, Buttocks, Perineal Area Shower/Bathe Self (QC): 4 (SBA) Upper Extremity Dressin (set up) Upper Body Dressing (QC): 5 Lower Extremity Dressin Lower Body Dressing (QC): 6 On/Off Footwear (QC): 6 Toiletin Toileting Hygiene (QC): 6 Toilet/Commode Transfer: 5 Toilet Transfer (QC): 4 Shower: 4 (CGA on/off shower chair using grab bars.) Assessment/Plan Assessment and Plan Assess & Plan/Chief Complaint Assessment: s/p right knee replacement POD # 7 HTN COPD Dementia confirmed on [facility] 07/22? Delirium? Anger issues? OA GERD Plan: Check labs prn IRF protocol PCP consult Dementia Dispo home soon (1) Status post right knee replacement Status: Acute (2) COPD Exacerbation Status: Acute (3) Vertigo Status: Acute (4) Esophagitis Status: Acute (5) Dysphagia Status: Acute (6) Encounter for diagnostic colonoscopy due to change in bowel habits (7) Infection due to ESBL-producing Escherichia coli Status: Acute (8) Hypokalemia Status: Acute (9) Generalized weakness Status: Acute (10) Hypertension Status: Chronic Qualifiers: Hypertension type: essential hypertension Qualified Codes: I10 - Essential (primary) hypertension (11) COPD (chronic obstructive pulmonary disease) Status: Chronic Qualifiers: COPD type: unspecified COPD Qualified Codes: J44.9 - Chronic obstructive pulmonary disease, unspecified (12) Arthritis Status: Chronic (13) GERD (gastroesophageal reflux disease) Status: Chronic Qualifiers: Esophagitis presence: without esophagitis Qualified Codes: K21.9 - Gastro- esophageal reflux disease without esophagitis (14) Anger reaction Status: Acute (15) Cognitive decline Status: Chronic ANA VÁZQUEZ DO Jun 11, 2019 09:06
--- NOTE | 2019-06-11 09:53 | Physical Therapy Daily Note ---
PT Daily Note-Current Subjective Pt laying Supine in bed upon arrival. Pt agrees to PT. Pt reports being ready to D/C anytime. Pain Location: No Pain Reported Mental Status Patient Orientation: Person, Place, Time, Situation Transfers Therapy Code Descriptions/Definitions Functional [place] Measure: 0=Not Assessed/NA 4=Minimal Assistance 1=Total Assistance 5=Supervision or Setup 2=Maximal Assistance 6=Modified [place] 3=Moderate Assistance 7=Complete [place] Therapy Quality Codes: 6 Independent with activity with or without an assistive device 5 Patient requires set up or clean up by helper. Patient completes activity by themselves 4 Supervision or touching assist (CGA). [place] provide cues , steadying assist 3 The helper provides less than half the effort to complete the activity 2 The helper provides more than half the effort to complete the activity 1 Dependent. The helper does all the effort to complete an activity 7 Patient refused to complete or attempt activity 9 The patient did not perform the activity before the current illness or injury 88 Not attempted due to Medical conditions or safety concerns Transfers (B, C, W/C) (FIM): 6 Scootin Rollin Roll Left to Right (QC): 7 Supine to/from Sit: 7 Sit to/from Stand: 6 Sit to Lying (QC): 7 Sit to Stand (QC): 6 Chair/Esd-dl-Zaiqw Xfer(QC): 6 Bed to/from Chair: 6 Car Transfer (QC): 6 Weight Bearing Right Lower Extremity: Right Weight Bearing/Tolerated Left Lower Extremity: Left Full Weight Bearing Gait Training Does the Patient Walk?: Yes Gait (FIM): 6 Distance (FIM): 3=150 ft Distance: 150' Walk 10 feet (QC): 6 Walk 50 ft with 2 Turns(QC): 6 Walk 150 ft (QC): 6 Walking 10ft/uneven surface-QC: 6 Gait Level of Assist: 6 Gait Persons Needed: 1 Gait Assistive Device: FWW Wheelchair Training Does the Pt Use a Wheelchair?: No Stair Training Stair Training: Handrails/: 2 handrails Stairs (FIM): 6 #of Steps: 16 1 Step (curb) (QC): 6 4 Steps (QC): 6 12 Steps (QC): 6 Stairs: Pattern: Step to Level of Assist: 6 Balance Picking up an Object (QC): 88 Special Test Comments Pt's balance is not safe when bending over to attempt this item. Pt has a electronic video games servicer at home. Exercises NuStep Minutes: 10 NuStep Workload: 6 Treatments Pt completes items for FIM scoring including bed mobility, transfers including car transfers, ambulation including across varying surface, and stairs. Pt returns to room at end of tx to rest. Pt has all needs met, call light in hand. Assessment Current Status: Good Progress Pt tolerates tx well. PT Short Term Goals Short Term Goals Time Frame: Jun 13, 2019 Transfers (B,C,W/C) (FIM): 5 Gait (FIM): 5 PT Presser All Around Goals Group Home Goals PT Group Home Goals Time Frame: Jun 20, 2019 Transfers (B,C,W/C) (FIM): 7 Sit to Lying (QC): 6 Lying-Sitting on Side/Bed(QC): 6 Sit to Stand (QC): 6 Rollin Roll Left to Right (QC): 6 Chair/Ife-fp-Ccbki Xfer(QC): 6 Car Transfer (QC): 6 Does the Patient Walk: Yes Gait (FIM): 6 Gait distance (FIM): 3=150 ft Walk 10 feet (QC): 6 Walk 10ft-Uneven Surface(QC): 6 Walk 50ft with 2 Turns (QC): 6 Walk 150 ft (QC): 6 Gait Assistive Device: FWW Does the Pt use WC or Scooter?: No Stairs (FIM): 5 # of Steps: 4 (household level) 1 Step (curb) (QC): 6 4 Steps (QC): 6 12 Steps (QC): 88 Picking up an Object (QC): 5 PT Plan Problem List Problem List: Activity Tolerance, Safety Treatment/Plan Treatment Plan: Continue Plan of Care Treatment Plan: Bed Mobility, Education, Functional Activity Sotero, Functional Strength, Group Therapy, Gait, Safety, Therapeutic Exercise, Transfers Treatment Duration: Jun 20, 2019 Frequency: At least 5 of 7 days/Wk (IRF) Estimated Hrs Per Day: 1.5 hours per day Patient and/or Family Agrees t: Yes Safety Risks/Education Patient Education: Correct Positioning, Safety Issues Teaching Recipient: Patient Teaching Methods: Discussion Response to Teaching: Verbalize Understanding Time/GCodes Time In: 805 Time Out: 850 Total Billed Treatment Time: 45 Total Billed Treatment 1, GT (15m), EX (15m) & FA (15m) OSBALDO MEANS ELECTRICAL LABORATORY TECHNICIAN Jun 11, 2019 09:53
--- NOTE | 2019-06-11 10:18 | Progress Note - Hospitalist ---
[facility]Y [facility] 06/11/19 1017: Progress Note No acute events Continue to work with ST/OT/PT PT has advanced him to up ad-maría Possible disposition home tomorrow pending social work? ANGELIA ARCHULETA DO 06/11/191: Supervisory-Addendum Brief Verification & Attestation Participated in pt care: history, MDM, physical Personally performed: exam, history, MDM, supervision of care Care discussed with: Medical Student Procedures: n/a Results interpretation: Verified all documentation Verification and Attestation of Medical Student E/M Service A medical student performed and documented this service in my presence. I reviewed and verified all information documented by the medical student and made modifications to such information, when appropriate. I personally performed the physical exam and medical decision making. Angelia Archuleta, Jun 11, 2019,21:21 [facility] Jun 11, 2019 10:17 ANGELIA ARCHULETA DO Jun 11, 2019 21:21
--- NOTE | 2019-06-11 12:12 | Occupational Ther Daily Note ---
OT Current Status-Daily Note Subjective No pain reported. Appearance Pt. verbalizes that he is ready to go home tomorrow. Agrees to work with OT. Mental Status/Objective Patient Orientation: Person, Place, Time, Situation Therapy Code Descriptions/Definitions Functional [place] Measure: 0=Not Assessed/NA 4=Minimal Assistance 1=Total Assistance 5=Supervision or Setup 2=Maximal Assistance 6=Modified [place] 3=Moderate Assistance 7=Complete [place] ADL-Treatment Therapy Code Descriptions/Definitions Functional [place] Measure: 0=Not Assessed/NA 4=Minimal Assistance 1=Total Assistance 5=Supervision or Setup 2=Maximal Assistance 6=Modified [place] 3=Moderate Assistance 7=Complete [place] Therapy Quality Codes: 6 Independent with activity with or without an assistive device 5 Patient requires set up or clean up by helper. Patient completes activity by themselves 4 Supervision or touching assist (CGA). [place] provide cues , steadying assist 3 The helper provides less than half the effort to complete the activity 2 The helper provides more than half the effort to complete the activity 1 Dependent. The helper does all the effort to complete an activity 7 Patient refused to complete or attempt activity 9 The patient did not perform the activity before the current illness or injury 88 Not attempted due to Medical conditions or safety concerns Bathing (FIM): 6 Shower/Bathe Self (QC): 6 Upper Body (FIM): 6 Upper Body Dressing (QC): 6 Lower Body Dressing (FIM): 6 Lower Body Dressing (QC): 6 On/Off Footwear (QC): 6 Toileting (FIM): 6 Toileting Hygiene (QC): 6 Transfers (B, C, W/C) (FIM): 6 Toilet/Commode Transfer (FIM): 6 Toilet Transfer (QC): 6 Shower Transfer(FIM): 6 Other Treatment Pt. completed showering and dressing tasks in room with Mod I. After this, ambulated with walker to therapy gym. Tolerated arm bike x 15minutes at fast pace and min resistance for overall strengthening and endurance. Pt. verbalizes that he has no concerns about returning home. Pt. states that he would like a walker basket if possible. All other needs met. Education OT Patient Education: Correct positioning, Exercise program, Modified ADL techniques, Progress toward Goal/Update tx plan, Purpose of tx/functional activities, Reviewed precautions, Rehab process, Transfer techniques Teaching Recipient: Patient Teaching Methods: Demonstration, Discussion Response to Teaching: Verbalize Understanding, Return Demonstration OT Short Term Goals Short Term Goals Time Frame: Jun 13, 2019 Grooming(FIM): 5 Bathing Location: Abdomen, Buttocks Lower Body Dressing(FIM): 5 Toileting(FIM): 5 Transfers (B,C,W/C) (FIM): 5 Toilet/Commode Transfer(FIM): 5 Shower Transfer(FIM): 5 1=Demonstrate adherence to instructed precautions during ADL tasks. 2=Patient will verbalize/demonstrate understanding of assistive devices/modifications for ADL. 3=Patient will improve strength/tolerance for activity to enable patient to perform ADL's. OT [employer] Grader Goals Half-Way Goals Time Frame: Jun 20, 2019 Groomin Oral Hygiene (QC): 6 Bathing(FIM): 6 Bathing Location: L Arm, R Arm, L Upper Leg, R Upper Leg, L Lower Leg (including foot), R Lower Leg (including foot), Chest, Abdomen, Buttocks, Perineal Area Shower/Bathe Self (QC): 6 Upper Body Dressing(FIM): 6 Upper Body Dressing (QC): 6 Lower Body Dressing(FIM): 6 Lower Body Dressing (QC): 6 On/Off Footwear (QC): 6 Toileting(FIM): 6 Toileting Hygiene (QC): 6 Transfers (B,C,W/C) (FIM): 6 Toilet/Commode Transfer(FIM): 6 Toilet/Commode Transfer (QC): 6 Shower Transfer(FIM): 6 Additional Goals: 1-Demonstrate ADL Tasks, 2-Verbalize Understanding, 3-ImproveStrength/Sotero 1=Demonstrate adherence to instructed precautions during ADL tasks. 2=Patient will verbalize/demonstrate understanding of assistive devices/modifications for ADL. 3=Patient will improve strength/tolerance for activity to enable patient to perform ADL's. OT Education/Plan Discharge Recommendations Plan/Recommendations: Continue POC Therapy D/C Recommendations: Home w/ Family Support Equpiment Recommendations-D/C: Walker Bag or Basket Treatment Plan/Plan of Care Treatment,Training & Education: Yes Patient would benefit from OT for education, treatment and training to promote independence in ADL's, mobility, safety and/or upper extremity function for ADL's. Plan of Care: ADL Retraining, Functional Mobility, Group Exercise/Act as Ind, UE Funct Exercise/Act Treatment Duration: Jun 20, 2019 Frequency: At least 5 of 7 days/Wk (IRF) Estimated Hrs Per Day: 1.5 hours per day Agreement: Yes Rehab Potential: Good Time/GCodes Start Time: 11:00 Stop Time: 12:00 Total Time Billed (hr/min): 60 Billed Treatment Time 1, ADL x 45minutes, Ex x 15minutes VAL ROSSI OT Jun 11, 2019 12:12
--- NOTE | 2019-06-11 13:40 | Speech Therapy Daily Note ---
Speech Daily Progress Note Subjective Date Seen by Provider: Jun 11, 2019 Time Seen by Provider: 00:30 The patient states he is happy to be returning home tomorrow. Objective The patient completed a series of safety sequencing cards without cuing at 100%. Assessment Assessment Current Status: Good Progress Treatment Plan Continue Plan of Care Communication Comprehension: 7 Expression: 7 Social Cognition Social Interaction: 6 Problem Solvin Memory: 6 Speech Short Term Goals Short Term Goals Short Term Goals 1) The patient will complete memory tasks related to his daily needs at 80% or greater with minimal cues. 2) The patient will complete problem solving tasks related to his daily needs at 80% or greater with minimal cues. 3) The patient will complete safety awareness tasks related to his daily needs at 80% or greater with minimal cues. Speech Chcf Goals Chcf Goals The patient will improve his safety awareness and independence to maximize his potential for meeting his daily needs. Speech-Plan Patient/Family Goals Patient/Family Goals: The patient is scheduled to return home tomorrow. He will have assistance from his family. Treatment Plan Speech Therapy Treatment Plan: Continue Plan of Care Treatment Duration: Jun 14, 2019 Frequency: 5 times per week Estimated Hrs Per Day: .5 hour per day Rehab Potential: Good Barriers to Learning: The patient has cognitive deficits. Pt/Family Agrees to Plan: Yes Safety Risks/Education Teaching Recipient: Patient Teaching Methods: Discussion Response to Teaching: Verbalize Understanding Education Topics Provided: Continued safety when he returns home. Time Speech Therapy Time In: 10:30 Speech Therapy Time Out: 11:00 Total Billed Time: 30 Billed Treatment Time 1CL[address] Jun 11, 2019 13:40
--- NOTE | 2019-06-11 14:10 | Occupational Ther Daily Note ---
OT Current Status-Daily Note Subjective Pt did not report any pain this session, stating he is "ready to go home". Pt stated concerns with LE strength and balance upon returning returning home and wanted to focus on improving his confidence this session. pt agreeable to OT session focusing on functional tasks/mobility/transfers Mental Status/Objective Patient Orientation: Normal For Age Therapy Code Descriptions/Definitions Functional [place] Measure: 0=Not Assessed/NA 4=Minimal Assistance 1=Total Assistance 5=Supervision or Setup 2=Maximal Assistance 6=Modified [place] 3=Moderate Assistance 7=Complete [place] ADL-Treatment Therapy Code Descriptions/Definitions Functional [place] Measure: 0=Not Assessed/NA 4=Minimal Assistance 1=Total Assistance 5=Supervision or Setup 2=Maximal Assistance 6=Modified [place] 3=Moderate Assistance 7=Complete [place] Therapy Quality Codes: 6 Independent with activity with or without an assistive device 5 Patient requires set up or clean up by helper. Patient completes activity by themselves 4 Supervision or touching assist (CGA). [place] provide cues , steadying assist 3 The helper provides less than half the effort to complete the activity 2 The helper provides more than half the effort to complete the activity 1 Dependent. The helper does all the effort to complete an activity 7 Patient refused to complete or attempt activity 9 The patient did not perform the activity before the current illness or injury 88 Not attempted due to Medical conditions or safety concerns Toileting (FIM): 6 (Pt completed toileting standing with RW infront of toilet. 3/3 completed) Toileting Hygiene (QC): 6 Transfers (B, C, W/C) (FIM): 6 Other Treatment Pt concerned about LE strength and balance, therefor OT wanted to put him in situation to increase his overall safety and confidence for ADL performance. To improve confidence, endurance, safety, functional mobility and transfers upon returning home, pt completed the following this session: Pt used RW to go to [facility], pt was able to locate elevator buttons to the first floor. Pt walked outside and sat on bench, then he stated he needed to go to the restroom. Pt walked back inside with walker and to the bathrooms. Pt then located the elevators and the buttons to return to the 2nd floor to his room. Pt seated in recliner, call light in reach and needs met at end of session. Education OT Patient Education: Energy conservation, Progress toward Goal/Update tx plan, Purpose of tx/functional activities, Transfer techniques Teaching Recipient: Patient Teaching Methods: Demonstration, Discussion Response to Teaching: Verbalize Understanding, Return Demonstration OT Short Term Goals Short Term Goals Time Frame: Jun 13, 2019 Grooming(FIM): 5 Bathing Location: Abdomen, Buttocks Lower Body Dressing(FIM): 5 Toileting(FIM): 5 Transfers (B,C,W/C) (FIM): 5 Toilet/Commode Transfer(FIM): 5 Shower Transfer(FIM): 5 1=Demonstrate adherence to instructed precautions during ADL tasks. 2=Patient will verbalize/demonstrate understanding of assistive devices/modifications for ADL. 3=Patient will improve strength/tolerance for activity to enable patient to perform ADL's. OT Environmental Health And Safety Manager Goals Environmental Health And Safety Manager Goals Time Frame: Jun 20, 2019 Groomin Oral Hygiene (QC): 6 Bathing(FIM): 6 Bathing Location: L Arm, R Arm, L Upper Leg, R Upper Leg, L Lower Leg (including foot), R Lower Leg (including foot), Chest, Abdomen, Buttocks, Perineal Area Shower/Bathe Self (QC): 6 Upper Body Dressing(FIM): 6 Upper Body Dressing (QC): 6 Lower Body Dressing(FIM): 6 Lower Body Dressing (QC): 6 On/Off Footwear (QC): 6 Toileting(FIM): 6 Toileting Hygiene (QC): 6 Transfers (B,C,W/C) (FIM): 6 Toilet/Commode Transfer(FIM): 6 Toilet/Commode Transfer (QC): 6 Shower Transfer(FIM): 6 Additional Goals: 1-Demonstrate ADL Tasks, 2-Verbalize Understanding, 3- ImproveStrength/Sotero 1=Demonstrate adherence to instructed precautions during ADL tasks. 2=Patient will verbalize/demonstrate understanding of assistive devices/modifications for ADL. 3=Patient will improve strength/tolerance for activity to enable patient to perform ADL's. OT Education/Plan Discharge Recommendations Plan/Recommendations: Continue POC Treatment Plan/Plan of Care Treatment,Training & Education: Yes Patient would benefit from OT for education, treatment and training to promote independence in ADL's, mobility, safety and/or upper extremity function for ADL's. Plan of Care: ADL Retraining, Functional Mobility, Group Exercise/Act as Ind, UE Funct Exercise/Act Treatment Duration: Jun 20, 2019 Frequency: At least 5 of 7 days/Wk (IRF) Estimated Hrs Per Day: 1.5 hours per day Agreement: Yes Rehab Potential: Good Time/GCodes Start Time: 13:25 Stop Time: 13:40 Total Time Billed (hr/min): 15 Billed Treatment Time FA 1 unit X 15min NILSON NEWBERRY OT Jun 11, 2019 14:10
--- NOTE | 2019-06-11 15:45 | Physical Therapy Daily Note ---
PT Daily Note-Current Subjective Pt sitting in recliner upon arrival. Pt agrees to PT but reports feeling ready to D/C at anytime. Pain Location: No Pain Reported Mental Status Patient Orientation: Person, Place, Situation Transfers Therapy Code Descriptions/Definitions Functional [place] Measure: 0=Not Assessed/NA 4=Minimal Assistance 1=Total Assistance 5=Supervision or Setup 2=Maximal Assistance 6=Modified [place] 3=Moderate Assistance 7=Complete [place] Therapy Quality Codes: 6 Independent with activity with or without an assistive device 5 Patient requires set up or clean up by helper. Patient completes activity by themselves 4 Supervision or touching assist (CGA). [place] provide cues , steadying assist 3 The helper provides less than half the effort to complete the activity 2 The helper provides more than half the effort to complete the activity 1 Dependent. The helper does all the effort to complete an activity 7 Patient refused to complete or attempt activity 9 The patient did not perform the activity before the current illness or injury 88 Not attempted due to Medical conditions or safety concerns Weight Bearing Right Lower Extremity: Right Weight Bearing/Tolerated Left Lower Extremity: Left Full Weight Bearing Exercises Supine Ex: Ankle pumps, Quad Set, Glut sets, Heel Slides, Straight leg raise, Hip abd/add Seated Therapy Exercises: Ankle pumps, Long arc quads, Hip flexion, Kicking activity Treatments SURVEILLANCE SENSOR OPERATOR gives instruction on HEP for pt, paper copy given. Pt resting at end of tx with all needs met, call light next to pt. Assessment Current Status: Good Progress Pt tolerated tx well. PT Short Term Goals Short Term Goals Time Frame: Jun 13, 2019 Transfers (B,C,W/C) (FIM): 5 Gait (FIM): 5 PT Senior Living Goals Senior Living Goals PT Supervisor Crack Off Goals Time Frame: Jun 20, 2019 Transfers (B,C,W/C) (FIM): 7 Sit to Lying (QC): 6 Lying-Sitting on Side/Bed(QC): 6 Sit to Stand (QC): 6 Rollin Roll Left to Right (QC): 6 Chair/Qoh-xm-Ldeod Xfer(QC): 6 Car Transfer (QC): 6 Does the Patient Walk: Yes Gait (FIM): 6 Gait distance (FIM): 3=150 ft Walk 10 feet (QC): 6 Walk 10ft-Uneven Surface(QC): 6 Walk 50ft with 2 Turns (QC): 6 Walk 150 ft (QC): 6 Gait Assistive Device: FWW Does the Pt use WC or Scooter?: No Stairs (FIM): 5 # of Steps: 4 (household level) 1 Step (curb) (QC): 6 4 Steps (QC): 6 12 Steps (QC): 88 Picking up an Object (QC): 5 PT Plan Problem List Problem List: Activity Tolerance Treatment/Plan Treatment Plan: Continue Plan of Care Treatment Plan: Bed Mobility, Education, Functional Activity Sotero, Functional Strength, Group Therapy, Gait, Safety, Therapeutic Exercise, Transfers Treatment Duration: Jun 20, 2019 Frequency: At least 5 of 7 days/Wk (IRF) Estimated Hrs Per Day: 1.5 hours per day Patient and/or Family Agrees t: Yes Safety Risks/Education Patient Education: Issued Written HEP, Correct Positioning, Safety Issues Teaching Recipient: Patient Teaching Methods: Discussion Response to Teaching: Verbalize Understanding Time/GCodes Time In: 1250 Time Out: 1320 Total Billed Treatment Time: 30 Total Billed Treatment 1, EX x2 (30m) OSBALDO MEANS SURVEILLANCE SENSOR OPERATOR Jun 11, 2019 15:45
[2019-06-11 17:15] VITALS: BP 105/59
--- NOTE | 2019-06-11 18:30 | Progress Note ---
Subjective Date Seen by a Provider: Jun 11, 2019 Time Seen by a Provider: 12:45 Subjective/Events-last exam Fwup right total knee revision, Hypertension, Urinary Retention, COPD. Sitting up in chair. Denies pain. Excited that gets to go home tomorrow. Feels like urecholine has helped his urinary frequency. Objective Exam Vital Signs Date Time Temp Pulse Resp B/P (MAP) Pulse Ox O2 Delivery O2 Flow Rate FiO2 06/11/19 17:15 99.0 66 18 105/59 (74) 96 Room Air 06/11/19 09:11 Room Air 06/11/19 08:06 94 Room Air 06/11/19 07:58 71 164/53 (90) 06/11/19 05:54 98.0 62 14 136/71 (92) 96 Room Air 06/10/19 20:45 Room Air I & O 06/11/19 07:00 Intake Total 1260 ml Output Total 750 ml Balance 510 ml Capillary Refill : General Appearance: No Apparent Distress Neck: Supple Respiratory: Lungs Clear Cardiovascular: Regular Rate, Rhythm Gastrointestinal: normal bowel sounds, non tender, soft Extremity: Inflammation (right Lower leg with ecchymosis), Pedal Edema Neurologic/Psychiatric: Alert, Oriented x3 Assessment/Plan Assessment/Plan Assess & Plan/Chief Complaint 1. S/P Right Total Knee Revision--pain controlled and is doing well with therapies, plan is home tomorrow 2. Hypertension--home meds restarted 3. Urinary Retention--urecholine helping 4. Anger--history of depression--mood much better today 5. COPD--lungs clear Clinical Quality Measures DVT/VTE Risk/Contraindication: Risk Factor Score Per Nursin RFS Level Per Nursing on Admit: 4+=Very High ENRRIQUE JALLOH DO Jun 11, 2019 18:30
[2019-06-11] MEDS: ATORVASTATIN 10 MG (LIPITOR) TABLET PO SCH (20:04)
[2019-06-12] MEDS: BETHANECHOL 10 MG (URECHOLINE) TAB PO SCH ×2 (05:04→10:14)
[2019-06-12 05:20] VITALS: BP 119/49
--- NOTE | 2019-06-12 08:44 | PM&R Progress Note ---
Subjective HPI/CC On Admission Date Seen by Provider: Jun 12, 2019 Time Seen by Provider: 08:45 CC: s/p right knee replacement uncomplicated per Dr Mancia at [place] POD # 2 HPI: Mr Cody is a 79 y/o Male with PMH significant for COPD and HTN presents to Inpatient rehab following a R total knee revision surgery. He originally had bilateral knee replacements about 10 years ago, but he was experiencing increased pain and effusion over the last 3 months in the right knee. After multiple evaluations, he underwent right knee arthroplasty revision surgery on 06/04. He has had an uneventful course since surgery. He is currently reports no pain. He is able to ambulate with an fww without assist to the bathroom. 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 In planning for dispo, he lives alone and needs to traverse 6 steps to gain entry to his house. There are handrails on both sides. He also already has hand rails installed in the bathroom. He has 1 flight of stairs in his house, but rarely needs to use them. His main living quarters, bathroom and kitchen are all within about 50ft. (This note by Kirit Kelley [facility]) Patient was seen and examined and reviewed prior records and notified primary care provider Dr. Ca of admission. Patient constantly asking when he can go home and he is ready to go home and ready to continue mowing his lawn's of which his grandson is covering that duty right now Patient with a very difficult personality to manage very demanding with this examiner and disrespectful and yelling at me to come back in the room so we will need to evaluate this and if this is not a good match will continue to be supportive see what his needs are and discharge home if that is a reasonable plan. Subjective/Events-last exam Discharge in planning. Pain is controlled. Appears to be back at baseline both mentation and physical. Checked meds and labs. Bowels are moving. Overall having really good results here at inpatient rehab. Will reach out to grandson to see when we can discharge. Monitor closely Conferred with RN Reviewed therapy notes Pain is controlled Objective Exam Vital Signs Vital Signs Date Time Temp Pulse Resp B/P (MAP) Pulse Ox O2 Delivery O2 Flow Rate FiO2 06/12/19 05:20 98.0 66 18 119/49 (72 92 Room Air 06/07/19 08:54 Capillary Refill : General Appearance: No Apparent Distress, WD/WN, Chronically ill, Obese HEENT: PERRL/EOMI, Normal ENT Inspection, Pharynx Normal Neck: Full Range of Motion, Non Tender Respiratory: Chest Non Tender, Lungs Clear, Normal Breath Sounds, No Accessory Muscle Use, No Respiratory Distress, Wheezing Cardiovascular: Regular Rate, Rhythm, No Edema, No Gallop, No JVD, No Murmur, Normal Peripheral Pulses Gastrointestinal: Normal Bowel Sounds, No Pulsatile Mass, Non Tender, Soft Rectal: Deferred Back: No Vertebral Tenderness Extremity: Normal Capillary Refill, Normal Inspection, Normal Range of Motion (except right leg from surgery), Non Tender, No Calf Tenderness, Other (Right knee reduced AROM and PROM) Neurologic/Psychiatric: Alert, Oriented x3, No Motor/Sensory Deficits, Normal Mood/Affect, Disoriented Skin: Normal Color Lymphatic: No Adenopathy Results/Procedures Lab Patient resulted labs reviewed. FIM Transfers Therapy Code Descriptions/Definitions Functional [place] Measure: 0=Not Assessed/NA 4=Minimal Assistance 1=Total Assistance 5=Supervision or Setup 2=Maximal Assistance 6=Modified [place] 3=Moderate Assistance 7=Complete [place] Therapy Quality Codes: 6 Independent with activity with or without an assistive device 5 Patient requires set up or clean up by helper. Patient completes activity by themselves 4 Supervision or touching assist (CGA). [place] provide cues , steadying assist 3 The helper provides less than half the effort to complete the activity 2 The helper provides more than half the effort to complete the activity 1 Dependent. The helper does all the effort to complete an activity 7 Patient refused to complete or attempt activity 9 The patient did not perform the activity before the current illness or in jury 88 Not attempted due to Medical conditions or safety concerns Transfers (B, C, W/C) (FIM): 6 Scootin Rollin Roll Left to Right (QC): 7 Supine to/from Sit: 7 Sit to/from Stand: 6 Sit to Lying (QC): 7 Sit to Stand (QC): 6 Chair/Nvl-lb-Bwodi Xfer(QC): 6 Bed to/from Chair: 6 Car Transfer (QC): 6 Gait Training Does the Patient Walk?: Yes Gait (FIM): 6 Distance (FIM): 3=150 ft Distance: 150' Walk 10 feet (QC): 6 Walk 50 ft with 2 Turns(QC): 6 Walk 150 ft (QC): 6 Walking 10ft/uneven surface-QC: 6 Gait Level of Assist: 6 Gait Persons Needed: 1 Gait Assistive Device: FWW Wheelchair Training Does the Pt Use a Wheelchair?: No Stair Training Stair Training: Handrails/: 2 handrails Stairs (FIM): 6 #of Steps: 16 1 Step (curb) (QC): 6 4 Steps (QC): 6 12 Steps (QC): 6 Stairs: Pattern: Step to Level of Assist: 6 Balance Picking up an Object (QC): 88 Mental Status/Objective Comprehension: 7 Expression: 7 Social Interaction: 6 Problem Solvin Memory: 6 ADL-Treatment Feedin Eating (QC): 6 Groomin (CGA standing at sink with walker. Pt able to brush teeth, wash face, wash hands.) Oral Hygiene (QC): 4 (CGA) Bathin Bathing Location: L Arm, R Arm, L Upper Leg, R Upper Leg, L Lower Leg (including foot), R Lower Leg (including foot), Chest, Abdomen, Buttocks, Pe rineal Area Shower/Bathe Self (QC): 6 Upper Extremity Dressin Upper Body Dressing (QC): 6 Lower Extremity Dressin Lower Body Dressing (QC): 6 On/Off Footwear (QC): 6 Toiletin (Pt completed toileting standing with RW infront of toilet. 3/3 completed) Toileting Hygiene (QC): 6 Toilet/Commode Transfer: 6 Toilet Transfer (QC): 6 Shower: 6 Assessment/Plan Assessment and Plan Assess & Plan/Chief Complaint Assessment: s/p right knee replacement POD # 7 HTN COPD Dementia confirmed on [facility] 07/22? Delirium? Anger issues? OA GERD Plan: Check labs prn IRF protocol PCP consult Dementia Dispo home soon (1) Status post right knee replacement Status: Acute (2) COPD Exacerbation Status: Acute (3) Vertigo Status: Acute (4) Esophagitis Status: Acute (5) Dysphagia Status: Acute (6) Encounter for diagnostic colonoscopy due to change in bowel habits (7) Infection due to ESBL-producing Escherichia coli Status: Acute (8) Hypokalemia Status: Acute (9) Generalized weakness Status: Acute (10) Hypertension Status: Chronic Qualifiers: Hypertension type: essential hypertension Qualified Codes: I10 - Essential (primary) hypertension (11) COPD (chronic obstructive pulmonary disease) Status: Chronic Qualifiers: COPD type: unspecified COPD Qualified Codes: J44.9 - Chronic obstructive pulmonary disease, unspecified (12) Arthritis Status: Chronic (13) GERD (gastroesophageal reflux disease) Status: Chronic Qualifiers: Esophagitis presence: without esophagitis Qualified Codes: K21.9 - Gastro- esophageal reflux disease without esophagitis (14) Anger reaction Status: Acute (15) Cognitive decline Status: Chronic ANA VÁZQUEZ DO Jun 12, 2019 08:44
[2019-06-12] MEDS ORDERED: ACHD5005 PO (08:47)
[2019-06-12] MEDS ORDERED: TRAM50TA2 PO (08:48)
[2019-06-12] MEDS ORDERED: SENN-20 PO (08:48)
--- NOTE | 2019-06-12 08:50 | D/C HH Face to Face Order ---
D/C Face to Face Orders Reconcile Patient Problems Problems Reviewed?: Yes Instructions for Patient [facility], Patient Instructions/FollowUp: Dr Ca 1 week Physician to follow Patient: Dr Ca Discharge Diet for Home: No Restrictions Patient Problems: Right total knee replacement Memory loss Patient Data-Allergies,Ht & Wt Patient Allergies: Coded Allergies: NKANo Known Allergies (Unverified Allergy, Unknown, 09/19/06) Height (Feet): 6 Height (Inches): 0.00 Weight (Pounds): 240 Weight (Ounces): 0.0 Home Health Need/Face to Face Date of Face to Face: Jun 12, 2019 Clinical Findings: Generalized weakness and fatigue, Pain with ambulation, Unsteady gait I have seen Pt [id number]: Yes Discharged To: Home Diagnosis/Conditions: Right total knee replacement Memory loss Patient is Homebound due to: CognItive deficits, Be fall risk due to instabilty, Pain w/ambulation Homebound Status Due to the above stated illness, injury or surgical procedure (medical condition or diagnosis) and associated clinical findings, the patient is homebound because of his/her inability to leave home except with aid of a supportive device and/or person AND leaving the home requires a considerable and taxing effort or is medically contraindicated. Pt req the following assistanc: Walker Home Health Nursing Orders Home Health Services Order: Parquet Floor Layer'S Helper-Evaluate & Treat, Physical Therapy-Evaluate & Treat Certify Stmt I certify that this patient is under my care and that I, a nurse practitioner or a physician; a food trades assistants working with me, had a face to face encounter that - meets the physician face to face encounter requirements with this patient as dated. ANA VÁZQUEZ DO Jun 12, 2019 08:49
--- NOTE | 2019-06-12 09:08 | Therapy Team Discharge Summary ---
Therapy Discharge Summary Discharge Recommendations Date of Discharge 06-12-19 Therapy D/C Recommendations: Home w/ Family Support Occupational Therapy Pt. has been seen by occupational therapy to increase overall independence and strength with daily tasks. Pt. has met all goals. Pt. is able to bathe/dress self with Mod I. Pt. has been educated in kitchen tasks and kitchen safety. All needs met. No further OT warranted at this time. Pt. does verbalize that he would like a walker basket. Social work notified. No Skilled OT Needs ID'd PT Penitentiary Goals Penitentiary Goals PT Halver Machine Operator Goals Time Frame: Jun 20, 2019 Transfers (B,C,W/C) (FIM): 7 Roll Left to Right (QC): 6 Sit to Lying (QC): 6 Lying-Sitting on Side/Bed(QC): 6 Sit to Stand (QC): 6 Chair/Zxd-cr-Qrpid Xfer(QC): 6 Car Transfer (QC): 6 Does the Patient Walk: Yes Gait (FIM): 6 Gait distance (FIM): 3=150 ft Walk 10 feet (QC): 6 Walk 10ft-Uneven Surface(QC): 6 Walk 50ft with 2 Turns (QC): 6 Walk 150 ft (QC): 6 Gait Assistive Device: FWW Does the Pt use WC or Scooter?: No Stairs (FIM): 5 # of Steps: 4 (household level) 1 Step (curb) (QC): 6 4 Steps (QC): 6 12 Steps (QC): 88 Picking up an Object (QC): 5 OT Halver Machine Operator Goals Halver Machine Operator Goals Time Frame: Jun 20, 2019 Oral Hygiene (QC): 6 (met) Grooming(FIM): 6 (met) Bathing(FIM): 6 (met) Bathing Location: L Arm, R Arm, L Upper Leg, R Upper Leg, L Lower Leg (including foot), R Lower Leg (including foot), Chest, Abdomen, Buttocks, Perineal Area Shower/Bathe Self (QC): 6 (met) Upper Body Dressing(FIM): 6 (met) Upper Body Dressing (QC): 6 (met) Lower Body Dressing(FIM): 6 (met) Lower Body Dressing (QC): 6 (met) On/Off Footwear (QC): 6 (met) Toileting(FIM): 6 (met) Toileting Hygiene (QC): 6 (met) Transfers (B,C,W/C) (FIM): 6 (met) Toilet/Commode Transfer(FIM): 6 (met) Toilet/Commode Transfer (QC): 6 (met) Shower Transfer(FIM): 6 (met) Additional Goals: 1-Demonstrate ADL Tasks, 2-Verbalize Understanding, 3- ImproveStrength/Sotero 1=Demonstrate adherence to instructed precautions during ADL tasks. 2=Patient will verbalize/demonstrate understanding of assistive devices/modifications for ADL. 3=Patient will improve strength/tolerance for activity to enable patient to perform ADL's. Speech Halver Machine Operator Goals Penitentiary Goals The patient will improve his safety awareness and independence to maximize his potential for meeting his daily needs. VAL ROSSI OT Jun 12, 2019 09:08
[2019-06-12 09:28] VITALS: BP 149/73
[2019-06-12] MEDS: PANTOPRAZOLE 20 MG TABLET (PROTONIX) PO SCH (09:31)
[2019-06-12] MEDS: SERTRALINE 100 MG (ZOLOFT) TAB PO SCH (09:31)
[2019-06-12] MEDS: ASPIRIN E.C. 81 MG (ECOTRIN) TAB PO SCH (09:31)
[2019-06-12] MEDS: CYANOCOBALAMIN 1,000 MCG (VITAMIN B-12) TABLET PO SCH (09:31)
[2019-06-12] MEDS: MELOXICAM 7.5 MG (MOBIC) TABLET PO SCH (09:31)
[2019-06-12] MEDS: LOSARTAN 100 MG (COZAAR) TABLET PO SCH (09:31)
[2019-06-12] MEDS: SENNA W/DOCUSATE (SENOKOT S) TABLET PO SCH (09:33)
[2019-06-12] MEDS: ADVAIR HFA 115/21 MCG INHALER 8 GM IH SCH (10:00)
[2019-06-12] MEDS: UMECLIDINIUM BROMIDE (INCRUSE ELLIPTA) 7'S IH SCH (10:00)
--- NOTE | 2019-06-12 10:12 | NUR ---
Call to Pharmacy to notify unable to find Colest[facility] to administer to pt
--- NOTE | 2019-06-12 10:16 | NUR ---
EMT/PARAMEDIC met with patient to inquire about any last minute concerns regarding discharge plans home today. Patient expresses no concerns and is eager for this transition. EMT/PARAMEDIC reviewed recommendation for home health services for PT and OT, patient states he previously utilize [facility] would like to utilize this provider again. Patient has all necessary DME at home. EMT/PARAMEDIC reviewed IMM and patient choice letter, patient provided signature for both. EMT/PARAMEDIC contacted patient's daughter, Dominique to provide transportation, she is available at 2 p.m. today. EMT/PARAMEDIC updated RN and patient. Please see discharge summary for further information.
[2019-06-12] MEDS: COLESTIPOL 1 GM (COLESTID) TAB PO SCH (10:56)
--- NOTE | 2019-06-12 11:25 | Therapy Team Discharge Summary ---
Therapy Discharge Summary Discharge Recommendations Date of Discharge Therapy D/C Recommendations: Home w/ Family Support Occupational Therapy No Skilled OT Needs ID'd Speech-Language Pathology Patient was admitted to the ARU for skilled services s/p knee revision. The pat carrie was seen by for decreased cognitive function so that he could return home safely. He is being discharged to his home today with family support. He is being discharged from at this time as well. PT Usp Goals Firepot Operator And Tender Goals PT Firepot Operator And Tender Goals Time Frame: Jun 20, 2019 Transfers (B,C,W/C) (FIM): 7 Roll Left to Right (QC): 6 Sit to Lying (QC): 6 Lying-Sitting on Side/Bed(QC): 6 Sit to Stand (QC): 6 Chair/Dqb-fx-[place] Xfer(QC): 6 Car Transfer (QC): 6 Does the Patient Walk: Yes Gait (FIM): 6 Gait distance (FIM): 3=150 ft Walk 10 feet (QC): 6 Walk 10ft-Uneven Surface(QC): 6 Walk 50ft with 2 Turns (QC): 6 Walk 150 ft (QC): 6 Gait Assistive Device: FWW Does the Pt use WC or Scooter?: No Stairs (FIM): 5 # of Steps: 4 (household level) 1 Step (curb) (QC): 6 4 Steps (QC): 6 12 Steps (QC): 88 Picking up an Object (QC): 5 OT Usp Goals Usp Goals Time Frame: Jun 20, 2019 Oral Hygiene (QC): 6 (met) Grooming(FIM): 6 (met) Bathing(FIM): 6 (met) Bathing Location: L Arm, R Arm, L Upper Leg, R Upper Leg, L Lower Leg (including foot), R Lower Leg (including foot), Chest, Abdomen, Buttocks, Perineal Area Shower/Bathe Self (QC): 6 (met) Upper Body Dressing(FIM): 6 (met) Upper Body Dressing (QC): 6 (met) Lower Body Dressing(FIM): 6 (met) Lower Body Dressing (QC): 6 (met) On/Off Footwear (QC): 6 (met) Toileting(FIM): 6 (met) Toileting Hygiene (QC): 6 (met) Transfers (B,C,W/C) (FIM): 6 (met) Toilet/Commode Transfer(FIM): 6 (met) Toilet/Commode Transfer (QC): 6 (met) Shower Transfer(FIM): 6 (met) Additional Goals: 1-Demonstrate ADL Tasks, 2-Verbalize Understanding, 3-ImproveStrength/Sotero 1=Demonstrate adherence to instructed precautions during ADL tasks. 2=Patient will verbalize/demonstrate understanding of assistive devices/modifications for ADL. 3=Patient will improve strength/tolerance for activity to enable patient to perform ADL's. Speech Firepot Operator And Tender Goals Firepot Operator And Tender Goals The patient will improve his safety awareness and independence to maximize his potential for meeting his daily needs. Met KHUSHI WARREN Jun 12, 2019 11:25
[2019-06-12] MEDS ORDERED: BTH10T PO (12:13)
--- NOTE | 2019-06-12 12:34 | Progress Note ---
Subjective Date Seen by a Provider: Jun 12, 2019 Time Seen by a Provider: 12:33 Subjective/Events-last exam Fwup right total knee revision, Hypertension, Urinary Retention, COPD. Discharging to home today. Objective Exam Vital Signs Date Time Temp Pulse Resp B/P (MAP) Pulse Ox O2 Delivery O2 Flow Rate FiO2 06/12/19 09:28 97.8 64 20 149/73 (98) 96 Room Air 06/12/19 08:35 Room Air 06/12/19 05:20 98.0 66 18 119/49 (72) 92 Room Air 06/11/19 20:15 Room Air 06/11/19 20:15 94 Room Air 06/11/19 17:15 99.0 66 18 105/59 (74) 96 Room Air I & O 06/12/19 07:00 Intake Total 1050 ml Output Total 1850 ml Balance -800 ml Capillary Refill : General Appearance: No Apparent Distress Neck: Supple Respiratory: Lungs Clear Cardiovascular: Regular Rate, Rhythm Extremity: No Calf Tenderness, Pedal Edema (right lower leg with bruising) Neurologic/Psychiatric: Alert, Oriented x3 Assessment/Plan Assessment/Plan Assess & Plan/Chief Complaint 1. S/P Right Total Knee Revision--pain controlled and is doing well with therap ies, DC with home health 2. Hypertension--stable 3. Urinary Retention--urecholine helping 4. Anger--history of depression--mood improved 5. COPD--stable Clinical Quality Measures DVT/VTE Risk/Contraindication: Risk Factor Score Per Nursin RFS Level Per Nursing on Admit: 4+=Very High ENRRIQUE JALLOH DO Jun 12, 2019 12:34
[2019-06-12 15:30] VITALS: BP 149/73
--- NOTE | 2019-06-12 20:26 | Discharge Summary ---
Diagnosis/Chief Complaint Date of Admission Jun 06, 2019 at 15:34 Date of Discharge Jun 12, 2019 at 15:30 Discharge Date: Jun 12, 2019 Discharge Diagnosis Assessment: s/p right knee replacement POD # 8 HTN COPD Dementia confirmed on [facility] 07/22? Delirium? Anger issues? OA GERD Plan: Check labs prn IRF protocol PCP consult Dementia Dispo home soon (1) Status post right knee replacement Status: Acute (2) COPD Exacerbation Status: Acute (3) Vertigo Status: Acute (4) Esophagitis Status: Acute (5) Dysphagia Status: Acute (6) Encounter for diagnostic colonoscopy due to change in bowel habits (7) Infection due to ESBL-producing Escherichia coli Status: Acute (8) Hypokalemia Status: Acute (9) Generalized weakness Status: Acute (10) Hypertension Status: Chronic Qualifiers: Hypertension type: essential hypertension Qualified Codes: I10 - Essential (primary) hypertension (11) COPD (chronic obstructive pulmonary disease) Status: Chronic Qualifiers: COPD type: unspecified COPD Qualified Codes: J44.9 - Chronic obstructive pulmonary disease, unspecified (12) Arthritis Status: Chronic (13) GERD (gastroesophageal reflux disease) Status: Chronic Qualifiers: Esophagitis presence: without esophagitis Qualified Codes: K21.9 - Gastro- esophageal reflux disease without esophagitis (14) Anger reaction Status: Acute (15) Cognitive decline Status: Chronic Reason Hospital Visit Verification and Attestation of Medical Student E/M Service A medical student performed and documented this service in my presence. I reviewed and verified all information documented by the medical student and made modifications to such information, when appropriate. I personally performed the physical exam and medical decision making. Angelia Archuleta, Jun 08, 2019,15:26 Discharge Summary Discharge Physical Examination Allergies: Coded Allergies: NKANo Known Allergies (Unverified Allergy, Unknown, 09/19/06) Vitals & I&Os Vital Signs Date Time Temp Pulse Resp B/P (MAP) Pulse Ox O2 Delivery O2 Flow Rate FiO2 06/12/19 15:30 64 20 149/73 96 Room Air 06/12/19 09:28 97.8 06/07/19 08:54 General Appearance: Alert, Oriented X3, Cooperative Respiratory: Clear to Auscultation Cardiovascular: Regular Rate Abdominal: Normal Bowel Sounds Neuro: Normal Gait, Normal Speech, Strength at 5/5 X4 Ext Psych/Mental Status: Mental Status NL, Mood NL Hospital Course Was the Problem List Reviewed?: Yes Hospital course: Pt had an uneventful hospital course for 7 days. He was admitted and did have a component for delirium which cleared over the next several days, labs were checked and there was no significant abnormalities persisted and there was no clinical decompensation during the hospital stay. Pain was well controlled and he barely took pain medication. Bowel returned back to normal function, urination was normal and PCP Dr. Ca did provide consultation services and was deemed stable for DC with the care of his grandson who he lives with and will overall do very well discharging home. Labs (last 24 hrs) Laboratory Tests 06/07/19 06:15: White Blood Count 8.5, Red Blood Count 3.97L, Hemoglobin 11.7L, Hematocrit 34L, Mean Corpuscular Volume 86, Mean Corpuscular Hemoglobin 30, Mean Corpuscular Hemoglobin Concent 34, Red Cell Distribution Width 13.2, Platelet Count 144, Mean Platelet Volume 10.2, Neutrophils (%) (Auto) 68, Lymphocytes (%) (Auto) 20, Monocytes (%) (Auto) 8, Eosinophils (%) (Auto) 4, Basophils (%) (Auto) 1, Neutrophils # (Auto) 5.8, Lymphocytes # (Auto) 1.7, Monocytes # (Auto) 0.7, Eosinophils # (Auto) 0.3, Basophils # (Auto) 0.0, Sodium Level 139, Potassium Level 3.8, Chloride Level 106, Carbon Dioxide Level 23, Anion Gap 10, Blood Urea Nitrogen 13, Creatinine 0.82, Estimat Glomerular Filtration Rate > 60, BUN/Creatinine Ratio 16, Glucose Level 122H, Calcium Level 8.8, Corrected Calcium 9.3, Total Bilirubin 0.9, Aspartate Amino Transf (AST/SGOT) 24, Alanine Aminotransferase (ALT/SGPT) 10, Alkaline Phosphatase 57, Total Protein 6.0L, Albumin 3.4 06/07/19 19:40: Urine Color YELLOW, Urine Clarity CLEAR, Urine pH 6.5, Urine Specific [place] 1.015L, Urine Protein 1+H, Urine Glucose (UA) NEGATIVE, Urine Ketones NEGATIVE, Urine Nitrite NEGATIVE, Urine Bilirubin NEGATIVE, Urine Urobilinogen NORMAL, Urine Leukocyte Esterase 1+H, Urine RBC (Auto) 1+H, Urine RBC NONE, Urine WBC RARE, Urine Crystals NONE, Urine Bacteria TRACE, Urine Casts NONE, Urine Mucus NEGATIVE, Urine Culture Indicated NO Pending Labs Laboratory Tests 06/07/19 06:15: White Blood Count 8.5, Red Blood Count 3.97, Hemoglobin 11.7, Hematocrit 34, Mean Corpuscular Volume 86, Mean Corpuscular Hemoglobin 30, Mean Corpuscular Hemoglobin Concent 34, Red Cell Distribution Width 13.2, Platelet Count 144, Mean Platelet Volume 10.2, Neutrophils (%) (Auto) 68, Lymphocytes (%) (Auto) 20, Monocytes (%) (Auto) 8, Eosinophils (%) (Auto) 4, Basophils (%) (Auto) 1, Neutrophils # (Auto) 5.8, Lymphocytes # (Auto) 1.7, Monocytes # (Auto) 0.7, Eosinophils # (Auto) 0.3, Basophils # (Auto) 0.0, Sodium Level 139, Potassium Level 3.8, Chloride Level 106, Carbon Dioxide Level 23, Anion Gap 10, Blood Urea Nitrogen 13, Creatinine 0.82, Estimat Glomerular Filtration Rate > 60, BUN/Creatinine Ratio 16, Glucose Level 122, Calcium Level 8.8, Corrected Calcium 9.3, Total Bilirubin 0.9, Aspartate Amino Transf (AST/SGOT) 24, Alanine Aminotransferase (ALT/SGPT) 10, Alkaline Phosphatase 57, Total Protein 6.0, Albumin 3.4 06/07/19 19:40: Urine Color YELLOW, Urine Clarity CLEAR, Urine pH 6.5, Urine Specific [place] 1.015, Urine Protein 1+, Urine Glucose (UA) NEGATIVE, Urine Ketones NEGATIVE, Urine Nitrite NEGATIVE, Urine Bilirubin NEGATIVE, Urine Urobilinogen NORMAL, Urine Leukocyte Esterase 1+, Urine RBC (Auto) 1+, Urine RBC NONE, Urine WBC RARE, Urine Crystals NONE, Urine Bacteria TRACE, Urine Casts NONE, Urine Mucus NEGATIVE, Urine Culture Indicated NO Discharge Home Medications: Active Scripts Active Urecholine (Bethanechol Chloride) 10 Mg Tablet 10 Mg PO ACHS Senna-Time S Tablet (Sennosides/Docusate Sodium) 1 Each Tablet 2 Ea PO BID Tramadol HCl 50 Mg Tablet 100 Mg PO Q6H PRN Hydrocodone/Acetaminophen 5/325mg Tablet (Acetaminophen/Hydrocodone Bitart) 1 Tab Tab 1 Tab PO Q4H PRN Reported Omeprazole 20 Mg Capsule.dr 20 Mg PO DAILY B-12 (Cyanocobalamin (Vitamin B-12)) 1,000 Mcg Tablet 1,000 Mcg PO DAILY Melatonin 3 Mg Tablet 6 Mg PO HS Aspirin EC (Aspirin) 81 Mg Tablet.dr 81 Mg PO DAILY Colestipol HCl 1 Gm Tablet 1 Gm PO DAILY Sertraline HCl 100 Mg Tablet 100 Mg PO DAILY Losartan Potassium 100 Mg Tablet 100 Mg PO DAILY Atorvastatin Calcium 10 Mg Tablet 10 Mg PO HS Advair 250-50 Diskus (Fluticasone/Salmeterol) 1 Each Blst.w.dev 1 Puff IH BID Incruse Ellipta (Umeclidinium [place]) 62.5 Mcg Blst.w.dev 1 Puff IH DAILY Instructions to patient/family Please see electronic discharge instructions given to patient. Diagnosis/Problems Diagnosis/Problems (1) Status post right knee replacement Status: Acute (2) COPD Exacerbation Status: Acute (3) Vertigo Status: Acute (4) Esophagitis Status: Acute (5) Dysphagia Status: Acute (6) Encounter for diagnostic colonoscopy due to change in bowel habits (7) Infection due to ESBL-producing Escherichia coli Status: Acute (8) Hypokalemia Status: Acute (9) Generalized weakness Status: Acute (10) Hypertension Status: Chronic Qualifiers: Qualified Codes: I10 - Essential (primary) hypertension (11) COPD (chronic obstructive pulmonary disease) Status: Chronic Qualifiers: Qualified Codes: J44.9 - Chronic obstructive pulmonary disease, unspecified (12) Arthritis Status: Chronic (13) GERD (gastroesophageal reflux disease) Status: Chronic Qualifiers: Qualified Codes: K21.9 - Gastro-esophageal reflux disease without esophagitis (14) Anger reaction Status: Acute (15) Cognitive decline Status: Chronic Clinical Quality Measures DVT/VTE Risk/Contraindication: Risk Factor Score Per Nursin RFS Level Per Nursing on Admit: 4+=Very High ANGELIA ARCHULETA DO Jun 12, 2019 20:26
== END 2019-06-12 15:30 | disposition home health service (06) | DRG 950 ==
PROVIDERS: ADMIT Internal Medicine; ATTEND Internal Medicine
DX: T84.9XXD Unspecified complication of internal orthopedic prosthetic device, implant and graft, subsequent encounter (principal); F03.90 Unspecified dementia, unspecified severity, without behavioral disturbance, psychotic disturbance, mood disturbance, and anxiety; R33.9 Retention of urine, unspecified; J44.9 Chronic obstructive pulmonary disease, unspecified; R45.4 Irritability and anger; I12.9 Hypertensive chronic kidney disease with stage 1 through stage 4 chronic kidney disease, or unspecified chronic kidney disease; N19 Unspecified kidney failure; F32.9 Major depressive disorder, single episode, unspecified; E11.9 Type 2 diabetes mellitus without complications; K21.9 Gastro-esophageal reflux disease without esophagitis; M19.90 Unspecified osteoarthritis, unspecified site; Z87.891 Personal history of nicotine dependence
CPT/HCPCS: 36415; 80053; 81000; 85025; 94640; 94760

== ENCOUNTER 2019-07-26 11:55 | Emergency (ER) | payer MEDICARE, MEDICAID ==
[~2019-07-26] VITALS: Ht 182 cm; Wt 97.2 kg
[~2019-07-26 11:55] MED LIST changes: +ACHD5005 PO; +BTH10T PO; +SENN-20 PO
[2019-07-26 12:09] LABS: BASOPHILS % (AUTO) 1 % (0-10); EOSINOPHILS # (AUTO) 0.6 10^3/uL (0.0-0.3); EOSINOPHILS % (AUTO) 9 % (0-10); HEMATOCRIT 39 % (40-54); HEMOGLOBIN 13.2 G/DL (13.3-17.7); LYMPHOCYTES # (AUTO) 1.1 X 10^3 (1.0-4.0); LYMPHOCYTES % (AUTO) 16 % (12-44); MEAN CORPUSCULAR HEMOGLOBIN 29 PG (25-34); MEAN CORPUSCULAR HGB CONC 34 G/DL (32-36); MEAN CORPUSCULAR VOLUME 84 FL (80-99); MEAN PLATELET VOLUME 9.2 FL (7.4-10.4); MONOCYTES # (AUTO) 0.5 X 10^3 (0.0-1.0); MONOCYTES % (AUTO) 8 % (0-12); NEUTROPHILS # (AUTO) 4.3 X 10^3 (1.8-7.8); NEUTROPHILS % (AUTO) 66 % (42-75); PLATELET COUNT 194 10^3/uL (130-400); WHITE BLOOD COUNT 6.5 10^3/uL (4.3-11.0)
--- NOTE | 2019-07-26 12:15 | ED Lower Extremity ---
General Chief Complaint: Lower Extremity Stated Complaint: FALL/NAUSEA Source: patient Exam Limitations: no limitations History of Present Illness Date Seen by Provider: Jul 26, 2019 Time Seen by Provider: 12:14 Initial Comments To ER per EMS from home with reports of a fall. He is not sure why he fell. He was walking and suddenly just collapsed. He did not hit his head. He denies chest pain. He does have shortness of breath and nausea. He had his right knee replacement 2 months ago and states that it doesn't hurt worse now than it did before the fall. He does have some shortness of breath but he also has COPD. Onset: just prior to arrival Severity: moderate Method of Injury: unknown Allergies and Home Medications Allergies Coded Allergies: URIELANo Known Allergies (Unverified Allergy, Unknown, 09/19/06) Home Medications Aspirin 81 Mg Tablet., 81 MG PO DAILY, (Reported) Atorvastatin Calcium 10 Mg Tablet, 10 MG PO HS, (Reported) Bethanechol Chloride 10 Mg Tablet, 10 MG PO ACHS Prescribed by: ENRRIQUE JALLOH on 06/12/19 1213 Colestipol HCl 1 Gm Tablet, 1 GM PO DAILY, (Reported) Cyanocobalamin (Vitamin B-12) 1,000 Mcg Tablet, 1,000 MCG PO DAILY, (Reported) Fluticasone/Salmeterol 1 Each Blst.w.dev, 1 PUFF IH BID, (Reported) Hydrocodone Bit/Acetaminophen 1 Tab Tab, 1 TAB PO Q4H PRN for PAIN-SEVERE Prescribed by: ANA VÁZQUEZ on 06/12/19 0847 Losartan Potassium 100 Mg Tablet, 100 MG PO DAILY, (Reported) Melatonin 3 Mg Tablet, 6 MG PO HS, (Reported) Omeprazole 20 Mg Capsule., 20 MG PO DAILY, (Reported) Sennosides/Docusate Sodium 1 Each Tablet, 2 EA PO BID Prescribed by: ANA VÁZQUEZ on 06/12/19 0848 Sertraline HCl 100 Mg Tablet, 100 MG PO DAILY, (Reported) Tramadol HCl 50 Mg Tablet, 100 MG PO Q6H PRN for PAIN-MODERATE Prescribed by: ANA VÁZQUEZ on 06/12/19 0848 Umeclidinium [place] 62.5 Mcg Blst.w.dev, 1 PUFF IH DAILY, (Reported) Patient Home Medication List Home Medication List Reviewed: Yes Review of Systems Constitutional: see HPI EENTM: see HPI Respiratory: see HPI Cardiovascular: no symptoms reported Genitourinary: no symptoms reported Musculoskeletal: no symptoms reported Skin: no symptoms reported Psychiatric/Neurological: No Symptoms Reported Past Knaejjx-Eobxew-Oaorsf Hx Patient Social History Type Used: Cigarettes Former Smoker, Quit: Jun 12, 1980 2nd Hand Smoke Exposure: No Recent Hopitalizations: Yes Immunizations Up To Date Tetanus Booster (TDap): Less than 5yrs PED Vaccines UTD: No Date of Pneumonia Vaccine: Aug 15, 2011 Date of Influenza Vaccine: Jul 25, 2016 Seasonal Allergies Seasonal Allergies: No Past Medical History Surgeries: Yes (BILAT KNEE REPLACEMENTS, right ankle surg, RT HAND CARPAL TUNNEL ) Orthopedic Respiratory: Yes (quit smoking 40yrs. ago) Asthma, COPD Cardiac: Yes (see's Dr. Miner) Hypertension, Hypotension Neurological: Yes Vertigo Reproductive Disorders: No Sexually Transmitted Disease: No HIV/AIDS: No Genitourinary: No Renal Failure Gastrointestinal: Yes Gastroesophageal Reflux Musculoskeletal: Yes (ROSY. TKR) Arthritis Endocrine: Yes Diabetes, Non-Insulin dep HEENT: Yes Cataract Loss of Vision: Denies Hearing Impairment: Denies Cancer: No Psychosocial: Yes Depression Integumentary: No Blood Disorders: No Adverse Reaction/Blood Tranf: No Family Medical History Alcoholism 09 SISTER Family history: Asthma 09 SISTER Family history: Cardiovascular disease 03 FATHER Family history: Diabetes mellitus 03 MOTHER 09 SISTER Heart disease 03 FATHER Myocardial infarction 03 FATHER Stroke 03 FATHER No Family History of: Abdominal aortic aneurysm Jaydon's disease Aphasia Cancer Cancer of colon Cataract Chest pain Congenital heart disease Congestive heart failure Cystic fibrosis Dementia Dysphagia Family history: Allergy Family history: Alzheimer's disease Family history: Arthritis Family history: Breast disease Family history: Gastrointestinal disease Family history: Glaucoma Family history: Hypertension Family history: Osteoporosis Family history: Thyroid disorder Headache Hearing loss History of - anemia History of - disorder History of - respiratory disease History of drug abuse Human immunodeficiency virus (HIV) seropositivity Hypercholesterolemia Infertile Kidney disease Malignant neoplasm of lung Parkinson's disease Prostate cancer Psychotic disorder Seizure disorder Tuberculosis Visual impairment Physical Exam Vital Signs Vital Signs - First Documented 07/26/19 12:14 Temp 37.0 Pulse 65 Resp 16 B/P (MAP) 118/45 (69) Pulse Ox 96 Capillary Refill : Height, Weight, BMI Height: 6'0.00" Weight: 240lbs. 0.0oz. 108.525516nk; 32.6 BMI Method:Stated General Appearance: WD/WN, no apparent distress HEENT: PERRL/EOMI, normal ENT inspection Neck: non-tender, full range of motion Respiratory: lungs clear, normal breath sounds, no respiratory distress, no accessory muscle use; No wheezing Gastrointestinal: normal bowel sounds, non tender, soft Hips: bilateral hip non-tender, bilateral hip normal inspection, bilateral hip normal range of motion Legs: bilateral leg non-tender, bilateral leg normal inspection, bilateral leg normal range of motion Knees: bilateral knee non-tender, bilateral knee normal inspection, bilateral knee normal range of motion Ankles: bilateral ankle non-tender, bilateral ankle normal inspection, bilateral ankle normal range of motion Neurologic/Psychiatric: alert, normal mood/affect, oriented x 3 Skin: normal color, warm/dry Progress/Results/Core Measures Results/Orders Lab Results Laboratory Tests Test 07/26/19 12:02 07/26/19 12:36 Range/Units White Blood Count 6.5 4.3-11.0 10^3/uL Red Blood Count 4.60 4.35-5.85 10^6/uL Hemoglobin 13.2 L 13.3-17.7 G/DL Hematocrit 39 L 40-54 % Mean Corpuscular Volume 84 80-99 FL Mean Corpuscular Hemoglobin 29 25-34 PG Mean Corpuscular Hemoglobin Concent 34 32-36 G/DL Red Cell Distribution Width 13.0 10.0-14.5 % Platelet Count 194 130-400 10^3/uL Mean Platelet Volume 9.2 7.4-10.4 FL Neutrophils (%) (Auto) 66 42-75 % Lymphocytes (%) (Auto) 16 12-44 % Monocytes (%) (Auto) 8 0-12 % Eosinophils (%) (Auto) 9 0-10 % Basophils (%) (Auto) 1 0-10 % Neutrophils # (Auto) 4.3 1.8-7.8 X 10^3 Lymphocytes # (Auto) 1.1 1.0-4.0 X 10^3 Monocytes # (Auto) 0.5 0.0-1.0 X 10^3 Eosinophils # (Auto) 0.6 H 0.0-0.3 10^3/uL Basophils # (Auto) 0.0 0.0-0.1 10^3/uL Sodium Level 138 135-145 MMOL/L Potassium Level 3.6 3.6-5.0 MMOL/L Chloride Level 107 98-107 MMOL/L Carbon Dioxide Level 23 21-32 MMOL/L Anion Gap 8 5-14 MMOL/L Blood Urea Nitrogen 13 7-18 MG/DL Creatinine 0.85 0.60-1.30 MG/DL Estimat Glomerular Filtration Rate > 60 BUN/Creatinine Ratio 15 Glucose Level 130 H 70-105 MG/DL Calcium Level 9.0 8.5-10.1 MG/DL Corrected Calcium 9.2 8.5-10.1 MG/DL Total Bilirubin 0.6 0.1-1.0 MG/DL Aspartate Amino Transf (AST/SGOT) 16 5-34 U/L Alanine Aminotransferase (ALT/SGPT) 16 0-55 U/L Alkaline Phosphatase 78 40-136 U/L Troponin I < 0.028 <0.028 NG/ML B-Type Natriuretic Peptide 95.1 <100.0 PG/ML Total Protein 6.6 6.4-8.2 GM/DL Albumin 3.8 3.2-4.5 GM/DL Urine Color YELLOW Urine Clarity CLEAR Urine pH 6 5-9 Urine Specific [place] 1.015 L 1.016-1.022 Urine Protein NEGATIVE NEGATIVE Urine Glucose (UA) NEGATIVE NEGATIVE Urine Ketones NEGATIVE NEGATIVE Urine Nitrite NEGATIVE NEGATIVE Urine Bilirubin NEGATIVE NEGATIVE Urine Urobilinogen NORMAL NORMAL MG/DL Urine Leukocyte Esterase NEGATIVE NEGATIVE Urine RBC (Auto) NEGATIVE NEGATIVE Urine RBC NONE /HPF Urine WBC RARE /HPF Urine Squamous Epithelial Cells 0-2 /HPF Urine Crystals NONE /LPF Urine Bacteria NEGATIVE /HPF Urine Casts NONE /LPF Urine Mucus NEGATIVE /LPF Urine Culture Indicated NO My Orders Orders - MILIND FERNANDO APRN Chest 1 View, Ap/Pa Only (07/26/19 11:58) Cbc With Automated Diff (07/26/19 11:58) Comprehensive Metabolic Panel (07/26/19 11:58) Troponin I (07/26/19 11:58) Ekg Tracing (07/26/19 11:58) BNP (07/26/19 11:58) Ua Culture If Indicated (07/26/19 11:58) Ed Iv/Invasive Line Start (07/26/19 11:58) Knee, Right, 3 Views (07/26/19 11:58) Vital Signs/I&O 07/26/19 07/26/19 12:14 13:25 Temp 37.0 Pulse 65 68 Resp 16 16 B/P (MAP) 118/45 (69) 139/86 Pulse Ox 96 98 Departure Impression Primary Impression: Generalized weakness Additional Impression: Status post right knee replacement Disposition: 01 HOME, SELF-CARE Condition: Stable Departure-Patient Inst. Decision time for Depature: 13:05 Referrals: HECTOR KAPOOR MD (PCP) Primary Care Physician Patient Instructions: Generalized Weakness MILIND FERNANDO APRN Jul 26, 2019 12:15
[2019-07-26 12:27] LABS: ALANINE AMINOTRANSFERASE 16 U/L (0-55); ALBUMIN 3.8 GM/DL (3.2-4.5); ALKALINE PHOSPHATASE 78 U/L (40-136); BILIRUBIN,TOTAL 0.6 MG/DL (0.1-1.0); BUN/CREATININE RATIO 15; CARBON DIOXIDE 23 MMOL/L (21-32); CHLORIDE 107 MMOL/L (98-107); CREATININE SERUM 0.85 MG/DL (0.60-1.30); GFR ESTIMATED > 60; GLUCOSE 130 MG/DL (70-105); POTASSIUM 3.6 MMOL/L (3.6-5.0); SODIUM 138 MMOL/L (135-145); TOTAL PROTEIN 6.6 GM/DL (6.4-8.2)
[2019-07-26 12:41] LABS: BILIRUBIN,URINE NEGATIVE (NEGATIVE); CLARITY,URINE CLEAR; COLOR,URINE YELLOW; GLUCOSE, URINE (UA) NEGATIVE (NEGATIVE); KETONES,URINE NEGATIVE (NEGATIVE); LEUKOCYTE ESTERASE ,URINE NEGATIVE (NEGATIVE); NITRITE,URINE NEGATIVE (NEGATIVE); PH,URINE 6 (5-9); PROTEIN,URINE NEGATIVE (NEGATIVE); UROBILINOGEN,URINE NORMAL (NORMAL)
[2019-07-26 12:48] LABS: BACTERIA,URINE NEGATIVE /HPF; SQUAMOUS EPITHELIAL CELL,UR 0-2 /HPF; WBC,URINE RARE /HPF
--- NOTE | 2019-07-26 12:55 | Diagnostic Imaging Report ---
Patient History: Nausea. Technique: Single frontal view of the chest Comparison: 01/10/2019 FINDINGS: The lung volumes are normal. No focal consolidation is seen. No large pleural effusion or pneumothorax is seen. The cardiomediastinal silhouette is normal in size and contour. No acute osseous abnormality is seen. IMPRESSION: No acute pulmonary abnormality seen. Dictated by: Dictated on workstation # [id number]
--- NOTE | 2019-07-26 12:57 | Diagnostic Imaging Report ---
PATIENT HISTORY: Fall, right knee pain. TECHNIQUE: Three views of the right knee. COMPARISON: 01/14/2019. FINDINGS: There is a total right knee arthroplasty, which is revised since December 2018 with long custom femoral and tibial components. There is deformity of the proximal tibia from remote trauma. No hardware complication is seen. No significant joint effusion is seen. There is calcific atherosclerosis. There is mild soft tissue swelling about the right knee. IMPRESSION: Right knee arthroplasty without hardware complication or acute osseous abnormality seen. Dictated by: Dictated on workstation # [id number]
[2019-07-26 13:25] VITALS: BP 139/86
== END 2019-07-26 13:25 | disposition home or self-care (01) ==
LOC: EDUNIT# 11:55 → ER 11:57
DX: R53.1 Weakness (principal); J44.9 Chronic obstructive pulmonary disease, unspecified; I10 Essential (primary) hypertension; K21.9 Gastro-esophageal reflux disease without esophagitis; E11.9 Type 2 diabetes mellitus without complications; F32.9 Major depressive disorder, single episode, unspecified; Z82.49 Family history of ischemic heart disease and other diseases of the circulatory system; Z96.653 Presence of artificial knee joint, bilateral; Z79.82 Long term (current) use of aspirin; Z79.52 Long term (current) use of systemic steroids; Z87.891 Personal history of nicotine dependence
CPT/HCPCS: 36415; 71045; 73562; 80053; 81000; 83880; 84484; 85025; 93005

== ENCOUNTER 2019-08-16 13:02 | Outpatient (RCR) | payer MEDICARE, MEDICAID | END 2019-10-08 13:54 | disposition home or self-care (01) | PROVIDERS: ATTEND Orthopaedic Surgery | DX: Z47.1 Aftercare following joint replacement surgery (principal); M25.461 Effusion, right knee; Z96.651 Presence of right artificial knee joint ==

== ENCOUNTER → 2019-12-17 | Outpatient (CLI) | payer MEDICARE, MEDICAID ==
[~2019-12-17] MED LIST changes: -MELA3TAB PO; +MELA3TAB65 PO; -OMEP20CA13 PO; +OMEP20CA18 PO; -TRAM50TA2 PO; +TRM50T PO
--- NOTE | 2019-12-17 14:10 | Diagnostic Imaging Report ---
PROCEDURE: MRI lumbar spine. TECHNIQUE: Multiplanar, multisequence MRI of the lumbar spine was performed without contrast. INDICATION: Chronic low back pain and right knee pain. COMPARISON: No prior studies are available for comparison. FINDINGS: Curvature and alignment of the lumbar spine is normal. The vertebral body heights and marrow signal intensity are unremarkable. No acute compression fracture is seen. There is generalized lumbar degenerative disc disease with variable disc space narrowing and desiccation. Conus is unremarkable at the T12-L1 level. T12-L1: Small right paramidline disc/osteophyte complex indents the ventral thecal sac. Central canal remains widely patent. No neural foraminal stenosis is seen. L1-L2: Mild degenerative facet changes are noted. Central canal is widely patent. Neural foramina are widely patent. L2-L3: There are hypertrophic facet changes and ligamentous thickening with broad-based disc/osteophyte complex. Central canal remains widely patent. There is narrowing of the lateral recesses bilaterally, greatest on the left. There is also moderate bilateral neural foraminal stenosis. L3-L4: Facet degenerative changes with broad-based disc/osteophyte complex indents the ventral thecal sac. Central canal remains patent, but there is significant narrowing of bilateral lateral recesses. There is also moderate bilateral neural foraminal stenosis. L4-L5: Hypertrophic facet degenerative changes with broad-based disc/osteophyte complex results in significant bilateral lateral recess stenosis as well as significant bilateral neural foraminal stenosis. Central canal is patent. L5-S1: Broad-based disc/osteophyte complex asymmetric to the left is noted. Central canal is patent. There is moderate left lateral recess narrowing. There is mild right neural foraminal narrowing. Paraspinous tissues are unremarkable. IMPRESSION: Multilevel lumbar spondylosis and facet arthropathy with multilevel lateral recess and neural foraminal stenosis described level by level above. No central canal stenosis is identified. Dictated by: Dictated on workstation # [id number]
== END ==
LOC: RAD 12:07
PROVIDERS: ATTEND Orthopaedic Surgery
DX: M47.816 Spondylosis without myelopathy or radiculopathy, lumbar region (principal); M48.07 Spinal stenosis, lumbosacral region
CPT/HCPCS: 72148

== ENCOUNTER → 2020-05-28 | Outpatient (CLI) | payer MEDICARE, MEDICAID ==
[~2020-05-28] MED LIST changes: -HYDR-3812 PO; +MELA3TAB39 PO; -MELA3TAB65 PO
== END ==
LOC: CARD 08:59
PROVIDERS: ATTEND Internal Medicine Cardiovascular Disease
DX: I07.1 Rheumatic tricuspid insufficiency (principal); I11.9 Hypertensive heart disease without heart failure; I48.0 Paroxysmal atrial fibrillation; E78.5 Hyperlipidemia, unspecified; J44.9 Chronic obstructive pulmonary disease, unspecified; R60.9 Edema, unspecified
CPT/HCPCS: 93306

== ENCOUNTER → 2020-06-08 | Outpatient (CLI) | payer MEDICARE, MEDICAID ==
[~2020-06-08] VITALS: Ht 182 cm; Wt 104.0 kg
[~2020-06-08] MED LIST changes: +CATHETER FLUSH 10 ML SYR IV PRN; +REGADENOSON 0.4 MG/5 ML SYR (LEXISCAN) IV ONE
[2020-06-08 09:23] VITALS: BP 149/74
--- NOTE | 2020-06-08 12:00 | Cardiology Stress Test Report ---
Stress Test Report Date of Procedure/Referring: Date of Procedure: Jun 08, 2020 PCP Radha Miner MD Admitting Physician Carmina Ca DO Indications: Hypertension Baseline Heart Rate: 55 Baseline Blood Pressure: Blood Pressure Systolic: 149 Blood Pressure Diastolic: 74 Baseline Vitals Vital Signs Date Time Temp Pulse Resp B/P (MAP) Pulse Ox O2 Delivery O2 Flow Rate FiO2 06/08/20 09:23 57 18 149/74 (99) 97 Room Air Baseline EKG: Baseline EKG: normal sinus rhythm Summary After explaining the procedure to the patient, he signed a consent and then brought to the stress nuclear laboratory. Patient received 0.4 mg Lexiscan for stress test, ECG, heart rate and blood pressure were monitored continuously. Resting and stress dose of radio tracer were injected, imaging was acquired and reviewed in short axis, horizontal long axis and vertical long axis views. TID: 1.11 SSS: 1 SDS: 1 EF: 55 1. Patient tolerated Lexiscan well 2. Motion artifact and diaphragmatic attenuation affecting the quality of the images, overall there is no significant ischemia or infarction on SPECT images 3. Normal left ventricular size, EF 55 percent RADHA MINER MD Jun 08, 2020 11:59
== END ==
LOC: CARD 07:08
PROVIDERS: ATTEND Internal Medicine Cardiovascular Disease
DX: I48.0 Paroxysmal atrial fibrillation (principal); I10 Essential (primary) hypertension; R60.9 Edema, unspecified; E78.5 Hyperlipidemia, unspecified; J44.9 Chronic obstructive pulmonary disease, unspecified; J98.6 Disorders of diaphragm
CPT/HCPCS: 78452; 93017; A9502

== ENCOUNTER → 2020-07-03 | Outpatient (CLI) | payer MEDICARE, MEDICAID ==
[~2020-07-03] MED LIST changes: +ASPI-1238 PO; -ASPI-983 PO; -CATHETER FLUSH 10 ML SYR IV PRN; -REGADENOSON 0.4 MG/5 ML SYR (LEXISCAN) IV ONE
[2020-07-03 09:16] LABS: CHLORIDE 107 MMOL/L (98-107); POTASSIUM 4.2 MMOL/L (3.6-5.0); SODIUM 138 MMOL/L (135-145)
[2020-07-03 09:17] LABS: ALBUMIN 3.9 GM/DL (3.2-4.5)
[2020-07-03 09:18] LABS: CALCIUM 8.9 MG/DL (8.5-10.1); TRIGLYCERIDES 101 MG/DL (<150); VLDL CHOLESTEROL 20 MG/DL (5-40)
[2020-07-03 09:19] LABS: GLUCOSE 137 MG/DL (70-105); TOTAL PROTEIN 6.8 GM/DL (6.4-8.2)
[2020-07-03 09:20] LABS: CARBON DIOXIDE 22 MMOL/L (21-32)
[2020-07-03 09:21] LABS: BILIRUBIN,TOTAL 0.5 MG/DL (0.1-1.0)
[2020-07-03 09:23] LABS: ALKALINE PHOSPHATASE 59 U/L (40-136); CREATININE SERUM 0.99 MG/DL (0.60-1.30); GFR ESTIMATED > 60
[2020-07-03 09:24] LABS: BUN/CREATININE RATIO 19; CHOLESTEROL 129 MG/DL (< 200)
[2020-07-03 09:25] LABS: HDL CHOLESTEROL 38 MG/DL (40-60)
[2020-07-03 09:26] LABS: ALANINE AMINOTRANSFERASE 26 U/L (0-55)
== END ==
LOC: LAB 08:46
PROVIDERS: ATTEND Internal Medicine Cardiovascular Disease
DX: I10 Essential (primary) hypertension (principal); I48.0 Paroxysmal atrial fibrillation; E78.5 Hyperlipidemia, unspecified; J44.9 Chronic obstructive pulmonary disease, unspecified; R60.9 Edema, unspecified
CPT/HCPCS: 36415; 80053; 80061; 84443

== ENCOUNTER 2020-07-15 14:35 | Emergency (ER) | payer MEDICARE, MEDICAID ==
[~2020-07-15] VITALS: Ht 182.8 cm; Wt 102.2 kg
[2020-07-15] MEDS ORDERED: KETOROLAC 60 MG/2 ML VIAL IM STA (14:50)
[2020-07-15] MEDS ORDERED: ORPHENADRINE 60 MG/2 ML (NORFLEX) AMP (ED ONLY) IM STA (14:50)
--- NOTE | 2020-07-15 14:54 | ED Neck-Back Pain/Injury ---
General Chief Complaint: Head/Cervical Problems Stated Complaint: NECK PAIN History of Present Illness Date Seen by Provider: Jul 15, 2020 Time Seen by Provider: 14:50 Initial Comments 80-year-old male patient arrives via EMS with complaints of neck pain. The patient is somewhat hard to follow and his story is quite colorful. The patient states he woke up at 0230 this AM, which is his normal, without pain. He did his normal morning activity and sat on his porch, at approximately 1030 and noticed a sudden pain in his neck, on the right side. The patient states "I went out" and is unsure if he hit his head. 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 His daughter came over, they called the PCP and was told to come to ED. Daughter called EMS because she didn't want to bring him to ED, since she couldn't come in. He drives but was concerned with his neck pain, he wouldn't be able to turn his head. Currently, the patient is complaining of right sided cervical neck pain with movement at 9/10. He denies any pain radiating into his arms. He has had no head pain, no contusions to suggest he fell and hit his head. He is not taking anticoagulants. Location: C-Spine Timing/Duration: 4-6 Hours Severity: Moderate Pain/Injury Location: Neck Method of Injury: Unknown (The patient denies injury causing this pain) Modifying Factors: Improves With Cold Therapy; Worse With Movement; Improves With Rest Associated Symptoms: No muscle spasms, No weakness, No numbness in legs/feet, No tingling in legs/feet, No sensory/motor loss, No lower back pain, No loss of bladder control, No loss of bowel control Allergies and Home Medications Allergies Coded Allergies: NKANo Known Allergies (Unverified Allergy, Unknown, 09/19/06) Home Medications Aspirin 81 Mg Tablet.dr, 81 MG PO DAILY, (Reported) Atorvastatin Calcium 10 Mg Tablet, 10 MG PO HS, (Reported) Bethanechol Chloride 10 Mg Tablet, 10 MG PO ACHS Prescribed by: ENRRIQUE JALLOH on 06/12/19 1213 Colestipol HCl 1 Gm Tablet, 1 GM PO DAILY, (Reported) Cyanocobalamin (Vitamin B-12) 1,000 Mcg Tablet, 1,000 MCG PO DAILY, (Reported) Fluticasone/Salmeterol 1 Each Blst.w.dev, 1 PUFF IH BID, (Reported) Hydrocodone Bit/Acetaminophen 1 Tab Tab, 1 TAB PO Q4H PRN for PAIN-SEVERE Prescribed by: ANA VÁZQUEZ on 06/12/19 0847 Losartan Potassium 100 Mg Tablet, 100 MG PO DAILY, (Reported) Melatonin 3 Mg Tablet, 6 MG PO HS, (Reported) Omeprazole 20 Mg Capsule.dr, 20 MG PO DAILY, (Reported) Sennosides/Docusate Sodium 1 Each Tablet, 2 EA PO BID Prescribed by: ANA VÁZQUEZ on 06/12/19 0848 Sertraline HCl 100 Mg Tablet, 100 MG PO DAILY, (Reported) Tramadol HCl 50 Mg Tablet, 100 MG PO Q6H PRN for PAIN-MODERATE Prescribed by: ANA VÁZQUEZ on 06/12/19 0848 Umeclidinium [place] 62.5 Mcg Blst.w.dev, 1 PUFF IH DAILY, (Reported) Patient Home Medication List Home Medication List Reviewed: Yes Review of Systems Constitutional: no symptoms reported, see HPI; No diaphoresis, No dizziness, No weakness EENTM: see HPI, no symptoms reported; No ear discharge, No hearing loss, No blurred vision, No double vision Respiratory: no symptoms reported, see HPI; No short of breath, No wheezing Cardiovascular: see HPI; No chest pain, No edema; syncope Gastrointestinal: no symptoms reported, see HPI; No abdominal pain, No nausea, No vomiting Genitourinary: no symptoms reported Musculoskeletal: see HPI; No back pain; muscle pain; No muscle stiffness, No muscle cramps; neck pain All Other Systems Reviewed Negative Unless Noted: Yes Past Rgcxtkx-Zpervo-Cdnjof Hx Past Med/Social Hx: Reviewed Nursing Past Med/Soc Hx Patient Social History Type Used: Cigarettes Former Smoker, Quit: Jun 12, 1980 2nd Hand Smoke Exposure: No Recent Hopitalizations: Yes Immunizations Up To Date Tetanus Booster (TDap): Less than 5yrs PED Vaccines UTD: No Date of Pneumonia Vaccine: Aug 15, 2011 Date of Influenza Vaccine: Jul 25, 2016 Seasonal Allergies Seasonal Allergies: No Past Medical History Surgeries: Yes (BILAT KNEE REPLACEMENTS, right ankle surg, RT HAND CARPAL TUNNEL ) Appendectomy, Orthopedic Respiratory: Yes (quit smoking 40yrs. ago) Asthma, COPD Cardiac: Yes (see's Dr. Miner) Hypertension, Hypotension Neurological: Yes Vertigo Reproductive Disorders: No Sexually Transmitted Disease: No HIV/AIDS: No Genitourinary: No Renal Failure Gastrointestinal: Yes Gastroesophageal Reflux Musculoskeletal: Yes (ROSY. TKR) Arthritis Endocrine: Yes Diabetes, Non-Insulin dep HEENT: Yes Cataract Loss of Vision: Denies Hearing Impairment: Denies Cancer: No Psychosocial: Yes Depression Integumentary: No Blood Disorders: No Adverse Reaction/Blood Tranf: No Family Medical History Alcoholism 09 SISTER Family history: Asthma 09 SISTER Family history: Cardiovascular disease 03 FATHER Family history: Diabetes mellitus 03 MOTHER 09 SISTER Heart disease 03 FATHER Myocardial infarction 03 FATHER Stroke 03 FATHER No Family History of: Abdominal aortic aneurysm Jaydon's disease Aphasia Cancer Cancer of colon Cataract Chest pain Congenital heart disease Congestive heart failure Cystic fibrosis Dementia Dysphagia Family history: Allergy Family history: Alzheimer's disease Family history: Arthritis Family history: Breast disease Family history: Gastrointestinal disease Family history: Glaucoma Family history: Hypertension Family history: Osteoporosis Family history: Thyroid disorder Headache Hearing loss History of - anemia History of - disorder History of - respiratory disease History of drug abuse Human immunodeficiency virus (HIV) seropositivity Hypercholesterolemia Infertile Kidney disease Malignant neoplasm of lung Parkinson's disease Prostate cancer Psychotic disorder Seizure disorder Tuberculosis Visual impairment Physical Exam Vital Signs Vital Signs - First Documented 07/15/20 14:35 Temp 36.4 Pulse 64 Resp 18 B/P (MAP) 186/95 (125) Pulse Ox 97 O2 Delivery Room Air Capillary Refill : Height, Weight, BMI Height: 6'0.00" Weight: 240lbs. 0.0oz. 108.620725kg; 31.39 BMI Method:Stated General Appearance: WD/WN, Anxious HEENT: PERRL/EOMI, TMs Normal, Normal ENT Inspection Neck: Full Range of Motion, Supple; No Limited Range of Motion; Tender Lateral, Tender Midline, Other (neurovascular status intact bilateral upper extremities) Cardiovascular: Regular Rate, Rhythm, No Edema, No Murmur, Normal Peripheral Pulses Respiratory: Chest Non Tender, Lungs Clear, Normal Breath Sounds, No Accessory Muscle Use, No Respiratory Distress Gastrointestinal: Normal Bowel Sounds, Non Tender, Soft Back: Normal Inspection, No CVA Tenderness, No Vertebral Tenderness; No Decreased Range of Motion Extremity: Normal Capillary Refill, Normal Inspection, Normal Range of Motion, Non Tender, No Pedal Edema Neurologic/Psychiatric: Alert, Oriented x3, No Motor/Sensory Deficits, Normal Mood/Affect; No Disoriented, No Facial Droop, No Motor Weakness Skin: Normal Color, Warm/Dry; No Diaphoresis, No Ecchymosis, No Erythema, No Pallor Lymphatic: No Adenopathy Progress/Results/Core Measures Results/Orders My Orders Orders - PAULINE PEÑALOZA Ct Head/Cervical Spine Wo (07/15/20 14:50) Ketorolac Injection (Toradol Injection) (07/15/20 14:50) Orphenadrine Inj (Ed Only) (Norflex Inje (07/15/20 14:50) Vital Signs/I&O 07/15/20 07/15/20 14:35 16:36 Temp 36.4 Pulse 64 58 Resp 18 18 B/P (MAP) 186/95 (125) 142/100 Pulse Ox 97 95 O2 Delivery Room Air Room Air Progress Progress Note : Time: 14:50 Progress Note Patient seen and evaluated, will obtain CT of the head and neck. Will give Norflex 60 mg and Toradol 60 mg IM for pain and muscle spasms. 1540 patient reports pain has improved, awaiting CT report. 1600 CT negative for acute findings. Discharge instructions and return precautions reviewed with the patient. He has baclofen at home which she takes 1 at bedtime, instructed that he can take this every 8 hours as needed for muscle spasms. Diagnostic Imaging Diagonstic Imaging: CT Plain Films/CT/US/NM/MRI: c-spine, head Comments NAME: CHRISTINA YBARRA Karma [facility] REC#: [id number] PT STATUS: REG ER : 1940 PHYSICIAN: PAULINE PEÑALOZA ADMIT DATE: 07/15/20/ER Draft Date of Exam:07/15/20 CT HEAD/CERVICAL SPINE WO PROCEDURE: CT head and CT cervical spine without contrast. TECHNIQUE: Multiple contiguous axial images were obtained through the brain and cervical spine without the use of intravenous contrast. Sagittal and coronal reformations through the cervical spine were then performed. Auto Exposure Controls were utilized during the CT exam to meet ALARA standards for radiation dose reduction. INDICATION: Acute-onset neck pain. COMPARISON: Study compared 08/17/2017. FINDINGS: Head: There is no hemorrhage, hydrocephalus, edema, mass, mass effect, or evidence for an elevation of the intracerebral pressures. Orbits, sinuses, and calvarium appear nonacute. Cervical spine: Degenerative changes to the discs, endplates, and facets throughout the cervical spine are again noted remaining greatest at the C5-C6 and C6-C7 levels. Overall, the degenerative disease severity is mildly progressed. Alignment is stable and there is no cervical fracture or dislocation. No bony destruction. No acute-appearing abnormality. IMPRESSION: Head: Stable negative head. Cervical spine: Chronic degenerative changes mildly progressed with no fracture, malalignment, or acute abnormalities. Dictated on workstation # [id number] Dict: 07/15/20 1619 Trans: 07/15/20 1626 [id number] Interpreted by: CYNDI CHRISTIAN Electronically signed by: Reviewed: Reviewed by Me Departure Impression Primary Impression: Cervical strain Qualified Codes: S16.1XXA - Strain of muscle, fascia and tendon at neck level, initial encounter Additional Impression: Neck pain Disposition: HOME, SELF-CARE Condition: Improved Departure-Patient Inst. Decision time for Depature: 16:30 Referrals: ENRRIQUE JALLOH DO (PCP/Family) Primary Care Physician Patient Instructions: Cervical Muscle Strain (DC), Neck Sprain (DC) Add. Discharge Instructions: Alternate heat and ice to your neck. Alternate between Tylenol 650 mg and ibuprofen 600 mg every 4 hours for pain. Follow-up with your primary care provider if symptoms are not improving or worsen. Take the Baclofen (Rx that you have at home) every 8 hours as needed for muscle spasms. Return to the emergency department for new, urgent health care problems All discharge instructions reviewed with patient and/or family. Voiced understanding. Copy Copies To 1: ENRRIQUE JALLOH AMY ARNP Jul 15, 2020 14:54
--- NOTE | 2020-07-15 16:26 | Diagnostic Imaging Report ---
PROCEDURE: CT head and CT cervical spine without contrast. TECHNIQUE: Multiple contiguous axial images were obtained through the brain and cervical spine without the use of intravenous contrast. Sagittal and coronal reformations through the cervical spine were then performed. Auto Exposure Controls were utilized during the CT exam to meet ALARA standards for radiation dose reduction. INDICATION: Acute-onset neck pain. COMPARISON: Study compared 08/17/2017. FINDINGS: Head: There is no hemorrhage, hydrocephalus, edema, mass, mass effect, or evidence for an elevation of the intracerebral pressures. Orbits, sinuses, and calvarium appear nonacute. Cervical spine: Degenerative changes to the discs, endplates, and facets throughout the cervical spine are again noted remaining greatest at the C5-C6 and C6-C7 levels. Overall, the degenerative disease severity is mildly progressed. Alignment is stable and there is no cervical fracture or dislocation. No bony destruction. No acute-appearing abnormality. IMPRESSION: Head: Stable negative head. Cervical spine: Chronic degenerative changes mildly progressed with no fracture, malalignment, or acute abnormalities. Dictated by: Dictated on workstation # [id number]
[2020-07-15 16:36] VITALS: BP 142/100
== END 2020-07-15 16:36 | disposition home or self-care (01) ==
LOC: EDUNIT# 14:35 → ER 14:37
DX: S16.1XXA Strain of muscle, fascia and tendon at neck level, initial encounter (principal); J44.9 Chronic obstructive pulmonary disease, unspecified; I10 Essential (primary) hypertension; K21.9 Gastro-esophageal reflux disease without esophagitis; F32.9 Major depressive disorder, single episode, unspecified; Z79.82 Long term (current) use of aspirin; Z79.51 Long term (current) use of inhaled steroids; Z87.891 Personal history of nicotine dependence; Z96.653 Presence of artificial knee joint, bilateral; Z83.3 Family history of diabetes mellitus; Z82.49 Family history of ischemic heart disease and other diseases of the circulatory system; X58.XXXA Exposure to other specified factors, initial encounter
CPT/HCPCS: 70450; 72125

== ENCOUNTER → 2021-01-11 | Outpatient (CLI) | payer MEDICARE, MEDICAID ==
[~2021-01-11] MED LIST changes: -CYAN500T62 PO; +CYAN500T8 PO; +SERT-414 PO; -SERT100T8 PO
[2021-01-11 08:51] LABS: BASOPHILS # (AUTO) 0.1 10^3/uL (0.0-0.1); BASOPHILS % (AUTO) 1 % (0-10); EOSINOPHILS # (AUTO) 0.5 10^3/uL (0.0-0.3); EOSINOPHILS % (AUTO) 8 % (0-10); HEMATOCRIT 43 % (40-54); HEMOGLOBIN 14.7 g/dL (13.3-17.7); LYMPHOCYTES # (AUTO) 1.4 10^3/uL (1.0-4.0); LYMPHOCYTES % (AUTO) 22 % (12-44); MEAN CORPUSCULAR HEMOGLOBIN 30 pg (25-34); MEAN CORPUSCULAR HGB CONC 34 g/dL (32-36); MEAN CORPUSCULAR VOLUME 87 fL (80-99); MONOCYTES # (AUTO) 0.4 10^3/uL (0.0-1.0); MONOCYTES % (AUTO) 7 % (0-12); NEUTROPHILS % (AUTO) 62 % (42-75); PLATELET COUNT 160 10^3/uL (130-400); WHITE BLOOD COUNT 6.4 10^3/uL (4.3-11.0)
[2021-01-11 09:15] LABS: ALANINE AMINOTRANSFERASE 34 U/L (0-55); ALKALINE PHOSPHATASE 61 U/L (40-136); BUN/CREATININE RATIO 18; CALCIUM 8.6 MG/DL (8.5-10.1); CARBON DIOXIDE 21 MMOL/L (21-32); CHLORIDE 108 MMOL/L (98-107); CHOLESTEROL 109 MG/DL (< 200); CREATININE SERUM 1.01 MG/DL (0.60-1.30); GFR ESTIMATED > 60; GLUCOSE 155 MG/DL (70-105); HDL CHOLESTEROL 42 MG/DL (40-60); POTASSIUM 3.9 MMOL/L (3.6-5.0); SODIUM 138 MMOL/L (135-145); TOTAL PROTEIN 6.8 GM/DL (6.4-8.2); TRIGLYCERIDES 71 MG/DL (<150); VLDL CHOLESTEROL 14 MG/DL (5-40)
== END ==
LOC: LAB 08:30
PROVIDERS: ATTEND Family Medicine
DX: E78.5 Hyperlipidemia, unspecified (principal); I10 Essential (primary) hypertension; R73.9 Hyperglycemia, unspecified
CPT/HCPCS: 36415; 80053; 80061; 83036; 84443; 85025

== ENCOUNTER → 2021-04-20 | Outpatient (CLI) | payer MEDICARE, MEDICAID ==
[2021-04-20 08:49] LABS: ALANINE AMINOTRANSFERASE 22 U/L (0-55); ALBUMIN 3.9 GM/DL (3.2-4.5); ALKALINE PHOSPHATASE 52 U/L (40-136); BILIRUBIN,TOTAL 0.7 MG/DL (0.1-1.0); BUN/CREATININE RATIO 21; CALCIUM 9.1 MG/DL (8.5-10.1); CARBON DIOXIDE 22 MMOL/L (21-32); CHLORIDE 110 MMOL/L (98-107); CREATININE SERUM 0.96 MG/DL (0.60-1.30); GFR ESTIMATED > 60; GLUCOSE 137 MG/DL (70-105); POTASSIUM 3.9 MMOL/L (3.6-5.0); SODIUM 140 MMOL/L (135-145); TOTAL PROTEIN 6.6 GM/DL (6.4-8.2)
== END ==
LOC: LAB 08:02
PROVIDERS: ATTEND Family Medicine
DX: E11.9 Type 2 diabetes mellitus without complications (principal)
CPT/HCPCS: 36415; 80053; 83036

== ENCOUNTER → 2021-07-19 | Outpatient (CLI) | payer MEDICARE, MEDICAID ==
--- NOTE | 2021-07-19 20:36 | Diagnostic Imaging Report ---
INDICATION: Low back pain COMPARISON: None. FINDINGS: Three views of the lumbar spine demonstrate minimal mild degenerative disc disease and facet joint arthropathy. There is no traumatic malalignment or fracture. No osseous lesion. IMPRESSION: Diffuse degenerative changes. Dictated by: Dictated on workstation # [id number]
--- NOTE | 2021-07-19 20:58 | Diagnostic Imaging Report ---
INDICATION: Left hip pain COMPARISON: None. FINDINGS: Two views of the left hip demonstrate [id number] degenerative joint disease. There is no fracture or dislocation. No osseous lesion. IMPRESSION: Degenerative joint disease. Dictated by: Dictated on workstation # [id number]
== END ==
LOC: RAD 17:35
PROVIDERS: ATTEND Family Medicine
DX: M16.12 Unilateral primary osteoarthritis, left hip (principal); M47.816 Spondylosis without myelopathy or radiculopathy, lumbar region
CPT/HCPCS: 72100; 73502

== ENCOUNTER 2023-03-13 17:40 | Inpatient (IN) | payer MEDICARE, MEDICAID ==
[~2023-03-13] VITALS: Ht 182.8 cm; Wt 94.5 kg
[2023-03-13] MEDS ORDERED: LIDOCAINE UROJET 2% GEL 10 ML PKG TOP ONE ×2 (17:45→20:30)
[2023-03-13 18:12] LABS: BILIRUBIN,URINE NEGATIVE (NEGATIVE); CLARITY,URINE CLEAR; COLOR,URINE YELLOW; GLUCOSE, URINE (UA) NEGATIVE (NEGATIVE); KETONES,URINE NEGATIVE (NEGATIVE); LEUKOCYTE ESTERASE ,URINE 1+ (NEGATIVE); NITRITE,URINE POSITIVE (NEGATIVE); PH,URINE 6.5 (5-9); PROTEIN,URINE TRACE (NEGATIVE)
[2023-03-13 18:15] LABS: BASOPHILS % (AUTO) 0 % (0-10); EOSINOPHILS # (AUTO) 0.1 10^3/uL (0.0-0.3); EOSINOPHILS % (AUTO) 1 % (0-10); HEMATOCRIT 44 % (40-54); HEMOGLOBIN 15.2 g/dL (13.3-17.7); LYMPHOCYTES # (AUTO) 0.8 10^3/uL (1.0-4.0); LYMPHOCYTES % (AUTO) 5 % (12-44); MEAN CORPUSCULAR HEMOGLOBIN 29 pg (25-34); MEAN CORPUSCULAR HGB CONC 35 g/dL (32-36); MEAN CORPUSCULAR VOLUME 84 fL (80-99); MEAN PLATELET VOLUME 10.3 fL (9.0-12.2); MONOCYTES # (AUTO) 0.9 10^3/uL (0.0-1.0); MONOCYTES % (AUTO) 6 % (0-12); NEUTROPHILS # (AUTO) 13.2 10^3/uL (1.8-7.8); NEUTROPHILS % (AUTO) 87 % (42-75); PLATELET COUNT 149 10^3/uL (130-400); WHITE BLOOD COUNT 15.2 10^3/uL (4.3-11.0)
[2023-03-13 18:19] LABS: BACTERIA,URINE LARGE /HPF; RBC,URINE 0-2 /HPF
--- NOTE | 2023-03-13 18:28 | ED GU-Male ---
General Chief Complaint: - Reproductive Stated Complaint: URINARY INCONTINENCE Nursing Triage Note: PT PRESENTS TO ED WITH C/O URINARY INCONTINENCE. PT STATES THIS IS NOT A NEW PROBLEM BUT THAT IT HAS GOTTEN WORSE THE LAST COUPLE OF DAYS. PT HAS NO OTHER COMPLAINTS AT THIS TIME. Source: patient (VERY POOR HISTORIAN), old records (ALL PMH IS FROM O9 RECORDS. ) History of Present Illness Date Seen by Provider: March 13, 2023 Time Seen by Provider: 17:43 Initial Comments PT ARRIVES VIA EMS FROM HOME--PT LIVES ALONE C/O URINARY INCONTINENCE STATES THIS IS NOT A NEW PROBLEM BUT IT HAS BEEN WORSE THE LAST COUPLE OF DAYS. THE LAST COUPLE OF NIGHTS, HE HAS SATURATED THE BED WITH URINE WHILE HE WAS ASLEEP. C/O URINARY FREQUENCY AND SMALL AMOUNTS NO PAIN ON URINATION NO ABDOMINAL PAIN HAS BEEN WEAK AND TIRED THE LAST COUPLE OF DAYS. NO NAUSEA OR VOMITING OR DIARRHEA NO KNOWN FEVER/SWEATS/CHILLS. PT DOES NOT KNOW ANY OF HIS MEDICAL HISTORY. PER OLD RECORDS, PT HAS HISTORY OF DEMENTIA. PER MED RECONCILIATION, PT IS ON: -ADVAIR -MYRBETRIQ -XARELTO -METFORMIN -ATORVASTATIN -LOSARTAN -OMEPRAZOLE -SERTRALINE PCP: DR. JALLOH Allergies and Home Medications Allergies Coded Allergies: Ray Known Allergies (Unverified Allergy, Unknown, 09/19/06) Patient Home Medication List Home Medication List Reviewed: Yes Atorvastatin Calcium (Atorvastatin Calcium) 10 Mg Tablet, 10 MG PO HS, (Reported) Entered as Reported by: PAULINE LAMAS on 11/01/162214 Last Action: Reviewed Bethanechol Chloride (Bethanechol Chloride) 25 Mg Tablet, 25 MG PO BID, (Reported) Entered as Reported by: VINCENT RAMIRES on 03/14/23 1503 Last Action: Reviewed Fluticasone/Salmeterol (Advair 250-50 Diskus) 1 Each Blst.w.dev, 1 PUFF IH BID, (Reported) Entered as Reported by: PAULINE LAMAS on 11/01/162214 Last Action: Reviewed Losartan Potassium (Losartan Potassium) 50 Mg Tablet, 50 MG PO BID, (Reported) Entered as Reported by: VINCENT RAMIRES on 03/14/23 6567 Last Action: Reviewed Melatonin (Melatonin) 3 Mg Tablet, 3 MG PO HS, (Reported) Entered as Reported by: PETE ROCKWELL on 01/10/19952 Last Action: Reviewed Metformin HCl (Metformin HCl ER) 500 Mg Tab.er.24h, 500 MG PO BID, (Reported) Entered as Reported by: VINCENT RAMIRES on 03/14/231456 Last Action: Reviewed Mirabegron (Myrbetriq) 25 Mg Tab.er.24h, 25 MG PO HS, (Reported) Entered as Reported by: VINCENT RAMIRES on 03/14/231456 Last Action: Reviewed Omeprazole (Omeprazole) 20 Mg Capsule.dr, 20 MG PO DAILY, (Reported) Entered as Reported by: PETE ROCKWELL on 06/06/191326 Last Action: Reviewed Rivaroxaban (Xarelto) 20 Mg Tablet, 20 MG PO HS, (Reported) Entered as Reported by: VINCENT RAMIRES on 03/14/231456 Last Action: Reviewed Sertraline HCl (Sertraline HCl) 100 Mg Tablet, 100 MG PO BID, (Reported) Entered as Reported by: SONIA REN on 06/12/18 120 Last Action: Edited Discontinued Medications Aspirin (Aspirin EC) 81 Mg Tablet.dr, 81 MG PO DAILY, (Reported) Discontinued Reason: No Longer Taking Entered as Reported by: PETE ROCKWELL on 01/10/19952 Last Action: Discontinued Bethanechol Chloride (Urecholine) 10 Mg Tablet, 10 MG PO ACHS Discontinued Reason: No Longer Taking Prescribed by: ENRRIQUE JALLOH on 06/12/19 1213 Last Action: Discontinued Colestipol HCl (Colestipol HCl) 1 Gm Tablet, 1 GM PO DAILY, (Reported) Discontinued Reason: No Longer Taking Entered as Reported by: SONIA REN on 06/12/18 120 Last Action: Discontinued Cyanocobalamin (Vitamin B-12) (B-12) 1,000 Mcg Tablet, 1,000 MCG PO DAILY, (Reported) Discontinued Reason: No Longer Taking Entered as Reported by: PETE ROCKWELL on 06/06/191326 Last Action: Discontinued Hydrocodone Bit/Acetaminophen (Lortab 5 Mg Tablet) 1 Tab Tab, 1 TAB PO Q4H PRN for PAIN-SEVERE Discontinued Reason: No Longer Taking Prescribed by: ANA VÁZQUEZ on 06/12/19 0847 Last Action: Discontinued Losartan Potassium (Losartan Potassium) 100 Mg Tablet, 100 MG PO DAILY, (Reported) Discontinued Reason: Duplicate Order Entered as Reported by: SONIA REN on 06/12/18 1201 Last Action: Discontinued Sennosides/Docusate Sodium (Senna-Time S Tablet) 1 Each Tablet, 2 EA PO BID Discontinued Reason: No Longer Taking Prescribed by: ANA VÁZQUEZ on 06/12/19847 Last Action: Discontinued Tramadol HCl (Tramadol HCl) 50 Mg Tablet, 100 MG PO Q6H PRN for PAIN-MODERATE Discontinued Reason: No Longer Taking Prescribed by: ANA VÁZQUEZ on 06/12/19847 Last Action: Discontinued Umeclidinium [place] (Incruse Ellipta) 62.5 Mcg Blst.w.dev, 1 PUFF IH DAILY, (Reported) Discontinued Reason: No Longer Taking Entered as Reported by: PAULINE LAMAS on 11/01/16 2215 Last Action: Discontinued Review of Systems Review of Systems Constitutional: see HPI, malaise, weakness Respiratory: no symptoms reported Cardiovascular: no symptoms reported Gastrointestinal: no symptoms reported Genitourinary: see HPI Psychiatric/Neurological: See HPI (VERY POOR MEMORY) Endocrine: See HPI, Increased Urine Past Gqfkmlh-Dzsljt-Mzryru Hx Patient Social History Tobacco Use?: Yes Tobacco type used: Cigarettes Smoking Status: Former Smoker Substance use?: Yes (HX OF DRUG USE) Alcohol Use?: Yes (HISTORY OF ETOH USE) Pt feels they are or have been: No Immunizations Up To Date Tetanus Booster (TDap): Less than 5yrs PED Vaccines UTD: No Influenza Vaccine Up-to-Date: Yes; Up-to-Date Seasonal Allergies Seasonal Allergies: No Past Medical History Surgeries: Yes (BILAT KNEE REPLACEMENTS, right ankle surg, RT HAND CARPAL TUNNEL ) Appendectomy, Joint Replacement, Orthopedic Respiratory: Yes (quit smoking 40yrs. ago) Asthma, COPD Cardiac: Yes (see's Dr. Miner) Hypertension, Hypotension Neurological: Yes Dementia, Vertigo Reproductive Disorders: No Sexually Transmitted Disease: No HIV/AIDS: No Genitourinary: Yes (OVERACTIVE BLADDER) Renal Failure Gastrointestinal: Yes Gastroesophageal Reflux Musculoskeletal: Yes (ROSY. TKR) Arthritis Endocrine: Yes Diabetes, Non-Insulin dep HEENT: Yes Cataract Loss of Vision: Denies Hearing Impairment: Denies Cancer: No Psychosocial: Yes Depression Integumentary: No Blood Disorders: No Adverse Reaction/Blood Tranf: No Family Medical History Alcoholism 09 SISTER Family history: Asthma 09 SISTER Family history: Cardiovascular disease 03 FATHER Family history: Diabetes mellitus 03 MOTHER 09 SISTER Heart disease 03 FATHER Myocardial infarction 03 FATHER Stroke 03 FATHER No Family History of: Abdominal aortic aneurysm Jaydon's disease Aphasia Cancer Cancer of colon Cataract Chest pain Congenital heart disease Congestive heart failure Cystic fibrosis Dementia Dysphagia Family history: Allergy Family history: Alzheimer's disease Family history: Arthritis Family history: Breast disease Family history: Gastrointestinal disease Family history: Glaucoma Family history: Hypertension Family history: Osteoporosis Family history: Thyroid disorder Headache Hearing loss History of - anemia History of - disorder History of - respiratory disease History of drug abuse Human immunodeficiency virus (HIV) seropositivity Hypercholesterolemia Infertile Kidney disease Malignant neoplasm of lung Parkinson's disease Prostate cancer Psychotic disorder Seizure disorder Tuberculosis Visual impairment Physical Exam Vital Signs Vital Signs - First Documented 03/13/23 17:42 Temp 37.0 Pulse 113 Resp 30 B/P (MAP) 131/71 (91) Pulse Ox 93 O2 Delivery Room Air Capillary Refill : Less Than 3 Seconds Height, Weight, BMI Height: 6'0.00" Weight: 240lbs. 0.0oz. 108.182563wa; BMI Method:Stated General Appearance: WD/WN, no apparent distress, other (UNKEMPT, CONSTANT MOVEMENTS OF ARMS AND LEGS. DOES NOT APPEAR TO BE IN ANY DISTRESS. ) HEENT: PERRL/EOMI, other (EDENTULOUS. 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 ) Skin: normal color, warm/dry Focused Exam Sepsis Stage: Sepsis Possible Source: Genitouriary Lactate Level 03/13/23 19:10: Lactic Acid Level 1.01 Time of Focused Exam: 18:50 Respiratory: Normal Breath Sounds, No Accessory Muscle Use, No Respiratory Distress Cardiovascular: Regular Rate, Rhythm, No Murmur Capillary Refill: Less Than 3 Seconds Skin: normal color, warm/dry Lactic Acid Level Laboratory Tests Test 03/13/23 19:10 Lactic Acid Level 1.01 MMOL/L (0.50-2.00) Within 3hrs of presentation: Admin fluids, Admin ABX, Blood cultures prior to ABX's, Focus exam, Lactate level Progress/Results/Core Measures Suspected Sepsis SIRS Temperature: Pulse: 113 Respiratory Rate: 30 Laboratory Tests 03/13/23 17:54: White Blood Count 15.2H Blood Pressure 131 /71 Mean: 91 03/13/23 19:10: Lactic Acid Level 1.01 Laboratory Tests 03/13/23 17:54: Creatinine 0.93, INR Comment 1.4, Platelet Count 149, Total Bilirubin 2.0H Results/Orders Lab Results Laboratory Tests Test 03/13/23 17:54 03/13/23 18:00 03/13/23 19:10 Range/Units White Blood Count 15.2 H 4.3-11.0 10^3/uL Red Blood Count 5.21 4.30-5.52 10^6/uL Hemoglobin 15.2 13.3-17.7 g/dL Hematocrit 44 40-54 % Mean Corpuscular Volume 84 80-99 fL Mean Corpuscular Hemoglobin 29 25-34 pg Mean Corpuscular Hemoglobin Concent 35 32-36 g/dL Red Cell Distribution Width 13.5 10.0-14.5 % Platelet Count 149 130-400 10^3/uL Mean Platelet Volume 10.3 9.0-12.2 fL Immature Granulocyte % (Auto) 1 % Neutrophils (%) (Auto) 87 H 42-75 % Lymphocytes (%) (Auto) 5 L 12-44 % Monocytes (%) (Auto) 6 0-12 % Eosinophils (%) (Auto) 1 0-10 % Basophils (%) (Auto) 0 0-10 % Neutrophils # (Auto) 13.2 H 1.8-7.8 10^3/uL Lymphocytes # (Auto) 0.8 L 1.0-4.0 10^3/uL Monocytes # (Auto) 0.9 0.0-1.0 10^3/uL Eosinophils # (Auto) 0.1 0.0-0.3 10^3/uL Basophils # (Auto) 0.0 0.0-0.1 10^3/uL Immature Granulocyte # (Auto) 0.2 H 0.0-0.1 10^3/uL Neutrophils % (Manual) 81 % Lymphocytes % (Manual) 9 % Monocytes % (Manual) 6 % Eosinophils % (Manual) 1 % Band Neutrophils 3 % Blood Morphology Comment NORMAL Prothrombin Time 17.0 H 12.2-14.7 SEC INR Comment 1.4 0.8-1.4 Activated Partial Thromboplast Time 35 24-35 SEC Sodium Level 133 L 135-145 MMOL/L Potassium Level 3.8 3.6-5.0 MMOL/L Chloride Level 101 98-107 MMOL/L Carbon Dioxide Level 22 21-32 MMOL/L Anion Gap 10 5-14 MMOL/L Blood Urea Nitrogen 14 7-18 MG/DL Creatinine 0.93 0.60-1.30 MG/DL Estimat Glomerular Filtration Rate 82 BUN/Creatinine Ratio 15 Glucose Level 145 H 70-105 MG/DL Calcium Level 9.3 8.5-10.1 MG/DL Corrected Calcium 9.3 8.5-10.1 MG/DL Magnesium Level 1.7 1.6-2.4 MG/DL Total Bilirubin 2.0 H 0.1-1.0 MG/DL Aspartate Amino Transf (AST/SGOT) 17 5-34 U/L Alanine Aminotransferase (ALT/SGPT) 16 0-55 U/L Alkaline Phosphatase 46 40-136 U/L Total Protein 7.1 6.4-8.2 GM/DL Albumin 4.0 3.2-4.5 GM/DL Amylase Level 30 25-125 U/L Lipase 4 L 8-78 U/L Serum Alcohol < 10 <10 MG/DL Urine Color YELLOW Urine Clarity CLEAR Urine pH 6.5 5-9 Urine Specific [place] 1.015 L 1.016-1.022 Urine Protein TRACE H NEGATIVE Urine Glucose (UA) NEGATIVE NEGATIVE Urine Ketones NEGATIVE NEGATIVE Urine Nitrite POSITIVE H NEGATIVE Urine Bilirubin NEGATIVE NEGATIVE Urine Urobilinogen 0.2 < = 1.0 MG/DL Urine Leukocyte Esterase 1+ H NEGATIVE Urine RBC (Auto) 1+ H NEGATIVE Urine RBC 0-2 /HPF Urine WBC 2-5 /HPF Urine Crystals NONE /LPF Urine Bacteria LARGE H /HPF Urine Casts NONE /LPF Urine Mucus NEGATIVE /LPF Urine Culture Indicated YES Urine Opiates Screen NEGATIVE NEGATIVE Urine Oxycodone Screen NEGATIVE NEGATIVE Urine Methadone Screen NEGATIVE NEGATIVE Urine Propoxyphene Screen NEGATIVE NEGATIVE Urine Barbiturates Screen NEGATIVE NEGATIVE Ur Tricyclic Antidepressants Screen NEGATIVE NEGATIVE Urine Phencyclidine Screen NEGATIVE NEGATIVE Urine Amphetamines Screen NEGATIVE NEGATIVE Urine Methamphetamines Screen NEGATIVE NEGATIVE Urine Benzodiazepines Screen NEGATIVE NEGATIVE Urine Cocaine Screen NEGATIVE NEGATIVE Urine Cannabinoids Screen NEGATIVE NEGATIVE Lactic Acid Level 1.01 0.50-2.00 MMOL/L Micro Results Microbiology 03/13/23 Blood Culture - Preliminary, Resulted No growth 03/13/23 Blood Culture - Preliminary, Resulted No growth 03/13/23 Urine Culture - Preliminary, Resulted Klebsiella/Enterobacter spec My Orders Orders - GOMEZ MURCIA DO Ed Iv/Invasive Line Start (03/13/23 17:45) Catheter(Urinary) Insert & Ass 03,15 (03/13/23 17:45) Monitor-Rhythm Ecg Trace Only (03/13/23 17:45) Amylase (03/13/23 17:45) Cbc With Automated Diff (03/13/23 17:45) Comprehensive Metabolic Panel (03/13/23 17:45) Lipase (03/13/23 17:45) Magnesium (03/13/23 17:45) Ua Culture If Indicated (03/13/23 17:45) Ct Abdomen/Pelvis Wo (03/13/23 17:45) Lidocaine 2% (Urojet) (Xylocaine Urojet) (03/13/23 17:45) Alcohol (03/13/23 17:48) Drug Screen Stat (Urine) (03/13/23 17:48) Manual Differential (03/13/23 17:54) Urine Culture (03/13/23 18:00) Blood Culture (03/13/23 18:22) Protime With Inr (03/13/23 18:22) Partial Thromboplastin Time (03/13/23 18:22) Chest 1 View, Ap/Pa Only (03/13/23 18:22) Ed Iv/Invasive Line Start (03/13/23 18:22) Vital Signs Adult Sepsis Patie Q15M (03/13/23 18:22) O2 (03/13/23 18:22) Remove Rings In Anticipation O (03/13/23 18:22) Lactic Acid Analyzer (03/13/23 18:22) Cefepime Injection (Maxipime Injection) (03/13/23 18:30) Ed Iv/Invasive Line Start (03/13/23 18:22) Ns Iv 1000 Ml (Sodium Chloride 0.9%) (03/13/23 18:30) Ed Admission (Communication) (03/13/23 19:00) Ed Iv/Invasive Line Start (03/13/23 19:01) Lactated Ringers (Lr 1000 Ml Iv Solution (03/13/23 19:15) Vital Signs/I&O 03/13/23 03/13/23 03/13/23 03/13/23 17:42 19:34 20:00 20:00 Temp 37.0 37.1 37.1 Pulse 113 98 93 93 Resp 30 18 18 18 B/P (MAP) 131/71 (91) 145/89 122/70 (87) 122/70 (87) Pulse Ox 93 96 95 95 O2 Delivery Room Air Room Air Room Air Capillary Refill : Less Than 3 Seconds Blood Pressure Mean: 91 Progress Note : Progress Note GIVEN: -IV FLUIDS -CEFEPIME SEPSIS PROTOCOL INITIATED LAB INCLUDING CBC, CMP, BLOOD CULTURES, LACTIC ACID, UA DONE. WBC 15.2 ON ARRIVAL CMP WITH NA 144, GLUCOSE 145 OTHERWISE UNREMARKABLE CATH UA WITH LEUKOCYTES, BACTERIA AND NITRITES CONSISTENT WITH UTI. PT IS AFEBRILE, HR 110'S ON ARRIVAL--DOWN TO < 100 AT TIME OF ADMIT AFTER IV FLUIDS GIVEN BP STABLE WITH SYSTOLIC BP > 100 NO DETERIORATION IN PT'S CONDITION DURING ER STAY REVIEWED PRIOR RECORDS, INCLUDING ER VISITS, ADMITS/H&P'S/CONSULTS/DISCHARGE SUMMARIES, TESTS/PROCEDURES Diagnostic Imaging Comments CT ABDOMEN/PELVIS--PER RADIOLOGIST REPORT AT 1837 FINDINGS: Lung bases show some minimal subpleural dependent atelectatic infiltrates. There is some mild central venous congestion. There is no confluent consolidations, there is no effusion or pneumothorax. Cardiac contour is upper limits of normal. Liver shows uniform attenuation. Gallbladder, spleen, GE junction, stomach and duodenal sweep are unremarkable. Pancreas shows sharp margins. Adrenals are normal. Kidneys show some minimal bilateral perinephric stranding, otherwise there is no evidence of obstructive uropathy. Both ureters are seen intermittently through their course and appear unremarkable. There is no renal or ureteral calculi. Bladder is decompressed by a Adams catheter. Prostatic calcifications are seen. Nonopacified loops of small bowel are unremarkable. Large bowel contains fecal material and gas. There is no free air, free fluid or adenopathy. Nonaneurysmal aortic calcifications are noted. Bone windows show degenerative changes in the axial skeleton most severe at the thoracolumbar junction and lower thoracic spine. IMPRESSION: 1. Some minimal basilar atelectatic infiltrates with mild central venous congestion. 2. Heart size upper limits of normal with few coronary calcifications are seen. 3. No evidence of cholecystitis, appendicitis or obstructive uropathy. No areas of peritoneal inflammation seen. There is some minimal nonspecific bilateral perinephric stranding. 4. Bladder is decompressed by a Adams catheter. Multiple prostatic calcifications are seen. Additional nonemergent findings as described above. Reviewed: Reviewed by Me Departure Communication (Admissions) 1899--SPOKE WITH DR. VÁZQUEZ, HOSPITALIST FOR DR. JALLOH, ACCEPTS PT FOR ADMIT. SHE WILL DO ADMIT ORDERS Impression Primary Impression: Sepsis Additional Impressions: Urinary tract infection NIDDM HX HTN Disposition: ADMITTED INPATIENT Condition: Stable Admissions Decision to Admit Reason: Admit from ER (General) Decision to Admit/Date: March 13, 2023 Time/Decision to Admit Time: 19:00 Departure-Patient Inst. Referrals: ENRRIQUE JALLOH DO (PCP/Family) Primary Care Physician GOMEZ MURCIA DO March 13, 2023 18:28
[2023-03-13] MEDS ORDERED: NS IV 1000 ML 1,000 ML IV SCH ×2 (18:30→20:30)
[2023-03-13] MEDS ORDERED: CEFEPIME INJECTION 1,000 MG in NS (IVPB) 50 ML IV ONE (18:30)
[2023-03-13 18:31] LABS: AMPHETAMINE SCREEN, URINE NEGATIVE (NEGATIVE); BARBITURATE SCREEN URINE NEGATIVE (NEGATIVE); BENZODIAZEPINES SCREEN URINE NEGATIVE (NEGATIVE); CANNABINOID SCREEN, URINE NEGATIVE (NEGATIVE); COCAINE SCREEN URINE NEGATIVE (NEGATIVE); METHADONE STAT NEGATIVE (NEGATIVE); OPIATE SCREEN URINE NEGATIVE (NEGATIVE); OXYCODONE STAT NEGATIVE (NEGATIVE); PROPOXYPHENE STAT NEGATIVE (NEGATIVE); TRICYCLIC ANTIDEPRESSANTS SCRE NEGATIVE (NEGATIVE)
--- NOTE | 2023-03-13 18:32 | Diagnostic Imaging Report ---
PROCEDURE: CT abdomen and pelvis without contrast. TECHNIQUE: Multiple contiguous axial images were obtained through the abdomen and pelvis without the use of intravenous contrast. Auto Exposure Controls were utilized during the CT exam to meet ALARA standards for radiation dose reduction. INDICATION: Urinary incontinence with worsening symptoms over the last several days. COMPARISONS: None FINDINGS: Lung bases show some minimal subpleural dependent atelectatic infiltrates. There is some mild central venous congestion. There is no confluent consolidations, there is no effusion or pneumothorax. Cardiac contour is upper limits of normal. Liver shows uniform attenuation. Gallbladder, spleen, GE junction, stomach and duodenal sweep are unremarkable. Pancreas shows sharp margins. Adrenals are normal. Kidneys show some minimal bilateral perinephric stranding, otherwise there is no evidence of obstructive uropathy. Both ureters are seen intermittently through their course and appear unremarkable. There is no renal or ureteral calculi. Bladder is decompressed by a Adams catheter. Prostatic calcifications are seen. Nonopacified loops of small bowel are unremarkable. Large bowel contains fecal material and gas. There is no free air, free fluid or adenopathy. Nonaneurysmal aortic calcifications are noted. Bone windows show degenerative changes in the axial skeleton most severe at the thoracolumbar junction and lower thoracic spine. IMPRESSION: 1. Some minimal basilar atelectatic infiltrates with mild central venous congestion. 2. Heart size upper limits of normal with few coronary calcifications are seen. 3. No evidence of cholecystitis, appendicitis or obstructive uropathy. No areas of peritoneal inflammation seen. There is some minimal nonspecific bilateral perinephric stranding. 4. Bladder is decompressed by a Adams catheter. Multiple prostatic calcifications are seen. Additional nonemergent findings as described above. Dictated by: Dictated on workstation # [id number]
[2023-03-13 18:33] LABS: ALANINE AMINOTRANSFERASE 16 U/L (0-55); ALKALINE PHOSPHATASE 46 U/L (40-136); AMYLASE 30 U/L (25-125); BUN/CREATININE RATIO 15; CALCIUM 9.3 MG/DL (8.5-10.1); CARBON DIOXIDE 22 MMOL/L (21-32); CHLORIDE 101 MMOL/L (98-107); CREATININE SERUM 0.93 MG/DL (0.60-1.30); GFR ESTIMATED 82; GLUCOSE 145 MG/DL (70-105); LIPASE 4 U/L (8-78); MAGNESIUM 1.7 MG/DL (1.6-2.4); POTASSIUM 3.8 MMOL/L (3.6-5.0); SODIUM 133 MMOL/L (135-145); TOTAL PROTEIN 7.1 GM/DL (6.4-8.2)
[2023-03-13 18:35] LABS: INR 1.4 (0.8-1.4)
--- NOTE | 2023-03-13 18:41 | Diagnostic Imaging Report ---
INDICATION: Sepsis with increased white cell count. COMPARISONS: None. FINDINGS: Single view chest shows normal heart, pulmonary vasculature, pleura, and diaphragms with no focal opacities. Soft tissues and visualized bony thorax are normal. IMPRESSION: No acute cardiopulmonary changes. Dictated by: Dictated on workstation # [id number]
[2023-03-13 18:49] LABS: BAND NEUTROPHILS 3 %; EOSINOPHILS % (MANUAL) 1 %; LYMPHOCYTES % (MANUAL) 9 %; MONOCYTES % (MANUAL) 6 %; NEUTROPHILS % (MANUAL) 81 %
[2023-03-13 18:50] LABS: RBC MORPH NORMAL
[2023-03-13] MEDS ORDERED: LACTATED RINGERS 1,000 ML IV ONE (19:15)
[2023-03-13 20:00] VITALS: BP 122/70
[2023-03-13] MEDS ORDERED: ENOXAPARIN 40 MG/0.4 ML (LOVENOX) SYR SC SCH (20:30)
[2023-03-13] MEDS ORDERED: HYDROmorphone 2 MG/ML VIAL (DILAUDID) IV PRN (20:30)
[2023-03-13] MEDS ORDERED: CALCIUM CARBONATE 500 MG (TUMS) TAB.CHEW PO PRN (20:30)
[2023-03-13] MEDS ORDERED: diphenhydrAMINE 25 MG TAB (BENADRYL) PO PRN (20:30)
[2023-03-13] MEDS ORDERED: ACETAMINOPHEN 325 MG TABLET PO PRN (20:30)
[2023-03-13] MEDS ORDERED: ONDANSETRON 4 MG (ZOFRAN) ORAL DISSOLVE TAB PO PRN (20:30)
[2023-03-13] MEDS ORDERED: diphenhydrAMINE 50 MG/ML INJ (BENADRYL) IVP PRN (20:30)
[2023-03-13] MEDS ORDERED: ONDANSETRON 4 MG/2 ML (SDV) Z0FRAN IV PRN (20:30)
[2023-03-13] MEDS ORDERED: LACTULOSE SYRUP 10GM/15ML (ENULOSE) 30ML UDC PO PRN (20:30)
[2023-03-13] MEDS ORDERED: BISACODYL 10 MG SUPP (DULCOLAX) PR PRN (20:30)
[2023-03-13] MEDS ORDERED: MILK OF MAGNESIA 400 MG/5 ML 30 ML UDC PO PRN (20:30)
[2023-03-13] MEDS ORDERED: polyethylene glycoL POWDER 17 GM (MIRALAX) PACK PO PRN (20:30)
[2023-03-13] MEDS ORDERED: MELATONIN 3 MG TABLET PO PRN (20:30)
[2023-03-13] MEDS ORDERED: ANTACID SUSP 30 ML UDC (MYLANTA) PO PRN (20:30)
[2023-03-13] MEDS: inSUlin ASPART (NovoLOG) 1 UNIT/0.01 ML (CHARGE PER UNIT) SC SCH (21:54)
[2023-03-13] MEDS: DOCUSATE SODIUM 100 MG (COLACE) CAP PO SCH (22:04)
[2023-03-13] MEDS: SENNOSIDES 8.6 MG (SENOKOT) TAB PO SCH (22:04)
[2023-03-13 22:27] VITALS: BP 122/70
[2023-03-13] MEDS ORDERED: RT-ALBUTEROL/IPRATROPIUM 3 ML (DUONEB) VIAL INH PRN (22:45)
[2023-03-14] VITALS (7 sets, daily range): BP systolic 110–146; BP diastolic 58–88
[2023-03-14] MEDS: CEFEPIME INJECTION 1,000 MG in NS (IVPB) 50 ML IV SCH ×2 (01:14→06:40)
--- NOTE | 2023-03-14 04:56 | History & Physical ---
History of Present Illness HPI/Chief Complaint CC: UTI with ESBL with incontinence and increased confusion HPI: This is an 82yoWM clinic patient of Dr Ca who presented to the ER with urinary incontinence and evidence of UTI. Patient was placed on empiric antibi otics and was admitted for close monitoring. 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 He is a very poor historian. I did update PCP and inquired if he would be willing to go to skilled care and she said likely not and his daughter is involved and SW will speak to her about possible additional help for him at home. He is adamant he wants to leave so I tried to reassure. Source: patient Exam Limitations: other (poor historian) Date Seen 03/14/23 Time Seen by a Provider: 09:00 Attending Physician Carmina Ca DO PCP Admitting Physician: Angelia Archuleta DO Attending Physician: Angelia Archuleta DO Referring Physician Date of Admission March 13, 2023 at 20:03 Home Medications & Allergies Home Medications Reviewed patient Home Medication Reconciliation performed by pharmacy medication reconciliations fire control technician b and/or nursing. Patients Allergies have been reviewed. Allergies Allergies Coded Allergies NKANo Known Allergies (Unverified Allergy, Unknown, 09/19/06) Past Dldobre-Wmbnwl-Agvvep Hx Past Med/Social Hx: Reviewed Nursing Past Med/Soc Hx, Reviewed and Corrections made Patient Social History Marrital Status: single Employed/Student: retired Alcohol Use: Denies Use Smoking Status: Former Smoker Former Smoker, Quit: Jun 12, 1980 Type Used: Cigarettes 2nd Hand Smoke Exposure: No Recent Hopitalizations: Yes Immunizations Up To Date Tetanus Booster (TDap): Less than 5yrs Pediatric: No Date of Pneumonia Vaccine: Aug 15, 2011 Date of Influenza Vaccine: Jul 25, 2016 Seasonal Allergies Seasonal Allergies: No Past Medical History Surgeries: Appendectomy, Joint Replacement, Orthopedic Respiratory: COPD Cardiac: Hypertension, Hypotension Neurological: Dementia, Vertigo Reproductive: No Sexually Transmitted Disease: No HIV/AIDS: No Genitourinary: Renal Failure Gastrointestinal: Gastroesophageal Reflux Musculoskeletal: Arthritis Endocrine: Diabetes, Non-Insulin dep HEENT: Cataract Loss of Vision: Denies Hearing Impairment: Denies Psychosocial: Depression History of Blood Disorders: No Adverse Reaction to Blood Bourne: No Family History Alcoholism 09 SISTER Family history: Asthma 09 SISTER Family history: Cardiovascular disease 03 FATHER Family history: Diabetes mellitus 03 MOTHER 09 SISTER Heart disease 03 FATHER Myocardial infarction 03 FATHER Stroke 03 FATHER No Family History of: Abdominal aortic aneurysm Andrews's disease Aphasia Cancer Cancer of colon Cataract Chest pain Congenital heart disease Congestive heart failure Cystic fibrosis Dementia Dysphagia Family history: Allergy Family history: Alzheimer's disease Family history: Arthritis Family history: Breast disease Family history: Gastrointestinal disease Family history: Glaucoma Family history: Hypertension Family history: Osteoporosis Family history: Thyroid disorder Headache Hearing loss History of - anemia History of - disorder History of - respiratory disease History of drug abuse Human immunodeficiency virus (HIV) seropositivity Hypercholesterolemia Infertile Kidney disease Malignant neoplasm of lung Parkinson's disease Prostate cancer Psychotic disorder Seizure disorder Tuberculosis Visual impairment Review of Systems Constitutional: see HPI, malaise, weakness Genitourinary: incontinence Physical Exam Physical Exam Vital Signs Vital Signs - First Documented 03/13/23 03/13/23 17:42 22:27 Temp 37.0 Pulse 113 Resp 30 B/P (MAP) 131/71 (91) Pulse Ox 93 O2 Delivery Room Air FiO2 21 Capillary Refill : Less Than 3 Seconds Height, Weight, BMI Height: 6'0.00" Weight: 240lbs. 0.0oz. [id number]; 28.28 BMI Method:Stated General Appearance: No Apparent Distress, WD/WN, Chronically ill Eyes: Bilateral Eye Normal Inspection, Bilateral Eye PERRL HEENT: PERRL/EOMI, Normal ENT Inspection, Pharynx Normal Neck: Full Range of Motion, Normal Inspection, Non Tender, Supple, Carotid Bruit Respiratory: Normal Breath Sounds, No Accessory Muscle Use, No Respiratory Distress Cardiovascular: Regular Rate, Rhythm, No Murmur Gastrointestinal: Normal Bowel Sounds, No Organomegaly, No Pulsatile Mass, Non Tender, Soft Back: Normal Inspection, No CVA Tenderness, No Vertebral Tenderness Extremity: Normal Capillary Refill, Normal Inspection, Normal Range of Motion, Non Tender, No Calf Tenderness, No Pedal Edema Neurologic/Psychiatric: Alert, No Motor/Sensory Deficits, Normal Mood/Affect, Depressed Affect, Disoriented Skin: Normal Color, Warm/Dry Lymphatic: No Adenopathy Results Results/Procedures Labs Laboratory Tests 03/13/23 17:54 03/14/23 05:14 Patient resulted labs reviewed. Assessment/Plan Admission Diagnosis Assessment: Urinary incontinence with UTI ESBL Confusion Dementia HTN HLP DM COPD Former smoker Plan: IV abx changed to ESBL coverage Admission Status: Inpatient Order (span 2 midnights) Reason for Inpatient Admission: ams with UTI ESBL ANGELIA ARCHULETA DO March 14, 2023 04:56
[2023-03-14] MEDS: inSUlin ASPART (NovoLOG) 1 UNIT/0.01 ML (CHARGE PER UNIT) SC SCH ×4 (05:23→20:27)
[2023-03-14 05:49] LABS: BASOPHILS # (AUTO) 0.1 10^3/uL (0.0-0.1); BASOPHILS % (AUTO) 0 % (0-10); HEMOGLOBIN 13.6 g/dL (13.3-17.7)
[2023-03-14 05:51] LABS: EOSINOPHILS # (AUTO) 0.1 10^3/uL (0.0-0.3); EOSINOPHILS % (AUTO) 1 % (0-10); HEMATOCRIT 40 % (40-54); LYMPHOCYTES # (AUTO) 1.1 10^3/uL (1.0-4.0); LYMPHOCYTES % (AUTO) 9 % (12-44); MEAN CORPUSCULAR HEMOGLOBIN 29 pg (25-34); MEAN CORPUSCULAR HGB CONC 34 g/dL (32-36); MEAN CORPUSCULAR VOLUME 84 fL (80-99); MEAN PLATELET VOLUME 10.7 fL (9.0-12.2); MONOCYTES # (AUTO) 0.7 10^3/uL (0.0-1.0); MONOCYTES % (AUTO) 5 % (0-12); NEUTROPHILS # (AUTO) 10.6 10^3/uL (1.8-7.8); NEUTROPHILS % (AUTO) 84 % (42-75); PLATELET COUNT 133 10^3/uL (130-400); WHITE BLOOD COUNT 12.7 10^3/uL (4.3-11.0)
[2023-03-14 06:18] LABS: ALBUMIN 3.5 GM/DL (3.2-4.5); BILIRUBIN,TOTAL 1.6 MG/DL (0.1-1.0); CALCIUM 8.8 MG/DL (8.5-10.1); CREATININE SERUM 0.9 MG/DL (0.60-1.30); POTASSIUM 3.5 MMOL/L (3.6-5.0); TOTAL PROTEIN 6.3 GM/DL (6.4-8.2)
[2023-03-14] MEDS: SENNOSIDES 8.6 MG (SENOKOT) TAB PO SCH ×2 (08:30→19:22)
[2023-03-14] MEDS: DOCUSATE SODIUM 100 MG (COLACE) CAP PO SCH ×2 (08:30→19:22)
[2023-03-14] MEDS ORDERED: MEROPENEM 1,000 MG in NS (IVPB) 100 ML IV SCH (09:00)
[2023-03-14] MEDS: MEROPENEM 500 MG/NS 100 ML IVPB IV SCH ×6 (10:29→20:27)
--- NOTE | 2023-03-14 10:34 | Physical Therapy Evaluation ---
PT Evaluation-General Medical Diagnosis Admission Date March 13, 2023 at 20:03 Medical Diagnosis: sepsis Onset Date: March 13, 2023 Therapy Diagnosis Therapy Diagnosis: debility Height/Weight Height (Feet): 6 Height (Inches): 0.00 Weight (Pounds): 240 Weight (Ounces): 0.0 Precautions Precautions/Isolations: Contact Isolation Weight Bear Status Right Lower Extremity: Right Weight Bearing/Tolerated Left Lower Extremity: Left Weight Bearing/Tolerated Referral Physician: Geremias Reason for Referral: Evaluation/Treatment Medical History Pertinent Medical History: COPD, DM, HTN, Renal Insufficiency Current History ER secondary to urinary incontinence Reviewed History: Yes Social History Home: Single Level Current Living Status: Alone Prior Prior Level of Function SCALE: Activities may be completed with or without assistive devices. 3-Repkameetf-sirympl completes the activity by him/herself with no assistance from a helper. 5-Set-up or Clean-up Assistance-helper sets up or cleans up; patient completes activity. [place] assists only prior to or following the activity. 4-Supervision or Touching Assistance-helper provides verbal cues and/or touching/steadying and/or contact guard assistance as patient completes activity. Assistance may be provided throughout the activity or intermittently. 3-Partial/Moderate Assistance-helper does LESS THAN HALF the effort. [place] lifts, holds or supports trunk or limbs, but provides less than half the effort. 2-Substantial/Maximal Assistance-helper does MORE THAN HALF the effort. [place] lifts or holds trunk or limbs and provides more than half the effort. 9-Fyjdftkhz-sthgjp does ALL the effort. Patient does none of the effort to complete the activity. Or, the assistance of 2 or more helpers is required for the patient to complete the activity. If activity was not attempted, code reason: 7-Patient Refused. 9-Not Applicable-not attempted and the patient did not perform the activity before the current illness, exacerbation or injury. 10-Not Attempted due to Environmental Limitations-(lack of equipment, weather restraints, etc.). 88-Not Attempted due to Medical Conditions or Safety Concerns. Bed Mobility: 6 Transfers (B,C,W/C): 6 Gait: 6 Stairs: 6 Indoor Mobility (Ambulation): Independent Stairs: Independent Prior Devices Use: None PT Evaluation-Current Subjective Patient agrees to PT. Objective Patient Orientation: Normal For Age Attachments: Adams Catheter, IV ROM/Strength ROM Lower Extremities bilateral LE WFL Strength Lower Extremities 4/5 grossly bilateral LE all planes Integumentary/Posture Bladder Incontinence: Adams Cath Posture WFL Neuromuscular (Tone, Coordination, Reflexes) grossly intact Sensory Vision: Functional Hearing: Functional Transfers Lying to Sitting/Side of Bed(Q: 6 Sit to Stand (QC): 5 Chair/Fzz-ud-Ohsnp Xfer(QC): 5 Toilet Transfer (QC): 5 Gait Mode of Locomotion: Walk Anticipated Mode of Locomotion: Walk Walk 10 feet (QC): 5 Walk 50 ft with 2 Turns(QC): 5 Walk 150 ft (QC): 5 Distance: 200' Gait Assistive Device: FWW Comments/Gait Description safe and functional with no deviation/utilized FWW for initial evaluation/patient declined gait belt use Balance Sitting Static: Normal Sitting Dynamic: Normal Standing Static: Normal Standing Dynamic: Normal Assessment/Needs Patient will be seen short term by skilled PT to address functional mobility to ensure safely return to home at maximum LOF. Patient reports he wants to go home MAHESH. Rehab Potential: Fair PT Skilled Nursing Goals Skilled Nursing Goals PT Skilled Nursing Goals Time Frame: March 18, 2023 Roll Left & Right (QC): 6 Sit to Lying (QC): 6 Lying-Sitting on Side/Bed(QC): 6 Sit to Stand (QC): 6 Chair/Lry-dq-Sosdt Xfer(QC): 6 Toilet Transfer (QC): 6 Walk 10 feet (QC): 6 Walk 50ft with 2 Turns (QC): 6 Walk 150 ft (QC): 6 PT Plan Problem List Problem List: Activity Tolerance Treatment/Plan Treatment Plan: Continue Plan of Care Treatment Plan: Education, Functional Activity Sotero, Functional Strength, Gait, Safety, Therapeutic Exercise Treatment Duration: March 18, 2023 Frequency: 5 times per week Estimated Hrs Per Day: .25 hour per day Patient and/or Family Agrees t: Yes Time Time In: 900 Time Out: 918 DATE: March 14, 2023 Total Billed Treatment Time: 18 [facility] DON[facility] March 14, 2023 10:34
--- NOTE | 2023-03-14 10:58 | Occupational Therapy Eval ---
OT Evaluation-General/PLF Medical Diagnosis Admission Date March 13, 2023 at 20:03 Medical Diagnosis: sepsis Onset Date: March 13, 2023 Therapy Diagnosis Therapy Diagnosis: weakness, decreased transfers for ADLS Height/Weight Height (Feet): 6 Height (Inches): 0.00 Weight (Pounds): 240 Weight (Ounces): 0.0 Precautions Precautions/Isolations: Contact Isolation Weight Bear Status Weight Bearing Restriction: Full Weight Bearing Referral Physician: Geremias Referral Reason: Activity Tolerance, Self Care, Evaluation/Treatment, Strengthening/ROM Medical History Pertinent Medical History: COPD, DM, HTN, Renal Insufficiency Current History PT PRESENTS TO ED WITH C/O URINARY INCONTINENCE. PT STATES THIS IS NOT A NEW PROBLEM BUT THAT IT HAS GOTTEN WORSE THE LAST COUPLE OF DAYS. PT HAS NO OTHER COMPLAINTS AT THIS TIME Social History Home: Single Level Current Living Status: Alone Entry Into Home: Stairs With Railing Steps Into Home: 5 ADL-Prior Level of Function SCALE: Activities may be completed with or without assistive devices. 3-Fhnlcmucmd-jwswlff completes the activity by him/herself with no assistance from a helper. 5-Set-up or Clean-up Assistance-helper sets up or cleans up; patient completes activity. [place] assists only prior to or following the activity. 4-Supervision or Touching Assistance-helper provides verbal cues and/or touching/steadying and/or contact guard assistance as patient completes activity. Assistance may be provided throughout the activity or intermittently. 3-Partial/Moderate Assistance-helper does LESS THAN HALF the effort. [place] lifts, holds or supports trunk or limbs, but provides less than half the effort. 2-Substantial/Maximal Assistance-helper does MORE THAN HALF the effort. [place] lifts or holds trunk or limbs and provides more than half the effort. 8-Cmmzljtqk-ddzblc does ALL the effort. Patient does none of the effort to complete the activity. Or, the assistance of 2 or more helpers is required for the patient to complete the activity. If activity was not attempted, code reason: 7-Patient Refused. 9-Not Applicable-not attempted and the patient did not perform the activity bef ore the current illness, exacerbation or injury. 10-Not Attempted due to Environmental Limitations-(lack of equipment, weather r estraints, etc.). 88-Not Attempted due to Medical Conditions or Safety Concerns. 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 Mental Status/Objective Patient Orientation: Person, Place, Time, Situation Attachments: Adams Catheter, IV Current Upper Extremity ROM BUE ROM WFLS Upper Extremity Coordination intact Upper Extremity Sensation intact Upper Extremity Strength 4/5 grossly, requires momentum and rocking to stand d/t UE weakness with pushing up from bed and toilet, uses GB on wall for toilet transfer. ADL-Treatment ADL-Current Performed al I/ADL at home independently Eating (QC): 6 Oral Hygiene (QC): 5 Shower/Bathe Self (QC): 7 Upper Body Dressing (QC): 4 Lower Body Dressing (QC): 4 On/Off Footwear (QC): 4 Toileting Hygiene (QC): 5 Safety w/ sanitary education w/ sequences of toilet hygiene/hands and face. Education OT Patient Education: Energy conservation, Exercise program, Modified ADL techniques, Progress toward Goal/Update tx plan, Purpose of tx/functional activities, Reviewed precautions, Rehab process, Safety issues, Transfer techniques, Use of adapted equipment Teaching Recipient: Patient Teaching Methods: Demonstration, Discussion Response to Teaching: Verbalize Understanding, Reinforcement Needed OT University Demonstrator Goals University Demonstrator Goals Eating (QC): 6 Oral Hygiene (QC): 6 Toileting Hygiene (QC): 6 Shower/Bathe Self (QC): 6 Upper Body Dressing (QC): 6 Lower Body Dressing (QC): 6 On/Off Footwear (QC): 6 1=Demonstrate adherence to instructed precautions during ADL tasks. 2=Patient will verbalize/demonstrate understanding of assistive devices/modifications for ADL. 3=Patient will improve strength/tolerance for activity to enable patient to perform ADL's. OT Education/Plan Problem List/Assessment Assessment: Decreased Activ Tolerance, Decreased UE Strength, Impaired Self- Care Skills Discharge Recommendations Plan/Recommendations: Continue POC Therapy Discharge Recommendati: Home & Family Treatment Plan/Plan of Care Treatment,Training & Education: Yes Patient would benefit from OT for education, treatment and training to promote independence in ADL's, mobility, safety and/or upper extremity function for ADL's. Plan of Care: ADL Retraining, Functional Mobility, Group Exercise/Act as Ind, UE Funct Exercise/Act Treatment Duration: March 18, 2023 Frequency: 3 times per week Estimated Hrs Per Day: .25 hour per day Agreement: Yes Rehab Potential: Fair Remains up in recliner following evaluation and toilet Time Start Time: 09:00 Stop Time: 09:19 DATE: March 14, 2023 Total Time Billed (hr/min): 19 Billed Treatment Time EVM 19 min ANDREWS KAUR OT March 14, 2023 10:58
[2023-03-14] MEDS ORDERED: LOSA50TA63 PO (14:57)
[2023-03-14] MEDS ORDERED: METF-865 PO (14:57)
[2023-03-14] MEDS ORDERED: RIVA20TA PO (14:57)
[2023-03-14] MEDS ORDERED: MIRA25TA PO (14:57)
[2023-03-14] MEDS ORDERED: BETH25TA2 PO (15:03)
[2023-03-14 16:51] LABS: BILIRUBIN,URINE NEGATIVE (NEGATIVE); CLARITY,URINE CLEAR; COLOR,URINE YELLOW; GLUCOSE, URINE (UA) NEGATIVE (NEGATIVE); KETONES,URINE TRACE (NEGATIVE); LEUKOCYTE ESTERASE ,URINE 1+ (NEGATIVE); NITRITE,URINE NEGATIVE (NEGATIVE); PH,URINE 5.5 (5-9); PROTEIN,URINE 2+ (NEGATIVE)
[2023-03-14 17:00] LABS: RBC,URINE >100 /HPF
[2023-03-14 17:01] LABS: AMORPHOUS SEDIMENT,UR FEW AMOR URATES /LPF; BACTERIA,URINE FEW /HPF
[2023-03-14] MEDS: AtorvaSTATin TABLET 10 MG TABLET PO SCH (21:34)
[2023-03-14] MEDS: LOSARTAN 50 MG (COZAAR) TAB PO SCH (21:34)
[2023-03-14] MEDS: BETHANECHOL 25 MG (URECHOLINE) TAB PO SCH (21:34)
[2023-03-14] MEDS: metFORMIN XR 500 MG (GLUCOPHAGE XR) TAB PO SCH (21:34)
[2023-03-14] MEDS: SERTRALINE 100 MG (ZOLOFT) TAB PO SCH (21:36)
[2023-03-14] MEDS: MELATONIN 3 MG TABLET PO SCH (21:37)
[2023-03-15 03:07] VITALS: BP 139/85
[2023-03-15] MEDS: MEROPENEM 500 MG/NS 100 ML IVPB IV SCH ×8 (03:08→19:36)
[2023-03-15 05:42] LABS: BASOPHILS # (AUTO) 0.1 10^3/uL (0.0-0.1); BASOPHILS % (AUTO) 1 % (0-10); EOSINOPHILS # (AUTO) 0.3 10^3/uL (0.0-0.3); EOSINOPHILS % (AUTO) 3 % (0-10); HEMATOCRIT 39 % (40-54); HEMOGLOBIN 13.6 g/dL (13.3-17.7); LYMPHOCYTES # (AUTO) 1.2 10^3/uL (1.0-4.0); LYMPHOCYTES % (AUTO) 13 % (12-44); MEAN CORPUSCULAR HEMOGLOBIN 29 pg (25-34); MEAN CORPUSCULAR HGB CONC 35 g/dL (32-36); MEAN CORPUSCULAR VOLUME 84 fL (80-99); MEAN PLATELET VOLUME 10.3 fL (9.0-12.2); MONOCYTES # (AUTO) 0.5 10^3/uL (0.0-1.0); MONOCYTES % (AUTO) 6 % (0-12); NEUTROPHILS # (AUTO) 6.8 10^3/uL (1.8-7.8); NEUTROPHILS % (AUTO) 77 % (42-75); PLATELET COUNT 146 10^3/uL (130-400); WHITE BLOOD COUNT 8.8 10^3/uL (4.3-11.0)
--- NOTE | 2023-03-15 05:52 | Progress Note ---
Subjective Date Seen by a Provider: March 15, 2023 Time Seen by a Provider: 08:30 Subjective/Events-last exam Patient seems to be doing better No pain is reported No falls Discontinue catheter Ambulating with physical therapy Reviewed labs Urine culture pending suspect ESBL Review of Systems General: Fatigue, Malaise Focused Exam Lactate Level 03/13/23 19:10: Lactic Acid Level 1.01 Time of Focused Exam: 18:50 Objective Exam Last Set of Vital Signs Vital Signs Date Time Temp Pulse Resp B/P (MAP) Pulse Ox O2 Delivery O2 Flow Rate FiO2 03/15/23 03:07 36.3 80 18 139/85 (103) 98 Room Air 03/13/23 22:27 21 Capillary Refill : Less Than 3 Seconds I&O Intake and Output 03/15/23 00:00 Intake Total 1880 ml Output Total 2375 ml Balance -495 ml Intake Oral 1880 ml Output Urine Total 2375 ml # Bowel Movements 1 General: Alert, Oriented X3, Cooperative, No Acute Distress Lungs: Clear to Auscultation, Normal Air Movement Heart: Regular Rate, Normal S1, Normal S2, No Murmurs Psych/Mental Status: Mental Status NL, Mood NL Results Lab Laboratory Tests 03/14/23 10:17: Glucometer 113H 03/14/23 15:52: Glucometer 101 03/14/23 16:40: Urine Color YELLOW, Urine Clarity CLEAR, Urine pH 5.5, Urine Specific [place] 1.020, Urine Protein 2+H, Urine Glucose (UA) NEGATIVE, Urine Ketones TRACEH, Urine Nitrite NEGATIVE, Urine Bilirubin NEGATIVE, Urine Urobilinogen 0.2, Urine Leukocyte Esterase 1+H, Urine RBC (Auto) 3+H, Urine RBC >100H, Urine WBC 2-5, Urine Crystals PRESENTH, Urine Amorphous Sediment FEW IDA URATESH, Urine Bacteria FEWH, Urine Casts NONE, Urine Mucus SMALLH, Urine Culture Indicated YES 03/14/23 20:07: Glucometer 183H 03/15/23 05:31: White Blood Count 8.8, Red Blood Count 4.63, Hemoglobin 13.6, Hematocrit 39L, Mean Corpuscular Volume 84, Mean Corpuscular Hemoglobin 29, Mean Corpuscular Hemoglobin Concent 35, Red Cell Distribution Width 13.5, Platelet Count 146, Mean Platelet Volume 10.3, Immature Granulocyte % (Auto) 1, Neutrophils (%) (Auto) 77H, Lymphocytes (%) (Auto) 13, Monocytes (%) (Auto) 6, Eosinophils (%) (Auto) 3, Basophils (%) (Auto) 1, Neutrophils # (Auto) 6.8, Lymphocytes # (Auto) 1.2, Monocytes # (Auto) 0.5, Eosinophils # (Auto) 0.3, Basophils # (Auto) 0.1, Immature Granulocyte # (Auto) 0.1, Percent Immature Platelet Fraction 3.4 Microbiology 03/13/23 Blood Culture - Preliminary, Resulted No growth 03/13/23 Urine Culture - Preliminary, Resulted Klebsiella/Enterobacter spec Assessment/Plan Assessment/Plan Assess & Plan/Chief Complaint Assessment: Urinary incontinence with UTI ESBL Confusion Dementia HTN HLP DM COPD Former smoker Plan: IV abx changed to ESBL coverage Replace potassium Clinical Quality Measures DVT/VTE Risk/Contraindication: Contraindications-Pharm: Other *list below* Other: hematuria ANA VÁZQUEZ DO March 15, 2023 05:52
[2023-03-15 06:03] LABS: ALBUMIN 3.3 GM/DL (3.2-4.5); BILIRUBIN,TOTAL 0.9 MG/DL (0.1-1.0); CALCIUM 8.6 MG/DL (8.5-10.1); CREATININE SERUM 0.9 MG/DL (0.60-1.30); POTASSIUM 3.5 MMOL/L (3.6-5.0)
[2023-03-15] MEDS: inSUlin ASPART (NovoLOG) 1 UNIT/0.01 ML (CHARGE PER UNIT) SC SCH ×4 (06:17→19:36)
[2023-03-15 08:02] VITALS: BP 138/89
[2023-03-15] MEDS ORDERED: KCL 10 MEQ TAB (MICRO K) PO ONE (08:30)
[2023-03-15] MEDS: metFORMIN XR 500 MG (GLUCOPHAGE XR) TAB PO SCH ×2 (09:02→19:36)
[2023-03-15] MEDS: SERTRALINE 100 MG (ZOLOFT) TAB PO SCH ×2 (09:02→19:36)
[2023-03-15] MEDS: BETHANECHOL 25 MG (URECHOLINE) TAB PO SCH ×2 (09:02→19:36)
[2023-03-15] MEDS: LOSARTAN 50 MG (COZAAR) TAB PO SCH ×2 (09:02→19:36)
[2023-03-15] MEDS: PANTOPRAZOLE 20 MG TABLET (PROTONIX) PO SCH (09:02)
[2023-03-15] MEDS: SENNOSIDES 8.6 MG (SENOKOT) TAB PO SCH ×2 (09:09→19:37)
[2023-03-15] MEDS: DOCUSATE SODIUM 100 MG (COLACE) CAP PO SCH ×2 (09:09→19:37)
--- NOTE | 2023-03-15 10:47 | Occupational Ther Daily Note ---
OT Current Status-Daily Note Subjective Patient reports he is ready to go home, patient is aware of new noted blood in urine. Mental Status/Objective Patient Orientation: Person, Place, Time, Situation Attachments: Adams Catheter ADL-Treatment Therapy Code Descriptions/Definitions Functional [place] Measure: 0=Not Assessed/NA 4=Minimal Assistance 1=Total Assistance 5=Supervision or Setup 2=Maximal Assistance 6=Modified [place] 3=Moderate Assistance 7=Complete IndependenceSCALE: Activities may be completed with or without assistive devices. 0-Tvdoolkayy-rxisxbt completes the activity by him/herself with no assistance from a helper. 5-Set-up or Clean-up Assistance-helper sets up or cleans up; patient completes activity. [place] assists only prior to or following the activity. 4-Supervision or Touching Assistance-helper provides verbal cues and/or touching/steadying and/or contact guard assistance as patient completes activit y. Assistance may be provided throughout the activity or intermittently. 3-Partial/Moderate Assistance-helper does LESS THAN HALF the effort. [place] lifts, holds or supports trunk or limbs, but provides less than half the effort. 2-Substantial/Maximal Assistance-helper does MORE THAN HALF the effort. [place] lifts or holds trunk or limbs and provides more than half the effort. 2-Ydejjhnab-edhmxf does ALL the effort. Patient does none of the effort to complete the activity. Or, the assistance of 2 or more helpers is required for the patient to complete the activity. If activity was not attempted, code reason: 7-Patient Refused. 9-Not Applicable-not attempted and the patient did not perform the activity before the current illness, exacerbation or injury. 10-Not Attempted due to Environmental Limitations-(lack of equipment, weather restraints, etc.). 88-Not Attempted due to Medical Conditions or Safety Concerns. Eating (QC): 6 Oral Hygiene (QC): 5 (standing at sink in bathroom w/ FWW, Patient reports he will not use SPC or FWW when home) Bathing Location: Buttocks (residual material on clothing and sheets), Perineal Area Shower/Bathe Self (QC): 4 Upper Body Dressing (QC): 5 Lower Body Dressing (QC): 5 On/Off Footwear: 5 Toileting Hygiene (QC): 5 Toilet Transfer (QC): 5 Other Treatment repeat sit/stands 30 second intervals 10 reps for 3 minutes for endurance and transfer sequence training Education OT Patient Education: Correct positioning, Exercise program Teaching Recipient: Patient Teaching Methods: Demonstration Response to Teaching: Verbalize Understanding OT Fpc Goals Soda Maker Goals Eating (QC): 6 Oral Hygiene (QC): 6 Toileting Hygiene (QC): 6 Shower/Bathe Self (QC): 6 Upper Body Dressing (QC): 6 Lower Body Dressing (QC): 6 On/Off Footwear (QC): 6 1=Demonstrate adherence to instructed precautions during ADL tasks. 2=Patient will verbalize/demonstrate understanding of assistive dev ices/modifications for ADL. 3=Patient will improve strength/tolerance for activity to enable patient to perform ADL's. OT Education/Plan Problem List/Assessment Assessment: Decreased Activ Tolerance, Impaired Self-Care Skills Discharge Recommendations Plan/Recommendations: Continue POC Treatment Plan/Plan of Care Patient would benefit from OT for education, treatment and training to promote independence in ADL's, mobility, safety and/or upper extremity function for ADL's. Plan of Care: ADL Retraining, Functional Mobility, Group Exercise/Act as Ind, UE Funct Exercise/Act Treatment Duration: March 18, 2023 Frequency: 3 times per week Estimated Hrs Per Day: .25 hour per day Agreement: Yes Rehab Potential: Fair returned to recliner. all needs met Time Start Time: 08:40 Stop Time: 09:00 DATE: March 15, 2023 Total Time Billed (hr/min): 20 Billed Treatment Time ADL 20 min ANDREWS KAUR OT March 15, 2023 10:47
[2023-03-15 11:16] VITALS: BP 110/68
--- NOTE | 2023-03-15 15:34 | Physical Therapy Progress Note ---
Therapy Progress Note Attempted to see patient for PT treatment. He refuses stating, "Not right now." Will attempt again tomorrow and progress per patient tolerance. JANEY SANDOVAL PT March 15, 2023 15:34
[2023-03-15 15:45] VITALS: BP 139/75
[2023-03-15 19:34] VITALS: BP 121/69
[2023-03-15] MEDS: AtorvaSTATin TABLET 10 MG TABLET PO SCH (19:36)
[2023-03-15] MEDS: MELATONIN 3 MG TABLET PO SCH (19:38)
[2023-03-15] MEDS: RT--FLUTICASONE/SALMETEROL 113-14 (AIRDUO RespiCLICK) IH SCH (21:27)
[2023-03-16] MEDS: inSUlin ASPART (NovoLOG) 1 UNIT/0.01 ML (CHARGE PER UNIT) SC SCH ×2 (06:00→11:40)
[2023-03-16 06:57] LABS: BASOPHILS # (AUTO) 0.1 10^3/uL (0.0-0.1); BASOPHILS % (AUTO) 1 % (0-10); EOSINOPHILS # (AUTO) 0.4 10^3/uL (0.0-0.3); EOSINOPHILS % (AUTO) 6 % (0-10); HEMATOCRIT 39 % (40-54); HEMOGLOBIN 13.5 g/dL (13.3-17.7); LYMPHOCYTES # (AUTO) 1.5 10^3/uL (1.0-4.0); LYMPHOCYTES % (AUTO) 23 % (12-44); MEAN CORPUSCULAR HEMOGLOBIN 30 pg (25-34); MEAN CORPUSCULAR HGB CONC 35 g/dL (32-36); MEAN CORPUSCULAR VOLUME 85 fL (80-99); MEAN PLATELET VOLUME 10.5 fL (9.0-12.2); MONOCYTES # (AUTO) 0.5 10^3/uL (0.0-1.0); MONOCYTES % (AUTO) 8 % (0-12); NEUTROPHILS % (AUTO) 62 % (42-75); PLATELET COUNT 160 10^3/uL (130-400); WHITE BLOOD COUNT 6.4 10^3/uL (4.3-11.0)
[2023-03-16] MEDS ORDERED: KCL 10 MEQ TAB (MICRO K) PO SCH (07:00)
[2023-03-16 07:10] LABS: ALBUMIN 3.2 GM/DL (3.2-4.5); BILIRUBIN,TOTAL 0.8 MG/DL (0.1-1.0); CALCIUM 8.8 MG/DL (8.5-10.1); CREATININE SERUM 0.92 MG/DL (0.60-1.30); POTASSIUM 3.9 MMOL/L (3.6-5.0); TOTAL PROTEIN 5.9 GM/DL (6.4-8.2)
[2023-03-16] MEDS: RT--FLUTICASONE/SALMETEROL 113-14 (AIRDUO RespiCLICK) IH SCH (07:12)
[2023-03-16 07:48] VITALS: BP 138/88
[2023-03-16] MEDS ORDERED: cefTRIAXone IV/IM 1,000 MG in NS (IVPB) 50 ML IV SCH (08:00)
[2023-03-16] MEDS: BETHANECHOL 25 MG (URECHOLINE) TAB PO SCH (08:45)
[2023-03-16] MEDS: metFORMIN XR 500 MG (GLUCOPHAGE XR) TAB PO SCH (08:45)
[2023-03-16] MEDS: SERTRALINE 100 MG (ZOLOFT) TAB PO SCH (08:46)
[2023-03-16] MEDS: LOSARTAN 50 MG (COZAAR) TAB PO SCH (08:46)
[2023-03-16] MEDS: DOCUSATE SODIUM 100 MG (COLACE) CAP PO SCH (08:46)
[2023-03-16] MEDS: SENNOSIDES 8.6 MG (SENOKOT) TAB PO SCH (08:46)
[2023-03-16] MEDS: PANTOPRAZOLE 20 MG TABLET (PROTONIX) PO SCH (08:50)
[2023-03-16 09:25] VITALS: BP 138/88
--- NOTE | 2023-03-16 10:14 | Physical Therapy Daily Note ---
PT Daily Note-Current Subjective Patient agrees to therapy. Pain Section J - Health Conditions 1. Rarely or not at all 2. Occasionally 3. Frequently 4. Almost constantly 8. Unable to answer Pain Effect on Sleep: 1 Pain Interference with Therapy: 1 Pain Interference w/Day-to-Day: 1 Mental Status Patient Orientation: Normal For Age Transfers SCALE: Activities may be completed with or without assistive devices. 7-Ghdeuddnng-neprlhh completes the activity by him/herself with no assistance from a helper. 5-Set-up or Clean-up Assistance-helper sets up or cleans up; patient completes activity. [place] assists only prior to or following the activity. 4-Supervision or Touching Assistance-helper provides verbal cues and/or touching/steadying and/or contact guard assistance as patient completes activity. Assistance may be provided throughout the activity or intermittently. 3-Partial/Moderate Assistance-helper does LESS THAN HALF the effort. [place] lifts, holds or supports trunk or limbs, but provides less than half the effort. 2-Substantial/Maximal Assistance-helper does MORE THAN HALF the effort. [place] lifts or holds trunk or limbs and provides more than half the effort. 3-Vwapjslfi-guoxzh does ALL the effort. Patient does none of the effort to complete the activity. Or, the assistance of 2 or more helpers is required for the patient to complete the activity. If activity was not attempted, code reason: 7-Patient Refused. 9-Not Applicable-not attempted and the patient did not perform the activity before the current illness, exacerbation or injury. 10-Not Attempted due to Environmental Limitations-(lack of equipment, weather restraints, etc.). 88-Not Attempted due to Medical Conditions or Safety Concerns. Sit to Stand (QC): 6 Weight Bearing Right Lower Extremity: Right Weight Bearing/Tolerated Left Lower Extremity: Left Weight Bearing/Tolerated Gait Training Distance: 300' Walk 10 feet (QC): 5 Walk 50 ft with 2 Turns(QC): 5 Walk 150 ft (QC): 5 Gait Assistive Device: FWW safe and functional with no deviation with FWW Assessment Patient reports he will not utilize a cane or FWW at home upon dismissal. Chandrika ent is currently at [facility] with all gross motor skills and has been educated on safety concern with gait with and without AD. Patient continues to report he will not use an assistive devise upon dismissal. PT to dismiss patient from services at this time. PT Tap Out Operator Goals Skilled Nursing Goals PT Tap Out Operator Goals Time Frame: March 18, 2023 Roll Left & Right (QC): 6 Sit to Lying (QC): 6 Lying-Sitting on Side/Bed(QC): 6 Sit to Stand (QC): 6 Chair/Usv-xb-Bkclx Xfer(QC): 6 Toilet Transfer (QC): 6 Walk 10 feet (QC): 6 Walk 50ft with 2 Turns (QC): 6 Walk 150 ft (QC): 6 PT Plan Treatment/Plan Treatment Plan: Discontinue PT Treatment Plan: Education, Functional Activity Sotero, Functional Strength, Gait, Safety, Therapeutic Exercise Treatment Duration: March 18, 2023 Frequency: 5 times per week Estimated Hrs Per Day: .25 hour per day Patient and/or Family Agrees t: Yes Time Time In: 846 Time Out: 856 DATE: March 16, 2023 Total Billed Treatment Time: 10 Total Billed Treatment 1 visit FA 10 min DONAL HER PT March 16, 2023 10:14
[2023-03-16] MEDS ORDERED: CEFD300C3 PO (10:40)
--- NOTE | 2023-03-16 10:40 | Discharge Summary ---
Diagnosis/Chief Complaint Date of Admission March 13, 2023 at 20:03 Date of Discharge Discharge Date: March 16, 2023 Discharge Diagnosis Assessment: Urinary incontinence with UTI Confusion Dementia HTN HLP DM COPD Former smoker Plan: IV abx changed from ESBL coverage to Rocephin Replace potassium Discharge Summary Discharge Physical Examination Allergies: Coded Allergies: NKANo Known Allergies (Unverified Allergy, Unknown, 09/19/06) Vitals & I&Os Vital Signs Date Time Temp Pulse Resp B/P (MAP) Pulse Ox O2 Delivery O2 Flow Rate FiO2 03/16/23 13:26 36.6 83 18 148/82 96 Room Air 0.00 03/16/23 09:25 21 General Appearance: Alert, Oriented X3, Cooperative Respiratory: Clear to Auscultation Cardiovascular: Regular Rate Psych/Mental Status: Mental Status NL Hospital Course Was the Problem List Reviewed?: Yes Hospital course: Patient had an uneventful hospital course after he was admitted for UTI and urinary incontinence and just general he was placed on IV antibiotics with ESBL coverage due to history of that infection. Labs returned back to normal Adams catheter was ultimately discontinued and voiding was within normal limits and urine culture revealed sensitivity to Rocephin so meropenem was changed to Rocephin and he remained stable he was deemed stable for discharge. Labs (last 24 hrs) Laboratory Tests 03/13/23 17:54: White Blood Count 15.2H, Red Blood Count 5.21, Hemoglobin 15.2, Hematocrit 44, Mean Corpuscular Volume 84, Mean Corpuscular Hemoglobin 29, Mean Corpuscular Hemoglobin Concent 35, Red Cell Distribution Width 13.5, Platelet Count 149, Mean Platelet Volume 10.3, Immature Granulocyte % (Auto) 1, Neutrophils (%) (Auto) 87H, Lymphocytes (%) (Auto) 5L, Monocytes (%) (Auto) 6, Eosinophils (%) (Auto) 1, Basophils (%) (Auto) 0, Neutrophils # (Auto) 13.2H, Lymphocytes # (Auto) 0.8L, Monocytes # (Auto) 0.9, Eosinophils # (Auto) 0.1, Basophils # ( Auto) 0.0, Immature Granulocyte # (Auto) 0.2H, Neutrophils % (Manual) 81, Lymphocytes % (Manual) 9, Monocytes % (Manual) 6, Eosinophils % (Manual) 1, Band Neutrophils 3, Blood Morphology Comment NORMAL, Prothrombin Time 17.0H, INR Comment 1.4, Activated Partial Thromboplast Time 35, Sodium Level 133L, Potassium Level 3.8, Chloride Level 101, Carbon Dioxide Level 22, Anion Gap 10, Blood Urea Nitrogen 14, Creatinine 0.93, Estimat Glomerular Filtration Rate 82, BUN/Creatinine Ratio 15, Glucose Level 145H, Calcium Level 9.3, Corrected Calcium 9.3, Magnesium Level 1.7, Total Bilirubin 2.0H, Aspartate Amino Transf (AST/SGOT) 17, Alanine Aminotransferase (ALT/SGPT) 16, Alkaline Phosphatase 46, Total Protein 7.1, Albumin 4.0, Amylase Level 30, Lipase 4L, Serum Alcohol < 10 03/13/23 18:00: Urine Color YELLOW, Urine Clarity CLEAR, Urine pH 6.5, Urine Specific [place] 1.015L, Urine Protein TRACEH, Urine Glucose (UA) NEGATIVE, Urine Ketones NEGATIVE, Urine Nitrite POSITIVEH, Urine Bilirubin NEGATIVE, Urine Urobilinogen 0.2, Urine Leukocyte Esterase 1+H, Urine RBC (Auto) 1+H, Urine RBC 0-2, Urine WBC 2-5, Urine Crystals NONE, Urine Bacteria LARGEH, Urine Casts NONE, Urine Mucus NEGATIVE, Urine Culture Indicated YES, Urine Opiates Screen NEGATIVE, Urine Oxycodone Screen NEGATIVE, Urine Methadone Screen NEGATIVE, Urine Propoxyphene Screen NEGATIVE, Urine Barbiturates Screen NEGATIVE, Ur Tricyclic Antidepressants Screen NEGATIVE, Urine Phencyclidine Screen NEGATIVE, Urine Amphetamines Screen NEGATIVE, Urine Methamphetamines Screen NEGATIVE, Urine Benzodiazepines Screen NEGATIVE, Urine Cocaine Screen NEGATIVE, Urine Cannabinoids Screen NEGATIVE 03/13/23 19:10: Lactic Acid Level 1.01 03/13/23 20:03: Lab Scanned Report LAB Reports 03/13/23 21:21: Glucometer 138H 03/14/23 05:12: Glucometer 117H 03/14/23 05:14: White Blood Count 12.7H, Red Blood Count 4.73, Hemoglobin 13.6, Hematocrit 40, Mean Corpuscular Volume 84, Mean Corpuscular Hemoglobin 29, Mean Corpuscular Hemoglobin Concent 34, Red Cell Distribution Width 13.5, Platelet Count 133, Mean Platelet Volume 10.7, Immature Granulocyte % (Auto) 1, Neutrophils (%) (Auto) 84H, Lymphocytes (%) (Auto) 9L, Monocytes (%) (Auto) 5, Eosinophils (%) (Auto) 1, Basophils (%) (Auto) 0, Neutrophils # (Auto) 10.6H, Lymphocytes # (Auto) 1.1, Monocytes # (Auto) 0.7, Eosinophils # (Auto) 0.1, Basophils # (Auto) 0.1, Immature Granulocyte # (Auto) 0.1, Percent Immature Platelet Fraction 3.7, Sodium Level 134L, Potassium Level 3.5L, Chloride Level 106, Carbon Dioxide Level 20L, Anion Gap 8, Blood Urea Nitrogen 14, Creatinine 0.90, Estimat Glomerular Filtration Rate 85, BUN/Creatinine Ratio 16, Glucose Level 117H, Calcium Level 8.8, Corrected Calcium 9.2, Total Bilirubin 1.6H, Aspartate Amino Transf (AST/SGOT) 15, Alanine Aminotransferase (ALT/SGPT) 14, Alkaline Phosp hatase 43, Total Protein 6.3L, Albumin 3.5 03/14/23 10:17: Glucometer 113H 03/14/23 15:52: Glucometer 101 03/14/23 16:40: Urine Color YELLOW, Urine Clarity CLEAR, Urine pH 5.5, Urine Specific [place] 1.020, Urine Protein 2+H, Urine Glucose (UA) NEGATIVE, Urine Ketones TRACEH, Urine Nitrite NEGATIVE, Urine Bilirubin NEGATIVE, Urine Urobilinogen 0.2, Urine Leukocyte Esterase 1+H, Urine RBC (Auto) 3+H, Urine RBC >100H, Urine WBC 2-5, Urine Crystals PRESENTH, Urine Amorphous Sediment FEW IDA URATESH, Urine Bacteria FEWH, Urine Casts NONE, Urine Mucus SMALLH, Urine Culture Indicated YES 03/14/23 20:07: Glucometer 183H 03/15/23 05:31: White Blood Count 8.8, Red Blood Count 4.63, Hemoglobin 13.6, Hematocrit 39L, Mean Corpuscular Volume 84, Mean Corpuscular Hemoglobin 29, Mean Corpuscular Hemoglobin Concent 35, Red Cell Distribution Width 13.5, Platelet Count 146, Mean Platelet Volume 10.3, Immature Granulocyte % (Auto) 1, Neutrophils (%) (Auto) 77H, Lymphocytes (%) (Auto) 13, Monocytes (%) (Auto) 6, Eosinophils (%) (Auto) 3, Basophils (%) (Auto) 1, Neutrophils # (Auto) 6.8, Lymphocytes # (Auto) 1.2, Monocytes # (Auto) 0.5, Eosinophils # (Auto) 0.3, Basophils # (Auto) 0.1, Immature Granulocyte # (Auto) 0.1, Percent Immature Platelet Fraction 3.4, Sodium Level 138, Potassium Level 3.5L, Chloride Level 108H, Carbon Dioxide Level 21, Anion Gap 9, Blood Urea Nitrogen 16, Creatinine 0.90, Estimat Glomerular Filtration Rate 85, BUN/Creatinine Ratio 18, Glucose Level 124H, Calcium Level 8.6, Corrected Calcium 9.2, Total Bilirubin 0.9, Aspartate Amino Transf (AST/SGOT) 16, Alanine Aminotransferase (ALT/SGPT) 14, Alkaline Phosphatase 42, Total Protein 6.0L, Albumin 3.3 03/15/23 15:43: Glucometer 94 03/15/23 19:31: Glucometer 253H 03/16/23 05:23: Glucometer 105 03/16/23 05:27: White Blood Count 6.4, Red Blood Count 4.58, Hemoglobin 13.5, Hematocrit 39L, Mean Corpuscular Volume 85, Mean Corpuscular Hemoglobin 30, Mean Corpuscular Hemoglobin Concent 35, Red Cell Distribution Width 13.4, Platelet Count 160, Mean Platelet Volume 10.5, Immature Granulocyte % (Auto) 1, Neutrophils (%) (Auto) 62, Lymphocytes (%) (Auto) 23, Monocytes (%) (Auto) 8, Eosinophils (%) (Auto) 6, Basophils (%) (Auto) 1, Neutrophils # (Auto) 4.0, Lymphocytes # (Auto) 1.5, Monocytes # (Auto) 0.5, Eosinophils # (Auto) 0.4H, Basophils # (Auto) 0.1, Immature Granulocyte # (Auto) 0.0, Sodium Level 138, Potassium Level 3.9, Chloride Level 107, Carbon Dioxide Level 23, Anion Gap 8, Blood Urea Nitrogen 15, Creatinine 0.92, Estimat Glomerular Filtration Rate 83, BUN/Creatinine Ratio 16, Glucose Level 106H, Calcium Level 8.8, Corrected Calcium 9.4, Total Bilirubin 0.8, Aspartate Amino Transf (AST/SGOT) 19, Alanine Aminotransferase (ALT/SGPT) 18, Alkaline Phosphatase 48, Total Protein 5.9L, Albumin 3.2 03/16/23 11:16: Glucometer 102 Microbiology 03/14/23 Urine Culture - Final, Complete NO GROWTH 03/13/23 Blood Culture - Preliminary, Resulted No growth Pending Labs Microbiology Date/Time Source Procedure Growth Status 03/14/23 16:40 Urine Adams Cath Urine Culture - Final NO GROWTH Complete 03/13/23 19:20 Peripheral Rt Ac Blood Culture - Preliminary No growth Resulted 03/13/23 19:10 Peripheral Lt Ac Blood Culture - Preliminary No growth Resulted 03/13/23 18:00 Urine Adams Cath Urine Culture - Final Enterobacter cloacae complex Complete Laboratory Tests 03/13/23 17:54: White Blood Count 15.2, Red Blood Count 5.21, Hemoglobin 15.2, Hematocrit 44, Mean Corpuscular Volume 84, Mean Corpuscular Hemoglobin 29, Mean Corpuscular Hemoglobin Concent 35, Red Cell Distribution Width 13.5, Platelet Count 149, Mean Platelet Volume 10.3, Immature Granulocyte % (Auto) 1, Neutrophils (%) (Auto) 87, Lymphocytes (%) (Auto) 5, Monocytes (%) (Auto) 6, Eosinophils (%) (Auto) 1, Basophils (%) (Auto) 0, Neutrophils # (Auto) 13.2, Lymphocytes # (Auto) 0.8, Monocytes # (Auto) 0.9, Eosinophils # (Auto) 0.1, Basophils # (Auto) 0.0, Immature Granulocyte # (Auto) 0.2, Neutrophils % (Manual) 81, Lymphocytes % (Manual) 9, Monocytes % (Manual) 6, Eosinophils % (Manual) 1, Band Neutrophils 3, Blood Morphology Comment NORMAL, Prothrombin Time 17.0, INR Comment 1.4, Activated Partial Thromboplast Time 35, Sodium Level 133, Potassium Level 3.8, Chloride Level 101, Carbon Dioxide Level 22, Anion Gap 10, Blood Urea Nitrogen 14, Creatinine 0.93, Estimat Glomerular Filtration Rate 82, BUN/Creatinine Ratio 15, Glucose Level 145, Calcium Level 9.3, Corrected Calcium 9.3, Magnesium Level 1.7, Total Bilirubin 2.0, Aspartate Amino Transf (AST/SGOT) 17, Alanine Aminotransferase (ALT/SGPT) 16, Alkaline Phosphatase 46, Total Protein 7.1, Albumin 4.0, Amylase Level 30, Lipase 4, Serum Alcohol < 10 03/13/23 18:00: Urine Color YELLOW, Urine Clarity CLEAR, Urine pH 6.5, Urine Specific [place] 1.015, Urine Protein TRACE, Urine Glucose (UA) NEGATIVE, Urine Ketones NEGATIVE, Urine Nitrite POSITIVE, Urine Bilirubin NEGATIVE, Urine Urobilinogen 0.2, Urine Leukocyte Esterase 1+, Urine RBC (Auto) 1+, Urine RBC 0-2, Urine WBC 2-5, Urine Crystals NONE, Urine Bacteria LARGE, Urine Casts NONE, Urine Mucus NEGATIVE, Urine Culture Indicated YES, Urine Opiates Screen NEGATIVE, Urine Oxycodone Screen NEGATIVE, Urine Methadone Screen NEGATIVE, Urine Propoxyphene Screen NEGATIVE, Urine Barbiturates Screen NEGATIVE, Ur Tricyclic Antidepressants Scree n NEGATIVE, Urine Phencyclidine Screen NEGATIVE, Urine Amphetamines Screen NEGATIVE, Urine Methamphetamines Screen NEGATIVE, Urine Benzodiazepines Screen NEGATIVE, Urine Cocaine Screen NEGATIVE, Urine Cannabinoids Screen NEGATIVE 03/13/23 19:10: Lactic Acid Level 1.01 03/13/23 20:03: Lab Scanned Report LAB Reports 03/13/23 21:21: Glucometer 138 03/14/23 05:12: Glucometer 117 03/14/23 05:14: White Blood Count 12.7, Red Blood Count 4.73, Hemoglobin 13.6, Hematocrit 40, Mean Corpuscular Volume 84, Mean Corpuscular Hemoglobin 29, Mean Corpuscular Hemoglobin Concent 34, Red Cell Distribution Width 13.5, Platelet Count 133, Mean Platelet Volume 10.7, Immature Granulocyte % (Auto) 1, Neutrophils (%) (Auto) 84, Lymphocytes (%) (Auto) 9, Monocytes (%) (Auto) 5, Eosinophils (%) (Auto) 1, Basophils (%) (Auto) 0, Neutrophils # (Auto) 10.6, Lymphocytes # (Auto) 1.1, Monocytes # (Auto) 0.7, Eosinophils # (Auto) 0.1, Basophils # (Auto) 0.1, Immature Granulocyte # (Auto) 0.1, Percent Immature Platelet Fraction 3.7, Sodium Level 134, Potassium Level 3.5, Chloride Level 106, Carbon Dioxide Level 20, Anion Gap 8, Blood Urea Nitrogen 14, Creatinine 0.90, Estimat Glomerular Filtration Rate 85, BUN/Creatinine Ratio 16, Glucose Level 117, Calcium Level 8.8, Corrected Calcium 9.2, Total Bilirubin 1.6, Aspartate Amino Transf (AST/SGOT) 15, Alanine Aminotransferase (ALT/SGPT) 14, Alkaline Phosphatase 43, Total Protein 6.3, Albumin 3.5 03/14/23 10:17: Glucometer 113 03/14/23 15:52: Glucometer 101 03/14/23 16:40: Urine Color YELLOW, Urine Clarity CLEAR, Urine pH 5.5, Urine Specific [place] 1.020, Urine Protein 2+, Urine Glucose (UA) NEGATIVE, Urine Ketones TRACE, Urine Nitrite NEGATIVE, Urine Bilirubin NEGATIVE, Urine Urobilinogen 0.2, Urine Leukocyte Esterase 1+, Urine RBC (Auto) 3+, Urine RBC >100, Urine WBC 2-5, Urine Crystals PRESENT, Urine Amorphous Sediment FEW IDA URATES, Urine Bacteria FEW, Urine Casts NONE, Urine Mucus SMALL, Urine Culture Indicated YES 03/14/23 20:07: Glucometer 183 03/15/23 05:31: White Blood Count 8.8, Red Blood Count 4.63, Hemoglobin 13.6, Hematocrit 39, Mean Corpuscular Volume 84, Mean Corpuscular Hemoglobin 29, Mean Corpuscular Hemoglobin Concent 35, Red Cell Distribution Width 13.5, Platelet Count 146, Mean Platelet Volume 10.3, Immature Granulocyte % (Auto) 1, Neutrophils (%) (Auto) 77, Lymphocytes (%) (Auto) 13, Monocytes (%) (Auto) 6, Eosinophils (%) (Auto) 3, Basophils (%) (Auto) 1, Neutrophils # (Auto) 6.8, Lymphocytes # (Auto) 1.2, Monocytes # (Auto) 0.5, Eosinophils # (Auto) 0.3, Basophils # (Auto) 0.1, Immature Granulocyte # (Auto) 0.1, Percent Immature Platelet Fraction 3.4, Sodium Level 138, Potassium Level 3.5, Chloride Level 108, Carbon Dioxide Level 21, Anion Gap 9, Blood Urea Nitrogen 16, Creatinine 0.90, Estimat Glomerular Filtration Rate 85, BUN/Creatinine Ratio 18, Glucose Level 124, Calcium Level 8.6, Corrected Calcium 9.2, Total Bilirubin 0.9, Aspartate Amino Transf (AST/SGOT) 16, Alanine Aminotransferase (ALT/SGPT) 14, Alkaline Phosphatase 42, Total Protein 6.0, Albumin 3.3 03/15/23 15:43: Glucometer 94 03/15/23 19:31: Glucometer 253 03/16/23 05:23: Glucometer 105 03/16/23 05:27: White Blood Count 6.4, Red Blood Count 4.58, Hemoglobin 13.5, Hematocrit 39, Mean Corpuscular Volume 85, Mean Corpuscular Hemoglobin 30, Mean Corpuscular Hemoglobin Concent 35, Red Cell Distribution Width 13.4, Platelet Count 160, Mean Platelet Volume 10.5, Immature Granulocyte % (Auto) 1, Neutrophils (%) (Auto) 62, Lymphocytes (%) (Auto) 23, Monocytes (%) (Auto) 8, Eosinophils (%) (Auto) 6, Basophils (%) (Auto) 1, Neutrophils # (Auto) 4.0, Lymphocytes # (Auto) 1.5, Monocytes # (Auto) 0.5, Eosinophils # (Auto) 0.4, Basophils # (Auto) 0.1, Immature Granulocyte # (Auto) 0.0, Sodium Level 138, Potassium Level 3.9, Chloride Level 107, Carbon Dioxide Level 23, Anion Gap 8, Blood Urea Nitrogen 15, Creatinine 0.92, Estimat Glomerular Filtration Rate 83, BUN/Creatinine Ratio 16, Glucose Level 106, Calcium Level 8.8, Corrected Calcium 9.4, Total Bilirubin 0.8, Aspartate Amino Transf (AST/SGOT) 19, Alanine Aminotransferase (ALT/SGPT) 18, Alkaline Phosphatase 48, Total Protein 5.9, Albumin 3.2 03/16/23 11:16: Glucometer 102 Discharge Home Medications: Active Scripts Active Cefdinir 300 Mg Capsule 300 Mg PO BID Reported Bethanechol Chloride 25 Mg Tablet 25 Mg PO BID LAST FILLED 10-31-2022 #180/90 DAY SUPPLY- OUT OF MEDICATION Losartan Potassium 50 Mg Tablet 50 Mg PO BID Metformin HCl ER (Metformin HCl) 500 Mg Tab.er.24h 500 Mg PO BID Xarelto (Rivaroxaban) 20 Mg Tablet 20 Mg PO HS Myrbetriq (Mirabegron) 25 Mg Tab.er.24h 25 Mg PO HS Omeprazole 20 Mg Capsule.dr 20 Mg PO DAILY Melatonin 3 Mg Tablet 3 Mg PO HS Sertraline HCl 100 Mg Tablet 100 Mg PO BID Atorvastatin Calcium 10 Mg Tablet 10 Mg PO HS Advair 250-50 Diskus (Fluticasone/Salmeterol) 1 Each Blst.w.dev 1 Puff IH BID Instructions to patient/family Please see electronic discharge instructions given to patient. Clinical Quality Measures DVT/VTE Risk/Contraindication: Contraindications-Pharm: Other *list below* Other: hematuria ANA VÁZQUEZ DO March 16, 2023 10:40
--- NOTE | 2023-03-16 11:12 | Occupational Ther Daily Note ---
OT Current Status-Daily Note Subjective agreeable to OT, reports not wanting to use FWW at home, trial in hallways and therapy recommends use of ADS Mental Status/Objective Patient Orientation: Situation ADL-Treatment Therapy Code Descriptions/Definitions Functional [place] Measure: 0=Not Assessed/NA 4=Minimal Assistance 1=Total Assistance 5=Supervision or Setup 2=Maximal Assistance 6=Modified [place] 3=Moderate Assistance 7=Complete IndependenceSCALE: Activities may be completed with or without assistive devices. 5-Zkmqoifsck-fjxycwi completes the activity by him/herself with no assistance from a helper. 5-Set-up or Clean-up Assistance-helper sets up or cleans up; patient completes activity. [place] assists only prior to or following the activity. 4-Supervision or Touching Assistance-helper provides verbal cues and/or touching/steadying and/or contact guard assistance as patient completes activity. Assistance may be provided throughout the activity or intermittently. 3-Partial/Moderate Assistance-helper does LESS THAN HALF the effort. [place] lifts, holds or supports trunk or limbs, but provides less than half the effort. 2-Substantial/Maximal Assistance-helper does MORE THAN HALF the effort. [place] lifts or holds trunk or limbs and provides more than half the effort. 3-Qqccltgqt-tdrchw does ALL the effort. Patient does none of the effort to complete the activity. Or, the assistance of 2 or more helpers is required for the patient to complete the activity. If activity was not attempted, code reason: 7-Patient Refused. 9-Not Applicable-not attempted and the patient did not perform the activity before the current illness, exacerbation or injury. 10-Not Attempted due to Environmental Limitations-(lack of equipment, weather restraints, etc.). 88-Not Attempted due to Medical Conditions or Safety Concerns. Eating (QC): 6 Oral Hygiene (QC): 6 Shower/Bathe Self (QC): 7 (patient reports staff to assist with shower today) Upper Body Dressing (QC): 5 Lower Body Dressing (QC): 6 On/Off Footwear: 5 Toileting Hygiene (QC): 5 Toilet Transfer (QC): 5 Required VC for safety, dynamic balance recovery w/ minimal LOB side stepping Education OT Patient Education: Correct positioning, Modified ADL techniques, Progress toward Goal/Update tx plan, Purpose of tx/functional activities, Reviewed precautions, Rehab process, Safety issues, Transfer techniques, Use of adapted equipment Teaching Recipient: Patient Teaching Methods: Demonstration, Discussion Response to Teaching: Reinforcement Needed OT Retirement Goals Retirement Goals Eating (QC): 6 Oral Hygiene (QC): 6 Toileting Hygiene (QC): 6 Shower/Bathe Self (QC): 6 Upper Body Dressing (QC): 6 Lower Body Dressing (QC): 6 On/Off Footwear (QC): 6 1=Demonstrate adherence to instructed precautions during ADL tasks. 2=Patient will verbalize/demonstrate understanding of assistive devices/modifications for ADL. 3=Patient will improve strength/tolerance for activity to enable patient to perform ADL's. OT Education/Plan Problem List/Assessment Assessment: Impaired Self-Care Skills Discharge Recommendations Plan/Recommendations: Continue POC Treatment Plan/Plan of Care Patient would benefit from OT for education, treatment and training to promote independence in ADL's, mobility, safety and/or upper extremity function for ADL's. Plan of Care: ADL Retraining, Functional Mobility, Group Exercise/Act as Ind, UE Funct Exercise/Act Treatment Duration: March 18, 2023 Frequency: 3 times per week Estimated Hrs Per Day: .25 hour per day Agreement: Yes Rehab Potential: Fair All needs met Time Start Time: 08:45 Stop Time: 09:55 DATE: March 16, 2023 Total Time Billed (hr/min): 10 Billed Treatment Time ADL 10 min ANDREWS KAUR OT March 16, 2023 11:12
[2023-03-16 11:21] VITALS: BP 148/82
[2023-03-16 13:26] VITALS: BP 148/82
--- NOTE | 2023-03-16 18:51 | Physician Query Clarification ---
Physician Query-General Query to Physician: Clinical Validation Clarification Dr Tommy Archuleta Sepsis has been documented in the medical record. After study, has Sepsis been ruled out? If it has been ruled out, please document Sepsis ruled out" in the progress notes and/or discharge summary. Yes/Agreed, Sepsis ruled out/is not clinically valid Not agreed, Sepsis has not been ruled out/is clinically valid* *Please document the clinical evidence supportive of this diagnosis (even if now resolved) in the Progress Notes and Discharge Summary Other, with explanation of the clinical findings Clinically undetermined, no explanation for the clinical findings Additional information: "to the ER with urinary incontinence and evidence of UTI. Patient was placed on empiric antibiotics and was admitted for close monitoring." Admission VS/Labs: HR 113, RR 30, BP 131/71, SpO2 93% sat on room air, T 37.0, WBC 15.2, Lactic Acid 1.01 ER: Cefepime IV, NS 1 L, LR 1 L In responding to this query, please exercise your independent professional judgment. The purpose of this communication is to more accurately reflect the c omplexity of your patients condition. The fact that a question is asked does not imply that any particular answer is desired or expected. Thank you for your timely response to this clarification. Neetu Schmitz MSN, RN Clinical Drywall Finisher [email or web address] PHYSICIAN RESPONSE: Based on the clinical findings in the record, please respond to the query above on this document as an addendum. Physician Response: Physician Response no sepsis If you have questions please contact: Kitchen Bath Designer: Ext: Thank you for your time and cooperation. Clinical Drywall Finisher/Kitchen Bath Designer This is a permanent part of the medical record NEETU SCHMITZ March 16, 2023 18:51 ANA ARCHULETA DO March 16, 2023 20:45
== END 2023-03-16 12:45 | disposition home or self-care (01) | DRG 690 ==
LOC: EDUNIT# 17:40 → ER 17:42 → 4TH 20:03
PROVIDERS: ADMIT Internal Medicine; ATTEND Internal Medicine
DX: N39.0 Urinary tract infection, site not specified (principal); Z16.12 Extended spectrum beta lactamase (ESBL) resistance; R32 Unspecified urinary incontinence; R41.0 Disorientation, unspecified; I10 Essential (primary) hypertension; E78.5 Hyperlipidemia, unspecified; E11.9 Type 2 diabetes mellitus without complications; J44.9 Chronic obstructive pulmonary disease, unspecified; Z87.891 Personal history of nicotine dependence; F03.90 Unspecified dementia, unspecified severity, without behavioral disturbance, psychotic disturbance, mood disturbance, and anxiety; K21.9 Gastro-esophageal reflux disease without esophagitis; F32.A Depression, unspecified; H26.9 Unspecified cataract; B96.89 Other specified bacterial agents as the cause of diseases classified elsewhere; Z79.84 Long term (current) use of oral hypoglycemic drugs; Z79.899 Other long term (current) drug therapy; Z96.653 Presence of artificial knee joint, bilateral
CPT/HCPCS: 36415; 51702; 71045; 74176; 80053; 80306; 80320; 81000; 82150; 82947; 83605; 83690; 83735; 85007; 85025; 85027; 85610; 85730; 87040; 87077; 87088; 87186; 93041; 94640; 94760

== ENCOUNTER 2023-06-27 19:33 | Inpatient (IN) | payer MEDICARE, MEDICAID ==
[~2023-06-27] VITALS: Ht 182.8 cm; Wt 93.6 kg
[~2023-06-27 19:33] MED LIST changes: +BETH25TA2 PO; -LOSA100T57 PO; +LOSA100T58 PO; +LOSA50TA63 PO; +METF-865 PO; +MIRA25TA PO; +RIVA20TA PO
[2023-06-27] MEDS ORDERED: LACTATED RINGERS 1,000 ML 1,000 ML IV ONE (19:45)
--- NOTE | 2023-06-27 19:47 | ED General ---
General Stated Complaint: FALL Source of Information: Patient (VERY POOR HISTORIAN IN ADDITION TO BEING HARD OF HEARING), EMS, Old Records (ALL PMH IS FROM OLD RECORDS) Exam Limitations: Other (NO FAMILY HERE WITH PT ON ARRIVAL) History of Present Illness Date Seen by Provider: Jun 27, 2023 Time Seen by Provider: 19:33 Initial Comments PT ARRIVES VIA EMS FROM HOME--PT LIVED WITH DAUGHTER AND GRANDCHILDREN PT HAS NOT FELT WELL ALL DAY--NO SPECIFIC SYMPTOMS DAUGHTER REPORTED TO EMS THAT PT HAS BEEN CONFUSED TODAY, NOT NORMAL FOR PT PT DID HAVE A WITNESSED FALL--HAS ABRASION TO NOSE AND RIGHT BROW AREA PT DENIES PAIN ANYWHERE DENIES CHEST PAIN DENIES SHORTNESS OF BREATH DENIES ANY GI SYMPTOMS DENIES ANY URINARY SYMPTOMS--DAUGHTER REPORT TO EMS THAT HE HAS HAD UTI IN THE PAST AND HAD SIMILAR SYMPTOMS HE IS HAVING TODAY DENIES FEVER/SWEATS/CHILLS NO HEADACHE NO DIZZINESS NO VISION CHANGES PT HAS NOT TAKEN ANY OF HIS MEDICATIONS TODAY BECAUSE HE "JUST DIDN'T FEEL GOOD" NO MEDICATIONS OR LIST BROUGHT WITH PT. HE DOES NOT KNOW ANY OF HIS MEDICATIONS PER MED RECONCILIATION, PT IS ON XARELTO BUT IS UNCLEAR WHAT DX HE HAS FOR TAKING THIS HE HAS HTN--BP 193/93 FOR EMS PT IS DIABETIC--BLOOD GLUCOSE 94 FOR EMS PULSE IN 90'S PT HAS COPD-O2 SAT 96% ON ROOM AIR. PT HAS HISTORY OF DEMENTIA AND DOES NOT KNOW ANY OF HIS MEDICATIONS OR ANY OF HIS MEDICAL HISTORY PCP:DR JALLOH Allergies and Home Medications Allergies Coded Allergies: Ray Known Allergies (Unverified Allergy, Unknown, 09/19/06) Patient Home Medication List Home Medication List Reviewed: Yes Atorvastatin Calcium (Atorvastatin Calcium) 10 Mg Tablet, 10 MG PO HS, (R eported) Entered as Reported by: PAULINE LAMAS on 11/01/16 2215 Bethanechol Chloride (Bethanechol Chloride) 25 Mg Tablet, 25 MG PO BID, (Reported) Entered as Reported by: VINCENT RAMIRES on 03/14/23 1503 Cefdinir (Cefdinir) 300 Mg Capsule, 300 MG PO BID Prescribed by: ANA VÁZQUEZ on 03/16/23 1040 Fluticasone/Salmeterol (Advair 250-50 Diskus) 1 Each Blst.w.dev, 1 PUFF IH BID, (Reported) Entered as Reported by: PAULINE LAMAS on 11/01/16 2215 Losartan Potassium (Losartan Potassium) 50 Mg Tablet, 50 MG PO BID, (Reported) Entered as Reported by: VINCENT RAMIRES on 03/14/23 1457 Melatonin (Melatonin) 3 Mg Tablet, 3 MG PO HS, (Reported) Entered as Reported by: PETE ROCKWELL on 01/10/19 0953 Metformin HCl (Metformin HCl ER) 500 Mg Tab.er.24h, 500 MG PO BID, (Reported) Entered as Reported by: VINCENT RAMIRES on 03/14/23 145 Mirabegron (Myrbetriq) 25 Mg Tab.er.24h, 25 MG PO HS, (Reported) Entered as Reported by: VINCENT RAMIRES on 03/14/23 145 Omeprazole (Omeprazole) 20 Mg Capsule.dr, 20 MG PO DAILY, (Reported) Entered as Reported by: PETE ROCKWELL on 06/06/19 1327 Rivaroxaban (Xarelto) 20 Mg Tablet, 20 MG PO HS, (Reported) Entered as Reported by: VINCENT RAMIRES on 03/14/23 145 Sertraline HCl (Sertraline HCl) 100 Mg Tablet, 100 MG PO BID, (Reported) Entered as Reported by: SONIA REN on 06/12/18 1201 Review of Systems Review of Systems Constitutional: see HPI, malaise, weakness EENTM: see HPI Respiratory: no symptoms reported Cardiovascular: no symptoms reported Gastrointestinal: loss of appetite Genitourinary: no symptoms reported Musculoskeletal: no symptoms reported Skin: see HPI Psychiatric/Neurological: See HPI Hematologic/Lymphatic: No Symptoms Reported Past [place]-Pnxeua-Dmgpfj Hx Immunizations Up To Date Tetanus Booster (TDap): Less than 5yrs PED Vaccines UTD: No Seasonal Allergies Seasonal Allergies: No Past Medical History Surgery/Hospitalization HX: N/A Surgeries: Yes (BILAT KNEE REPLACEMENTS, right ankle surg, RT HAND CARPAL TUNNEL ) Appendectomy, Joint Replacement, Orthopedic Respiratory: Yes (quit smoking 40yrs. ago) Asthma, COPD Cardiac: Yes (see's Dr. Miner; SVT) Hypertension, Hypotension, Irregular Heartbeat Neurological: Yes Dementia, Vertigo Reproductive Disorders: No Sexually Transmitted Disease: No HIV/AIDS: No Genitourinary: Yes (OVERACTIVE BLADDER) Bladder Infection, Renal Failure Gastrointestinal: Yes Gastroesophageal Reflux Musculoskeletal: Yes (ROSY. TKR) Arthritis Endocrine: Yes Diabetes, Non-Insulin dep HEENT: Yes Cataract Loss of Vision: Denies Hearing Impairment: Denies Cancer: No Psychosocial: Yes Depression Integumentary: No Blood Disorders: No Adverse Reaction/Blood Tranf: No Family Medical History Alcoholism 09 SISTER Family history: Asthma 09 SISTER Family history: Cardiovascular disease 03 FATHER Family history: Diabetes mellitus 03 MOTHER 09 SISTER Heart disease 03 FATHER Myocardial infarction 03 FATHER Stroke 03 FATHER No Family History of: Abdominal aortic aneurysm [place]'s disease Aphasia Cancer Cancer of colon Cataract Chest pain Congenital heart disease Congestive heart failure Cystic fibrosis Dementia Dysphagia Family history: Allergy Family history: Alzheimer's disease Family history: Arthritis Family history: Breast disease Family history: Gastrointestinal disease Family history: Glaucoma Family history: Hypertension Family history: Osteoporosis Family history: Thyroid disorder Headache Hearing loss History of - anemia History of - disorder History of - respiratory disease History of drug abuse Human immunodeficiency virus (HIV) seropositivity Hypercholesterolemia Infertile Kidney disease Malignant neoplasm of lung Parkinson's disease Prostate cancer Psychotic disorder Seizure disorder Tuberculosis Visual impairment SOCIAL HISTORY: -SMOKED 1 PPD, QUIT 40 YEARS AGO -ETOH--HISTORY OF ALCOHOL ABUSE, DETAILS NOT KNOWN AT THIS TIME -DRUGS--HISTORY OF DRUG ABUSE, DETAILS NOT KNOWN AT THIS TIME PAST SURGICAL HISTORY: -BILATERAL KNEE REPLACEMENTS -REVISION RIGHT KNEE ARTHROPLASTY -RIGHT ANKLE SURGERY -RIGHT HAND CARPAL TUNNEL SURGERY -APPENDECTOMY Physical Exam Vital Signs Vital Signs - First Documented 06/27/23 20:00 Temp 36.8 Pulse 88 Resp 16 B/P (MAP) 169/102 (124) Capillary Refill : Height, Weight, BMI Height: 6'0.00" Weight: 240lbs. 0.0oz. 108.080415oa; 28.28 BMI Method:Stated General Appearance: No Apparent Distress, WD/WN, Other (CONSTANT LEG MOVEMENTS) HEENT: PERRL/EOMI, TMs Normal, Pharynx Normal, Other (ABRASION TO RIGHT BROW AND BRIDGE OF NOSE. MILD TENDERNESS TO THESE AREAS. NO SWELLING OR BRUISING AT THIS TIME. ) Neck: Full Range of Motion, Normal Inspection, Non Tender, Supple Respiratory: Normal Breath Sounds, No Accessory Muscle Use, No Respiratory Distress Cardiovascular: No Edema, No JVD, Irregularly Irregular Gastrointestinal: Non Tender, Soft Back: Normal Inspection Extremity: Normal Capillary Refill, Normal Inspection, Normal Range of Motion, Non Tender, No Calf Tenderness, No Pedal Edema Neurologic/Psychiatric: Alert, No Motor/Sensory Deficits, coordinating producer II-XII Norm as Tested, Other (FLAT AFFECT; ORIENTED TO PERSON, PLACE, GROSSLY ORIENTED TO SITUATION. SOMEWHAT CONFUSED TO TIME. EXTREMELY POOR MEMORY. ) Skin: Normal Color, Warm/Dry Focused Exam Sepsis Stage: Ruled Out Reason for ruling out sepsis: DOES NOT MEET CRITERIA Possible Source: Other (/RESPIRATORY) Lactate Level 06/27/23 20:28: Lactic Acid Level 0.74 Time of Focused Exam: 20:30 Respiratory: Normal Breath Sounds, No Accessory Muscle Use, No Respiratory Distress Cardiovascular: Irregularly Irregular Capillary Refill: Less Than 3 Seconds Skin: normal color, warm/dry Lactic Acid Level Laboratory Tests Test 06/27/23 20:28 Lactic Acid Level 0.74 MMOL/L (0.50-2.00) Within 3hrs of presentation: Admin fluids, Admin ABX, Blood cultures prior to ABX's, Focus exam, Lactate level Progress/Results/Core Measures Suspected Sepsis SIRS Temperature: Pulse: Respiratory Rate: Laboratory Tests 06/27/23 20:28: White Blood Count 6.4 Blood Pressure / Mean: 06/27/23 20:28: Lactic Acid Level 0.74 Laboratory Tests 06/27/23 20:28: Creatinine 0.99, INR Comment 1.1, Platelet Count 154, Total Bilirubin 0.7 Results/Orders Lab Results Laboratory Tests Test 06/27/23 20:28 06/27/23 21:39 Range/Units White Blood Count 6.4 4.3-11.0 10^3/uL Red Blood Count 4.74 4.30-5.52 10^6/uL Hemoglobin 13.7 13.3-17.7 g/dL Hematocrit 41 40-54 % Mean Corpuscular Volume 85 80-99 fL Mean Corpuscular Hemoglobin 29 25-34 pg Mean Corpuscular Hemoglobin Concent 34 32-36 g/dL Red Cell Distribution Width 13.1 10.0-14.5 % Platelet Count 154 130-400 10^3/uL Mean Platelet Volume 9.7 9.0-12.2 fL Immature Granulocyte % (Auto) 1 % Neutrophils (%) (Auto) 78 H 42-75 % Lymphocytes (%) (Auto) 9 L 12-44 % Monocytes (%) (Auto) 7 0-12 % Eosinophils (%) (Auto) 4 0-10 % Basophils (%) (Auto) 1 0-10 % Neutrophils # (Auto) 5.0 1.8-7.8 10^3/uL Lymphocytes # (Auto) 0.6 L 1.0-4.0 10^3/uL Monocytes # (Auto) 0.4 0.0-1.0 10^3/uL Eosinophils # (Auto) 0.3 0.0-0.3 10^3/uL Basophils # (Auto) 0.0 0.0-0.1 10^3/uL Immature Granulocyte # (Auto) 0.1 0.0-0.1 10^3/uL Erythrocyte Sedimentation Rate 11 0-30 MM/HR Prothrombin Time 14.2 12.2-14.7 SEC INR Comment 1.1 0.8-1.4 Activated Partial Thromboplast Time 32 24-35 SEC D-Dimer 0.39 0.00-0.49 UG/ML Sodium Level 135 135-145 MMOL/L Potassium Level 3.8 3.6-5.0 MMOL/L Chloride Level 103 98-107 MMOL/L Carbon Dioxide Level 22 21-32 MMOL/L Anion Gap 10 5-14 MMOL/L Blood Urea Nitrogen 14 7-18 MG/DL Creatinine 0.99 0.60-1.30 MG/DL Estimat Glomerular Filtration Rate 76 BUN/Creatinine Ratio 14 Glucose Level 100 70-105 MG/DL Lactic Acid Level 0.74 0.50-2.00 MMOL/L Calcium Level 8.9 8.5-10.1 MG/DL Corrected Calcium 8.9 8.5-10.1 MG/DL Magnesium Level 1.9 1.6-2.4 MG/DL Total Bilirubin 0.7 0.1-1.0 MG/DL Aspartate Amino Transf (AST/SGOT) 16 5-34 U/L Alanine Aminotransferase (ALT/SGPT) 15 0-55 U/L Alkaline Phosphatase 59 40-136 U/L Total Creatine Kinase 35 30-200 U/L Creatine Kinase MB 0.6 <6.6 NG/ML Myoglobin 47.7 10.0-92.0 NG/ML Troponin I < 0.028 <0.028 NG/ML C-Reactive Protein High Sensitivity 1.79 H 0.00-0.50 MG/DL Total Protein 7.0 6.4-8.2 GM/DL Albumin 4.0 3.2-4.5 GM/DL Amylase Level 48 25-125 U/L Lipase 16 8-78 U/L TSH Ages [place] Testing 1.09 0.35-4.94 UIU/ML Serum Alcohol < 10 <10 MG/DL Influenza Type A (RT-PCR) Not Detected Not Detecte Influenza Type B (RT-PCR) Not Detected Not Detecte SARS-CoV-2 RNA (RT-PCR) Detected H Not Detecte Urine Color YELLOW Urine Clarity SL CLOUDY Urine pH 5.5 5-9 Urine Specific Usk 1.010 L 1.016-1.022 Urine Protein NEGATIVE NEGATIVE Urine Glucose (UA) NEGATIVE NEGATIVE Urine Ketones NEGATIVE NEGATIVE Urine Nitrite POSITIVE H NEGATIVE Urine Bilirubin NEGATIVE NEGATIVE Urine Urobilinogen 0.2 < = 1.0 MG/DL Urine Leukocyte Esterase TRACE H NEGATIVE Urine RBC (Auto) 1+ H NEGATIVE Urine RBC 0-2 /HPF Urine WBC 2-5 /HPF Urine Crystals NONE /LPF Urine Bacteria MODERATE H /HPF Urine Casts NONE /LPF Urine Mucus NEGATIVE /LPF Urine Culture Indicated YES Micro Results Microbiology 06/27/23 Blood Culture - Preliminary, Resulted No growth 06/27/23 Urine Culture - Preliminary, Resulted Klebsiella/Enterobacter spec 06/27/23 Blood Culture - Preliminary, Resulted No growth My Orders Orders - GOMEZ MURCIA DO Ed Iv/Invasive Line Start (06/27/23 19:37) Ekg Tracing (06/27/23 19:37) Monitor-Rhythm Ecg Trace Only (06/27/23 19:37) Ct Head/Face/Cervical Wo (06/27/23 19:37) Chest 1 View, Ap/Pa Only (06/27/23 19:37) Pelvis 1 To 2 Views (06/27/23 19:37) Alcohol (06/27/23 19:37) Amylase (06/27/23 19:37) Cbc With Automated Diff (06/27/23 19:37) Comprehensive Metabolic Panel (06/27/23 19:37) Creatine Kinase (06/27/23 19:37) Creatine Kinase Mb (06/27/23 19:37) Hs C Reactive Protein (06/27/23 19:37) Fibrin Degradation Products (06/27/23 19:37) Lactic Acid Analyzer (06/27/23 19:37) Lipase (06/27/23 19:37) Magnesium (06/27/23 19:37) Protime With Inr (06/27/23 19:37) Partial Thromboplastin Time (06/27/23 19:37) Thyroid Analyzer (06/27/23 19:37) Ua Culture If Indicated (06/27/23 19:37) Blood Culture (06/27/23 19:37) Erythrocyte Sedimentation Rate (06/27/23 19:37) Myoglobin Serum (06/27/23 19:37) Troponin I [place] (06/27/23 19:37) Ed Iv/Invasive Line Start (06/27/23 19:37) Lactated Ringers 1,000 Ml (Lactated Ring (06/27/23 19:45) Covid 19 Inhouse Test (06/27/23 19:37) Urine Culture (06/27/23 19:37) Ed Iv/Invasive Line Start (06/27/23 19:37) Ed Iv/Invasive Line Start (06/27/23 19:37) Vital Signs Adult Sepsis Patie Q15M (06/27/23 19:37) O2 (06/27/23 19:37) Influenza A And B By Pcr (06/27/23 19:37) Ed Admission (Communication) (06/27/23 21:17) Catheter(Urinary) Insert & Ass 03,15 (06/27/23 21:19) Lidocaine 2% (Urojet) (Lidocaine 2% (Uro (06/27/23 21:30) Cefepime Injection (Cefepime Injection) (06/27/23 23:30) Medications Given in ED Vital Signs/I&O 06/27/23 20:00 Temp 36.8 Pulse 88 Resp 16 B/P (MAP) 169/102 (124) 06/28/23 00:00 Intake Total 1000 ml Balance 1000 ml Capillary Refill : Progress Note : Progress Note VITALS ON ARRIVAL: TEMP 36.8, HR 88, RR 16, BP 169/102, O2 SAT 96% ON ROOM AIR SEPSIS PROTOCOL INITIATED GIVEN: -IV FLUIDS -CEFEPIME LABS: -CBC NORMAL WITH WBC 6.4 -CMP NORMAL -MG 1.9 -CRP 1.79 -LACTIC ACID 0.74 -TROPONIN NEGATIVE -AMYLASE/LIPASE NORMAL -COAGULATION STUDIES NORMAL -D-DIMER NEGATIVE -TSH 1.09 -UA + NITRITES, TRACE LEUKOCYTES, MODERATE BACTERIA -ETOH NEGATIVE EKG WITH AFIB, NO ACUTE CHANGES--NO DOCUMENTATION OF AFIB ON PRIOR RECORDS, BUT PT IS ON XARELTO FOR UNKNOWN DX. CXR--POOR INSPIRATION, PENDING RADIOLOGIST REVIEW CT SCANS DO NOT SHOW ANY ACUTE PROCESSES NO FAMILY ARRIVED IN ER TO SEE PT. NO DETERIORATION IN PT'S CONDITION DURING ER STAY PT HAD NO COMPLAINTS FOR ENTIRE ER STAY VITALS STABLE. REVIEWED PRIOR RECORDS INCLUDING ER VISITS, ADMITS/H&P'S/CONSULTS/DISCHARGE SUMMARIES, TESTS/PROCEDURES. ALL PMH IS FROM OLD RECORDS, PT IS NOT ABLE TO GIVE ANY MEDICAL HISTORY OF ANY KIND. ECG Initial ECG Impression Date: Jun 27, 2023 Initial ECG Impression Time: 20:58 Initial ECG Rate: 75 Initial ECG Rhythm: A Fib/Flutter Initial ECG Intervals NE-N/A QRS 103 QT/QTC 394/441 Initial ECG Impression: Atrial Fibrillation Initial ECG Comparisson: Changed (PRIOR EKG SHOWS NSR) Comment INTERPRETED BY ME Diagnostic Imaging Comments CXR--PER RADIOLOGIST REPORT: FINDINGS: Single frontal view of the chest demonstrates normal heart size and pulmonary vascularity. The lungs are well aerated and clear. No large pleural effusion or pneumothorax is seen. The visualized osseous structures show no acute abnormalities. IMPRESSION: 1. No acute cardiopulmonary process. PELVIS XRAY--PER RADIOLOGIST REPORT FINDINGS: A single frontal view of the pelvis was performed. There is no radiographic evidence of acute fracture or dislocation. Pubic symphysis is within normal limits. SI joints are symmetric. Proximal femurs are intact, bilaterally. The femoro-acetabular joint spaces appear maintained on this single frontal view. Remainder of the bony pelvis is intact as well. No unexpected radiopaque foreign bodies are seen. Included small bowel loops are nondistended. Impression: 1. No radiographic evidence of acute fracture or dislocation of the bony pelvis. CT HEAD/MAXILLOFACIALS/CERVICAL SPINE--PER RADIOLOGIST REPORT AT 2100 COMPARISON: 07/15/2020 FINDINGS: CT HEAD: The ventricles and cortical sulci are diffusely prominent, compatible with age-related volume loss. There are confluent areas of abnormal, low attenuation in the periventricular white matter. This is consistent with chronic small vessel ischemic changes. There is no midline shift or mass-effect. No acute intra-axial hemorrhage is seen. There are no abnormal areas of increased or decreased density to suggest acute hemorrhage or edema. No extra-axial masses or collections are present. The bony calvarium is intact. CT FACIAL BONES: There is no acute fracture or dislocation of the facial bones. Zygomatic arches are intact, bilaterally. Bilateral medial and lateral pterygoid plates are intact, as well. There is no acute fracture or dislocation of the mandible. There is no fracture of the alveolar ridge of the maxilla. Paranasal sinuses show mild to moderate diffuse mucosal thickening. No abnormal air-fluid levels are seen. There is no acute fracture of the paranasal sinuses. Nasal septum is deviated to the left anteriorly, but is otherwise intact. Nasal bones are intact as well. There is no acute fracture of the orbits. Globes are symmetric. No unexpected radiopaque foreign bodies are seen. CT CERVICAL SPINE: AP static alignment of the cervical spine is preserved. There is no significant anteroretrolisthesis. There is no evidence of jumped facets. Vertebral body heights are maintained. There is no acute fracture. No bony fragments are seen within the spinal canal. There are advanced multilevel degenerative changes consistent with intervertebral disc height loss with prominent anterior and posterior endplate osteophyte formations. There is also multilevel facet arthropathy. These changes result in multilevel spinal canal or neuroforaminal stenosis. Included portions of lung apices are clear. Pre and paravertebral soft tissue structures are unremarkable. Note is made of calcified carotid atherosclerosis.. IMPRESSION: 1. No acute intracranial abnormality. No CT evidence of mass, acute infarct or intracranial hemorrhage. 2. Chronic small vessel ischemic changes in the deep white matter. 3. No acute fracture or dislocation of the facial bones. 4. Advanced degenerative changes of the cervical spine, but no acute fracture or dislocation. Reviewed: Reviewed by Pr Departure Communication (Admissions) 2103--SPOKE WITH DR. VÁZQUEZ, ACCEPTS PT FOR ADMIT. DUE TO STAFFING ISSUES, PT WAS HELD IN ER FOR MOST OF THE NIGHT Impression Primary Impression: COVID-19 Additional Impressions: Fall Minor head injury without loss of consciousness Altered mental status UTI (urinary tract infection) ATRIAL FIBRILLATION NEW DIAGNOSIS Disposition: ADMITTED INPATIENT Condition: Stable Admissions Decision to Admit Reason: Admit from ER (General) Decision to Admit/Date: Jun 27, 2023 Time/Decision to Admit Time: 21:05 Departure-Patient Inst. Referrals: ENRRIQUE JALLOH DO (PCP/Family) Primary Care Physician GOMEZ MURCIA DO Jun 27, 2023 19:47
[2023-06-27 20:48] LABS: BASOPHILS % (AUTO) 1 % (0-10); EOSINOPHILS # (AUTO) 0.3 10^3/uL (0.0-0.3); EOSINOPHILS % (AUTO) 4 % (0-10); HEMATOCRIT 41 % (40-54); HEMOGLOBIN 13.7 g/dL (13.3-17.7); LYMPHOCYTES # (AUTO) 0.6 10^3/uL (1.0-4.0); LYMPHOCYTES % (AUTO) 9 % (12-44); MEAN CORPUSCULAR HEMOGLOBIN 29 pg (25-34); MEAN CORPUSCULAR HGB CONC 34 g/dL (32-36); MEAN CORPUSCULAR VOLUME 85 fL (80-99); MEAN PLATELET VOLUME 9.7 fL (9.0-12.2); MONOCYTES # (AUTO) 0.4 10^3/uL (0.0-1.0); MONOCYTES % (AUTO) 7 % (0-12); NEUTROPHILS % (AUTO) 78 % (42-75); PLATELET COUNT 154 10^3/uL (130-400); WHITE BLOOD COUNT 6.4 10^3/uL (4.3-11.0)
--- NOTE | 2023-06-27 20:57 | Diagnostic Imaging Report ---
PROCEDURE: CT head, face, and cervical spine without contrast. TECHNIQUE: Multiple contiguous axial images were obtained through the head, neck, and facial bones without the use of intravenous contrast. Sagittal and coronal reformations through the cervical spine and facial bones were also performed. Auto Exposure Controls were utilized during the CT exam to meet ALARA standards for radiation dose reduction. INDICATION: Fall. Traumatic injury with pain to the head, face, and cervical spine. COMPARISON: 07/15/2020 FINDINGS: CT HEAD: The ventricles and cortical sulci are diffusely prominent, compatible with age-related volume loss. There are confluent areas of abnormal, low attenuation in the periventricular white matter. This is consistent with chronic small vessel ischemic changes. There is no midline shift or mass-effect. No acute intra-axial hemorrhage is seen. There are no abnormal areas of increased or decreased density to suggest acute hemorrhage or edema. No extra-axial masses or collections are present. The bony calvarium is intact. CT FACIAL BONES: There is no acute fracture or dislocation of the facial bones. Zygomatic arches are intact, bilaterally. Bilateral medial and lateral pterygoid plates are intact, as well. There is no acute fracture or dislocation of the mandible. There is no fracture of the alveolar ridge of the maxilla. Paranasal sinuses show mild to moderate diffuse mucosal thickening. No abnormal air-fluid levels are seen. There is no acute fracture of the paranasal sinuses. Nasal septum is deviated to the left anteriorly, but is otherwise intact. Nasal bones are intact as well. There is no acute fracture of the orbits. Globes are symmetric. No unexpected radiopaque foreign bodies are seen. CT CERVICAL SPINE: AP static alignment of the cervical spine is preserved. There is no significant anteroretrolisthesis. There is no evidence of jumped facets. Vertebral body heights are maintained. There is no acute fracture. No bony fragments are seen within the spinal canal. There are advanced multilevel degenerative changes consistent with intervertebral disc height loss with prominent anterior and posterior endplate osteophyte formations. There is also multilevel facet arthropathy. These changes result in multilevel spinal canal or neuroforaminal stenosis. Included portions of lung apices are clear. Pre and paravertebral soft tissue structures are unremarkable. Note is made of calcified carotid atherosclerosis.. IMPRESSION: 1. No acute intracranial abnormality. No CT evidence of mass, acute infarct or intracranial hemorrhage. 2. Chronic small vessel ischemic changes in the deep white matter. 3. No acute fracture or dislocation of the facial bones. 4. Advanced degenerative changes of the cervical spine, but no acute fracture or dislocation. Dictated by: Dictated on workstation # [id number]
[2023-06-27 20:59] LABS: INR 1.1 (0.8-1.4); PROTHROMBIN TIME PATIENT 14.2 SEC (12.2-14.7)
--- NOTE | 2023-06-27 21:00 | Diagnostic Imaging Report ---
INDICATION: Pelvic pain status post fall COMPARISON: None FINDINGS: A single frontal view of the pelvis was performed. There is no radiographic evidence of acute fracture or dislocation. Pubic symphysis is within normal limits. SI joints are symmetric. Proximal femurs are intact, bilaterally. The femoro-acetabular joint spaces appear maintained on this single frontal view. Remainder of the bony pelvis is intact as well. No unexpected radiopaque foreign bodies are seen. Included small bowel loops are nondistended. Impression: 1. No radiographic evidence of acute fracture or dislocation of the bony pelvis. Dictated by: Dictated on workstation # [id number]
[2023-06-27 21:02] LABS: FIBRIN DEGRADATION PRODUCTS 0.39 UG/ML (0.00-0.49)
--- NOTE | 2023-06-27 21:08 | Diagnostic Imaging Report ---
INDICATION: AMS COMPARISON: 03/13/2023 FINDINGS: Single frontal view of the chest demonstrates normal heart size and pulmonary vascularity. The lungs are well aerated and clear. No large pleural effusion or pneumothorax is seen. The visualized osseous structures show no acute abnormalities. IMPRESSION: 1. No acute cardiopulmonary process. Dictated by: Dictated on workstation # [id number]
[2023-06-27 21:19] LABS: ERYTHROCYTE SEDIMENTATION RATE 11 MM/HR (0-30)
[2023-06-27 21:21] LABS: ALANINE AMINOTRANSFERASE 15 U/L (0-55); ALKALINE PHOSPHATASE 59 U/L (40-136); AMYLASE 48 U/L (25-125); BILIRUBIN,TOTAL 0.7 MG/DL (0.1-1.0); BUN/CREATININE RATIO 14; CALCIUM 8.9 MG/DL (8.5-10.1); CARBON DIOXIDE 22 MMOL/L (21-32); CHLORIDE 103 MMOL/L (98-107); CREATINE KINASE 35 U/L (30-200); CREATININE SERUM 0.99 MG/DL (0.60-1.30); GFR ESTIMATED 76; GLUCOSE 100 MG/DL (70-105); LIPASE 16 U/L (8-78); MAGNESIUM 1.9 MG/DL (1.6-2.4); POTASSIUM 3.8 MMOL/L (3.6-5.0); SODIUM 135 MMOL/L (135-145)
[2023-06-27] MEDS ORDERED: LIDOCAINE UROJET 2% GEL 10 ML PKG TOP ONE (21:30)
[2023-06-27 22:10] LABS: CREATINE KINASE MB 0.6 NG/ML (<6.6)
[2023-06-27 22:22] LABS: TSH (THYROID ANALYZER) 1.09 UIU/ML (0.35-4.94)
[2023-06-27 22:28] LABS: CLARITY,URINE SL CLOUDY; COLOR,URINE YELLOW
[2023-06-27 22:29] LABS: BACTERIA,URINE MODERATE /HPF; BILIRUBIN,URINE NEGATIVE (NEGATIVE); GLUCOSE, URINE (UA) NEGATIVE (NEGATIVE); KETONES,URINE NEGATIVE (NEGATIVE); LEUKOCYTE ESTERASE ,URINE TRACE (NEGATIVE); NITRITE,URINE POSITIVE (NEGATIVE); PH,URINE 5.5 (5-9); PROTEIN,URINE NEGATIVE (NEGATIVE); RBC,URINE 0-2 /HPF
[2023-06-27] MEDS ORDERED: CEFEPIME INJECTION 1,000 MG in NS (IVPB) 50 ML 50 ML IV ONE (23:30)
[2023-06-28] VITALS (11 sets, daily range): BP systolic 125–152; BP diastolic 56–125
[2023-06-28] MEDS ORDERED: ONDANSETRON INJECTION 4 MG/2 ML (SDV) IV PRN (05:30)
[2023-06-28] MEDS ORDERED: LACTULOSE SYRUP 10GM/15ML 30ML UDC PO PRN (05:30)
[2023-06-28] MEDS ORDERED: LORazepam 0.5 MG TABLET PO PRN (05:30)
[2023-06-28] MEDS ORDERED: diphenhydrAMINE 25 MG TABLET PO PRN (05:30)
[2023-06-28] MEDS ORDERED: CALCIUM CARBONATE 500 MG CHEW TABLET PO PRN (05:30)
[2023-06-28] MEDS ORDERED: NS IV 1000 ML 1,000 ML IV SCH (05:30)
[2023-06-28] MEDS ORDERED: ANTACID SUSPENSION 30 ML UDC PO PRN (05:30)
[2023-06-28] MEDS ORDERED: cloNIDine 0.1 MG TABLET PO PRN (05:30)
[2023-06-28] MEDS ORDERED: MELATONIN 3 MG TABLET PO PRN (05:30)
[2023-06-28] MEDS ORDERED: BISACODYL 10 MG SUPPOSITORY PR PRN (05:30)
[2023-06-28] MEDS ORDERED: ONDANSETRON 4 MG ORAL DISSOLVE TABLET PO PRN (05:30)
[2023-06-28] MEDS ORDERED: HYDROmorphone INJECTION 2 MG/ML VIAL IV PRN (05:30)
[2023-06-28] MEDS ORDERED: oxyCODONE IMMEDIATE RELEASE 5 MG TABLET PO PRN (05:30)
[2023-06-28] MEDS ORDERED: ACETAMINOPHEN 325 MG TABLET PO PRN (05:30)
[2023-06-28] MEDS ORDERED: MILK OF MAGNESIA 400 MG/5 ML 30 ML UDC PO PRN (05:30)
[2023-06-28] MEDS ORDERED: diphenhydrAMINE INJ 50 MG/ML VIAL IVP PRN (05:30)
[2023-06-28] MEDS: cefTRIAXone IV/IM 1,000 MG in NS (IVPB) 50 ML 50 ML IV SCH (05:39)
[2023-06-28] MEDS: inSUlin ASPART 1 UNIT/0.01 ML (PER UNIT) SC SCH ×2 (06:28→11:54)
[2023-06-28] MEDS ORDERED: RT-ALBUTEROL HFA 8.5 GM INHALER IH PRN (07:15)
[2023-06-28] MEDS ORDERED: FLUTICASONE/VILANTEROL 100/25 MCG (7 DOSES) IH SCH (08:00)
[2023-06-28] MEDS: SENNOSIDES 8.6 MG TABLET PO SCH ×2 (08:39→21:02)
[2023-06-28] MEDS: DOCUSATE SODIUM 100 MG CAPSULE PO SCH ×2 (08:39→21:02)
[2023-06-28] MEDS ORDERED: ENOXAPARIN 40 MG/0.4 ML SYRINGE SC SCH (09:00)
--- NOTE | 2023-06-28 11:02 | Physical Therapy Evaluation ---
PT Evaluation-General Medical Diagnosis Admission Date Jun 28, 2023 at 02:53 Medical Diagnosis: COVID; UTI Onset Date: Jun 27, 2023 Therapy Diagnosis Therapy Diagnosis: Unsteady Gait Height/Weight Height (Feet): 6 Height (Inches): 0.00 Weight (Pounds): 240 Weight (Ounces): 0.0 Precautions Precautions/Isolations: Airborne Isolation Referral Physician: Angelia Archuleta Reason for Referral: Evaluation/Treatment Medical History Pertinent Medical History: COPD, DM, HTN, Renal Insufficiency Additional Medical History falls, TKA Social History Current Living Status: Alone Prior Prior Level of Function SCALE: Activities may be completed with or without assistive devices. 3-Tgagbrqyap-vywovnu completes the activity by him/herself with no assistance from a helper. 5-Set-up or Clean-up Assistance-helper sets up or cleans up; patient completes activity. [place] assists only prior to or following the activity. 4-Supervision or Touching Assistance-helper provides verbal cues and/or touching/steadying and/or contact guard assistance as patient completes activity. Assistance may be provided throughout the activity or intermittently. 3-Partial/Moderate Assistance-helper does LESS THAN HALF the effort. [place] lifts, holds or supports trunk or limbs, but provides less than half the effort. 2-Substantial/Maximal Assistance-helper does MORE THAN HALF the effort. [place] lifts or holds trunk or limbs and provides more than half the effort. 6-Zmsnotqyv-pgaqwr does ALL the effort. Patient does none of the effort to complete the activity. Or, the assistance of 2 or more helpers is required for the patient to complete the activity. If activity was not attempted, code reason: 7-Patient Refused. 9-Not Applicable-not attempted and the patient did not perform the activity before the current illness, exacerbation or injury. 10-Not Attempted due to Environmental Limitations-(lack of equipment, weather restraints, etc.). 88-Not Attempted due to Medical Conditions or Safety Concerns. Bed Mobility: 6 Transfers (B,C,W/C): 6 Gait: 6 Stairs: 6 Indoor Mobility (Ambulation): Independent PT Evaluation-Current Subjective Pt reports he stood up at home and is not sure what happened but he lost his balance. He indicates he does not fall regularly and likes to stay active. Objective Patient Orientation: Normal For Age Attachments: Adams Catheter, IV ROM/Strength ROM Upper Extremities WFL ROM Lower Extremities WFL Strength Upper Extremities Gross 4/5 Strength Lower Extremities Gross 4/5 Sensory Vision: Functional Hearing: Functional Transfers Roll Left to Right (QC): 6 Sit to Lying (QC): 6 Lying to Sitting/Side of Bed(Q: 6 Sit to Stand (QC): 6 Chair/Ujy-vd-Jaiyb Xfer(QC): 4 Sufficient strength for mobility. Min Assist for initial standing to make sure balance was intact. Pt has chronic pain in the right knee following a TKA. Gait Mode of Locomotion: Walk Anticipated Mode of Locomotion: Walk Gait Assistive Device: None Comments/Gait Description Pt furniture walked around his room with SBA. He was able to walk bathroom to door x 2 trials, roughly 80ft. No c/o of SOB, no loss of balance. Balance Sitting Static: Normal Sitting Dynamic: Normal Standing Static: Good Standing Dynamic: Fair Assessment/Needs Rehab Potential: Good PT Shipping Weigher Goals Shipping Weigher Goals PT Shipping Weigher Goals Time Frame: Jun 28, 2023 Roll Left & Right (QC): 6 Sit to Lying (QC): 6 Lying-Sitting on Side/Bed(QC): 6 Sit to Stand (QC): 6 Chair/Cmq-vp-Pwdca Xfer(QC): 6 Does the Patient Walk: Yes Walk 50ft with 2 Turns (QC): 4 PT Plan Treatment/Plan Treatment Plan: Discontinue PT Treatment Duration: Jun 28, 2023 Frequency: 1 time per week Safety Risks/Education Patient Education: Gait Training Teaching Methods: Demonstration Discharge Recommendations Plan Pt seen one session for assessment of mobility. Pt demonstrated the ability to move about the room without physical assist. Pt does not have a need for skilled therapy intervention. Discussed with nurse that patient needs to be allowed to walk to/from the bathroom in his room with assist from nursing for management of lines and cords. Time Time In: 0900 Time Out: 0930 DATE: Jun 28, 2023 Total Billed Treatment Time: 30 Total Billed Treatment visit, evaluation Moderate complexity 30 min MERCEDEZ KING PT Jun 28, 2023 11:02
--- NOTE | 2023-06-28 15:33 | History & Physical ---
STEPHANIE DANIELSON 06/28/23 1533: History of Present Illness History of Present Illness Reason for visit/HPI 83-year-old male brought via EMS to ED on 06/27 with chief complaint of AMS and witnessed fall. Patient reports that he didn't feel well yesterday, no specific symptoms just felt off. Patient lives with his daughter and grandchild, daughter told EMS that he has been treated for a UTI in the past and had similar symptoms then. He denies any urinary symptoms. He did not take any of his medications yesterday, BP measured by EMS found to be 193/93. While in the ED, he was found to be COVID +, UA showed bacteria, preliminary report showed Klebsiella/enterobacter, waiting on final result. He was started on cefepime in the ED, currently on Rocephin. Patient is seen this morning sitting in his chair, reports that he feels much better today, less confused. Does have some superficial scrapes on the upper right side of his face. CXR, pelvic XR and CT of the head/cervical spine/facial bones showed nothing acute. Denies any urinary symptoms today, not having any SOB, chest pain. Patient has no new complaints. Date of Admission Jun 28, 2023 at 02:53 Date Seen by a Provider: Jun 28, 2023 Time Seen by a Provider: 12:00 I consulted on this patient on 06/28/23 15:26 Attending Physician Carmina Ca DO Admitting Physician Admitting Physician: Angelia Vázquez DO Attending Physician: Angelia Vázquez DO Consult Allergies and Home Medications Allergies Coded Allergies: NKANo Known Allergies (Unverified Allergy, Unknown, 09/19/06) Patient Home Medication List Atorvastatin Calcium (Atorvastatin Calcium) 10 Mg Tablet, 10 MG PO HS, (Reported) Entered as Reported by: PAULINE LAMAS on 11/01/16 2215 Bethanechol Chloride (Bethanechol Chloride) 25 Mg Tablet, 25 MG PO BID, (Reported) Entered as Reported by: VINCENT RAMIRES on 03/14/23 1503 Cefdinir (Cefdinir) 300 Mg Capsule, 300 MG PO BID Prescribed by: ANGELIA VÁZQUEZ on 03/16/23 1040 Fluticasone/Salmeterol (Advair 250-50 Diskus) 1 Each Blst.w.dev, 1 PUFF IH BID, (Reported) Entered as Reported by: PAULINE LAMAS on 11/01/16 2215 Losartan Potassium (Losartan Potassium) 50 Mg Tablet, 50 MG PO BID, (Reported) Entered as Reported by: VINCENT RAMIRES on 03/14/23 1457 Melatonin (Melatonin) 3 Mg Tablet, 3 MG PO HS, (Reported) Entered as Reported by: PETE ROCKWELL on 01/10/19 0953 Metformin HCl (Metformin HCl ER) 500 Mg Tab.er.24h, 500 MG PO BID, (Reported) Entered as Reported by: VINCENT RAMIRES on 03/14/23 1457 Mirabegron (Myrbetriq) 25 Mg Tab.er.24h, 25 MG PO HS, (Reported) Entered as Reported by: VINCENT RAMIRES on 03/14/23 1457 Omeprazole (Omeprazole) 20 Mg Capsule.dr, 20 MG PO DAILY, (Reported) Entered as Reported by: PETE ROCKWELL on 06/06/19 1327 Rivaroxaban (Xarelto) 20 Mg Tablet, 20 MG PO HS, (Reported) Entered as Reported by: VINCENT RAMIRES on 03/14/23 1457 Sertraline HCl (Sertraline HCl) 100 Mg Tablet, 100 MG PO BID, (Reported) Entered as Reported by: SONIA REN on 06/12/18 1201 Past Jsjlbwy-Hznugm-Euofuy Hx Patient Social History Tobacco Use?: Yes Tobacco type used: Cigarettes Smoking Status: Former Smoker Smokeless Tobacco Frequency: Never a User Use of E-Cig and/or Vaping dev: No Substance use?: No Alcohol Use?: No Pt feels they are or have been: No Immunizations Up To Date Date of Influenza Vaccine: Jul 25, 2016 Tetanus Booster (TDap): Unknown Hepatitis A: No Hepatitis B: No PED Vaccines UTD: No Date of Pneumonia Vaccine: Aug 15, 2011 Seasonal Allergies Seasonal Allergies: No Current Status Advance Directives: Unable to obtain Communicates: Verbally Primary Language: Bengali Preferred Spoken Language: Bengali Is interpretation needed?: No Implanted or Applied Medical D: Orthopedic hardware Past Medical History Surgeries: Appendectomy, Joint Replacement, Orthopedic Asthma, COPD Hypertension, Hypotension Dementia, Vertigo Sexually Transmitted Disease: No HIV/AIDS: No Renal Failure Gastroesophageal Reflux Arthritis Diabetes, Non-Insulin dep Cataract Loss of Vision: Denies Hearing Impairment: Denies Depression Blood Disorders: No Adverse Reaction/Blood Tranf: No Family Medical History Alcoholism 09 SISTER Family history: Asthma 09 SISTER Family history: Cardiovascular disease 03 FATHER Family history: Diabetes mellitus 03 MOTHER 09 SISTER Heart disease 03 FATHER Myocardial infarction 03 FATHER Stroke 03 FATHER No Family History of: Abdominal aortic aneurysm Mower's disease Aphasia Cancer Cancer of colon Cataract Chest pain Congenital heart disease Congestive heart failure Cystic fibrosis Dementia Dysphagia Family history: Allergy Family history: Alzheimer's disease Family history: Arthritis Family history: Breast disease Family history: Gastrointestinal disease Family history: Glaucoma Family history: Hypertension Family history: Osteoporosis Family history: Thyroid disorder Headache Hearing loss History of - anemia History of - disorder History of - respiratory disease History of drug abuse Human immunodeficiency virus (HIV) seropositivity Hypercholesterolemia Infertile Kidney disease Malignant neoplasm of lung Parkinson's disease Prostate cancer Psychotic disorder Seizure disorder Tuberculosis Visual impairment Review of Systems Constitutional: No chills, No fever EENTM: No hearing loss, No blurred vision Respiratory: No cough, No dyspnea on exertion, No short of breath Cardiovascular: No chest pain, No palpitations Gastrointestinal: No nausea, No vomiting Genitourinary: No dysuria, No hematuria Musculoskeletal: No back pain, No neck pain Skin: No change in color, No change in hair/nails Psychiatric/Neurological: Denies Numbness, Denies Weakness Physical Exam Vital Signs Vital Signs - First Documented 06/27/23 06/28/23 06/28/23 20:00 04:00 05:00 Temp 36.8 Pulse 88 Resp 16 B/P (MAP) 169/102 (124) Pulse Ox 94 O2 Delivery Room Air Capillary Refill : Less Than 3 Seconds Height, Weight, BMI Height: 6'0.00" Weight: 240lbs. 0.0oz. [id number]; 28.01 BMI Method:Stated General Appearance: No Apparent Distress, WD/WN HEENT: PERRL/EOMI Neck: Non Tender, Supple Respiratory: Chest Non Tender, Lungs Clear, No Accessory Muscle Use, No Respiratory Distress Cardiovascular: No Edema, Normal Peripheral Pulses, Other (afib, rate controlled) Gastrointestinal: Non Tender, Soft Rectal: Deferred Back: No Vertebral Tenderness Extremity: Normal Capillary Refill, Non Tender, No Pedal Edema Neurologic/Psychiatric: Alert, Oriented x3 Skin: Normal Color, Warm/Dry Lymphatic: No Adenopathy Assessment/Plan Assessment and Plan AMS: improved today, continue to monitor UTI: Continue Rocephin 1g Minor head injury without loss of consciousness: imaging negative, reports not painful COVID: no SOB, fluticasone daily, albuterol PRN Afib: continue plavix COPD: fluticasone daily albuterol PRN, supplemental O2 if needed HTN: systolic BPs in 130s/140s mostly, restart home meds, clonidine PRN Kef-fmklxdc-geuelalwn DM: glucose has been controlled so far during stay, SSI GERD: takes omeprazole 20mg at home, currently no symptoms Lovenox for DVT prophylaxis Admission Diagnosis AMS, UTI Admission Status: Observation ANGELIA VÁZQUEZ DO 06/28/23 2013: History of Present Illness History of Present Illness Reason for visit/HPI Chief complaint: Altered mental status due to COVID HPI: This is an 83-year-old male clinic patient of Dr. Ca who presents to the ER with confusion found to have UTI and COVID-pneumonia. Currently he is doing much better and more alert. Allergies and Home Medications Allergies Coded Allergies: Ray Known Allergies (Unverified Allergy, Unknown, 09/19/06) Patient Home Medication List Home Medication List Reviewed: Yes Atorvastatin Calcium (Atorvastatin Calcium) 10 Mg Tablet, 10 MG PO HS, (Reported) Entered as Reported by: PAULINE LAMAS on 11/01/16 2215 Bethanechol Chloride (Bethanechol Chloride) 25 Mg Tablet, 25 MG PO BID, (Reported) Entered as Reported by: VINCENT RAMIRES on 03/14/23 1503 Cefdinir (Cefdinir) 300 Mg Capsule, 300 MG PO BID Prescribed by: ANGELIA VÁZQUEZ on 03/16/23 1040 Fluticasone/Salmeterol (Advair 250-50 Diskus) 1 Each Blst.w.dev, 1 PUFF IH BID, (Reported) Entered as Reported by: PAULINE LAMAS on 11/01/16 2215 Losartan Potassium (Losartan Potassium) 50 Mg Tablet, 50 MG PO BID, (Reported) Entered as Reported by: VINCENT RAMIRES on 03/14/23 1457 Melatonin (Melatonin) 3 Mg Tablet, 3 MG PO HS, (Reported) Entered as Reported by: PETE ROCKWELL on 01/10/19 0953 Metformin HCl (Metformin HCl ER) 500 Mg Tab.er.24h, 500 MG PO BID, (Reported) Entered as Reported by: VINCENT RAMIRES on 03/14/23 1457 Mirabegron (Myrbetriq) 25 Mg Tab.er.24h, 25 MG PO HS, (Reported) Entered as Reported by: VINCENT RAMIRES on 03/14/23 1457 Omeprazole (Omeprazole) 20 Mg Capsule.dr, 20 MG PO DAILY, (Reported) Entered as Reported by: PETE ROCKWELL on 06/06/19 1327 Rivaroxaban (Xarelto) 20 Mg Tablet, 20 MG PO HS, (Reported) Entered as Reported by: VINCENT RAMIRES on 03/14/23 1457 Sertraline HCl (Sertraline HCl) 100 Mg Tablet, 100 MG PO BID, (Reported) Entered as Reported by: SONIA REN on 06/12/18 1201 Past Ghjcbrs-Fshhho-Xlwnqq Hx Patient Social History Marrital Status: single Employed/Student: retired Smoking Status: Former Smoker Past Medical History High Cholesterol, Hypertension Bladder Infection Family Medical History Alcoholism 09 SISTER Family history: Asthma 09 SISTER Family history: Cardiovascular disease 03 FATHER Family history: Diabetes mellitus 03 MOTHER 09 SISTER Heart disease 03 FATHER Myocardial infarction 03 FATHER Stroke 03 FATHER No Family History of: Abdominal aortic aneurysm Mower's disease Aphasia Cancer Cancer of colon Cataract Chest pain Congenital heart disease Congestive heart failure Cystic fibrosis Dementia Dysphagia Family history: Allergy Family history: Alzheimer's disease Family history: Arthritis Family history: Breast disease Family history: Gastrointestinal disease Family history: Glaucoma Family history: Hypertension Family history: Osteoporosis Family history: Thyroid disorder Headache Hearing loss History of - anemia History of - disorder History of - respiratory disease History of drug abuse Human immunodeficiency virus (HIV) seropositivity Hypercholesterolemia Infertile Kidney disease Malignant neoplasm of lung Parkinson's disease Prostate cancer Psychotic disorder Seizure disorder Tuberculosis Visual impairment Review of Systems Constitutional: see HPI, dizziness Physical Exam General Appearance: No Apparent Distress, WD/WN, Chronically ill Respiratory: Lungs Clear, Normal Breath Sounds Cardiovascular: Regular Rate, Rhythm Assessment/Plan Assessment and Plan Assessment: Confusion COVID infection A-fib COPD Hypertension Plan: Supportive care Monitor closely Admission Diagnosis Admission Status: Inpatient Order (span 2 midnights) Reason for Inpatient Admission: COVID and AMS Supervisory-Addendum Brief Verification & Attestation Participated in pt care: history, MDM, physical Personally performed: exam, history, MDM, supervision of care Care discussed with: Medical Student Procedures: n/a Results interpretation: Verified all documentation Verification and Attestation of Medical Student E/M Service A medical student performed and documented this service in my presence. I reviewed and verified all information documented by the medical student and made modifications to such information, when appropriate. I personally performed the physical exam and medical decision making. Angelia Vázquez, Jun 28, 2023,20:13 STEPHANIE DANIELSON Jun 28, 2023 15:33 ANGELIA VÁZQUEZ DO Jun 28, 2023 20:13
[2023-06-29] VITALS: BP 122/69
[2023-06-29 04:00] VITALS: BP 122/69
[2023-06-29 05:35] VITALS: BP 144/69
[2023-06-29] MEDS: cefTRIAXone IV/IM 1,000 MG in NS (IVPB) 50 ML 50 ML IV SCH (05:39)
[2023-06-29 06:16] LABS: EOSINOPHILS # (AUTO) 0.1 10^3/uL (0.0-0.3); EOSINOPHILS % (AUTO) 1 % (0-10); HEMOGLOBIN 13.7 g/dL (13.3-17.7); MEAN CORPUSCULAR VOLUME 85 fL (80-99)
[2023-06-29 06:19] LABS: BASOPHILS % (AUTO) 1 % (0-10); HEMATOCRIT 41 % (40-54); LYMPHOCYTES # (AUTO) 0.7 10^3/uL (1.0-4.0); LYMPHOCYTES % (AUTO) 15 % (12-44); MEAN CORPUSCULAR HEMOGLOBIN 29 pg (25-34); MEAN CORPUSCULAR HGB CONC 34 g/dL (32-36); MONOCYTES # (AUTO) 0.4 10^3/uL (0.0-1.0); MONOCYTES % (AUTO) 9 % (0-12); NEUTROPHILS # (AUTO) 3.7 10^3/uL (1.8-7.8); NEUTROPHILS % (AUTO) 74 % (42-75); PLATELET COUNT 140 10^3/uL (130-400)
[2023-06-29 06:28] LABS: ALBUMIN 3.7 GM/DL (3.2-4.5); BILIRUBIN,TOTAL 0.5 MG/DL (0.1-1.0); CALCIUM 8.5 MG/DL (8.5-10.1); CREATININE SERUM 1.03 MG/DL (0.60-1.30); POTASSIUM 3.8 MMOL/L (3.6-5.0); TOTAL PROTEIN 6.6 GM/DL (6.4-8.2)
[2023-06-29 08:06] VITALS: BP 149/89
[2023-06-29] MEDS: DOCUSATE SODIUM 100 MG CAPSULE PO SCH (09:04)
[2023-06-29] MEDS: SENNOSIDES 8.6 MG TABLET PO SCH (09:05)
[2023-06-29 12:00] VITALS: BP 134/75
[2023-06-29] MEDS ORDERED: CEFD300C3 PO (12:44)
[2023-06-29] MEDS ORDERED: BETH25TA2 PO (12:44)
--- NOTE | 2023-06-29 12:44 | Discharge Summary ---
Diagnosis/Chief Complaint Date of Admission Jun 28, 2023 at 02:53 Date of Discharge Discharge Date: Jun 29, 2023 Discharge Diagnosis Assessment: Confusion COVID infection A-fib COPD Hypertension Reason Hospital Visit Chief complaint: Altered mental status due to COVID HPI: This is an 83-year-old male clinic patient of Dr. Ca who presents to the ER with confusion found to have UTI and COVID-pneumonia. Currently he is doing much better and more alert. Discharge Summary Discharge Physical Examination Allergies: Coded Allergies: URIELANo Known Allergies (Unverified Allergy, Unknown, 09/19/06) Vitals & I&Os Vital Signs Date Time Temp Pulse Resp B/P (MAP) Pulse Ox O2 Delivery O2 Flow Rate FiO2 06/29/23 17:09 37.3 89 19 134/75 94 Room Air Hospital Course Was the Problem List Reviewed?: Yes 83-year-old male was brought to the ED via EMS on 06/27 with chief complaint of AMS following a witnessed fall. Patient reported that he felt off the day of admission, non-specific symptoms. He lives with his daughter who told EMS that he had similar symptoms in the past when he had a UTI. UA showed bacteria, preliminary culture revealed klebsiella/enterobacter. He was started on cefepime in the ED, switched to Rocephin while admitted. While in the ED, he was found to be COVID positive, did not have any respiratory symptoms throughout his stay and maintained good O2 sats. CXR, pelvic X-ray, and CT of the head/cervical sp ine/facial bones showed nothing acute resulting from the fall. His mental status improved throughout his stay, appears to be back at his baseline. He was evaluated by PT who determined that there was no need for skilled therapy at this time. Patient is being discharged today with cefdinir, instructed to follow up with his PCP. Labs (last 24 hrs) Laboratory Tests 06/27/23 20:28: White Blood Count 6.4, Red Blood Count 4.74, Hemoglobin 13.7, Hematocrit 41, Mean Corpuscular Volume 85, Mean Corpuscular Hemoglobin 29, Mean Corpuscular Hemoglobin Concent 34, Red Cell Distribution Width 13.1, Platelet Count 154, Mean Platelet Volume 9.7, Immature Granulocyte % (Auto) 1, Neutrophils (%) (Auto) 78H, Lymphocytes (%) (Auto) 9L, Monocytes (%) (Auto) 7, Eosinophils (%) (Auto) 4, Basophils (%) (Auto) 1, Neutrophils # (Auto) 5.0, Lymphocytes # (Auto) 0.6L, Monocytes # (Auto) 0.4, Eosinophils # (Auto) 0.3, Basophils # (Auto) 0.0, Immature Granulocyte # (Auto) 0.1, Erythrocyte Sedimentation Rate 11, Prothrombin Time 14.2, INR Comment 1.1, Activated Partial Thromboplast Time 32, D-Dimer 0.39, Sodium Level 135, Potassium Level 3.8, Chloride Level 103, Carbon Dioxide Level 22, Anion Gap 10, Blood Urea Nitrogen 14, Creatinine 0.99, Estimat Glomerular Filtration Rate 76, BUN/Creatinine Ratio 14, Glucose Level 100, Lactic Acid Level 0.74, Calcium Level 8.9, Corrected Calcium 8.9, Magnesium Level 1.9, Total Bilirubin 0.7, Aspartate Amino Transf (AST/SGOT) 16, Alanine Aminotransferase (ALT/SGPT) 15, Alkaline Phosphatase 59, Total Creatine Kinase 35, Creatine Kinase MB 0.6, Myoglobin 47.7, Troponin I < 0.028, C-Reactive Protein High Sensitivity 1.79H, Total Protein 7.0, Albumin 4.0, Amylase Level 48, Lipase 16, TSH [place] Testing 1.09, Serum Alcohol < 10, Influenza Type A (RT-PCR) Not Detected, Influenza Type B (RT-PCR) Not Detected, SARS-CoV-2 RNA (RT-PCR) DetectedH 06/27/23 21:39: Urine Color YELLOW, Urine Clarity SL CLOUDY, Urine pH 5.5, Urine Specific [place] 1.010L, Urine Protein NEGATIVE, Urine Glucose (UA) NEGATIVE, Urine Ketones NEGATIVE, Urine Nitrite POSITIVEH, Urine Bilirubin NEGATIVE, Urine Urobilinogen 0.2, Urine Leukocyte Esterase TRACEH, Urine RBC (Auto) 1+H, Urine RBC 0-2, Urine WBC 2-5, Urine Crystals NONE, Urine Bacteria MODERATEH, Urine Casts NONE, Urine Mucus NEGATIVE, Urine Culture Indicated YES 06/28/23 06:26: Glucometer 103 06/28/23 11:02: Glucometer 106 06/29/23 05:31: White Blood Count 5.0, Red Blood Count 4.81, Hemoglobin 13.7, Hematocrit 41, Mean Corpuscular Volume 85, Mean Corpuscular Hemoglobin 29, Mean Corpuscular Hemoglobin Concent 34, Red Cell Distribution Width 13.0, Platelet Count 140, Mean Platelet Volume 10.0, Immature Granulocyte % (Auto) 1, Neutrophils (%) (Auto) 74, Lymphocytes (%) (Auto) 15, Monocytes (%) (Auto) 9, Eosinophils (%) (Auto) 1, Basophils (%) (Auto) 1, Neutrophils # (Auto) 3.7, Lymphocytes # (Auto) 0.7L, Monocytes # (Auto) 0.4, Eosinophils # (Auto) 0.1, Basophils # (Auto) 0.0, Immature Granulocyte # (Auto) 0.1, Percent Immature Platelet Fraction 2.8, Sodium Level 133L, Potassium Level 3.8, Chloride Level 103, Carbon Dioxide Level 21, Anion Gap 9, Blood Urea Nitrogen 16, Creatinine 1.03, Estimat Glomerular Filtration Rate 72, BUN/Creatinine Ratio 16, Glucose Level 107H, Calcium Level 8.5, Corrected Calcium 8.7, Total Bilirubin 0.5, Aspartate Amino Transf (AST/SGOT) 22, Alanine Aminotransferase (ALT/SGPT) 17, Alkaline Phosphatase 54, Total Protein 6.6, Albumin 3.7 Microbiology 06/27/23 Blood Culture - Preliminary, Resulted No growth 06/27/23 Urine Culture - Final, Complete Enterobacter cloacae complex Pending Labs Microbiology Date/Time Source Procedure Growth Status 06/27/23 22:00 Peripheral Rt Ac Blood Culture - Preliminary No growth Resulted 06/27/23 21:39 Urine Clean Catch Urine Culture - Final Enterobacter cloacae complex Complete 06/27/23 20:30 Peripheral Rt Ac Blood Culture - Preliminary No growth Resulted Laboratory Tests 06/27/23 20:28: White Blood Count 6.4, Red Blood Count 4.74, Hemoglobin 13.7, Hematocrit 41, Violeta n Corpuscular Volume 85, Mean Corpuscular Hemoglobin 29, Mean Corpuscular Hemoglobin Concent 34, Red Cell Distribution Width 13.1, Platelet Count 154, Mean Platelet Volume 9.7, Immature Granulocyte % (Auto) 1, Neutrophils (%) (Auto) 78, Lymphocytes (%) (Auto) 9, Monocytes (%) (Auto) 7, Eosinophils (%) (Auto) 4, Basophils (%) (Auto) 1, Neutrophils # (Auto) 5.0, Lymphocytes # (Auto) 0.6, Monocytes # (Auto) 0.4, Eosinophils # (Auto) 0.3, Basophils # (Auto) 0.0, Immature Granulocyte # (Auto) 0.1, Erythrocyte Sedimentation Rate 11, Prothrombin Time 14.2, INR Comment 1.1, Activated Partial Thromboplast Time 32, D-Dimer 0.39, Sodium Level 135, Potassium Level 3.8, Chloride Level 103, Carbon Dioxide Level 22, Anion Gap 10, Blood Urea Nitrogen 14, Creatinine 0.99, Estimat Glomerular Filtration Rate 76, BUN/Creatinine Ratio 14, Glucose Level 100, Lactic Acid Level 0.74, Calcium Level 8.9, Corrected Calcium 8.9, Magnesium Level 1.9, Total Bilirubin 0.7, Aspartate Amino Transf (AST/SGOT) 16, Alanine Aminotransferase (ALT/SGPT) 15, Alkaline Phosphatase 59, Total Creatine Kinase 35, Creatine Kinase MB 0.6, Myoglobin 47.7, Troponin I < 0.028, C-Reactive Protein High Sensitivity 1.79, Total Protein 7.0, Albumin 4.0, Amylase Level 48, Lipase 16, TSH [place] Testing 1.09, Serum Alcohol < 10, Influenza Type A (RT- PCR) Not Detected, Influenza Type B (RT-PCR) Not Detected, SARS-CoV-2 RNA (RT- PCR) Detected 06/27/23 21:39: Urine Color YELLOW, Urine Clarity SL CLOUDY, Urine pH 5.5, Urine Specific [place] 1.010, Urine Protein NEGATIVE, Urine Glucose (UA) NEGATIVE, Urine Ketones NEGATIVE, Urine Nitrite POSITIVE, Urine Bilirubin NEGATIVE, Urine Urobilinogen 0.2, Urine Leukocyte Esterase TRACE, Urine RBC (Auto) 1+, Urine RBC 0-2, Urine WBC 2-5, Urine Crystals NONE, Urine Bacteria MODERATE, Urine Casts NONE, Urine Mucus NEGATIVE, Urine Culture Indicated YES 06/28/23 06:26: Glucometer 103 06/28/23 11:02: Glucometer 106 06/29/23 05:31: White Blood Count 5.0, Red Blood Count 4.81, Hemoglobin 13.7, Hematocrit 41, Mean Corpuscular Volume 85, Mean Corpuscular Hemoglobin 29, Mean Corpuscular Hemoglobin Concent 34, Red Cell Distribution Width 13.0, Platelet Count 140, Mean Platelet Volume 10.0, Immature Granulocyte % (Auto) 1, Neutrophils (%) (Auto) 74, Lymphocytes (%) (Auto) 15, Monocytes (%) (Auto) 9, Eosinophils (%) (Auto) 1, Basophils (%) (Auto) 1, Neutrophils # (Auto) 3.7, Lymphocytes # (Auto) 0.7, Monocytes # (Auto) 0.4, Eosinophils # (Auto) 0.1, Basophils # (Auto) 0.0, Immature Granulocyte # (Auto) 0.1, Percent Immature Platelet Fraction 2.8, Sodium Level 133, Potassium Level 3.8, Chloride Level 103, Carbon Dioxide Level 21, Anion Gap 9, Blood Urea Nitrogen 16, Creatinine 1.03, Estimat Glomerular Filtration Rate 72, BUN/Creatinine Ratio 16, Glucose Level 107, Calcium Level 8.5, Corrected Calcium 8.7, Total Bilirubin 0.5, Aspartate Amino Transf (AST/SGOT) 22, Alanine Aminotransferase (ALT/SGPT) 17, Alkaline Phosphatase 54, Total Protein 6.6, Albumin 3.7 Discharge Home Medications: Active Scripts Active Cefdinir 300 Mg Capsule 300 Mg PO BID Bethanechol Chloride 25 Mg Tablet 25 Mg PO BID Reported Losartan Potassium 50 Mg Tablet 50 Mg PO BID Metformin HCl ER (Metformin HCl) 500 Mg Tab.er.24h 500 Mg PO BID Xarelto (Rivaroxaban) 20 Mg Tablet 20 Mg PO HS Myrbetriq (Mirabegron) 25 Mg Tab.er.24h 25 Mg PO HS Omeprazole 20 Mg Capsule.dr 20 Mg PO DAILY Melatonin 3 Mg Tablet 3 Mg PO HS Sertraline HCl 100 Mg Tablet 100 Mg PO BID Atorvastatin Calcium 10 Mg Tablet 10 Mg PO HS Advair 250-50 Diskus (Fluticasone/Salmeterol) 1 Each Blst.w.dev 1 Puff IH BID Instructions to patient/family Please see electronic discharge instructions given to patient. ANA VÁZQUEZ DO Jun 29, 2023 12:44
--- NOTE | 2023-06-29 13:24 | Progress Note ---
STEPHANIE DANIELSON 06/29/23 1324: Progress Note 83-year-old male was brought to the ED via EMS on 06/27 with chief complaint of AMS following a witnessed fall. Patient reported that he felt off the day of admission, non-specific symptoms. He lives with his daughter who told EMS that he had similar symptoms in the past when he had a UTI. UA showed bacteria, pre liminary culture revealed klebsiella/enterobacter. He was started on cefepime in the ED, switched to Rocephin while admitted. While in the ED, he was found to be COVID positive, did not have any respiratory symptoms throughout his stay and maintained good O2 sats. CXR, pelvic X-ray, and CT of the head/cervical spine/facial bones showed nothing acute resulting from the fall. His mental status improved throughout his stay, appears to be back at his baseline. He was evaluated by PT who determined that there was no need for skilled therapy at this time. Patient is being discharged today with cefdinir, instructed to follow up with his PCP. ANGELIA ARCHULETA DO 06/30/23 0447: Supervisory-Addendum Brief Verification & Attestation Participated in pt care: history, MDM, physical Personally performed: exam, history, MDM, supervision of care Care discussed with: Medical Student Procedures: n/a Results interpretation: Verified all documentation Verification and Attestation of Medical Student E/M Service A medical student performed and documented this service in my presence. I reviewed and verified all information documented by the medical student and made modifications to such information, when appropriate. I personally performed the physical exam and medical decision making. Angelia Archuleta Jun 30, 2023,04:47 SETPHANIE DANIELSON Jun 29, 2023 13:24 ANGELIA ARCHULETA DO Jun 30, 2023 04:47
[2023-06-29 17:09] VITALS: BP 134/75
[2023-06-29] MEDS ORDERED: RIVAROXABAN 20 MG TABLET PO SCH (21:00)
== END 2023-06-29 17:11 | disposition home or self-care (01) | DRG 177 ==
LOC: EDUNIT# 19:33 → ER 19:34 → CSD 06-28 02:53 → 4TH 06-28 15:04
PROVIDERS: ADMIT Internal Medicine; ATTEND Internal Medicine
PROC: 8E0ZXY6 Isolation (ICD-10-PCS; principal; 2023-06-28)
DX: U07.1 COVID-19 (principal); J12.82 Pneumonia due to coronavirus disease 2019; N39.0 Urinary tract infection, site not specified; J44.0 Chronic obstructive pulmonary disease with (acute) lower respiratory infection; Z96.653 Presence of artificial knee joint, bilateral; I10 Essential (primary) hypertension; Z66 Do not resuscitate; F03.90 Unspecified dementia, unspecified severity, without behavioral disturbance, psychotic disturbance, mood disturbance, and anxiety; K21.9 Gastro-esophageal reflux disease without esophagitis; E11.9 Type 2 diabetes mellitus without complications; F32.A Depression, unspecified; Z20.822 Contact with and (suspected) exposure to COVID-19; I48.91 Unspecified atrial fibrillation; Z87.891 Personal history of nicotine dependence; Z79.84 Long term (current) use of oral hypoglycemic drugs; Z79.899 Other long term (current) drug therapy
CPT/HCPCS: 36415; 51702; 70450; 70486; 71045; 72125; 72170; 80053; 80320; 81000; 82150; 82550; 82553; 82947; 83605; 83690; 83735; 83874; 84443; 84484; 85025; 85379; 85610; 85652; 85730; 86141; 87040; 87077; 87088; 87186; 87636; 93005; 93041